=== PATIENT | female | born 1970 | race African-American/Black ===

== ENCOUNTER 2016-05-11 05:38 | Inpatient (IN) ==
--- NOTE | 2016-05-11 06:15 | Emergency Department Note ---
IDee Dee Emily, am scribing for, and in the presence of, Luis Crawford MD 06: 07. Ty Porter Robert M, MD, personally performed the services described in this documentation, ascribed by Darcy Funez in my presence, and it is both accurate and complete 615 . Arrival - Arrival ED Nursing Triage Note: Pt tx from [facility] with c/o weakness, NSTEMI, UTI. Elevated trop 0.147, bnp 759, WBC 13. Positive for strep. Pt rec'd 325 ASA , LOVENOX 150. PMH HTN Mode of Arrival: Stretcher Limitations: No Limitations Source: Patient - History of Present Illness Onset (ago): hour(s) Consistency: constant Severity: mild Severity scale (1-10): 3 Quality: other (weakness) <Luis Crawford - Last Filed: 05/11/16 06:15> <Bacilio Garcia - Last Filed: 05/11/16 07:30> - Arrival Chief Complaint: Weakness - History of Present Illness HPI Narrative: Pt is a 45 y/o female who was transferred from [facility] to ED for further evaluation of elevated trop 0.147, BNP 759 and WBC 13 earlier today, along with strep test positive. Pt c/o weakness and mild swelling in lower extremities but denies chest pain, SOB, or any other pains. Pt was treated for strep at [facility]. PMHx HTN. Pt reports she can still walk. (Darcy Funez) Pt is a 45 y/o female who was transferred from [facility] to ED for further evaluation of elevated trop 0.147, BNP 759 and WBC 13 earlier today, along with strep test positive. Pt c/o weakness and mild swelling in lower extremities but denies chest pain, SOB, or any other pains. Pt was treated for strep at [facility]. PMHx HTN. Pt reports she can still walk. (Luis Crawford) Review of System - Review of System 12 point system: reviewed and no additional remarkable complaints except as stated - Review of System Constitutional: Present: weakness. Absent: chills, fever Respiratory: Absent: respiratory distress Cardiovascular: Absent: chest pain, syncope Gastrointestinal: Absent: abdominal pain, nausea, vomiting Musculoskeletal: Absent: arm pain, back pain, leg pain, neck pain Skin: Absent: rash Neurological: Absent: headache <Luis Crawford - Last Filed: 05/11/16 06:15> Medical,Surgical,& Family Hx - Medical History Cardio: History of: Hypertension - Social History Smoking Status: Unknown if ever smoked Frequency of Alcohol Use: Unknown Type of Drug Use: Unknown <Luis Crawford - Last Filed: 05/11/16 06:15> Exam - General General appearance: alert, in no apparent distress, obese (morbidly) - Head Head exam: Present: atraumatic, normocephalic - Eye Eye exam: Present: PERRL, EOMI - ENT ENT exam: Present: mucous membranes moist. Absent: mucous membranes dry - Neck Neck exam: Present: full ROM. Absent: tenderness - Chest Chest inspection: Present: symmetric chest wall rise. Absent: tenderness - Respiratory Respiratory exam: Present: normal lung sounds bilaterally. Absent: respiratory distress - Cardiovascular Cardiovascular exam: Present: murmur (2 out of 6 diastolic over the mitral valve ) - Abdominal Exam Abdominal exam: Present: soft. Absent: distention, tenderness - Extremities Exam Extremities exam: Present: full ROM. Absent: tenderness, pedal edema - Neurological Exam Neurological exam: Present: alert, oriented X3, CN II-XII intact. Absent: motor sensory deficit - Psychiatric Psychiatric exam: Present: normal affect, normal mood - Skin Skin exam: Present: warm, dry <Luis Crawford - Last Filed: 05/11/16 06:15> Vital Signs: Vital Signs Temperature 97.1 F L 05/11/16 05:45 Pulse Rate 105 H 05/11/16 05:45 Respiratory Rate 24 05/11/16 05:45 Blood Pressure 151/79 05/11/16 05:45 O2 Sat by Pulse Oximetry 90 L 05/11/16 05:45 Course <TyLuis Smiley - Last Filed: 05/11/16 06:15> - Consultations Time: 07:30 <Bacilio Garcia - Last Filed: 05/11/16 07:30> - Consultations Consultation #1: Discussed with hospitalist. Patient will be seen in the emergency department. ( Bcailio Garcia) Results <Luis Crawford - Last Filed: 05/11/16 06:15> - Labs Lab Results: I have reviewed the patients labs - EKG EKG results: interpreted by ERMD <Bacilio Garcia - Last Filed: 05/11/16 07:30> - Labs Labs: Laboratory Tests 05/11/16 06:14 Troponin I 0.154 H (Bacilio Garcia) - Impressions Sinus tachycardia with a rate of 100, left atrial enlargement, right axis deviation, nonspecific ST-T wave changes. (Bacilio Garcia) Disposition <Luis Crawford - Last Filed: 05/11/16 06:15> Case discussed with: patient Time of Disposition: 07:30 <Bacilio Garcia - Last Filed: 05/11/16 07:30> Clinical Impression: Elevated troponin, Morbid obesity Disposition: Still a Patient Condition: Stable
[2016-05-11 07:15] LABS: Troponin I Only 0.154 NG/ML (0.00-0.045)
[2016-05-11 08:57] LABS: Free T4 (Free Thyroxine) 1.29 NG/DL (0.76-1.46); Magnesium 2.6 MG/DL (1.8-2.4); Phosphorous 3.8 MG/DL (2.5-4.9); T4 (Thyroxine) 7.8 UG/DL (4.7-13.3); Thyroid Stimulating Hormone 5.29 uIU/ml (0.358-3.74)
--- NOTE | 2016-05-11 08:58 | CT Report ---
History is dyspnea and chest pain Axial images obtained with 2-D multiplanar reconstruction images also stored and interpreted 100 cc Omnipaque 350 utilized This study is nondiagnostic for pulmonary emboli. There is a large amount of streak artifact and poor [id number]-pk-pctai ratio related to body habitus with loss of the contrast bolus and motion artifact also limiting visualization. Relative low density at the lower lobe branches is most likely artifactual however significant pulmonary emboli could easily be obscured. No central emboli are identified. The cardiac silhouette is moderate to severely enlarged. No enlarged mediastinal or hilar nodes seen. Nonspecific up to 1.2 cm axillary nodes present. No significant pleural effusions present There is ascites in the visualized upper abdomen. Minimal patchy opacities at the left lung base most likely atelectasis. There may be some minimal groundglass seen interstitial opacities bilaterally. Impression: 1. The study is nondiagnostic for pulmonary embolus 2. Moderate to severe cardiomegaly 3. Question of mild diffuse pulmonary edema 4. Ascites 5. Minimal parenchymal opacities in left lung base most likely atelectasis The CT exam was performed using one or more of the following dose reduction techniques: Automated exposure control, adjustment of the mA and/or kV according to patient size, or use of iterative reconstruction technique. PROCEDURE INTERPRETED AT [facility] DEPARTMENT OF RADIOLOGY Final Report Signed by: Dr. Florence Juarez
--- NOTE | 2016-05-11 09:09 | Ultrasound Report ---
History is weakness and chest pain Grayscale, spectral Doppler, and color flow analysis performed and interpreted Visualization is mildly limited due to by patient condition There is a minimal amount of the soft plaque in the proximal internal carotid arteries Maximum systolic velocities are 85 in the right and 120 on the left Peak systolic ratios of 0.8 on the right and 1.8 on the left There is antegrade flow in both vertebral arteries Impression: Minimal amount of plaque with less than 50% diameter stenoses bilaterally by NASCET criteria PROCEDURE INTERPRETED AT [facility] DEPARTMENT OF RADIOLOGY Final Report Signed by: Dr. Florence Juarez
[2016-05-11 09:33] LABS: Hemoglobin 11.1 GM/DL (12.0-16.0); Mean Corpuscular Hemoglobin 20 PG (27-34); Red Blood Count 5.53 MC/CUMM (3.8-5.5)
[2016-05-11] MEDS ORDERED: POTASSIUM CHLORIDE 20 MEQ TABLET PO PRN ×2 (09:35)
[2016-05-11] MEDS ORDERED: MAGNESIUM SULF RIDER 4 GM in PREMIX 1 EACH IV PRN (09:35)
[2016-05-11] MEDS ORDERED: MAGNESIUM SULF RIDER 2 GM in PREMIX 1 EACH IV PRN (09:35)
--- NOTE | 2016-05-11 09:37 | EKG Report ---
Stationary ECG Study [facility] ER Test Date: 05/11/2016 5:47:03 AM Pat Name: COLTON ENG Department: Room: 117 Gender: F Photo Retoucher: : 1970 Requested by: Bacilio Melo Order Number: [id number] Reading MD: DIANNE ALEJO Intervals [place] Rate: 100 P: 40 TX: 207 QRS: 101 QRSD: 82 T: -11 QT: 374 QTc: 431 Interpretive Statements SINUS TACHYCARDIA LEFT ATRIAL ABNORMALITY RIGHT AXIS DEVIATION LOW VOLTAGE TRACING Electronically Signed On 05-12-16 17:21:37 CDT by DIANNE ALEJO [email or web address]
[2016-05-11 09:38] LABS: Basophils # 0.1 10*3/uL (0.0-0.2); Basophils % 0.4 % (0.0-0.8); Eosinophils # 0.1 10*3/uL (0.0-0.87); Eosinophils % 0.6 % (0.00-10.9); Hematocrit 40.2 VOL% (35.7-47.0); Immature Granulocytes % 0.5 %; Immature Granulocytes Absolute 0.06 #; Lymphocytes # 0.9 10*3/uL (1.4-4.0); Lymphocytes % 6.9 % (21.3-54.2); Mean Corpuscular HGB Conc 27.6 GM/DL (32-36); Mean Corpuscular Volume 72.7 FL (87-102); Mean Platelet Volume 9.1 FL (9.6-12.0); Monocytes # 1.2 10*3/uL (0.11-0.8); Monocytes % 9.4 % (1.7-12.7); Neutrophils # 10.3 10*3/uL (1.4-7.4); Neutrophils % 82.2 % (38.7-73.9); Platelet Count 468 T/CUMM (130-400); Red Cell Distribution Width 20.3 % (9.3-17.3); White Blood Count 12.6 T/CUMM (4-12)
--- NOTE | 2016-05-11 09:46 | Hospitalist History & Physical ---
Assessment and Plan (1) Elevated troponin Status: Acute Assessment and plan: We will admit to r/o [place]. We will perform a complete cardiology work-up. Will obtain serial troponin's x3. Will also obatin CTA of chest to r/o pulmonary embolism. Will obtain CBC, CMP, MG, PHOS, Thyroid and lipid panel, and HGA1C in AM. Will obtain CXR in AM. Current Visit: Yes (2) Strep throat Status: Acute Assessment and plan: We will start Clindamycin 600 mg IV every 6 hours . Current Visit: Yes History of Present Illness Chief complaint: chest pain History of present illness: This is a rather unfortunate 45 year-old -[place] female that presents to the ED as a lateral transfer from [facility] for chest pain. She has a rather impressive medical history of hypertension, morbid obesity, and congestive heart failure. She presented to the ED at [facility] this morning for symptoms she described as "cold symptoms". She was evaluated and was noted to have a positive rapid strep screening, BNP of 759 and grossly moderately elevated troponin level at 0.147. She was then transferred to [facility] for continuation of care. She was evaluated was noted to have a troponin level at the time of admission of 1.54. Due to the gross elevation in her troponin level and the complexity of her co-morbidities; she will be admitted to the telemetry unit for continuation of care. Home Medications Medication Instructions Recorded Confirmed Type Unable To Obtain [Unable to Obtain] 05/11/16 05/11/16 History Allergies Allergy/AdvReac Type Severity Reaction Status Date / Time No Known Allergies Allergy Verified 05/11/16 09:03 Medical,Surgical,& Family Hx - Medical History Cardio: History of: Hypertension - Social History Smoking Status: Never smoker Frequency of Alcohol Use: None Type of Drug Use: None Marital Status: Single Lives With:: Alone Functional capacity: independent ambulation - Constitutional Constitutional: Present: chills, fatigue, fever(s), malaise, weakness. Absent: frequent falls, headache(s), increased appetite, night sweats, weight gain, weight loss - EENT Eyes: Absent: diplopia, loss of vision Ears: Absent: decreased hearing, ear discharge, ear pain Nose, mouth and throat: Present: nasal congestion, sinus pressure. Absent: dysphagia, epistaxis, lip swelling, neck mass, neck pain, sore throat, vertigo - Cardiovascular Cardiovascular: Present: chest pain at rest, chest pain with activity, dyspnea, dyspnea on exertion, edema, orthopnea. Absent: lightheadedness, palpitations - Respiratory Respiratory: Present: cough, dyspnea, dyspnea on exertion - Gastrointestinal Gastrointestinal: Absent: abdominal pain, change in bowel habits, constipation, cramping, diarrhea, heartburn, melena, nausea, vomiting, jaundice - Genitourinary Genitourinary: Present: menorrhagia. Absent: dysuria, flank pain, hematuria, vaginal discharge - Musculoskeletal Musculoskeletal: Present: muscle weakness - Neurological Neurological: Absent: abnormal gait, abnormal speech, confusion, memory loss, syncope - Psychiatric Psychiatric: Absent: anxiety, confusion, depression, difficulty concentrating, homicidal ideation, suicidal ideation - Endocrine Endocrine: Absent: cold intolerance, fatigue, polydipsia, polyphagia, polyuria - Hematologic/Lymphatic Hematologic/Lymphatic: Absent: easy bleeding, easy bruising, lymphadenopathy Exam - Constitutional Vitals: Period Temp Pulse Resp BP Sys/Watts Pulse Ox Last 24 Hr 97.8 F 90-103 18-20 112-132/75-83 96-98 General appearance: mild distress, over weight, morbidly obese - Head Head exam: Present: normal inspection, normocephalic, atraumatic - Eye Eye exam: Present: EOMI. Absent: periorbital swelling, scleral icterus, laceration to eyelids Pupils: Present: BRIAN, normal accommodation - ENT ENT exam: Present: normal exam - Neck Neck exam: Present: normal inspection. Absent: lymphadenopathy, meningismus, tenderness, thyromegaly - Respiratory Respiratory exam: Present: accessory muscle use, decreased breath sounds - GI/Abdominal GI/Abdominal exam: Present: normal bowel sounds (obese), firm - Extremities Exam Extremities exam: Present: edema (+ 3 to lower extremties) - Neurological Exam Neurological exam: Present: alert, oriented X3 - Psychiatric Psychiatric exam: Present: normal affect - Skin Skin exam: Present: normal color, warm, dry Results - Labs CBC & BMP: 05/11/16 09:18 Lab Results: I have reviewed the past 24 hour labs
[2016-05-11 10:01] LABS: Hypochromasia 1+; Microcytosis 1+; Ovalocytes Few; Tear Drop Cells Few
[2016-05-11 10:02] LABS: Platelet Estimate Increased; Polychromasia Slight
[2016-05-11 10:30] LABS: Risk Ratio 2.86; VLDL CHOLESTEROL 15.2 MG/DL
[2016-05-11] MEDS: FAMOTIDINE 20 MG TABLET PO SCH ×2 (10:54→20:44)
[2016-05-11] MEDS: ENOXAPARIN 40 MG/0.4 ML SYRINGE SUBCUT SCH (10:54)
[2016-05-11] MEDS: FUROSEMIDE 40 MG/4 ML VIAL IV SCH ×2 (10:55→18:17)
[2016-05-11] MEDS: SODIUM CHLORIDE 0.45% 1,000 ML IV SCH (10:55)
--- NOTE | 2016-05-11 11:31 | ECHO Report ---
June Exam Date: 05/11/2016 09:26 Referring Physician: Technologist: Alma Rosa Trujillo RDCS Age: 45 Ht (in): 67 Wt (lb): 500 Gender: F Exam Location: [facility] Echo Indications: Chest pain, unspecified, Weakness, Non-ST elevation (NSTEMI) myocardial infarction, UTI, Strep positive, Elevated troponin, Essential (primary) hypertension, Morbid (severe) obesity due to excess calories BP: 151 / 79 HR: 100 Rhythm: Sinus tachycardia Technical Quality: Technically difficult study IMPRESSIONS Left ventricular ejection fraction is estimated at 65 %. There is no clear regional wall motion abnormality is very limited endocardial resolution due to body habitus. Diastolic parameters are indeterminate. Tricuspid regurgitation velocities suggest a RVSP of 79 mmHg plus the right atrial pressure (severe pulmonary hypertension) Biatrial enlargement MEASUREMENTS (Male / Female) Normal Values 2D ECHO LV Diastolic Diameter PLAX 4.6 cm 4.2 - 5.9 / 3.9 - 5.3 cm LV Systolic Diameter PLAX 2.3 cm LV Fractional Shortening PLAX 49.7 % IVS Diastolic Thickness 0.9 cm 0.6 - 1.0 / 0.6 - 0.9 cm LVPW Diastolic Thickness 1.0 cm 0.6 - 1.0 / 0.6 - 0.9 cm RV Internal Dim ED PLAX 4.0 cm Aortic Root Diameter 3.3 cm LA Systolic Diameter LX 4.6 cm 3.0 - 4.0 / 2.7 - 3.8 cm DOPPLER TR Peak Velocity 444.0 cm/s TR Peak Gradient 78.9 mmHg FINDINGS Left Ventricle Normal left ventricular cavity size. Normal left ventricular wall thickness. Left ventricular ejection fraction is estimated at 65 %. There is no clear regional wall motion abnormality is very limited endocardial resolution due to body habitus. The patient weighs 500 pounds. Diastolic parameters are indeterminate Right Ventricle The right ventricle is normal in size and function. Right Atrium Moderately increased right atrial size. Left Atrium Moderately increased left atrial size. Mitral Valve Morphologically normal mitral valve. Trace mitral valve regurgitation. Aortic Valve Aortic valve sclerosis without stenosis or regurgitation. Tricuspid Valve Morphologically normal tricuspid valve. Moderate tricuspid valve regurgitation. Tricuspid regurgitation velocities suggest a RVSP of 79 mmHg plus. Pulmonic Valve Morphologically normal pulmonic valve without significant stenosis. There is no pulmonic regurgitation. Pericardium Normal pericardium without effusion. Aorta Normal ascending aorta dimension. Megan Zepeda (Electronically Signed) Final Date: 11 May 2016 11:05
[2016-05-11 14:25] LABS: ABG Base Excess 6.7 MMOL/L (-2.5-2.5); ABG HCO3 35.3 MMOL/L (20-26); ABG Oxygen Saturation 95.5 % (95-100); ABG PH 7.305 (7.35-7.45); ABG PO2 82.3 MM HG (80-95); ABG TCO2 37.5 MMOL/L (23-27)
[2016-05-11 14:26] LABS: ABG PCO2 72.5 MM HG (35-48)
[2016-05-11] MEDS: CLINDAMYCIN INJ 900 MG in PREMIX 1 EACH IV SCH ×2 (15:12→22:08)
--- NOTE | 2016-05-11 15:22 | EKG Report ---
Stationary ECG Study [facility] Test Date: 05/11/2016 3:18:48 PM Pat Name: COLTON ENG Department: Room: 117 Gender: F Cardiac Rehabilitation Specialist: AMPARO : 1970 Requested by: Pablo Johnson Order Number: [id number] Reading MD: DIANNE ALEJO Intervals [place] Rate: 105 P: 42 CT: 175 QRS: 106 QRSD: 98 T: 13 QT: 358 QTc: 419 Interpretive Statements SINUS TACHYCARDIA LEFT ATRIAL ABNORMALITY RIGHT AXIS DEVIATION INCOMPLETE RIGHT BUNDLE BRANCH BLOCK NONSPECIFIC T-WAVE ABNORMALITY Electronically Signed On 05-11-16 20:16:51 CDT by DIANNE ALEJO [email or web address]
--- NOTE | 2016-05-11 15:22 | EKG Report ---
Stationary ECG Study [facility] Test Date: 05/11/2016 1:37:31 PM Pat Name: COLTON ENG Department: Room: 117 Gender: F Social Insurance Analyst: AMPARO : 1970 Requested by: Pablo Johnson Order Number: [id number] [place] MD: DIANNE ALEJO Intervals [place] Rate: 96 P: 45 AK: 173 QRS: 83 QRSD: 94 T: -11 QT: 366 QTc: 420 Interpretive Statements SINUS RHYTHM LEFT ATRIAL ABNORMALITY INCOMPLETE RIGHT BUNDLE BRANCH BLOCK Electronically Signed On 05-11-16 20:13:05 CDT by DIANNE ALEJO [email or web address]
[2016-05-11] MEDS ORDERED: NIFEdipine 10 MG CAPSULE PO PRN (18:18)
[2016-05-11] MEDS: cloNIDine 0.1 MG TABLET PO SCH (20:44)
[2016-05-11] MEDS ORDERED: ONDANSETRON 4 MG/2 ML VIAL ONE (21:51)
[2016-05-11] MEDS: ONDANSETRON 4 MG/2 ML VIAL IV PRN (22:13)
[2016-05-12 02:21] LABS: ABG Base Excess 3.7 MMOL/L (-2.5-2.5); ABG HCO3 27.4 MMOL/L (20-26); ABG Oxygen Saturation 82.4 % (95-100); ABG PH 7.216 (7.35-7.45); ABG PO2 55.2 MM HG (80-95); ABG TCO2 31.9 MMOL/L (23-27); Allen Test Positive; Pt O2 Delivery Device BIPAP
[2016-05-12 02:22] LABS: ABG PCO2 85.3 MM HG (35-48)
[2016-05-12] MEDS: CLINDAMYCIN INJ 900 MG in PREMIX 1 EACH IV SCH ×3 (04:16→20:43)
[2016-05-12 06:21] LABS: ABG Base Excess 4.1 MMOL/L (-2.5-2.5); ABG HCO3 27.8 MMOL/L (20-26); ABG Oxygen Saturation 84.9 % (95-100); ABG PO2 59.2 MM HG (80-95); ABG TCO2 34.2 MMOL/L (23-27); Allen Test Positive; Pt O2 Delivery Device BIPAP
[2016-05-12 06:22] LABS: ABG PH 7.168 (7.35-7.45)
[2016-05-12] MEDS ORDERED: ETOMIDATE 20 MG/10 ML VIAL IV ONE (06:45)
[2016-05-12] MEDS ORDERED: SUCCINYLCHOLINE 200 MG/10 ML VIAL ONE (06:45)
[2016-05-12] MEDS ORDERED: SUCCINYLCHOLINE 200 MG/10 ML VIAL IV ONE (07:10)
[2016-05-12] MEDS ORDERED: PROPOFOL 1,000 MG/100 ML BOTTLE IV ONE (07:14)
[2016-05-12] MEDS: PROPOFOL 1,000 MG/100 ML BOTTLE IV SCH ×9 (07:20→21:34)
[2016-05-12 07:30] LABS: Calcium 8.1 MG/DL (8.5-10.1); Magnesium 2.6 MG/DL (1.8-2.4); Osmolality,Calculated 278.4 MOS/KG (273-304)
--- NOTE | 2016-05-12 07:53 | Hospitalist Progress Note ---
Assessment and Plan (1) Acute and chronic respiratory failure with hypercapnia Status: Acute Assessment and plan: Mrs. Ho is now intubated. We will obtain pulmonary consultation for further management of cor pulmonale. Echocardiogram is pending. CT angiogram of the chest revealed dilated cardiomyopathy. Current Visit: Yes (2) Obesity hypoventilation syndrome Status: Acute Current Visit: Yes (3) Morbid obesity Status: Acute Current Visit: Yes Qualifiers: Obesity type: due to excess calories Qualified Code(s): E66.01 - Morbid ( severe) obesity due to excess calories Hospitalist: Subjective Interval history: Procedure note: Airway intubation and initiation of mechanical ventilation. The patient had progressive hypercarbia despite appropriate attempts to ventilate with noninvasive ventilation including BiPAP. The patient became progressively acidotic due to respiratory failure. The patient has acute on chronic respiratory failure secondary to obesity hypoventilation syndrome. The patient was prepared for intubation and then induction was given with 50 mg succinylcholine and 10 cc Diprivan. [place] scope was used to visualize the vocal cords and a 7.5 endotracheal tube was placed through the vocal cords. Position was confirmed via auscultation and carbon dioxide detector. Initial ventilator settings were ordered and the patient's oxygenation remains appropriate. The patient had progressive hypercarbia through the night time. Dr. Wong managed her with BiPAP through the night. We coordinate care this morning and it was apparent that she needed mechanical ventilation. The patient was not complaining of any angina or sputum production prior to intubation. Exam - Constitutional Vitals: Period Temp Pulse Resp BP Sys/Watts Pulse Ox Last 24 Hr 97.7 F-98.3 F 90-119 14-36 112-173/71-131 80-100 Exam: Constitutional System: No distress. No tremulousness. Now orally intubated and mechanically ventilated. The patient is sedated with Diprivan Head: Normocephalic, atraumatic. Ears, Nose and Throat System: No evidence of Otitis or Mastoiditis. No epistaxis or discharge Eyes System: Pupils equal, round, and reactive. Extraocular muscles intact. Neck: Supple, without adenopathy, No jugular venous distention. No thyromegaly , neck mass, or prior surgery apparent. Respiratory System: The patient's abdomen is morbidly obese and presses down on the chest wall. Chest with minimal wheezing to auscultation. Cardiovascular System: Heart with regular rate and rhythm. No murmur. GI System: Abdomen distended, morbidly obese, nontender. Hypo-active bowel sounds present. Musculoskeletal System: limbs with 1+ pedal edema. Full distal pulses. Neurological System: No discernable sensory deficit. Results - Labs CBC & BMP: 05/11/16 09:18 05/12/16 06:49 Lab Results: I have reviewed the past 24 hour labs
[2016-05-12 08:40] LABS: ABG Base Excess 4.9 MMOL/L (-2.5-2.5); ABG HCO3 28.8 MMOL/L (20-26); ABG Oxygen Saturation 99.9 % (95-100); ABG PH 7.343 (7.35-7.45); ABG TCO2 29.2 MMOL/L (23-27)
--- NOTE | 2016-05-12 08:45 | XRay Report ---
Single view of the chest. Indication: Tube placement. Comparison: May 11, 2016. The heart is enlarged. An endotracheal tube has been placed. Its distal tip is 17 mm above the edgar. A nasogastric tube has also been placed. Its distal tip is not seen. The pulmonary vasculature is prominent. There is abnormal opacity in the left lung base which may represent atelectasis or infiltrate. Impression: Cardiomegaly and venous congestion. Increasing left basilar opacities. Endotracheal tube placement, 17 mm above the edgar. The distal tip of the nasogastric tube is not seen. PROCEDURE INTERPRETED AT [facility] DEPARTMENT OF RADIOLOGY Final Report Signed by: Dr. Poonam Juarez
[2016-05-12] MEDS: ENOXAPARIN 40 MG/0.4 ML SYRINGE SUBCUT SCH (09:26)
[2016-05-12] MEDS: amLODIPine 10 MG TABLET PO SCH ×2 (09:26→09:45)
[2016-05-12] MEDS: cloNIDine 0.1 MG TABLET PO SCH ×3 (09:26→20:43)
[2016-05-12] MEDS: LISINOPRIL 20 MG TABLET PO SCH ×2 (09:26→09:45)
[2016-05-12] MEDS: FAMOTIDINE 20 MG TABLET PO SCH ×2 (09:26→20:43)
[2016-05-12] MEDS: FUROSEMIDE 40 MG/4 ML VIAL IV SCH ×2 (09:27→16:39)
--- NOTE | 2016-05-12 10:17 | Pulmonology Consult Note ---
History of Present Illness Chief complaint: Mechanical ventilation. Probable pickwickian syndrome History of present illness: Ms. Ho is a 45 year old 501 pound black female female whom I been asked to see in pulmonary consultation for management of her pulmonary status and management of her mechanical ventilation. This patient was sent here from [facility] for chest pain. She has gone to the emergency room for what she described as "cold symptoms". She had a positive rapid strep screen. Her BNP was elevated 759. Troponins were up at 0.147. She was then transferred [facility]. At the time of admission her troponins had increased to 1.54. She had respiratory distress. Her ABGs on unknown FiO2 showed a pH of 7.305. PCO2 was 72.5. PO2 was 82.3. Bicarb is 35.3. Patient required intubation mechanical ventilation. Subsequent blood gases showed PCO2 of 85.3 and a PCO2 of 101.0. PH gradually dropped to 7.168. Changes were made in her ventilator at the present time 8:41 AM on 05/12/2016 on mechanical ventilation with an FiO2 of 60% her pH is 7.34, PCO2 is 59.0, PO2 is 248 and bicarb is 28.8 This patient sedated and I cannot get a review of systems from her. Early on she did tell the staff that she is able to get up and move around at home. The remainder of the review of systems is negative. Allergies. None known Home medicines. Not available but the patient says she takes 3 medicines for high blood pressure Past history high blood pressure. Social history. This patient is not she lives alone. She says she has never used alcohol or tobacco Family history. Positive high blood pressure There are no old records in the [place] system. Her chest x-ray shows cardiomegaly. There is some engorgement of vasculature in both hilar areas. There is slight increase perihilar interstitial and markings.. There are no infiltrates. I see no air under the diaphragm. I do not see a pneumothorax. I have reviewed this patient's CT scan of the chest. There are no obvious pulmonary emboli. There is a minor amount of fluid in the major fissures bilaterally. I do not see any significant free pleural effusion. I see nothing to make me think this patient has severe heart failure and I do not see anything to make me think she has pneumonia. The reading noted ascites which I cannot comment on. Lab. Present on nitrated peptide is 146. Troponin is 0.158. TSH is mildly elevated at 5.290. Free T4 is normal at 1.29. White count is 12,600 with 82 segs 7 lymphs and 9 monocytes H&H 11.1/40.2 with decrease indices and elevated red blood cell distribution with. Platelets are 468,000 with a decreased mean platelet volume. Sodium potassium chloride are normal magnesium is 2.6. Calcium is low at 8.1. Creatinine is 1.0. BUN is 12. Hemoglobin A1c is 6.5 Physical exam. 5 feet 7 inches tall. Weighs 501 pounds. Vital signs. See below Neurologic. Patient is sedated. Staff says her cranial nerves are intact and she moves all 4 extremities. Pupils irises sclera conjunctiva eyelids are normal. Face is symmetrical. Lips and tongue are normal. Neck. Short and thick. No meningismus. Thyroid was not palpated. Lymphatics. No submandibular cervical supraclavicular or epitrochlear adenopathy. Chest. Clear breath sounds. Heart. Heart sounds are distant. I cannot hear murmur rub or gallop. Breasts. Deferred Abdomen. Massively obese. Rare bowel sounds. No organs can be palpated. The abdominal panniculus extends to the patient's knees. Lower extremities. Chronic venous stasis. Arterial. Carotids are faintly palpable. Upper extremities pulses are palpable. Lower extremity pulses are nonpalpable. No evidence of lower extremity ischemia Venous exam. Neck and upper extremities appear to be normal. Chronic venous stasis of the lower extremities. The remainder the exam is noncontributory. Impression. 1. Acute upper respiratory Streptococcus infection. Watch for pneumonia. 2. Acute respiratory failure for oxygen and carbon dioxide. I suspect this is superimposed on chronic respiratory failure for oxygen and carbon dioxide. This patient is massively obese with hypertension. Her H&H is normal but her indices are low suggest another underlying problem. This is probably a pickwickian syndrome. 3. Morbid obesity 4. High blood pressure 5. Abnormal red blood cell indices. Look for iron deficiency as well as B12 and folic acid abnormalities and look for reticulocytosis. 6. Chronic lower extremity venous stasis. Look for deep venous thrombophlebitis Plan. 1. Mechanical ventilator weaning protocol. 2. Mechanical ventilator physical therapy protocol. 3. Deep venous thrombophlebitis prevention protocol. 4. Proton pump inhibitor protocol. 5. Rose catheter protocol. 6. Daily chest x-ray, ABGs and lab 7. I agree with Cleocin for Streptococcus infection. Will add Levaquin for a little broader coverage. 8. Diamox 250 mg IV push every 12 hours. 9. I suspect this patient is a CO2 retainer. We will begin to wean her I will have to decrease her FiO2. She will probably be extremely hard to wean and could require a trach. 10. See orders. Home Medications Medication Instructions Recorded Confirmed Type Lisinopril 40 mg PO DAILY 05/11/16 05/11/16 History amLODIPine [Norvasc] 10 mg PO DAILY 05/11/16 05/11/16 History cloNIDine TAB [Catapres Tab] 0.1 mg PO BID 05/11/16 05/11/16 History hydroCHLOROthiazide 12.5 mg PO DAILY 05/11/16 05/11/16 History [Hydrochlorothiazide] Allergies Allergy/AdvReac Type Severity Reaction Status Date / Time No Known Allergies Allergy Verified 05/11/16 09:03 Exam (Pulmonay) H&P - Constitutional Vitals: Period Temp Pulse Resp BP Sys/Watts Pulse Ox Last 24 Hr 97.7 F-98.3 F 97-119 14-36 119-173/71-131 80-100 Medical,Surgical,& Family Hx - Medical History Cardio: History of: Hypertension - Social History Smoking Status: Never smoker Frequency of Alcohol Use: None Type of Drug Use: None Results - Labs CBC & BMP: 05/11/16 09:18 05/12/16 06:49
[2016-05-12] MEDS: SODIUM CHLORIDE 0.45% 1,000 ML IV SCH (10:41)
[2016-05-12 10:47] LABS: % Iron Saturation 16.3 % (18-50)
[2016-05-12] MEDS: LEVOFLOXACIN INJ 500 MG in PREMIX 1 EACH IV SCH (11:15)
[2016-05-12 11:17] LABS: Folate 5.1 NG/ML (5.4-24.0)
--- NOTE | 2016-05-12 12:05 | Ultrasound Report ---
Bilateral lower extremity venous Doppler with bhagat scale, Spectral Doppler and color-flow analysis performed and interpreted. Indication: Venous stasis. Shortness of breath. Scanning over both common femoral veins, superficial femoral veins, greater saphenous veins and popliteal veins demonstrates normal compressibility, color flow, and augmentation. Impression: No evidence of DVT seen in either lower extremity. PROCEDURE INTERPRETED AT [facility] DEPARTMENT OF RADIOLOGY Final Report Signed by: Dr. Poonam Juarez
[2016-05-12] MEDS: ALBUTEROL/IPRATROPIUM 3 ML NEB RESP TX SCH ×2 (13:50→19:58)
[2016-05-12] MEDS: DESITIN 4OZ/NYSTATIN 15 GRAM MIXTURE PASTE TOP SCH ×2 (15:45→20:44)
[2016-05-13] MEDS: PROPOFOL 1,000 MG/100 ML BOTTLE IV SCH ×10 (00:09→23:20)
[2016-05-13] MEDS: ALBUTEROL/IPRATROPIUM 3 ML NEB RESP TX SCH ×4 (01:10→18:38)
[2016-05-13 03:28] LABS: Allen Test Positive; Pt O2 Delivery Device Ventilator
[2016-05-13 03:30] LABS: ABG Base Excess 7.7 MMOL/L (-2.5-2.5); ABG HCO3 31.5 MMOL/L (20-26); ABG Oxygen Saturation 99.7 % (95-100); ABG PCO2 34.7 MM HG (35-48); ABG TCO2 27.5 MMOL/L (23-27)
[2016-05-13] MEDS: CLINDAMYCIN INJ 900 MG in PREMIX 1 EACH IV SCH ×3 (04:40→20:51)
[2016-05-13 05:45] LABS: Basophils # 0.1 10*3/uL (0.0-0.2); Basophils % 0.4 % (0.0-0.8); Eosinophils # 0.2 10*3/uL (0.0-0.87); Hematocrit 32.7 VOL% (35.7-47.0); Hemoglobin 9.6 GM/DL (12.0-16.0); Immature Granulocytes % 0.8 %; Immature Granulocytes Absolute 0.09 #; Lymphocytes # 1.6 10*3/uL (1.4-4.0); Lymphocytes % 13.9 % (21.3-54.2); Mean Corpuscular HGB Conc 29.4 GM/DL (32-36); Mean Corpuscular Hemoglobin 20 PG (27-34); Mean Corpuscular Volume 67.8 FL (87-102); Mean Platelet Volume 9.4 FL (9.6-12.0); Monocytes # 1.9 10*3/uL (0.11-0.8); Monocytes % 16.7 % (1.7-12.7); Neutrophils # 7.7 10*3/uL (1.4-7.4); Neutrophils % 66.2 % (38.7-73.9); Platelet Count 379 T/CUMM (130-400); Red Blood Count 4.82 MC/CUMM (3.8-5.5); Red Cell Distribution Width 20.1 % (9.3-17.3); White Blood Count 11.6 T/CUMM (4-12)
[2016-05-13 06:09] LABS: Calcium 7.9 MG/DL (8.5-10.1); Magnesium 2.4 MG/DL (1.8-2.4); Osmolality,Calculated 279.3 MOS/KG (273-304); Potassium 3.7 MMOL/L (3.5-5.1)
[2016-05-13 06:11] LABS: Troponin I Only 0.531 NG/ML (0.00-0.045)
[2016-05-13 06:12] LABS: Eosinophils 2 % (0-10); Hypochromasia 1+; Lymphocytes 16 % (20-55); Macrocytosis 1+; Segmented Neutrophils 70 % (50-85); Total Cells Counted 100
[2016-05-13 06:21] LABS: Platelet Estimate Adequate
[2016-05-13] MEDS: SODIUM CHLORIDE 0.45% 1,000 ML IV SCH (07:00)
--- NOTE | 2016-05-13 07:23 | XRay Report ---
XR chest 1V portable Indication: Intubated. Chest one view: Comparison yesterday. Endotracheal tube, NG tube, cardiomegaly, pulmonary hypoinflation and bibasilar opacities are unchanged with continued total obscuration of left hemidiaphragm. Impression: Given variation in technique, no significant change. PROCEDURE INTERPRETED AT [facility] DEPARTMENT OF RADIOLOGY Final Report Signed by: Trevor Osborn M.D.
[2016-05-13] MEDS: amLODIPine 10 MG TABLET PO SCH (09:00)
[2016-05-13] MEDS: FAMOTIDINE 20 MG TABLET PO SCH ×2 (09:00→20:51)
[2016-05-13] MEDS: LISINOPRIL 20 MG TABLET PO SCH (09:00)
[2016-05-13] MEDS: FUROSEMIDE 40 MG/4 ML VIAL IV SCH (09:00)
[2016-05-13] MEDS: ACETAMINOPHEN 325 MG TABLET PO PRN (09:00)
[2016-05-13] MEDS: cloNIDine 0.1 MG TABLET PO SCH ×2 (09:00→20:51)
[2016-05-13 09:59] LABS: Allen Test Positive; Pt O2 Delivery Device Ventilator
[2016-05-13 10:00] LABS: ABG Base Excess 6.6 MMOL/L (-2.5-2.5); ABG HCO3 30.4 MMOL/L (20-26); ABG Oxygen Saturation 97.5 % (95-100); ABG PCO2 47.3 MM HG (35-48); ABG PH 7.436 (7.35-7.45); ABG PO2 97.6 MM HG (80-95); ABG TCO2 28.6 MMOL/L (23-27)
[2016-05-13] MEDS: LEVOFLOXACIN INJ 500 MG in PREMIX 1 EACH IV SCH (10:00)
[2016-05-13] MEDS: ENOXAPARIN 40 MG/0.4 ML SYRINGE SUBCUT SCH (10:00)
[2016-05-13] MEDS: ONDANSETRON 4 MG/2 ML VIAL IV PRN (10:00)
[2016-05-13] MEDS: FERROUS SULFATE 325 MG TABLET PO SCH ×2 (10:00→20:51)
[2016-05-13] MEDS: FOLIC ACID 0.4 MG TABLET PO SCH (10:00)
--- NOTE | 2016-05-13 10:41 | Hospitalist Progress Note ---
Assessment and Plan (1) Morbid obesity Status: Acute Current Visit: Yes Qualifiers: Obesity type: due to excess calories Qualified Code(s): E66.01 - Morbid ( severe) obesity due to excess calories (2) Strep throat Status: Acute Assessment and plan: Continue clindamycin Current Visit: Yes (3) Obesity hypoventilation syndrome Status: Acute Assessment and plan: Pulmonary managing Current Visit: Yes (4) Acute and chronic respiratory failure with hypercapnia Status: Acute Current Visit: Yes Hospitalist: Subjective Interval history: No acute events overnight. Patient remains intubated, she is alert and able to nod appropriately to questions. Will start tube feeds today. Pulmonary following. Exam - Constitutional Vitals: Period Temp Pulse Resp BP Sys/Watts Pulse Ox Last 24 Hr 97.9 F-98.2 F 55-75 13-21 109-142/59-96 98-100 General appearance: morbidly obese - Head Head exam: Present: normocephalic, atraumatic - Eye Eye exam: Present: EOMI Pupils: Present: BRIAN - ENT ENT exam: Present: normal exam - Neck Neck exam: Present: normal inspection. Absent: tenderness - Respiratory Respiratory exam: Present: clear to auscultation bilaterally. Absent: wheezes - Cardiovascular Cardiovascular exam: Present: regular rate and rhythm - GI/Abdominal GI/Abdominal exam: Present: normal bowel sounds, soft. Absent: tenderness - Extremities Exam Extremities exam: Present: normal inspection - Back Exam Back exam: Present: normal inspection - Neurological Exam Neurological exam: Present: alert - Skin Skin exam: Present: warm, intact Results - Labs CBC & BMP: 05/13/16 05:33 05/13/16 05:33
--- NOTE | 2016-05-13 11:23 | Pulmonology Progress Note ---
Pulmonary - PN: Subj Interval history: Jaden Ramírez, ANP-BC, GNP-BC, acting as scribe for Dr. Marcus Paige Ms. Ho is a 45-year-old -[place] female who we saw in initial pulmonary consultation on 05/12/2016. At that time, our impressions were: 1. Acute upper respiratory Streptococcus infection. Watch for pneumonia. 2. Acute respiratory failure for oxygen and carbon dioxide. I suspect this is superimposed on chronic respiratory failure for oxygen and carbon dioxide. This patient is massively obese with hypertension. Her H&H is normal but her indices are low suggest another underlying problem. This is probably a pickwickian syndrome. 3. Morbid obesity 4. High blood pressure 5. Abnormal red blood cell indices. Look for iron deficiency as well as B12 and folic acid abnormalities and look for reticulocytosis. 6. Chronic lower extremity venous stasis. Look for deep venous thrombophlebitis. 05/13/2016. The patient remains intubated and on mechanical ventilation. This morning, ABGs on mechanical ventilation with an FiO2 of 40% showed a pH of 7.550 , PCO2 34.7, PCO2 158.0, bicarb 31.5, and oxygen saturation 99.7%. We decreased the FiO2 to 30% and decrease the rate to 10 and will repeat ABGs. This patient is anemic with decreased indices and increased red blood cell distribution width. Iron studies were late consistent with iron deficiency anemia. We have taken the liberty of starting ferrous sulfate 325 mg twice daily. Will also check stools for blood 3. Folate is also low at 5.1. She has been started on folic acid 0.8 mg daily. Calcium is low at 7.9. Will check a vitamin D level. Vitamin B12 was normal. The patient's chest x-ray is essentially the same. We will continue the weaning protocol. Medications have been reviewed. We have started Ferrous sulfate and Folic Acid. Labs have been reviewed. White count is 11,600 with 66.2% segs; H&H 9.6/32.7; PLT count 379,000; creatinine increased to 1.30 (IAN), BUN 15, electrolytes are normal. Exam (Progress Note) - Constitutional Vitals: Period Temp Pulse Resp BP Sys/Watts Pulse Ox Last 24 Hr 96.6 F-98.2 F 55-81 12-28 109-145/59-97 98-100 Exam: Chest is clear Heart sounds are distant, but without appreciable murmur, rub, or gallop Abd is massively obese with rare bowel sounds Ext with chronic venous stasis; note, doppler venograms done 05/12/16 were negative Psych/Neuro unchanged Plan: Continue the ventilator weaning protocol. Decrease FIO2 to 30% and decrease rate to 10. Start Ferrous sulfate and Folic acid as above. Stools for blood x 3. Daily CXR and ABGs while on the ventilator. See orders. Results - Labs CBC & BMP: 05/13/16 05:33 05/13/16 05:33
[2016-05-13] MEDS: DESITIN 4OZ/NYSTATIN 15 GRAM MIXTURE PASTE TOP SCH ×2 (13:00→20:51)
--- NOTE | 2016-05-13 16:14 | Post Interventional Procedure ---
Pre-op diagnosis: pneumonia and morbid obesity with no venous access Post-op diagnosis: same Procedure: PICC placement Contrast: none Flouroscopy: 0.2 min Radiologist: Aime Burns Anesthesia: local Specimens: none sent Estimated blood loss: minimal (3 mL) Complications: none Condition: stable Description/Findings: left basilic vein 5 FR dual lumen power picc placed. the catheter is ready for use. Assessment and Plan - Time spent with patient Time spent with patient: Less than 30 minutes
--- NOTE | 2016-05-13 16:17 | Interventional Radiology Rpt ---
IR PICC line insertion, US guide vascular access IR PICC Placement Peripherally-inserted central catheter (PICC) placement using ultrasound and fluoroscopic guidance Ultrasound of the left upper extremity Clinical Information: 45-year-old morbidly obese female with pneumonia and no venous access. PICC line is requested. Physician: Dr. Burns Procedure: The patient was advised of the benefits, risks, and alternatives of the procedure and informed consent was obtained. A time out was performed with verification of the patient's name, MRN, site of procedure, and type of procedure to be performed. The patient was positioned in the supine position on the angiographic table. The site was prepped and draped in the usual sterile fashion. Additionally, maximal sterile barrier technique was employed for the procedure. A moisture machine tender radiograph reveals no relevant abnormality. Ultrasound examination of the left arm demonstrates patent and compressible brachial and basilic veins. The left arm was prepped and draped in the usual sterile fashion. The left basilic vein was again identified. Using ultrasound guidance, a 21 gauge needle was used to access the vein. A permanent ultrasound recording of vascular access was obtained for the patient's record. A 0.018" cope wire was then advanced into the vein. The needle was exchanged for a 5 [place] peel-away sheath. A 5 [place] double lumen Bard Solo PICC catheter was measured and trimmed to the 49 cm jessica. The PICC line was advanced through the sheath and into the central circulation. The catheter tip was positioned at the cavo-atrial junction. The peel-away sheath was then removed. At the conclusion of the procedure, the catheter was secured in place using a Stat-Lock device. A sterile dressing was applied. The lumens aspirate and flush freely. The catheter is ready for immediate use. The patient tolerated the procedure well and was returned to the PRU in stable condition. EBL: < 5 mL. Complications: None. Fluoroscopy time: 0.2 minutes Conclusion: Successful placement of a 5 [place] double lumen Bard Solo power injectable PICC via the left basilic vein. The catheter is ready for immediate use. PROCEDURE INTERPRETED AT [facility] DEPARTMENT OF RADIOLOGY Final Report Signed by: Aime Burns
[2016-05-14] MEDS: ALBUTEROL/IPRATROPIUM 3 ML NEB RESP TX SCH ×5 (00:50→23:55)
[2016-05-14] MEDS: PROPOFOL 1,000 MG/100 ML BOTTLE IV SCH ×6 (01:48→22:10)
[2016-05-14 03:40] LABS: Basophils % 0.4 % (0.0-0.8); Eosinophils # 0.4 10*3/uL (0.0-0.87); Eosinophils % 3.7 % (0.00-10.9); Hematocrit 31.6 VOL% (35.7-47.0); Hemoglobin 9.1 GM/DL (12.0-16.0); Immature Granulocytes % 0.5 %; Immature Granulocytes Absolute 0.05 #; Lymphocytes # 1.3 10*3/uL (1.4-4.0); Lymphocytes % 12.7 % (21.3-54.2); Mean Corpuscular HGB Conc 28.8 GM/DL (32-36); Mean Corpuscular Hemoglobin 20 PG (27-34); Mean Corpuscular Volume 70.2 FL (87-102); Mean Platelet Volume 10.1 FL (9.6-12.0); Monocytes # 1.9 10*3/uL (0.11-0.8); Neutrophils # 6.3 10*3/uL (1.4-7.4); Neutrophils % 63.7 % (38.7-73.9); Platelet Count 333 T/CUMM (130-400); Red Cell Distribution Width 19.9 % (9.3-17.3); White Blood Count 9.9 T/CUMM (4-12)
[2016-05-14 03:45] LABS: Calcium 7.7 MG/DL (8.5-10.1); Magnesium 2.4 MG/DL (1.8-2.4); Osmolality,Calculated 281.3 MOS/KG (273-304); Potassium 3.9 MMOL/L (3.5-5.1)
[2016-05-14 03:50] LABS: Phosphorous 5.7 MG/DL (2.5-4.9); Prealbumin 6.3 MG/DL (20-40)
[2016-05-14 04:08] LABS: ABG Base Excess 5.8 MMOL/L (-2.5-2.5); ABG HCO3 29.7 MMOL/L (20-26); ABG PH 7.344 (7.35-7.45); ABG PO2 97.5 MM HG (80-95); ABG TCO2 30.4 MMOL/L (23-27); Allen Test Positive; Pt O2 Delivery Device Ventilator
[2016-05-14 04:12] LABS: Eosinophils 6 % (0-10); Lymphocytes 10 % (20-55); Segmented Neutrophils 75 % (50-85); Total Cells Counted 100
[2016-05-14 04:14] LABS: Hypochromasia 1+; Platelet Estimate Increased; Target Cells Few
[2016-05-14] MEDS: CLINDAMYCIN INJ 900 MG in PREMIX 1 EACH IV SCH ×3 (05:49→21:09)
--- NOTE | 2016-05-14 07:27 | XRay Report ---
XR chest 1V portable Indication: Intubated. Chest one view: Since yesterday, endotracheal tube, NG tube, cardiomegaly and marked pulmonary hypoinflation is stable. There is continued interstitial prominence of the lungs with obscuration of the left hemidiaphragm. No new opacities. Impression: No significant change. PROCEDURE INTERPRETED AT [facility] DEPARTMENT OF RADIOLOGY Final Report Signed by: Trevor Osborn M.D.
[2016-05-14] MEDS: LISINOPRIL 20 MG TABLET PO SCH (09:20)
[2016-05-14] MEDS: FUROSEMIDE 40 MG/4 ML VIAL IV SCH (09:20)
[2016-05-14] MEDS: FAMOTIDINE 20 MG TABLET PO SCH ×2 (09:20→21:10)
[2016-05-14] MEDS: FERROUS SULFATE 325 MG TABLET PO SCH ×2 (09:20→21:10)
[2016-05-14] MEDS: amLODIPine 10 MG TABLET PO SCH (09:20)
[2016-05-14] MEDS: FOLIC ACID 0.4 MG TABLET PO SCH (09:20)
[2016-05-14] MEDS: cloNIDine 0.1 MG TABLET PO SCH ×2 (09:20→21:09)
[2016-05-14] MEDS: ENOXAPARIN 40 MG/0.4 ML SYRINGE SUBCUT SCH (09:50)
[2016-05-14] MEDS: LEVOFLOXACIN INJ 500 MG in PREMIX 1 EACH IV SCH (09:50)
[2016-05-14] MEDS: [UNRECOGNIZED DRUG - REMARK] TOP PRN (10:30)
[2016-05-14] MEDS: DESITIN 4OZ/NYSTATIN 15 GRAM MIXTURE PASTE TOP SCH ×2 (10:30→21:10)
--- NOTE | 2016-05-14 10:44 | Pulmonology Progress Note ---
Pulmonary - PN: Subj Interval history: Ms. Ho is a 45-year-old -[place]ish female who we saw in initial pulmonary consultation on 05/12/2016. At that time, our impressions were: 1. Acute upper respiratory Streptococcus infection. Watch for pneumonia. 2. Acute respiratory failure for oxygen and carbon dioxide. I suspect this is superimposed on chronic respiratory failure for oxygen and carbon dioxide. This patient is massively obese with hypertension. Her H&H is normal but her indices are low suggest another underlying problem. This is probably a pickwickian syndrome. 3. Morbid obesity 4. High blood pressure 5. Abnormal red blood cell indices. Look for iron deficiency as well as B12 and folic acid abnormalities and look for reticulocytosis. 6. Chronic lower extremity venous stasis. Look for deep venous thrombophlebitis. 05/13/2016. The patient remains intubated and on mechanical ventilation. This morning, ABGs on mechanical ventilation with an FiO2 of 40% showed a pH of 7.550 , PCO2 34.7, PCO2 158.0, bicarb 31.5, and oxygen saturation 99.7%. We decreased the FiO2 to 30% and decrease the rate to 10 and will repeat ABGs. This patient is anemic with decreased indices and increased red blood cell distribution width. Iron studies were late consistent with iron deficiency anemia. We have taken the liberty of starting ferrous sulfate 325 mg twice daily. Will also check stools for blood 3. Folate is also low at 5.1. She has been started on folic acid 0.8 mg daily. Calcium is low at 7.9. Will check a vitamin D level. Vitamin B12 was normal. The patient's chest x-ray is essentially the same. We will continue the weaning protocol. Medications have been reviewed. We have started Ferrous sulfate and Folic Acid. Labs have been reviewed. White count is 11,600 with 66.2% segs; H&H 9.6/32.7; PLT count 379,000; creatinine increased to 1.30 (IAN), BUN 15, electrolytes are normal. 05/14/2016. I am allowing this patient's PCO2 to increase. I am decreasing her FiO2. She is a CO2 retainer. Today's ABGs on FiO2 30% showed pH 7.34, PCO2 61 , PO2 97.5 and bicarbonate 29.7. Electrolytes are normal. CBC is stable white count is dropped to 9900. The patient is low on iron and this is being replaced she has a low vitamin D level and this is being replaced and she has a low folic acid level and this is being replaced. There are no new cultures Echocardiogram. Ejection fraction 65%. Diastolic parameters are indeterminate. Right ventricular systolic pressure is 79 mmHg. Right ventricle is normal size. The left atrium and right atrium are increased in size. There is a trace of mitral regurgitation. Exam (Progress Note) - Constitutional Vitals: Period Temp Pulse Resp BP Sys/Watts Pulse Ox Last 24 Hr 96.6 F-98.2 F 55-81 12-28 109-145/59-97 98-100 Exam: Neurologic arousable. Cranial nerves are intact. Moves all 4 extremities. Neck. Short and thick. No meningismus. Lymphatics. No submandibular cervical supraclavicular adenopathy. Chest. Loose large airway congestion Heart sounds are distant, but without appreciable murmur, rub, or gallop Abd is massively obese with rare bowel sounds Ext with chronic venous stasis; note, doppler venograms done 05/12/16 were negative Psych/Neuro unchanged The remainder the physical exam is noncontributory. It is negative. Plan. 1. Mechanical ventilator weaning protocol. Last CO2 to increase in the low to mid 60s. He is low FiO2's peer 2. Mechanical ventilator physical therapy protocol. 3. Deep venous thrombophlebitis prevention protocol 4. Proton pump inhibitor protocol. 5. Diamox 250 IV push every 12 12 hours per Exam (Progress Note) - Constitutional Vitals: Period Temp Pulse Resp BP Sys/Watts Pulse Ox Last 24 Hr 96.6 F-98.1 F 67-90 10-30 89-134/50-96 96-100 Results - Labs CBC & BMP: 05/14/16 02:37 05/14/16 02:37
--- NOTE | 2016-05-14 13:36 | Hospitalist Progress Note ---
Assessment and Plan (1) Morbid obesity Status: Acute Current Visit: Yes Qualifiers: Obesity type: due to excess calories Qualified Code(s): E66.01 - Morbid ( severe) obesity due to excess calories (2) Strep throat Status: Acute Assessment and plan: Continue clindamycin Current Visit: Yes (3) Obesity hypoventilation syndrome Status: Acute Assessment and plan: Pulmonary managing Current Visit: Yes (4) Acute and chronic respiratory failure with hypercapnia Status: Acute Current Visit: Yes Hospitalist: Subjective Interval history: No acute events overnight. Still requiring mechanical ventilation. Tolerating tube feeds. Exam - Constitutional Vitals: Period Temp Pulse Resp BP Sys/Watts Pulse Ox Last 24 Hr 96.4 F-98.1 F 65-90 10-30 89-134/50-89 90-100 General appearance: morbidly obese - Head Head exam: Present: normocephalic, atraumatic - Eye Eye exam: Present: EOMI Pupils: Present: BRIAN - ENT ENT exam: Present: normal exam - Neck Neck exam: Present: normal inspection - Respiratory Respiratory exam: Present: clear to auscultation bilaterally. Absent: rales, wheezes - Cardiovascular Cardiovascular exam: Present: regular rate and rhythm - GI/Abdominal GI/Abdominal exam: Present: normal bowel sounds, soft. Absent: tenderness, rebound - Extremities Exam Extremities exam: Present: normal inspection - Back Exam Back exam: Present: normal inspection - Psychiatric Psychiatric exam: Present: normal affect, normal mood - Skin Skin exam: Present: warm, intact Results - Labs CBC & BMP: 05/14/16 02:37 05/14/16 02:37
[2016-05-14] MEDS: CHOLECALCIFEROL 1,000 UNIT TABLET PO SCH (14:00)
[2016-05-14] MEDS: SODIUM CHLORIDE 0.45% 1,000 ML IV SCH (16:20)
[2016-05-15] MEDS: PROPOFOL 1,000 MG/100 ML BOTTLE IV SCH ×6 (01:52→23:25)
[2016-05-15 03:28] LABS: Allen Test Positive; Pt O2 Delivery Device Ventilator
[2016-05-15 03:29] LABS: ABG Base Excess 8.9 MMOL/L (-2.5-2.5); ABG HCO3 35.7 MMOL/L (20-26); ABG PCO2 61.7 MM HG (35-48); ABG TCO2 37.6 MMOL/L (23-27)
[2016-05-15] MEDS: CLINDAMYCIN INJ 900 MG in PREMIX 1 EACH IV SCH ×3 (04:45→21:40)
[2016-05-15 05:11] LABS: Magnesium 2.6 MG/DL (1.8-2.4); Osmolality,Calculated 287.7 MOS/KG (273-304); Potassium 4.1 MMOL/L (3.5-5.1)
[2016-05-15 05:16] LABS: Basophils % 0.2 % (0.0-0.8); Eosinophils # 0.3 10*3/uL (0.0-0.87); Hematocrit 34.9 VOL% (35.7-47.0); Hemoglobin 9.7 GM/DL (12.0-16.0); Immature Granulocytes % 0.4 %; Immature Granulocytes Absolute 0.03 #; Lymphocytes % 12.1 % (21.3-54.2); Mean Corpuscular HGB Conc 27.8 GM/DL (32-36); Mean Corpuscular Hemoglobin 20 PG (27-34); Mean Corpuscular Volume 72.4 FL (87-102); Mean Platelet Volume 9.7 FL (9.6-12.0); Monocytes # 1.8 10*3/uL (0.11-0.8); Neutrophils % 61.3 % (38.7-73.9); Platelet Count 266 T/CUMM (130-400); Red Blood Count 4.82 MC/CUMM (3.8-5.5); Red Cell Distribution Width 20.5 % (9.3-17.3); White Blood Count 8.2 T/CUMM (4-12)
[2016-05-15 05:25] LABS: Eosinophils 6 % (0-10); Hypochromasia 1+; Lymphocytes 12 % (20-55); Microcytosis 1+; Segmented Neutrophils 65 % (50-85); Target Cells Slight; Total Cells Counted 100
[2016-05-15 05:26] LABS: Platelet Estimate Adequate
--- NOTE | 2016-05-15 07:14 | XRay Report ---
XR chest 1V portable Indication: Pneumonia. Chest one view: Comparison yesterday. Endotracheal tube, NG tube, PICC line, cardiomegaly, pulmonary hypoinflation and central pulmonary vascular crowding is again noted. This is accentuated by morbid obesity. Left hemidiaphragm remains completely obscured and there is continued right infrahilar patchy opacification noted, both concerning for pneumonia. Impression: Little significant change. Bibasilar pneumonia and/or atelectasis accentuated by obesity. Cardiomegaly. PROCEDURE INTERPRETED AT [facility] DEPARTMENT OF RADIOLOGY Final Report Signed by: Trevor Osborn M.D.
[2016-05-15] MEDS: ALBUTEROL/IPRATROPIUM 3 ML NEB RESP TX SCH ×3 (07:24→19:51)
[2016-05-15] MEDS: FAMOTIDINE 20 MG TABLET PO SCH ×2 (09:29→21:38)
[2016-05-15] MEDS: LISINOPRIL 20 MG TABLET PO SCH (09:29)
[2016-05-15] MEDS: FERROUS SULFATE 325 MG TABLET PO SCH ×2 (09:29→21:38)
[2016-05-15] MEDS: CHOLECALCIFEROL 1,000 UNIT TABLET PO SCH (09:30)
[2016-05-15] MEDS: FOLIC ACID 0.4 MG TABLET PO SCH (09:30)
[2016-05-15] MEDS: FUROSEMIDE 40 MG/4 ML VIAL IV SCH (09:30)
[2016-05-15] MEDS: cloNIDine 0.1 MG TABLET PO SCH ×2 (09:36→21:42)
[2016-05-15] MEDS: amLODIPine 10 MG TABLET PO SCH (09:36)
[2016-05-15] MEDS: SODIUM CHLORIDE 0.45% 1,000 ML IV SCH (09:36)
[2016-05-15] MEDS: DESITIN 4OZ/NYSTATIN 15 GRAM MIXTURE PASTE TOP SCH ×2 (09:37→23:45)
[2016-05-15] MEDS: ENOXAPARIN 40 MG/0.4 ML SYRINGE SUBCUT SCH (09:48)
--- NOTE | 2016-05-15 10:36 | Pulmonology Progress Note ---
Pulmonary - PN: Subj Interval history: Ms. Ho is a 45-year-old -[place] female who we saw in initial pulmonary consultation on 05/12/2016. At that time, our impressions were: 1. Acute upper respiratory Streptococcus infection. Watch for pneumonia. 2. Acute respiratory failure for oxygen and carbon dioxide. I suspect this is superimposed on chronic respiratory failure for oxygen and carbon dioxide. This patient is massively obese with hypertension. Her H&H is normal but her indices are low suggest another underlying problem. This is probably a pickwickian syndrome. 3. Morbid obesity 4. High blood pressure 5. Abnormal red blood cell indices. Look for iron deficiency as well as B12 and folic acid abnormalities and look for reticulocytosis. 6. Chronic lower extremity venous stasis. Look for deep venous thrombophlebitis. 05/13/2016. The patient remains intubated and on mechanical ventilation. This morning, ABGs on mechanical ventilation with an FiO2 of 40% showed a pH of 7.550 , PCO2 34.7, PCO2 158.0, bicarb 31.5, and oxygen saturation 99.7%. We decreased the FiO2 to 30% and decrease the rate to 10 and will repeat ABGs. This patient is anemic with decreased indices and increased red blood cell distribution width. Iron studies were late consistent with iron deficiency anemia. We have taken the liberty of starting ferrous sulfate 325 mg twice daily. Will also check stools for blood 3. Folate is also low at 5.1. She has been started on folic acid 0.8 mg daily. Calcium is low at 7.9. Will check a vitamin D level. Vitamin B12 was normal. The patient's chest x-ray is essentially the same. We will continue the weaning protocol. Medications have been reviewed. We have started Ferrous sulfate and Folic Acid. Labs have been reviewed. White count is 11,600 with 66.2% segs; H&H 9.6/32.7; PLT count 379,000; creatinine increased to 1.30 (IAN), BUN 15, electrolytes are normal. 05/14/2016. I am allowing this patient's PCO2 to increase. I am decreasing her FiO2. She is a CO2 retainer. Today's ABGs on FiO2 30% showed pH 7.34, PCO2 61 , PO2 97.5 and bicarbonate 29.7. Electrolytes are normal. CBC is stable white count is dropped to 9900. The patient is low on iron and this is being replaced she has a low vitamin D level and this is being replaced and she has a low folic acid level and this is being replaced. There are no new cultures Echocardiogram. Ejection fraction 65%. Diastolic parameters are indeterminate. Right ventricular systolic pressure is 79 mmHg. Right ventricle is normal size. The left atrium and right atrium are increased in size. There is a trace of mitral regurgitation. 05/15/2016. Today's chest x-ray is showing elements of bibasilar atelectasis. We will plan fiberoptic bronchoscopy on this patient on 05/15/2016. Patient is only comfortable on stage I of the weaning protocol. Today I have made adjustments in her CPAP parameters and hopefully this will help. ABGs on mechanical ventilation with an FiO2 30% showed pH is 7.38. PCO2 to 61.7, PO2 96 , bicarb 35.7. Electrolytes are normal. Creatinine is dropped to 1.1 with a BUN of 16. CBC is stable white count is dropped to 8200. Microbiology, no positive results post Exam (Progress Note) - Constitutional Vitals: Period Temp Pulse Resp BP Sys/Watts Pulse Ox Last 24 Hr 96.6 F-98.2 F 55-81 12-28 109-145/59-97 98-100 Exam: Neurologic arousable. Cranial nerves are intact. Moves all 4 extremities. Neck. Short and thick. No meningismus. Lymphatics. No submandibular cervical supraclavicular adenopathy. Chest. Loose large airway congestion Heart sounds are distant, but without appreciable murmur, rub, or gallop Abd is massively obese with rare bowel sounds Ext with chronic venous stasis; note, doppler venograms done 05/12/16 were negative Psych/Neuro unchanged The remainder the physical exam is noncontributory. It is negative. Plan. 1. Mechanical ventilator weaning protocol. Last CO2 to increase in the low to mid 60s. He is low FiO2's peer 2. Mechanical ventilator physical therapy protocol. 3. Deep venous thrombophlebitis prevention protocol 4. Proton pump inhibitor protocol. 5. Diamox 250 IV push every 12 12 hours per 6. 05/15/2016. CPAP changes. Fiberoptic bronchoscopy in am Exam (Progress Note) - Constitutional Vitals: Period Temp Pulse Resp BP Sys/Watts Pulse Ox Last 24 Hr 96.4 F-98.2 F 65-83 10-24 93-131/52-79 90-100 Results - Labs CBC & BMP: 05/15/16 04:25 05/15/16 04:25
[2016-05-15] MEDS: LEVOFLOXACIN INJ 500 MG in PREMIX 1 EACH IV SCH (10:55)
--- NOTE | 2016-05-15 15:00 | Hospitalist Progress Note ---
Assessment and Plan (1) Morbid obesity Status: Acute Current Visit: Yes Qualifiers: Obesity type: due to excess calories Qualified Code(s): E66.01 - Morbid ( severe) obesity due to excess calories (2) Strep throat Status: Acute Assessment and plan: Continue clindamycin Current Visit: Yes (3) Obesity hypoventilation syndrome Status: Acute Assessment and plan: Pulmonary managing Current Visit: Yes (4) Acute and chronic respiratory failure with hypercapnia Status: Acute Current Visit: Yes Hospitalist: Subjective Interval history: No acute events overnight. Patient awake and alert on mechanical ventilation today. Nodding appropriately to questions. Pulmonary managing vent. Continue treatment for strep. Exam - Constitutional Vitals: Period Temp Pulse Resp BP Sys/Watts Pulse Ox Last 24 Hr 97.2 F-98.2 F 65-83 10-24 91-131/50-79 95-100 General appearance: morbidly obese - Head Head exam: Present: normocephalic, atraumatic - Eye Eye exam: Present: EOMI Pupils: Present: BRIAN - ENT ENT exam: Present: normal exam - Neck Neck exam: Present: normal inspection. Absent: tenderness - Respiratory Respiratory exam: Present: clear to auscultation bilaterally. Absent: rales, wheezes - Cardiovascular Cardiovascular exam: Present: regular rate and rhythm - GI/Abdominal GI/Abdominal exam: Present: normal bowel sounds, soft. Absent: tenderness, rebound - Extremities Exam Extremities exam: Present: normal inspection - Back Exam Back exam: Present: normal inspection - Neurological Exam Neurological exam: Present: alert - Skin Skin exam: Present: warm, intact Results - Labs CBC & BMP: 05/15/16 04:25 05/15/16 04:25
[2016-05-16] MEDS: ALBUTEROL/IPRATROPIUM 3 ML NEB RESP TX SCH ×4 (00:30→19:35)
[2016-05-16] MEDS: PROPOFOL 1,000 MG/100 ML BOTTLE IV SCH ×5 (02:26→22:12)
[2016-05-16 03:45] LABS: ABG Base Excess 7.4 MMOL/L (-2.5-2.5); ABG HCO3 31.2 MMOL/L (20-26); ABG Oxygen Saturation 98.2 % (95-100); ABG PCO2 60.2 MM HG (35-48); ABG PH 7.366 (7.35-7.45); ABG TCO2 31.6 MMOL/L (23-27); Allen Test Positive; Pt O2 Delivery Device Ventilator
[2016-05-16] MEDS: CLINDAMYCIN INJ 900 MG in PREMIX 1 EACH IV SCH ×3 (04:09→20:55)
[2016-05-16 04:37] LABS: Calcium 7.8 MG/DL (8.5-10.1); Magnesium 2.7 MG/DL (1.8-2.4); Osmolality,Calculated 284.1 MOS/KG (273-304); Potassium 3.6 MMOL/L (3.5-5.1)
[2016-05-16 04:38] LABS: Basophils % 0.5 % (0.0-0.8); Eosinophils # 0.3 10*3/uL (0.0-0.87); Eosinophils % 3.9 % (0.00-10.9); Hematocrit 33.1 VOL% (35.7-47.0); Hemoglobin 9.5 GM/DL (12.0-16.0); Immature Granulocytes % 0.5 %; Immature Granulocytes Absolute 0.04 #; Lymphocytes # 1.1 10*3/uL (1.4-4.0); Lymphocytes % 12.8 % (21.3-54.2); Mean Corpuscular HGB Conc 28.7 GM/DL (32-36); Mean Corpuscular Hemoglobin 20 PG (27-34); Mean Corpuscular Volume 69.8 FL (87-102); Monocytes # 1.1 10*3/uL (0.11-0.8); Monocytes % 13.3 % (1.7-12.7); Neutrophils # 5.7 10*3/uL (1.4-7.4); Platelet Count 274 T/CUMM (130-400); Red Blood Count 4.74 MC/CUMM (3.8-5.5); Red Cell Distribution Width 20.6 % (9.3-17.3); White Blood Count 8.3 T/CUMM (4-12)
[2016-05-16 04:44] LABS: Hypochromasia 1+; Platelet Estimate Adequate
[2016-05-16 04:45] LABS: Elliptocytes Few; Microcytosis 1+
--- NOTE | 2016-05-16 07:01 | XRay Report ---
XR chest 1V portable Indication: Pneumonia. Chest one view: Comparison yesterday shows stable endotracheal tube, NG tube, PICC line, cardiomegaly and severe pulmonary hypoinflation with fluffy right perihilar infiltrate and continued obscuration of the left lung base. Impression: No change. PROCEDURE INTERPRETED AT [facility] DEPARTMENT OF RADIOLOGY Final Report Signed by: Trevor Osborn M.D.
[2016-05-16] MEDS: FAMOTIDINE 20 MG TABLET PO SCH ×2 (08:40→20:54)
[2016-05-16] MEDS: FERROUS SULFATE 325 MG TABLET PO SCH ×2 (08:40→20:54)
[2016-05-16] MEDS: amLODIPine 10 MG TABLET PO SCH (08:40)
[2016-05-16] MEDS: LISINOPRIL 20 MG TABLET PO SCH (08:40)
[2016-05-16] MEDS: FOLIC ACID 0.4 MG TABLET PO SCH (08:40)
[2016-05-16] MEDS: CHOLECALCIFEROL 1,000 UNIT TABLET PO SCH (08:41)
[2016-05-16] MEDS: cloNIDine 0.1 MG TABLET PO SCH ×2 (08:41→21:05)
[2016-05-16] MEDS: FUROSEMIDE 40 MG/4 ML VIAL IV SCH (08:41)
--- NOTE | 2016-05-16 08:42 | Event Note ---
In hospital diagnostic and therapeutic fiberoptic bronchoscopy. Bilateral lavage (right lower lung and left lower lung). Specimen sent for Gram stain, bacterial cultures, fungal stains and cultures. This is of 501 pound black female has respiratory failure. She is on mechanical ventilation. Her cough is ineffective. She has retained secretions. The retained secretions are thought to be interfering with that he weaning protocol for mechanical ventilation. For these reasons she is evaluated with fiberoptic bronchoscopy. The endotracheal tube is in good position. The distal trachea was normal. The edgar was sharp. Right mainstem bronchus contained a good bit of slightly thick clear secretions. These spared the right upper lobe and the right middle lobe. The right lower lung contain a good bit of secretions and the right lower lung was lavaged. This collection was submitted for studies. The left mainstem bronchus contained a good bit of secretions. These extended slightly into the left upper lung. There were a fair number of secretions in the left lower lung and some small bronchial plugs. This area was lavaged and specimens were submitted for studies. The endobronchial mucosa bilaterally appeared normal. There was some collapsibility of the large and small airways. The patient tolerated procedure well and there were no complications. Impression. 1. Mechanical ventilation 2. Ineffective cough 3. Retained secretions 4. Collapsible large and small airways most prominent in the right lower lung left lower lung. This appears to be an element of COPD.
[2016-05-16] MEDS: SODIUM CHLORIDE 0.45% 1,000 ML IV SCH (08:44)
[2016-05-16] MEDS: DESITIN 4OZ/NYSTATIN 15 GRAM MIXTURE PASTE TOP SCH ×2 (08:45→21:05)
[2016-05-16] MEDS: ENOXAPARIN 40 MG/0.4 ML SYRINGE SUBCUT SCH (09:13)
[2016-05-16] MEDS: LEVOFLOXACIN INJ 500 MG in PREMIX 1 EACH IV SCH (09:59)
--- NOTE | 2016-05-16 11:36 | Hospitalist Progress Note ---
Assessment and Plan (1) Morbid obesity Status: Acute Current Visit: Yes Qualifiers: Obesity type: due to excess calories Qualified Code(s): E66.01 - Morbid ( severe) obesity due to excess calories (2) Strep throat Status: Acute Assessment and plan: Continue clindamycin Current Visit: Yes (3) Obesity hypoventilation syndrome Status: Acute Assessment and plan: Pulmonary managing Current Visit: Yes (4) Acute and chronic respiratory failure with hypercapnia Status: Acute Current Visit: Yes Hospitalist: Subjective Interval history: No acute events overnight. Not doing great on cpap trials. Plan for bronch today. Pulmonary managing. Tolerating tube feeds well. Exam - Constitutional Vitals: Period Temp Pulse Resp BP Sys/Watts Pulse Ox Last 24 Hr 97 F-98 F 71-91 10-25 91-137/50-93 95-100 General appearance: morbidly obese - Head Head exam: Present: normal inspection, normocephalic, atraumatic - Eye Eye exam: Present: EOMI Pupils: Present: BRIAN - ENT ENT exam: Present: normal exam - Neck Neck exam: Present: normal inspection - Respiratory Respiratory exam: Present: clear to auscultation bilaterally. Absent: rhonchi, wheezes - Cardiovascular Cardiovascular exam: Present: regular rate and rhythm - GI/Abdominal GI/Abdominal exam: Present: normal bowel sounds, soft. Absent: tenderness, rebound - Extremities Exam Extremities exam: Present: normal inspection - Back Exam Back exam: Present: normal inspection - Psychiatric Psychiatric exam: Present: normal affect, normal mood - Skin Skin exam: Present: warm, intact Results - Labs CBC & BMP: 05/16/16 03:45 05/16/16 03:45
--- NOTE | 2016-05-16 11:40 | Pulmonology Progress Note ---
Pulmonary - PN: Subj Interval history: Jaden Ramírez, ANP-BC, GNP-BC, acting as scribe for Dr. Marcus Paige Ms. Ho is a 45-year-old -[place] female who we saw in initial pulmonary consultation on 05/12/2016. At that time, our impressions were: 1. Acute upper respiratory Streptococcus infection. Watch for pneumonia. 2. Acute respiratory failure for oxygen and carbon dioxide. I suspect this is superimposed on chronic respiratory failure for oxygen and carbon dioxide. This patient is massively obese with hypertension. Her H&H is normal but her indices are low suggest another underlying problem. This is probably a pickwickian syndrome. 3. Morbid obesity 4. High blood pressure 5. Abnormal red blood cell indices. Look for iron deficiency as well as B12 and folic acid abnormalities and look for reticulocytosis. 6. Chronic lower extremity venous stasis. Look for deep venous thrombophlebitis. 05/13/2016. The patient remains intubated and on mechanical ventilation. This morning, ABGs on mechanical ventilation with an FiO2 of 40% showed a pH of 7.550 , PCO2 34.7, PCO2 158.0, bicarb 31.5, and oxygen saturation 99.7%. We decreased the FiO2 to 30% and decrease the rate to 10 and will repeat ABGs. This patient is anemic with decreased indices and increased red blood cell distribution width. Iron studies were late consistent with iron deficiency anemia. We have taken the liberty of starting ferrous sulfate 325 mg twice daily. Will also check stools for blood 3. Folate is also low at 5.1. She has been started on folic acid 0.8 mg daily. Calcium is low at 7.9. Will check a vitamin D level. Vitamin B12 was normal. The patient's chest x-ray is essentially the same. We will continue the weaning protocol. 05/14/2016. I am allowing this patient's PCO2 to increase. I am decreasing her FiO2. She is a CO2 retainer. Today's ABGs on FiO2 30% showed pH 7.34, PCO2 61 , PO2 97.5 and bicarbonate 29.7. Electrolytes are normal. CBC is stable white count is dropped to 9900. The patient is low on iron and this is being replaced she has a low vitamin D level and this is being replaced and she has a low folic acid level and this is being replaced. There are no new cultures Echocardiogram. Ejection fraction 65%. Diastolic parameters are indeterminate. Right ventricular systolic pressure is 79 mmHg. Right ventricle is normal size. The left atrium and right atrium are increased in size. There is a trace of mitral regurgitation. 05/15/2016. Today's chest x-ray is showing elements of bibasilar atelectasis. We will plan fiberoptic bronchoscopy on this patient on 05/15/2016. Patient is only comfortable on stage I of the weaning protocol. Today I have made adjustments in her CPAP parameters and hopefully this will help. ABGs on mechanical ventilation with an FiO2 30% showed pH is 7.38. PCO2 to 61.7, PO2 96 , bicarb 35.7. Electrolytes are normal. Creatinine is dropped to 1.1 with a BUN of 16. CBC is stable white count is dropped to 8200. Microbiology, no positive results posted. 05/16/2016. Earlier today the patient underwent fiberoptic bronchoscopy. This showed collapsible large and small airways most prominent in the right lower lung and left lower lung. There appeared to be an element of COPD. There were retained secretions. Please see the bronchoscopy report for more information. Patient tolerated the procedure well. She remains intubated and on mechanical ventilation. We are progressing this per the protocol and as the patient allows. She was not doing well earlier, but her nurse Neftali, has elevated the head of her bed and she is now on CPAP and doing very well. Today's chest x- ray is stable. Medications have been reviewed. We made no changes today. Labs have been reviewed. White count is 8300 with 69.0% 6; H&H 9.5/33.1; platelet count 274,000; creatinine 1.10, BUN 19, sodium 142, potassium 3.6, magnesium 2.7 ABGs this morning on mechanical ventilation and an FiO2 of 30% showed a pH of 7.366, PCO2 60.2, PO2 113.0, bicarb 31.2, and oxygen saturation 98.2% Exam (Progress Note) - Constitutional Vitals: Period Temp Pulse Resp BP Sys/Watts Pulse Ox Last 24 Hr 97 F-98 F 71-91 10-25 91-137/50-93 95-100 Exam: Chest is clear Heart sounds are distant, but without appreciable murmur, rub, or gallop Abd is massively obese with rare bowel sounds Ext with chronic venous stasis; note, doppler venograms done 05/12/16 were negative Psych/Neuro unchanged Plan: Continue the ventilator weaning protocol. Daily CXR and ABGs while on the ventilator. Follow-up bronchoscopy results when available. See orders. Results - Labs CBC & BMP: 05/16/16 03:45 05/16/16 03:45
[2016-05-16] MEDS ORDERED: MAGNESIUM HYDROXIDE SUSP 30 ML UDCUP PO ONE (20:16)
[2016-05-17] MEDS: ALBUTEROL/IPRATROPIUM 3 ML NEB RESP TX SCH ×4 (00:03→19:04)
[2016-05-17] MEDS: PROPOFOL 1,000 MG/100 ML BOTTLE IV SCH ×5 (01:55→19:50)
[2016-05-17 03:05] LABS: ABG Base Excess 4.8 MMOL/L (-2.5-2.5); ABG HCO3 28.7 MMOL/L (20-26); ABG Oxygen Saturation 93.3 % (95-100); ABG PCO2 62.9 MM HG (35-48); ABG PH 7.321 (7.35-7.45); ABG PO2 73.6 MM HG (80-95); ABG TCO2 29.9 MMOL/L (23-27)
[2016-05-17] MEDS: CLINDAMYCIN INJ 900 MG in PREMIX 1 EACH IV SCH ×3 (04:04→21:05)
[2016-05-17 05:50] LABS: Basophils # 0.1 10*3/uL (0.0-0.2); Basophils % 0.5 % (0.0-0.8); Eosinophils # 0.3 10*3/uL (0.0-0.87); Eosinophils % 3.5 % (0.00-10.9); Hematocrit 35.1 VOL% (35.7-47.0); Hemoglobin 10.1 GM/DL (12.0-16.0); Immature Granulocytes % 0.5 %; Immature Granulocytes Absolute 0.05 #; Lymphocytes % 10.9 % (21.3-54.2); Mean Corpuscular HGB Conc 28.8 GM/DL (32-36); Mean Corpuscular Hemoglobin 20 PG (27-34); Mean Corpuscular Volume 70.9 FL (87-102); Mean Platelet Volume 10.6 FL (9.6-12.0); Monocytes # 1.1 10*3/uL (0.11-0.8); Monocytes % 11.8 % (1.7-12.7); Neutrophils # 6.8 10*3/uL (1.4-7.4); Neutrophils % 72.8 % (38.7-73.9); Platelet Count 252 T/CUMM (130-400); Red Blood Count 4.95 MC/CUMM (3.8-5.5); Red Cell Distribution Width 20.2 % (9.3-17.3); White Blood Count 9.3 T/CUMM (4-12)
[2016-05-17 06:01] LABS: Hypochromasia 1+; Microcytosis 1+; Target Cells Slight
[2016-05-17 06:02] LABS: Ovalocytes Slight; Platelet Estimate Adequate
[2016-05-17 06:05] LABS: Calcium 8.3 MG/DL (8.5-10.1); Osmolality,Calculated 282.4 MOS/KG (273-304); Potassium 3.6 MMOL/L (3.5-5.1)
--- NOTE | 2016-05-17 07:19 | XRay Report ---
XR chest 1V portable Indication: Intubated. Chest one view: Comparison yesterday. Endotracheal tube, NG tube and PICC line are stable. Decreased pulmonary edema noted with improved aeration of the lungs. Lungs remain markedly hypoinflated with continued obscuration of left hemidiaphragm. Cardiomegaly is stable. Impression: Decreased pulmonary edema. Otherwise no change. PROCEDURE INTERPRETED AT [facility] DEPARTMENT OF RADIOLOGY Final Report Signed by: Trevor Osborn M.D.
[2016-05-17] MEDS: FUROSEMIDE 40 MG/4 ML VIAL IV SCH (09:39)
[2016-05-17] MEDS: FAMOTIDINE 20 MG TABLET PO SCH ×2 (09:40→21:06)
[2016-05-17] MEDS: FOLIC ACID 0.4 MG TABLET PO SCH (09:40)
[2016-05-17] MEDS: FERROUS SULFATE 325 MG TABLET PO SCH ×2 (09:40→21:06)
[2016-05-17] MEDS: amLODIPine 10 MG TABLET PO SCH (09:42)
[2016-05-17] MEDS: cloNIDine 0.1 MG TABLET PO SCH ×2 (09:42→21:09)
[2016-05-17] MEDS: DESITIN 4OZ/NYSTATIN 15 GRAM MIXTURE PASTE TOP SCH ×2 (09:43→21:07)
[2016-05-17] MEDS: LISINOPRIL 20 MG TABLET PO SCH (09:43)
[2016-05-17] MEDS: CHOLECALCIFEROL 1,000 UNIT TABLET PO SCH (09:52)
--- NOTE | 2016-05-17 10:52 | Pulmonology Progress Note ---
Pulmonary - PN: Subj Interval history: Ms. Ho is a 45-year-old -[place] female who we saw in initial pulmonary consultation on 05/12/2016. At that time, our impressions were: 1. Acute upper respiratory Streptococcus infection. Watch for pneumonia. 2. Acute respiratory failure for oxygen and carbon dioxide. I suspect this is superimposed on chronic respiratory failure for oxygen and carbon dioxide. This patient is massively obese with hypertension. Her H&H is normal but her indices are low suggest another underlying problem. This is probably a pickwickian syndrome. 3. Morbid obesity 4. High blood pressure 5. Abnormal red blood cell indices. Look for iron deficiency as well as B12 and folic acid abnormalities and look for reticulocytosis. 6. Chronic lower extremity venous stasis. Look for deep venous thrombophlebitis. 05/13/2016. The patient remains intubated and on mechanical ventilation. This morning, ABGs on mechanical ventilation with an FiO2 of 40% showed a pH of 7.550 , PCO2 34.7, PCO2 158.0, bicarb 31.5, and oxygen saturation 99.7%. We decreased the FiO2 to 30% and decrease the rate to 10 and will repeat ABGs. This patient is anemic with decreased indices and increased red blood cell distribution width. Iron studies were late consistent with iron deficiency anemia. We have taken the liberty of starting ferrous sulfate 325 mg twice daily. Will also check stools for blood 3. Folate is also low at 5.1. She has been started on folic acid 0.8 mg daily. Calcium is low at 7.9. Will check a vitamin D level. Vitamin B12 was normal. The patient's chest x-ray is essentially the same. We will continue the weaning protocol. Medications have been reviewed. We have started Ferrous sulfate and Folic Acid. Labs have been reviewed. White count is 11,600 with 66.2% segs; H&H 9.6/32.7; PLT count 379,000; creatinine increased to 1.30 (IAN), BUN 15, electrolytes are normal. 05/14/2016. I am allowing this patient's PCO2 to increase. I am decreasing her FiO2. She is a CO2 retainer. Today's ABGs on FiO2 30% showed pH 7.34, PCO2 61 , PO2 97.5 and bicarbonate 29.7. Electrolytes are normal. CBC is stable white count is dropped to 9900. The patient is low on iron and this is being replaced she has a low vitamin D level and this is being replaced and she has a low folic acid level and this is being replaced. There are no new cultures Echocardiogram. Ejection fraction 65%. Diastolic parameters are indeterminate. Right ventricular systolic pressure is 79 mmHg. Right ventricle is normal size. The left atrium and right atrium are increased in size. There is a trace of mitral regurgitation. 05/15/2016. Today's chest x-ray is showing elements of bibasilar atelectasis. We will plan fiberoptic bronchoscopy on this patient on 05/15/2016. Patient is only comfortable on stage I of the weaning protocol. Today I have made adjustments in her CPAP parameters and hopefully this will help. ABGs on mechanical ventilation with an FiO2 30% showed pH is 7.38. PCO2 to 61.7, PO2 96 , bicarb 35.7. Electrolytes are normal. Creatinine is dropped to 1.1 with a BUN of 16. CBC is stable white count is dropped to 8200. Microbiology, no positive results post 05/17/2016 this is a 5 foot 7 inch 501 pound black female with respiratory failure. I suspect she is a chronic CO2 retainer and I am letting her CO2's run at about 60. She is done fairly well with her CPAP trials and she has been on stage II and hopefully will advance to stage III today. She is on weaning protocol. She is also on deep venous thrombophlebitis prevention protocol and physical therapy while on the ventilator Procrit protocol and proton pump inhibitor protocol. Today's chest x-ray shows no heart failure no definite atelectasis and there are no definite infiltrates. Patient was evaluated with fiberoptic bronchoscopy on 05/16/2016. She had a moderate amount of retained secretions. So far all micro bacteriology specimens from the bronchoscopy are negative. ABGs on FiO2 of 30% and mechanical ventilation showed pH of 7.32, PCO2 63, PO2 of 73.6 and bicarb 28.7. Note the patient's on Diamox twice a day. Electrolytes are normal. Creatinine is 1.0 and BUN is 22. H&H 10.1/ 35.1. White count is 9300 with 73 segs and 11 lymphocytes. Platelets of 257, 000. This patient is making slow steady progress. I hope to be able to extubate her within the next week or so. Has possible she would require a trach. Exam (Progress Note) - Constitutional Vitals: Period Temp Pulse Resp BP Sys/Watts Pulse Ox Last 24 Hr 96.6 F-98.2 F 55-81 12-28 109-145/59-97 98-100 Exam: Neurologic arousable. Cranial nerves are intact. Moves all 4 extremities. Neck. Short and thick. No meningismus. Lymphatics. No submandibular cervical supraclavicular adenopathy. Chest. Loose large airway congestion Heart sounds are distant, but without appreciable murmur, rub, or gallop Abd is massively obese with rare bowel sounds Ext with chronic venous stasis; note, doppler venograms done 05/12/16 were negative Psych/Neuro unchanged The remainder the physical exam is noncontributory. It is negative. Plan. 1. Mechanical ventilator weaning protocol. Let CO2 increase to the low to mid 60s. s He is low FiO2's peer 2. Mechanical ventilator physical therapy protocol. 3. Deep venous thrombophlebitis prevention protocol 4. Proton pump inhibitor protocol. 5. Diamox 250 IV push every 12 12 hours per 6. 05/15/2016. CPAP changes. Fiberoptic bronchoscopy in am 7. 05/17/2016. See today's note above Exam (Progress Note) - Constitutional Vitals: Period Temp Pulse Resp BP Sys/Watts Pulse Ox Last 24 Hr 97.6 F-97.9 F 71-100 10-42 82-133/47-82 95-100 Results - Labs CBC & BMP: 05/17/16 03:55 05/17/16 03:55
[2016-05-17] MEDS: LEVOFLOXACIN INJ 500 MG in PREMIX 1 EACH IV SCH (11:32)
[2016-05-17] MEDS: ENOXAPARIN 40 MG/0.4 ML SYRINGE SUBCUT SCH (11:32)
--- NOTE | 2016-05-17 13:58 | Hospitalist Progress Note ---
Assessment and Plan (1) Morbid obesity Status: Acute Current Visit: Yes Qualifiers: Obesity type: due to excess calories Qualified Code(s): E66.01 - Morbid ( severe) obesity due to excess calories (2) Strep throat Status: Acute Assessment and plan: Continue clindamycin Current Visit: Yes (3) Obesity hypoventilation syndrome Status: Acute Assessment and plan: Pulmonary managing Current Visit: Yes (4) Acute and chronic respiratory failure with hypercapnia Status: Acute Current Visit: Yes Hospitalist: Subjective Interval history: No acute events overnight. Still working on slow vent weaning. Treating strep. Exam - Constitutional Vitals: Period Temp Pulse Resp BP Sys/Watts Pulse Ox Last 24 Hr 97 F-97.8 F 73-102 10-42 82-133/32-82 86-100 General appearance: morbidly obese - Head Head exam: Present: normocephalic, atraumatic - Eye Eye exam: Present: EOMI Pupils: Present: BRIAN - ENT ENT exam: Present: normal exam - Neck Neck exam: Present: normal inspection - Respiratory Respiratory exam: Present: decreased breath sounds. Absent: wheezes - Cardiovascular Cardiovascular exam: Present: regular rate and rhythm - GI/Abdominal GI/Abdominal exam: Present: normal bowel sounds, soft. Absent: tenderness, rebound - Extremities Exam Extremities exam: Present: normal inspection - Back Exam Back exam: Present: normal inspection - Neurological Exam Neurological exam: Present: alert - Psychiatric Psychiatric exam: Present: normal affect, normal mood - Skin Skin exam: Present: warm, intact Results - Labs CBC & BMP: 05/17/16 03:55 05/17/16 03:55
[2016-05-17] MEDS: SODIUM CHLORIDE 0.45% 1,000 ML IV SCH (18:13)
[2016-05-18] MEDS: ALBUTEROL/IPRATROPIUM 3 ML NEB RESP TX SCH ×4 (00:03→20:02)
[2016-05-18] MEDS: PROPOFOL 1,000 MG/100 ML BOTTLE IV SCH ×5 (00:53→19:50)
[2016-05-18 02:41] LABS: ABG HCO3 38.5 MMOL/L (20-26); ABG Oxygen Saturation 97.2 % (95-100); ABG PH 7.361 (7.35-7.45); ABG PO2 97.5 MM HG (80-95); ABG TCO2 40.7 MMOL/L (23-27); Allen Test Positive; Pt O2 Delivery Device Ventilator
[2016-05-18 02:43] LABS: ABG PCO2 69.6 MM HG (35-48)
[2016-05-18 03:38] LABS: Basophils # 0.1 10*3/uL (0.0-0.2); Basophils % 0.5 % (0.0-0.8); Eosinophils # 0.4 10*3/uL (0.0-0.87); Eosinophils % 3.9 % (0.00-10.9); Hematocrit 33.5 VOL% (35.7-47.0); Immature Granulocytes % 0.4 %; Immature Granulocytes Absolute 0.04 #; Lymphocytes % 10.3 % (21.3-54.2); Mean Corpuscular HGB Conc 28.7 GM/DL (32-36); Mean Corpuscular Hemoglobin 21 PG (27-34); Mean Corpuscular Volume 72.4 FL (87-102); Mean Platelet Volume 10.5 FL (9.6-12.0); Monocytes # 1.2 10*3/uL (0.11-0.8); Monocytes % 12.3 % (1.7-12.7); Neutrophils # 6.9 10*3/uL (1.4-7.4); Neutrophils % 72.6 % (38.7-73.9); Platelet Count 233 T/CUMM (130-400); Red Blood Count 4.63 MC/CUMM (3.8-5.5); Red Cell Distribution Width 20.7 % (9.3-17.3); White Blood Count 9.4 T/CUMM (4-12)
[2016-05-18 03:54] LABS: Hemoglobin 9.6 GM/DL (12.0-16.0)
[2016-05-18 03:59] LABS: Calcium 7.7 MG/DL (8.5-10.1); Magnesium 3.1 MG/DL (1.8-2.4); Osmolality,Calculated 274.1 MOS/KG (273-304); Potassium 3.6 MMOL/L (3.5-5.1)
[2016-05-18 04:47] LABS: Anisocytosis 1+
[2016-05-18 04:48] LABS: Hypochromasia 1+; Platelet Estimate Normal; Target Cells Few
[2016-05-18] MEDS: CLINDAMYCIN INJ 900 MG in PREMIX 1 EACH IV SCH ×3 (05:10→21:24)
[2016-05-18] MEDS: SODIUM CHLORIDE 0.45% 1,000 ML IV SCH ×2 (05:11→13:25)
--- NOTE | 2016-05-18 07:25 | XRay Report ---
Exam: XR chest 1V portable Date: 05/18/2016 4:00 AM Indication: 05/17/2016 Comparison: Follow-up ventilator Technical: AP portable Findings: Cardiomegaly is present. Tiny low-volume effusions are present. Left-sided PICC line and nasogastric tube and endotracheal tube are present. External cardiac leads superimpose exam. No pneumothorax. Mild shunt vascularity Impression: 1. Stable appearance of life support tubing 2. Cardiomegaly with low volume effusions and shunt vascularity persist PROCEDURE INTERPRETED AT [facility] [place] DEPARTMENT OF RADIOLOGY Final Report Signed by: Dr. Marcus Jenkins
--- NOTE | 2016-05-18 07:38 | Pulmonology Progress Note ---
Pulmonary - PN: Subj Interval history: Patient is a 45-year-old black lady that has morbid obesity and is on the ventilator with respiratory failure. She was felt to have a URI with Streptococcus infection. She has chronic CO2 retention with obesity hypoventilation syndrome. She is doing some short CPAP trials but not doing very well. She is fairly stable on the ventilator Exam (Progress Note) - Constitutional Vitals: Period Temp Pulse Resp BP Sys/Watts Pulse Ox Last 24 Hr 96.5 F-97.4 F 73-102 10-46 94-133/32-85 86-100 General appearance: morbidly obese, other (She is sedated on the ventilator) - Head Head exam: Present: normal inspection - Eye Eye exam: Present: EOMI. Absent: scleral icterus Pupils: Present: BRIAN - ENT ENT exam: Present: other (ET tube in good position) - Neck Neck exam: Present: other (She has a very large neck). Absent: lymphadenopathy , thyromegaly - Respiratory Respiratory exam: Present: rhonchi, other (She has good breath sounds bilaterally with some rhonchi present.) - Cardiovascular Cardiovascular exam: Present: regular rate and rhythm. Absent: gallop, systolic murmur - GI/Abdominal GI/Abdominal exam: Present: normal bowel sounds, soft. Absent: organomegaly, tenderness - Extremities Exam Extremities exam: Present: other (She has chronic venous stasis disease). Absent: calf tenderness - Neurological Exam Neurological exam: Present: other (She is sedated on the ventilator at present.) - Skin Skin exam: Present: warm, dry Results - Labs CBC & BMP: 05/18/16 03:20 05/18/16 03:20 Labs: Her PO2 is 97 with a PCO2 of 69 and pH of 7.36 - Diagnostic Findings Procedure: Chest x-ray: image reviewed by me, report reviewed by me (Chest x- ray shows cardiomegaly with mild bibasilar changes) Assessment and Plan (1) Morbid obesity Status: Acute Assessment and plan: The patient is well over 400 pounds and will be difficult to wean. Current Visit: Yes Qualifiers: Obesity type: due to excess calories Qualified Code(s): E66.01 - Morbid ( severe) obesity due to excess calories (2) Obesity hypoventilation syndrome Status: Acute Assessment and plan: The patient likely has chronic CO2 retention. She will continue with bronchodilator therapy. Current Visit: Yes (3) Acute and chronic respiratory failure with hypercapnia Status: Acute Assessment and plan: Patient has been slow to wean and may benefit from tracheostomy tube. Current Visit: Yes
[2016-05-18] MEDS: CHOLECALCIFEROL 1,000 UNIT TABLET PO SCH (08:22)
[2016-05-18] MEDS: FOLIC ACID 0.4 MG TABLET PO SCH (08:23)
[2016-05-18] MEDS: FAMOTIDINE 20 MG TABLET PO SCH ×2 (08:23→21:25)
[2016-05-18] MEDS: methylPREDNISolone SOD SUC 40 MG/1 ML VIAL IV SCH ×2 (08:24→16:23)
[2016-05-18] MEDS: FUROSEMIDE 40 MG/4 ML VIAL IV SCH (08:24)
[2016-05-18] MEDS: FERROUS SULFATE 325 MG TABLET PO SCH ×2 (08:24→21:24)
--- NOTE | 2016-05-18 09:57 | Hospitalist Progress Note ---
Assessment and Plan (1) Morbid obesity Status: Acute Current Visit: Yes Qualifiers: Obesity type: due to excess calories Qualified Code(s): E66.01 - Morbid ( severe) obesity due to excess calories (2) Strep throat Status: Acute Assessment and plan: Continue clindamycin Current Visit: Yes (3) Obesity hypoventilation syndrome Status: Acute Assessment and plan: Pulmonary managing Current Visit: Yes (4) Acute and chronic respiratory failure with hypercapnia Status: Acute Current Visit: Yes Hospitalist: Subjective Interval history: No acute events overnight. Slow vent wean. Tolerating tube feeds. Exam - Constitutional Vitals: Period Temp Pulse Resp BP Sys/Watts Pulse Ox Last 24 Hr 96.5 F-97.4 F 73-102 10-46 94-133/32-85 86-100 General appearance: morbidly obese - Head Head exam: Present: normocephalic, atraumatic - Eye Eye exam: Present: EOMI Pupils: Present: BRIAN - ENT ENT exam: Present: normal exam - Neck Neck exam: Present: normal inspection - Respiratory Respiratory exam: Present: clear to auscultation bilaterally. Absent: rhonchi, wheezes - Cardiovascular Cardiovascular exam: Present: regular rate and rhythm - GI/Abdominal GI/Abdominal exam: Present: normal bowel sounds, soft. Absent: tenderness, rebound - Extremities Exam Extremities exam: Present: normal inspection - Back Exam Back exam: Present: normal inspection - Neurological Exam Neurological exam: Present: alert (intubated on mechanical ventilation) - Skin Skin exam: Present: warm, intact Results - Labs CBC & BMP: 05/18/16 03:20 05/18/16 03:20
[2016-05-18] MEDS: ENOXAPARIN 40 MG/0.4 ML SYRINGE SUBCUT SCH (10:49)
[2016-05-18] MEDS: amLODIPine 10 MG TABLET PO SCH (10:49)
[2016-05-18] MEDS: LEVOFLOXACIN INJ 500 MG in PREMIX 1 EACH IV SCH (10:50)
[2016-05-18] MEDS: DESITIN 4OZ/NYSTATIN 15 GRAM MIXTURE PASTE TOP SCH ×2 (11:38→21:25)
[2016-05-18] MEDS: [UNRECOGNIZED DRUG - REMARK] TOP PRN (13:25)
[2016-05-18] MEDS: LISINOPRIL 20 MG TABLET PO SCH (13:48)
[2016-05-18] MEDS: cloNIDine 0.1 MG TABLET PO SCH ×2 (13:48→21:24)
[2016-05-19] MEDS: methylPREDNISolone SOD SUC 40 MG/1 ML VIAL IV SCH ×3 (00:21→16:19)
[2016-05-19] MEDS: PROPOFOL 1,000 MG/100 ML BOTTLE IV SCH ×5 (00:45→21:03)
[2016-05-19] MEDS: ALBUTEROL/IPRATROPIUM 3 ML NEB RESP TX SCH ×4 (01:00→19:12)
[2016-05-19 02:27] LABS: ABG Base Excess 7.7 MMOL/L (-2.5-2.5); ABG HCO3 31.5 MMOL/L (20-26); ABG Oxygen Saturation 97.6 % (95-100); ABG PO2 96.5 MM HG (80-95); ABG TCO2 32.5 MMOL/L (23-27); Allen Test Positive; Pt O2 Delivery Device Ventilator
[2016-05-19] MEDS: CLINDAMYCIN INJ 900 MG in PREMIX 1 EACH IV SCH ×3 (05:57→21:05)
[2016-05-19 06:02] LABS: Basophils % 0.4 % (0.0-0.8); Hematocrit 39.3 VOL% (35.7-47.0); Hemoglobin 10.9 GM/DL (12.0-16.0); Immature Granulocytes % 0.5 %; Immature Granulocytes Absolute 0.05 #; Lymphocytes # 0.7 10*3/uL (1.4-4.0); Lymphocytes % 6.9 % (21.3-54.2); Mean Corpuscular HGB Conc 27.7 GM/DL (32-36); Mean Corpuscular Hemoglobin 20 PG (27-34); Mean Platelet Volume 10.1 FL (9.6-12.0); Monocytes # 0.5 10*3/uL (0.11-0.8); Neutrophils # 8.5 10*3/uL (1.4-7.4); Neutrophils % 87.2 % (38.7-73.9); Platelet Count 236 T/CUMM (130-400); Red Blood Count 5.46 MC/CUMM (3.8-5.5); Red Cell Distribution Width 21.1 % (9.3-17.3); White Blood Count 9.8 T/CUMM (4-12)
[2016-05-19 06:18] LABS: Calcium 9.1 MG/DL (8.5-10.1); Magnesium 3.3 MG/DL (1.8-2.4); Potassium 4.7 MMOL/L (3.5-5.1)
--- NOTE | 2016-05-19 07:16 | Pulmonology Progress Note ---
Pulmonary - PN: Subj Interval history: Patient is a 45-year-old black lady that has morbid obesity and is on the ventilator with respiratory failure. She was felt to have a URI with Streptococcus infection. She has chronic CO2 retention with obesity hypoventilation syndrome. She is doing some short CPAP trials but not doing very well. She still fatigues quite easily. Her chest x-ray may be a little better. Overall she is stable on the ventilator. Exam (Progress Note) - Constitutional Vitals: Period Temp Pulse Resp BP Sys/Watts Pulse Ox Last 24 Hr 96.8 F-98.3 F 6-108 3-43 99-141/47-106 87-100 Exam: General appearance: morbidly obese, other (She is sedated on the ventilator. She is comfortable on the ventilator.) - Head Head exam: Present: normal inspection - Eye Eye exam: Present: EOMI. Absent: scleral icterus Pupils: Present: BRIAN - ENT ENT exam: Present: other (ET tube in good position) - Neck Neck exam: Present: other (She has a very large neck). Absent: lymphadenopathy , thyromegaly - Respiratory Respiratory exam: Present: She has fairly good breath sounds bilaterally with only minimal rhonchi. - Cardiovascular Cardiovascular exam: Present: regular rate and rhythm. Absent: gallop, systolic murmur - GI/Abdominal GI/Abdominal exam: Present: normal bowel sounds, soft. Absent: organomegaly, tenderness - Extremities Exam Extremities exam: Present: other (She has chronic venous stasis disease). Absent: calf tenderness - Neurological Exam Neurological exam: Present: other (She is sedated on the ventilator at present.) - Skin Skin exam: Present: warm, dry Results - Labs CBC & BMP: 05/19/16 05:16 05/19/16 05:16 Labs: PO2 is 96 with a PCO2 of 66 and a pH of 7.34 - Diagnostic Findings Procedure: Chest x-ray: image reviewed by me, report reviewed by me (Chest x- ray shows cardiomegaly with improved infiltrates) Assessment and Plan (1) Morbid obesity Status: Acute Assessment and plan: The patient is well over 400 pounds and will be difficult to wean. Current Visit: Yes Qualifiers: Obesity type: due to excess calories Qualified Code(s): E66.01 - Morbid ( severe) obesity due to excess calories (2) Obesity hypoventilation syndrome Status: Acute Assessment and plan: The patient likely has chronic CO2 retention. She will continue with bronchodilator therapy. Current Visit: Yes (3) Acute and chronic respiratory failure with hypercapnia Status: Acute Assessment and plan: Patient has been slow to wean and may benefit from tracheostomy tube. We will try to adjust her ventilator and continue weaning. Current Visit: Yes
[2016-05-19 07:27] LABS: Hypochromasia 1+; Target Cells Slight
[2016-05-19] MEDS: LISINOPRIL 20 MG TABLET PO SCH (08:32)
[2016-05-19] MEDS: cloNIDine 0.1 MG TABLET PO SCH ×2 (08:32→21:05)
[2016-05-19] MEDS: FERROUS SULFATE 325 MG TABLET PO SCH ×2 (08:33→21:05)
[2016-05-19] MEDS: FAMOTIDINE 20 MG TABLET PO SCH ×2 (08:33→21:05)
[2016-05-19] MEDS: amLODIPine 10 MG TABLET PO SCH (08:33)
[2016-05-19] MEDS: FUROSEMIDE 40 MG/4 ML VIAL IV SCH (08:33)
[2016-05-19] MEDS: FOLIC ACID 0.4 MG TABLET PO SCH (08:33)
[2016-05-19] MEDS: CHOLECALCIFEROL 1,000 UNIT TABLET PO SCH (08:33)
--- NOTE | 2016-05-19 08:53 | XRay Report ---
Exam: XR chest 1V portable Date: 05/19/2016 4:00 AM Indication: Follow-up ventilator respiratory failure Comparison: 05/18/2016 Technical: AP portable Findings: A left-sided PICC line is present. A endotracheal tube is present. Nasogastric tube is faintly seen. Cardiomegaly is present. External cardiac leads are present. Mild shunt vascularity alveolar edema tiny effusions present bilaterally without pneumothorax ASVD is present. Impression: 1. No significant interval change with stable appearance of life support tubing and cardiomegaly with mild shunt vascularity and effusions on the mid inspiratory exam PROCEDURE INTERPRETED AT [facility] DEPARTMENT OF RADIOLOGY Final Report Signed by: Dr. Marcus Jenkins
--- NOTE | 2016-05-19 09:25 | Hospitalist Progress Note ---
Assessment and Plan (1) Morbid obesity Status: Acute Current Visit: Yes Qualifiers: Obesity type: due to excess calories Qualified Code(s): E66.01 - Morbid ( severe) obesity due to excess calories (2) Strep throat Status: Acute Assessment and plan: Continue clindamycin Current Visit: Yes (3) Obesity hypoventilation syndrome Status: Acute Assessment and plan: Pulmonary managing Current Visit: Yes (4) Acute and chronic respiratory failure with hypercapnia Status: Acute Current Visit: Yes Hospitalist: Subjective Interval history: No acute events overnight. Continue current course. Vent weaning. Patient awake and alert, nods appropriately. Exam - Constitutional Vitals: Period Temp Pulse Resp BP Sys/Watts Pulse Ox Last 24 Hr 96.8 F-98.3 F 6-108 3-43 99-141/47-106 87-100 General appearance: morbidly obese - Head Head exam: Present: normocephalic, atraumatic - Eye Eye exam: Present: EOMI Pupils: Present: BRIAN - ENT ENT exam: Present: normal exam - Neck Neck exam: Present: normal inspection - Respiratory Respiratory exam: Present: clear to auscultation bilaterally. Absent: rhonchi, wheezes - Cardiovascular Cardiovascular exam: Present: regular rate and rhythm - GI/Abdominal GI/Abdominal exam: Present: normal bowel sounds, soft. Absent: tenderness, rebound - Extremities Exam Extremities exam: Present: normal inspection - Back Exam Back exam: Present: normal inspection - Neurological Exam Neurological exam: Present: alert - Psychiatric Psychiatric exam: Present: normal affect, normal mood - Skin Skin exam: Present: warm, intact Results - Labs CBC & BMP: 05/19/16 05:16 05/19/16 05:16
[2016-05-19] MEDS: ENOXAPARIN 40 MG/0.4 ML SYRINGE SUBCUT SCH (12:27)
[2016-05-19] MEDS: DESITIN 4OZ/NYSTATIN 15 GRAM MIXTURE PASTE TOP SCH ×2 (12:32→21:06)
[2016-05-19] MEDS: LEVOFLOXACIN INJ 500 MG in PREMIX 1 EACH IV SCH (12:33)
[2016-05-19] MEDS: [UNRECOGNIZED DRUG - REMARK] TOP PRN (13:03)
[2016-05-19] MEDS: SODIUM CHLORIDE 0.45% 1,000 ML IV SCH (18:41)
[2016-05-20] MEDS: PROPOFOL 1,000 MG/100 ML BOTTLE IV SCH ×6 (00:01→21:01)
[2016-05-20] MEDS: methylPREDNISolone SOD SUC 40 MG/1 ML VIAL IV SCH ×3 (01:14→15:29)
[2016-05-20] MEDS: ALBUTEROL/IPRATROPIUM 3 ML NEB RESP TX SCH ×4 (01:33→18:57)
[2016-05-20 04:40] LABS: ABG Base Excess 8.4 MMOL/L (-2.5-2.5); ABG HCO3 32.1 MMOL/L (20-26); ABG Oxygen Saturation 98.1 % (95-100); ABG PCO2 64.2 MM HG (35-48); ABG PH 7.358 (7.35-7.45); ABG TCO2 32.6 MMOL/L (23-27); Allen Test Positive; Pt O2 Delivery Device Ventilator
[2016-05-20] MEDS: CLINDAMYCIN INJ 900 MG in PREMIX 1 EACH IV SCH ×3 (05:37→21:08)
--- NOTE | 2016-05-20 07:46 | XRay Report ---
Referring Physician: Jaden Ramírez Exam: XR chest 1V portable Date: May 20, 2016 at 3:13 AM Reason: Ventilation, respiratory failure Comparison: Chest one view portable May 19, 2016 Findings: An endotracheal tube and left-sided PICC are again in place. The cardiac silhouette is again enlarged. There are scattered perihilar and bibasilar opacities, most prominent at the left lung base. This is most consistent with atelectasis and mild pulmonary edema. Of note, evaluation of the left lung base is difficult, and pneumonia cannot be excluded in this region. No pneumothorax is identified, but there may be mild left pleural fluid. The osseous structures appear stable. Impression: There has been no significant change. PROCEDURE INTERPRETED AT [facility] DEPARTMENT OF RADIOLOGY Final Report Signed by: Dr. Ophelia Murry
[2016-05-20 07:55] LABS: Lymphocytes # 0.6 10*3/uL (1.4-4.0); Mean Corpuscular Hemoglobin 20 PG (27-34)
[2016-05-20 08:16] LABS: Basophils % 0.3 % (0.0-0.8); Eosinophils # 0.1 10*3/uL (0.0-0.87); Eosinophils % 0.5 % (0.00-10.9); Immature Granulocytes % 0.8 %; Immature Granulocytes Absolute 0.09 #; Lymphocytes % 5.9 % (21.3-54.2); Mean Corpuscular HGB Conc 27.8 GM/DL (32-36); Mean Platelet Volume 10.5 FL (9.6-12.0); Monocytes # 0.8 10*3/uL (0.11-0.8); Monocytes % 6.9 % (1.7-12.7); Neutrophils # 9.4 10*3/uL (1.4-7.4); Neutrophils % 85.6 % (38.7-73.9); Platelet Count 253 T/CUMM (130-400); Red Cell Distribution Width 20.6 % (9.3-17.3); White Blood Count 10.9 T/CUMM (4-12)
[2016-05-20] MEDS: FERROUS SULFATE 325 MG TABLET PO SCH ×2 (08:38→21:08)
[2016-05-20] MEDS: CHOLECALCIFEROL 1,000 UNIT TABLET PO SCH (08:38)
[2016-05-20] MEDS: LISINOPRIL 20 MG TABLET PO SCH (08:38)
[2016-05-20] MEDS: FOLIC ACID 0.4 MG TABLET PO SCH (08:38)
[2016-05-20] MEDS: amLODIPine 10 MG TABLET PO SCH (08:38)
[2016-05-20] MEDS: cloNIDine 0.1 MG TABLET PO SCH ×2 (08:39→21:07)
[2016-05-20] MEDS: FAMOTIDINE 20 MG TABLET PO SCH ×2 (08:39→21:08)
[2016-05-20] MEDS: FUROSEMIDE 40 MG/4 ML VIAL IV SCH (08:39)
[2016-05-20 08:43] LABS: Calcium 8.6 MG/DL (8.5-10.1); Magnesium 2.9 MG/DL (1.8-2.4); Potassium 3.9 MMOL/L (3.5-5.1)
[2016-05-20 08:48] LABS: Magnesium 2.8 MG/DL (1.8-2.4); Phosphorous 4.2 MG/DL (2.5-4.9); Prealbumin 16.4 MG/DL (20-40)
[2016-05-20] MEDS: DESITIN 4OZ/NYSTATIN 15 GRAM MIXTURE PASTE TOP SCH ×2 (08:54→21:08)
[2016-05-20] MEDS: SODIUM CHLORIDE 0.45% 1,000 ML IV SCH (08:55)
[2016-05-20 09:26] LABS: Hypochromasia 1+; Microcytosis 1+; Ovalocytes Slight; Platelet Estimate Adequate; Target Cells Slight
--- NOTE | 2016-05-20 09:44 | Pulmonology Progress Note ---
Pulmonary - PN: Subj Interval history: Ms. Ho is a 45-year-old -[place] female who we saw in initial pulmonary consultation on 05/12/2016. At that time, our impressions were: 1. Acute upper respiratory Streptococcus infection. Watch for pneumonia. 2. Acute respiratory failure for oxygen and carbon dioxide. I suspect this is superimposed on chronic respiratory failure for oxygen and carbon dioxide. This patient is massively obese with hypertension. Her H&H is normal but her indices are low suggest another underlying problem. This is probably a pickwickian syndrome. 3. Morbid obesity 4. High blood pressure 5. Abnormal red blood cell indices. Look for iron deficiency as well as B12 and folic acid abnormalities and look for reticulocytosis. 6. Chronic lower extremity venous stasis. Look for deep venous thrombophlebitis. 05/13/2016. The patient remains intubated and on mechanical ventilation. This morning, ABGs on mechanical ventilation with an FiO2 of 40% showed a pH of 7.550 , PCO2 34.7, PCO2 158.0, bicarb 31.5, and oxygen saturation 99.7%. We decreased the FiO2 to 30% and decrease the rate to 10 and will repeat ABGs. This patient is anemic with decreased indices and increased red blood cell distribution width. Iron studies were late consistent with iron deficiency anemia. We have taken the liberty of starting ferrous sulfate 325 mg twice daily. Will also check stools for blood 3. Folate is also low at 5.1. She has been started on folic acid 0.8 mg daily. Calcium is low at 7.9. Will check a vitamin D level. Vitamin B12 was normal. The patient's chest x-ray is essentially the same. We will continue the weaning protocol. Medications have been reviewed. We have started Ferrous sulfate and Folic Acid. Labs have been reviewed. White count is 11,600 with 66.2% segs; H&H 9.6/32.7; PLT count 379,000; creatinine increased to 1.30 (IAN), BUN 15, electrolytes are normal. 05/14/2016. I am allowing this patient's PCO2 to increase. I am decreasing her FiO2. She is a CO2 retainer. Today's ABGs on FiO2 30% showed pH 7.34, PCO2 61 , PO2 97.5 and bicarbonate 29.7. Electrolytes are normal. CBC is stable white count is dropped to 9900. The patient is low on iron and this is being replaced she has a low vitamin D level and this is being replaced and she has a low folic acid level and this is being replaced. There are no new cultures Echocardiogram. Ejection fraction 65%. Diastolic parameters are indeterminate. Right ventricular systolic pressure is 79 mmHg. Right ventricle is normal size. The left atrium and right atrium are increased in size. There is a trace of mitral regurgitation. 05/15/2016. Today's chest x-ray is showing elements of bibasilar atelectasis. We will plan fiberoptic bronchoscopy on this patient on 05/15/2016. Patient is only comfortable on stage I of the weaning protocol. Today I have made adjustments in her CPAP parameters and hopefully this will help. ABGs on mechanical ventilation with an FiO2 30% showed pH is 7.38. PCO2 to 61.7, PO2 96 , bicarb 35.7. Electrolytes are normal. Creatinine is dropped to 1.1 with a BUN of 16. CBC is stable white count is dropped to 8200. Microbiology, no positive results post 05/17/2016 this is a 5 foot 7 inch 501 pound black female with respiratory failure. I suspect she is a chronic CO2 retainer and I am letting her CO2's run at about 60. She is done fairly well with her CPAP trials and she has been on stage II and hopefully will advance to stage III today. She is on weaning protocol. She is also on deep venous thrombophlebitis prevention protocol and physical therapy while on the ventilator Procrit protocol and proton pump inhibitor protocol. Today's chest x-ray shows no heart failure no definite atelectasis and there are no definite infiltrates. Patient was evaluated with fiberoptic bronchoscopy on 05/16/2016. She had a moderate amount of retained secretions. So far all micro bacteriology specimens from the bronchoscopy are negative. ABGs on FiO2 of 30% and mechanical ventilation showed pH of 7.32, PCO2 63, PO2 of 73.6 and bicarb 28.7. Note the patient's on Diamox twice a day. Electrolytes are normal. Creatinine is 1.0 and BUN is 22. H&H 10.1/ 35.1. White count is 9300 with 73 segs and 11 lymphocytes. Platelets of 257, 000. This patient is making slow steady progress. I hope to be able to extubate her within the next week or so. Has possible she would require a trach. 05/20/2016. This patient is on stage V the weaning protocol. She is on FiO2 of 30% and I am going to decrease this to an FiO2 24% we will recheck her ABGs in about chest x-ray shows endotracheal tube to be in good position. She may have a left lower lung infiltrate. ABGs on mechanical ventilation and FiO2 30% show a pH 7.36, PCO2 64 and a PO2 of 110 with a bicarb of 32. Electrolytes are normal. H&H is 10.0/36.0 white count was 10,986 segs platelets are 253,000. Exam (Progress Note) - Constitutional Vitals: Period Temp Pulse Resp BP Sys/Watts Pulse Ox Last 24 Hr 96.6 F-98.2 F 55-81 12-28 109-145/59-97 98-100 Exam: Neurologic arousable. Cranial nerves are intact. Moves all 4 extremities. Neck. Short and thick. No meningismus. Lymphatics. No submandibular cervical supraclavicular adenopathy. Chest. Loose large airway congestion Heart sounds are distant, but without appreciable murmur, rub, or gallop Abd is massively obese with rare bowel sounds Ext with chronic venous stasis; note, doppler venograms done 05/12/16 were negative Psych/Neuro unchanged The remainder the physical exam is noncontributory. It is negative. Plan. 1. Mechanical ventilator weaning protocol. Let CO2 increase to the low to mid 60s. s He is low FiO2's peer 2. Mechanical ventilator physical therapy protocol. 3. Deep venous thrombophlebitis prevention protocol 4. Proton pump inhibitor protocol. 5. Diamox 250 IV push every 12 12 hours per 6. 05/15/2016. CPAP changes. Fiberoptic bronchoscopy in am 7. 05/20/2016. See today's note above. Watch for left lower lung atelectasis Exam (Progress Note) - Constitutional Vitals: Period Temp Pulse Resp BP Sys/Watts Pulse Ox Last 24 Hr 96.9 F-97.9 F 73-93 12-12 92-150/50-99 98-100 Results - Labs CBC & BMP: 05/20/16 07:40 05/20/16 07:40
--- NOTE | 2016-05-20 09:55 | Hospitalist Progress Note ---
Assessment and Plan (1) Morbid obesity Status: Acute Current Visit: Yes Qualifiers: Obesity type: due to excess calories Qualified Code(s): E66.01 - Morbid ( severe) obesity due to excess calories (2) Strep throat Status: Acute Assessment and plan: Continue clindamycin Current Visit: Yes (3) Obesity hypoventilation syndrome Status: Acute Assessment and plan: Pulmonary managing Current Visit: Yes (4) Acute and chronic respiratory failure with hypercapnia Status: Acute Current Visit: Yes Hospitalist: Subjective Interval history: No acute events overnight. Patient intubated and awake, nods head appropriately to questions. Patient improving on weaning protocol. Will f/u cxr tomorrow for possible pneumonia. Exam - Constitutional Vitals: Period Temp Pulse Resp BP Sys/Watts Pulse Ox Last 24 Hr 96.9 F-97.9 F 73-93 10-26 92-150/50-99 98-100 General appearance: morbidly obese - Head Head exam: Present: normocephalic, atraumatic - Eye Eye exam: Present: EOMI Pupils: Present: BRIAN - ENT ENT exam: Present: normal exam - Neck Neck exam: Present: normal inspection - Respiratory Respiratory exam: Present: decreased breath sounds. Absent: rhonchi, wheezes - Cardiovascular Cardiovascular exam: Present: regular rate and rhythm - GI/Abdominal GI/Abdominal exam: Present: normal bowel sounds, soft. Absent: tenderness, rebound - Extremities Exam Extremities exam: Present: normal inspection - Back Exam Back exam: Present: normal inspection - Neurological Exam Neurological exam: Present: alert - Skin Skin exam: Present: warm, intact Results - Labs CBC & BMP: 05/20/16 07:40 05/20/16 07:40
[2016-05-20 10:18] LABS: ABG Base Excess 7.7 MMOL/L (-2.5-2.5); ABG HCO3 31.3 MMOL/L (20-26); ABG Oxygen Saturation 89.8 % (95-100); ABG PCO2 62.7 MM HG (35-48); ABG PH 7.359 (7.35-7.45); ABG PO2 63.1 MM HG (80-95); ABG TCO2 31.9 MMOL/L (23-27); Allen Test Positive; Pt O2 Delivery Device Ventilator
[2016-05-20] MEDS: ENOXAPARIN 40 MG/0.4 ML SYRINGE SUBCUT SCH (10:46)
[2016-05-20] MEDS: LEVOFLOXACIN INJ 500 MG in PREMIX 1 EACH IV SCH (10:46)
[2016-05-21] MEDS: methylPREDNISolone SOD SUC 40 MG/1 ML VIAL IV SCH ×3 (00:06→15:54)
[2016-05-21] MEDS: ALBUTEROL/IPRATROPIUM 3 ML NEB RESP TX SCH ×4 (01:13→19:14)
[2016-05-21] MEDS: PROPOFOL 1,000 MG/100 ML BOTTLE IV SCH ×8 (02:49→21:12)
[2016-05-21 03:21] LABS: ABG Base Excess 8.6 MMOL/L (-2.5-2.5); ABG HCO3 32.3 MMOL/L (20-26); ABG Oxygen Saturation 96.1 % (95-100); ABG PCO2 63.3 MM HG (35-48); ABG PH 7.363 (7.35-7.45); ABG PO2 83.9 MM HG (80-95); ABG TCO2 32.9 MMOL/L (23-27); Allen Test Positive; Pt O2 Delivery Device Ventilator
[2016-05-21] MEDS: CLINDAMYCIN INJ 900 MG in PREMIX 1 EACH IV SCH ×3 (05:39→21:05)
[2016-05-21 05:42] LABS: Calcium 7.7 MG/DL (8.5-10.1); Osmolality,Calculated 279.1 MOS/KG (273-304); Potassium 4.1 MMOL/L (3.5-5.1)
[2016-05-21 05:51] LABS: Basophils % 0.3 % (0.0-0.8); Eosinophils % 0.1 % (0.00-10.9); Hematocrit 34.4 VOL% (35.7-47.0); Hemoglobin 10.1 GM/DL (12.0-16.0); Immature Granulocytes % 0.7 %; Immature Granulocytes Absolute 0.08 #; Lymphocytes # 0.7 10*3/uL (1.4-4.0); Lymphocytes % 6.3 % (21.3-54.2); Mean Corpuscular HGB Conc 29.4 GM/DL (32-36); Mean Corpuscular Hemoglobin 21 PG (27-34); Mean Corpuscular Volume 70.8 FL (87-102); Mean Platelet Volume 11.9 FL (9.6-12.0); Monocytes # 1.1 10*3/uL (0.11-0.8); Monocytes % 9.8 % (1.7-12.7); NRBC # 0.02 10*3/uL; Neutrophils # 9.1 10*3/uL (1.4-7.4); Neutrophils % 82.8 % (38.7-73.9); Platelet Count 226 T/CUMM (130-400); Red Blood Count 4.86 MC/CUMM (3.8-5.5); Red Cell Distribution Width 20.8 % (9.3-17.3); White Blood Count 10.9 T/CUMM (4-12)
[2016-05-21 05:53] LABS: Hypochromasia 2+; Microcytosis 1+; Platelet Estimate Adequate; Target Cells Few
[2016-05-21 05:54] LABS: Tear Drop Cells Few
--- NOTE | 2016-05-21 07:36 | XRay Report ---
Referring Physician: Jaden Ramírez Exam: XR chest 1V portable Date: May 21, 2016 at 3:26 AM Reason: Ventilation Comparison: Chest one view portable May 20, 2016 Findings: An endotracheal tube, feeding tube and left-sided PICC are again in place. The cardiac silhouette is again enlarged. There are scattered perihilar and bibasilar opacities. This is concerning for pulmonary edema and atelectasis, but superimposed pneumonia is not excluded. No pneumothorax is identified, but there may be mild left pleural fluid. The osseous structures appear stable. Impression: There has been no significant change. PROCEDURE INTERPRETED AT [facility] DEPARTMENT OF RADIOLOGY Final Report Signed by: Dr. Ophelia Murry
[2016-05-21] MEDS: FOLIC ACID 0.4 MG TABLET PO SCH (09:11)
[2016-05-21] MEDS: amLODIPine 10 MG TABLET PO SCH (09:11)
[2016-05-21] MEDS: FERROUS SULFATE 325 MG TABLET PO SCH ×2 (09:11→21:05)
[2016-05-21] MEDS: CHOLECALCIFEROL 1,000 UNIT TABLET PO SCH (09:11)
[2016-05-21] MEDS: FAMOTIDINE 20 MG TABLET PO SCH ×2 (09:11→21:05)
[2016-05-21] MEDS: LISINOPRIL 20 MG TABLET PO SCH (09:12)
[2016-05-21] MEDS: cloNIDine 0.1 MG TABLET PO SCH ×2 (09:12→21:04)
[2016-05-21] MEDS: FUROSEMIDE 40 MG/4 ML VIAL IV SCH (09:12)
[2016-05-21] MEDS: DESITIN 4OZ/NYSTATIN 15 GRAM MIXTURE PASTE TOP SCH ×2 (09:13→21:05)
--- NOTE | 2016-05-21 09:48 | Hospitalist Progress Note ---
Assessment and Plan (1) Morbid obesity Status: Acute Current Visit: Yes Qualifiers: Obesity type: due to excess calories Qualified Code(s): E66.01 - Morbid ( severe) obesity due to excess calories (2) Strep throat Status: Acute Assessment and plan: Continue clindamycin Current Visit: Yes (3) Obesity hypoventilation syndrome Status: Acute Assessment and plan: Pulmonary managing Current Visit: Yes (4) Acute and chronic respiratory failure with hypercapnia Status: Acute Current Visit: Yes Hospitalist: Subjective Interval history: No acute events overnight. Patient improving with weaning protocol. Exam - Constitutional Vitals: Period Temp Pulse Resp BP Sys/Watts Pulse Ox Last 24 Hr 98.0 F-98.9 F 66-96 10-31 102-140/53-88 91-100 General appearance: morbidly obese - Head Head exam: Present: normocephalic, atraumatic - Eye Eye exam: Present: EOMI Pupils: Present: BRIAN - ENT ENT exam: Present: normal exam - Neck Neck exam: Present: normal inspection - Respiratory Respiratory exam: Present: decreased breath sounds. Absent: wheezes - Cardiovascular Cardiovascular exam: Present: regular rate and rhythm - GI/Abdominal GI/Abdominal exam: Present: normal bowel sounds, soft. Absent: tenderness, rebound - Extremities Exam Extremities exam: Present: normal inspection - Back Exam Back exam: Present: normal inspection - Neurological Exam Neurological exam: Present: alert - Psychiatric Psychiatric exam: Present: normal affect - Skin Skin exam: Present: warm, intact Results - Labs CBC & BMP: 05/21/16 04:46 05/21/16 04:46
--- NOTE | 2016-05-21 09:49 | Pulmonology Progress Note ---
Pulmonary - PN: Subj Interval history: Ms. Ho is a 45-year-old -[place] female who we saw in initial pulmonary consultation on 05/12/2016. At that time, our impressions were: 1. Acute upper respiratory Streptococcus infection. Watch for pneumonia. 2. Acute respiratory failure for oxygen and carbon dioxide. I suspect this is superimposed on chronic respiratory failure for oxygen and carbon dioxide. This patient is massively obese with hypertension. Her H&H is normal but her indices are low suggest another underlying problem. This is probably a pickwickian syndrome. 3. Morbid obesity 4. High blood pressure 5. Abnormal red blood cell indices. Look for iron deficiency as well as B12 and folic acid abnormalities and look for reticulocytosis. 6. Chronic lower extremity venous stasis. Look for deep venous thrombophlebitis. 05/13/2016. The patient remains intubated and on mechanical ventilation. This morning, ABGs on mechanical ventilation with an FiO2 of 40% showed a pH of 7.550 , PCO2 34.7, PCO2 158.0, bicarb 31.5, and oxygen saturation 99.7%. We decreased the FiO2 to 30% and decrease the rate to 10 and will repeat ABGs. This patient is anemic with decreased indices and increased red blood cell distribution width. Iron studies were late consistent with iron deficiency anemia. We have taken the liberty of starting ferrous sulfate 325 mg twice daily. Will also check stools for blood 3. Folate is also low at 5.1. She has been started on folic acid 0.8 mg daily. Calcium is low at 7.9. Will check a vitamin D level. Vitamin B12 was normal. The patient's chest x-ray is essentially the same. We will continue the weaning protocol. Medications have been reviewed. We have started Ferrous sulfate and Folic Acid. Labs have been reviewed. White count is 11,600 with 66.2% segs; H&H 9.6/32.7; PLT count 379,000; creatinine increased to 1.30 (IAN), BUN 15, electrolytes are normal. 05/14/2016. I am allowing this patient's PCO2 to increase. I am decreasing her FiO2. She is a CO2 retainer. Today's ABGs on FiO2 30% showed pH 7.34, PCO2 61 , PO2 97.5 and bicarbonate 29.7. Electrolytes are normal. CBC is stable white count is dropped to 9900. The patient is low on iron and this is being replaced she has a low vitamin D level and this is being replaced and she has a low folic acid level and this is being replaced. There are no new cultures Echocardiogram. Ejection fraction 65%. Diastolic parameters are indeterminate. Right ventricular systolic pressure is 79 mmHg. Right ventricle is normal size. The left atrium and right atrium are increased in size. There is a trace of mitral regurgitation. 05/15/2016. Today's chest x-ray is showing elements of bibasilar atelectasis. We will plan fiberoptic bronchoscopy on this patient on 05/15/2016. Patient is only comfortable on stage I of the weaning protocol. Today I have made adjustments in her CPAP parameters and hopefully this will help. ABGs on mechanical ventilation with an FiO2 30% showed pH is 7.38. PCO2 to 61.7, PO2 96 , bicarb 35.7. Electrolytes are normal. Creatinine is dropped to 1.1 with a BUN of 16. CBC is stable white count is dropped to 8200. Microbiology, no positive results post 05/17/2016 this is a 5 foot 7 inch 501 pound black female with respiratory failure. I suspect she is a chronic CO2 retainer and I am letting her CO2's run at about 60. She is done fairly well with her CPAP trials and she has been on stage II and hopefully will advance to stage III today. She is on weaning protocol. She is also on deep venous thrombophlebitis prevention protocol and physical therapy while on the ventilator Procrit protocol and proton pump inhibitor protocol. Today's chest x-ray shows no heart failure no definite atelectasis and there are no definite infiltrates. Patient was evaluated with fiberoptic bronchoscopy on 05/16/2016. She had a moderate amount of retained secretions. So far all micro bacteriology specimens from the bronchoscopy are negative. ABGs on FiO2 of 30% and mechanical ventilation showed pH of 7.32, PCO2 63, PO2 of 73.6 and bicarb 28.7. Note the patient's on Diamox twice a day. Electrolytes are normal. Creatinine is 1.0 and BUN is 22. H&H 10.1/ 35.1. White count is 9300 with 73 segs and 11 lymphocytes. Platelets of 257, 000. This patient is making slow steady progress. I hope to be able to extubate her within the next week or so. Has possible she would require a trach. 05/20/2016. This patient is on stage V the weaning protocol. She is on FiO2 of 30% and I am going to decrease this to an FiO2 24% we will recheck her ABGs in about chest x-ray shows endotracheal tube to be in good position. She may have a left lower lung infiltrate. ABGs on mechanical ventilation and FiO2 30% show a pH 7.36, PCO2 64 and a PO2 of 110 with a bicarb of 32. Electrolytes are normal. H&H is 10.0/36.0 white count was 10,986 segs platelets are 253,000. 05/21/2016. This patient did 12 hours of CPAP yesterday and we will advanced to stage V the weaning protocol. Chest x-ray is stable. Some possible Z left lower lung well. On FiO2 28% pH 7.36, PCO2 is 63.3. PO2 is 83.9 and bicarb is 32.3. Patient has been left on high PCO twos to help with her weaning process. Sodium is 135. Potassium is 4.1. Creatinine is 0.8. CBC is stable. There are no new cultures Exam (Progress Note) - Constitutional Vitals: Period Temp Pulse Resp BP Sys/Watts Pulse Ox Last 24 Hr 96.6 F-98.2 F 55-81 12-28 109-145/59-97 98-100 Exam: Neurologic arousable. Cranial nerves are intact. Moves all 4 extremities. Neck. Short and thick. No meningismus. Lymphatics. No submandibular cervical supraclavicular adenopathy. Chest. Loose large airway congestion Heart sounds are distant, but without appreciable murmur, rub, or gallop Abd is massively obese with rare bowel sounds Ext with chronic venous stasis; note, doppler venograms done 05/12/16 were negative Psych/Neuro unchanged The remainder the physical exam is noncontributory. It is negative. Plan. 1. Mechanical ventilator weaning protocol. Let CO2 increase to the low to mid 60s. s He is low FiO2's peer 2. Mechanical ventilator physical therapy protocol. 3. Deep venous thrombophlebitis prevention protocol 4. Proton pump inhibitor protocol. 5. Diamox 250 IV push every 12 12 hours per 6. 05/15/2016. CPAP changes. Fiberoptic bronchoscopy in am 7. 05/20/2016. See today's note above. Watch for left lower lung atelectasis Exam (Progress Note) - Constitutional Vitals: Period Temp Pulse Resp BP Sys/Watts Pulse Ox Last 24 Hr 98.0 F-98.9 F 66-96 10-31 102-140/53-88 91-100 Results - Labs CBC & BMP: 05/21/16 04:46 05/21/16 04:46
[2016-05-21] MEDS: ENOXAPARIN 40 MG/0.4 ML SYRINGE SUBCUT SCH (09:59)
[2016-05-21] MEDS: LEVOFLOXACIN INJ 500 MG in PREMIX 1 EACH IV SCH (10:01)
[2016-05-21] MEDS: SODIUM CHLORIDE 0.45% 1,000 ML IV SCH ×3 (18:26→18:29)
[2016-05-22] MEDS: PROPOFOL 1,000 MG/100 ML BOTTLE IV SCH ×5 (00:01→16:22)
[2016-05-22] MEDS: methylPREDNISolone SOD SUC 40 MG/1 ML VIAL IV SCH ×3 (00:22→16:15)
[2016-05-22] MEDS: ALBUTEROL/IPRATROPIUM 3 ML NEB RESP TX SCH ×4 (01:19→18:33)
[2016-05-22 03:43] LABS: ABG PCO2 64.7 MM HG (35-48); ABG PH 7.397 (7.35-7.45); Allen Test Positive; Pt O2 Delivery Device Ventilator
[2016-05-22 03:44] LABS: ABG Base Excess 11.9 MMOL/L (-2.5-2.5); ABG HCO3 38.9 MMOL/L (20-26); ABG Oxygen Saturation 97.5 % (95-100); ABG PO2 100.8 MM HG (80-95); ABG TCO2 40.9 MMOL/L (23-27)
[2016-05-22] MEDS: CLINDAMYCIN INJ 900 MG in PREMIX 1 EACH IV SCH ×3 (05:51→21:43)
[2016-05-22 05:58] LABS: Calcium 7.8 MG/DL (8.5-10.1); Magnesium 2.9 MG/DL (1.8-2.4); Potassium 3.8 MMOL/L (3.5-5.1)
[2016-05-22 06:05] LABS: Basophils % 0.3 % (0.0-0.8); Eosinophils % 0.2 % (0.00-10.9); Hematocrit 35.1 VOL% (35.7-47.0); Hemoglobin 10.2 GM/DL (12.0-16.0); Immature Granulocytes % 0.9 %; Immature Granulocytes Absolute 0.11 #; Lymphocytes # 0.9 10*3/uL (1.4-4.0); Lymphocytes % 7.4 % (21.3-54.2); Mean Corpuscular HGB Conc 29.1 GM/DL (32-36); Mean Corpuscular Hemoglobin 21 PG (27-34); Mean Corpuscular Volume 71.1 FL (87-102); Mean Platelet Volume 11.3 FL (9.6-12.0); Monocytes % 8.2 % (1.7-12.7); Neutrophils # 9.9 10*3/uL (1.4-7.4); Platelet Count 235 T/CUMM (130-400); Red Blood Count 4.94 MC/CUMM (3.8-5.5); Red Cell Distribution Width 21.2 % (9.3-17.3); White Blood Count 11.9 T/CUMM (4-12)
--- NOTE | 2016-05-22 08:36 | XRay Report ---
XR chest 1V portable Indication: Ventilator Comparison: Chest x-ray May 21, 2016 Technique: Single frontal view of the chest Findings: Endotracheal tube tip remains at the clavicular level. Scattered perihilar and bibasilar opacities appear similar to prior examination. Suspect left pleural fluid. Heart remains enlarged. Osseous and surrounding soft tissue structures appear grossly unchanged. IMPRESSION: No significant interval change. PROCEDURE INTERPRETED AT [facility] DEPARTMENT OF RADIOLOGY Final Report Signed by: Dr Charles Grissom
[2016-05-22] MEDS: FUROSEMIDE 40 MG/4 ML VIAL IV SCH (09:11)
[2016-05-22] MEDS: FERROUS SULFATE 325 MG TABLET PO SCH ×2 (09:11→21:29)
[2016-05-22] MEDS: FAMOTIDINE 20 MG TABLET PO SCH ×2 (09:11→21:29)
[2016-05-22] MEDS: amLODIPine 10 MG TABLET PO SCH (09:11)
[2016-05-22] MEDS: cloNIDine 0.1 MG TABLET PO SCH ×2 (09:11→21:29)
[2016-05-22] MEDS: LISINOPRIL 20 MG TABLET PO SCH (09:11)
[2016-05-22] MEDS: CHOLECALCIFEROL 1,000 UNIT TABLET PO SCH (09:11)
[2016-05-22] MEDS: FOLIC ACID 0.4 MG TABLET PO SCH (09:11)
[2016-05-22] MEDS: ENOXAPARIN 40 MG/0.4 ML SYRINGE SUBCUT SCH (09:12)
[2016-05-22] MEDS: LEVOFLOXACIN INJ 500 MG in PREMIX 1 EACH IV SCH (10:40)
--- NOTE | 2016-05-22 10:53 | Pulmonology Progress Note ---
Pulmonary - PN: Subj Interval history: Ms. Ho is a 45-year-old -[place] female who we saw in initial pulmonary consultation on 05/12/2016. At that time, our impressions were: 1. Acute upper respiratory Streptococcus infection. Watch for pneumonia. 2. Acute respiratory failure for oxygen and carbon dioxide. I suspect this is superimposed on chronic respiratory failure for oxygen and carbon dioxide. This patient is massively obese with hypertension. Her H&H is normal but her indices are low suggest another underlying problem. This is probably a pickwickian syndrome. 3. Morbid obesity 4. High blood pressure 5. Abnormal red blood cell indices. Look for iron deficiency as well as B12 and folic acid abnormalities and look for reticulocytosis. 6. Chronic lower extremity venous stasis. Look for deep venous thrombophlebitis. 05/13/2016. The patient remains intubated and on mechanical ventilation. This morning, ABGs on mechanical ventilation with an FiO2 of 40% showed a pH of 7.550 , PCO2 34.7, PCO2 158.0, bicarb 31.5, and oxygen saturation 99.7%. We decreased the FiO2 to 30% and decrease the rate to 10 and will repeat ABGs. This patient is anemic with decreased indices and increased red blood cell distribution width. Iron studies were late consistent with iron deficiency anemia. We have taken the liberty of starting ferrous sulfate 325 mg twice daily. Will also check stools for blood 3. Folate is also low at 5.1. She has been started on folic acid 0.8 mg daily. Calcium is low at 7.9. Will check a vitamin D level. Vitamin B12 was normal. The patient's chest x-ray is essentially the same. We will continue the weaning protocol. Medications have been reviewed. We have started Ferrous sulfate and Folic Acid. Labs have been reviewed. White count is 11,600 with 66.2% segs; H&H 9.6/32.7; PLT count 379,000; creatinine increased to 1.30 (IAN), BUN 15, electrolytes are normal. 05/14/2016. I am allowing this patient's PCO2 to increase. I am decreasing her FiO2. She is a CO2 retainer. Today's ABGs on FiO2 30% showed pH 7.34, PCO2 61 , PO2 97.5 and bicarbonate 29.7. Electrolytes are normal. CBC is stable white count is dropped to 9900. The patient is low on iron and this is being replaced she has a low vitamin D level and this is being replaced and she has a low folic acid level and this is being replaced. There are no new cultures Echocardiogram. Ejection fraction 65%. Diastolic parameters are indeterminate. Right ventricular systolic pressure is 79 mmHg. Right ventricle is normal size. The left atrium and right atrium are increased in size. There is a trace of mitral regurgitation. 05/15/2016. Today's chest x-ray is showing elements of bibasilar atelectasis. We will plan fiberoptic bronchoscopy on this patient on 05/15/2016. Patient is only comfortable on stage I of the weaning protocol. Today I have made adjustments in her CPAP parameters and hopefully this will help. ABGs on mechanical ventilation with an FiO2 30% showed pH is 7.38. PCO2 to 61.7, PO2 96 , bicarb 35.7. Electrolytes are normal. Creatinine is dropped to 1.1 with a BUN of 16. CBC is stable white count is dropped to 8200. Microbiology, no positive results post 05/17/2016 this is a 5 foot 7 inch 501 pound black female with respiratory failure. I suspect she is a chronic CO2 retainer and I am letting her CO2's run at about 60. She is done fairly well with her CPAP trials and she has been on stage II and hopefully will advance to stage III today. She is on weaning protocol. She is also on deep venous thrombophlebitis prevention protocol and physical therapy while on the ventilator Procrit protocol and proton pump inhibitor protocol. Today's chest x-ray shows no heart failure no definite atelectasis and there are no definite infiltrates. Patient was evaluated with fiberoptic bronchoscopy on 05/16/2016. She had a moderate amount of retained secretions. So far all micro bacteriology specimens from the bronchoscopy are negative. ABGs on FiO2 of 30% and mechanical ventilation showed pH of 7.32, PCO2 63, PO2 of 73.6 and bicarb 28.7. Note the patient's on Diamox twice a day. Electrolytes are normal. Creatinine is 1.0 and BUN is 22. H&H 10.1/ 35.1. White count is 9300 with 73 segs and 11 lymphocytes. Platelets of 257, 000. This patient is making slow steady progress. I hope to be able to extubate her within the next week or so. Has possible she would require a trach. 05/20/2016. This patient is on stage V the weaning protocol. She is on FiO2 of 30% and I am going to decrease this to an FiO2 24% we will recheck her ABGs in about chest x-ray shows endotracheal tube to be in good position. She may have a left lower lung infiltrate. ABGs on mechanical ventilation and FiO2 30% show a pH 7.36, PCO2 64 and a PO2 of 110 with a bicarb of 32. Electrolytes are normal. H&H is 10.0/36.0 white count was 10,986 segs platelets are 253,000. 05/21/2016. This patient did 12 hours of CPAP yesterday and we will advanced to stage V the weaning protocol. Chest x-ray is stable. Some possible Z left lower lung well. On FiO2 28% pH 7.36, PCO2 is 63.3. PO2 is 83.9 and bicarb is 32.3. Patient has been left on high PCO twos to help with her weaning process. Sodium is 135. Potassium is 4.1. Creatinine is 0.8. CBC is stable. There are no new cultures 05/22/2016. This patient continues to progress through her weaning protocol. She looks unusually strong to me today and I am going to give her a T-tube trial and recheck her blood gases an hour. Chest x-ray shows a left pleural effusion and there is some prominence of both hilar areas that look vascular. Natruretic peptide is normal at 54. Electrolytes are normal. Creatinine is 0.8. BUNs 40. ABGs on FiO2 28% and on mechanical ventilation showed pH is 7.397, PCO2 is 64.7, PO2 is 100.8 and bicarb is 38.9. H&H is 10.2/35.1. White count is 11,900. Platelets are 235,000. Exam (Progress Note) - Constitutional Vitals: Period Temp Pulse Resp BP Sys/Watts Pulse Ox Last 24 Hr 96.6 F-98.2 F 55-81 12-28 109-145/59-97 98-100 Exam: Neurologic arousable. Cranial nerves are intact. Moves all 4 extremities. Neck. Short and thick. No meningismus. Lymphatics. No submandibular cervical supraclavicular adenopathy. Chest. Loose large airway congestion Heart sounds are distant, but without appreciable murmur, rub, or gallop Abd is massively obese with rare bowel sounds Ext with chronic venous stasis; note, doppler venograms done 05/12/16 were negative Psych. Patient is alert oriented and can cooperate The remainder the physical exam is noncontributory. It is negative. Plan. 1. Mechanical ventilator weaning protocol. Let CO2 increase to the low to mid 60s. s He is low FiO2's peer 2. Mechanical ventilator physical therapy protocol. 3. Deep venous thrombophlebitis prevention protocol 4. Proton pump inhibitor protocol. 5. Diamox 250 IV push every 12 12 hours per 6. 05/22/2016. T-tube trial. Probable left pleural effusion. Watch for left lower lung atelectasis Exam (Progress Note) - Constitutional Vitals: Period Temp Pulse Resp BP Sys/Watts Pulse Ox Last 24 Hr 97.9 F-99.3 F 58-101 9-37 96-132/49-91 94-100 Results - Labs CBC & BMP: 05/22/16 04:56 05/22/16 04:56
--- NOTE | 2016-05-22 11:01 | Hospitalist Progress Note ---
Assessment and Plan (1) Morbid obesity Status: Acute Current Visit: Yes Qualifiers: Obesity type: due to excess calories Qualified Code(s): E66.01 - Morbid ( severe) obesity due to excess calories (2) Strep throat Status: Acute Assessment and plan: Continue clindamycin Current Visit: Yes (3) Obesity hypoventilation syndrome Status: Acute Assessment and plan: Pulmonary managing Current Visit: Yes (4) Acute and chronic respiratory failure with hypercapnia Status: Acute Current Visit: Yes Hospitalist: Subjective Interval history: No acute events overnight. WBC 11.9 with a left shift. Afebrile. Will monitor closely for signs of an infection. On clindamycin for strep. Exam - Constitutional Vitals: Period Temp Pulse Resp BP Sys/Watts Pulse Ox Last 24 Hr 97.9 F-99.3 F 58-101 9-37 96-132/49-91 94-100 General appearance: morbidly obese - Head Head exam: Present: normocephalic, atraumatic - Eye Eye exam: Present: EOMI Pupils: Present: BRIAN - ENT ENT exam: Present: normal exam - Neck Neck exam: Present: normal inspection - Respiratory Respiratory exam: Present: clear to auscultation bilaterally. Absent: rhonchi, wheezes - Cardiovascular Cardiovascular exam: Present: regular rate and rhythm - GI/Abdominal GI/Abdominal exam: Present: normal bowel sounds, soft. Absent: tenderness, rebound - Extremities Exam Extremities exam: Present: normal inspection - Back Exam Back exam: Present: normal inspection - Neurological Exam Neurological exam: Present: alert - Skin Skin exam: Present: warm, intact Results - Labs CBC & BMP: 05/22/16 04:56 05/22/16 04:56
[2016-05-22 11:24] LABS: ABG HCO3 31.7 MMOL/L (20-26); ABG Oxygen Saturation 92.1 % (95-100); ABG PH 7.315 (7.35-7.45); ABG TCO2 33.5 MMOL/L (23-27)
[2016-05-22] MEDS: DESITIN 4OZ/NYSTATIN 15 GRAM MIXTURE PASTE TOP SCH ×2 (16:10→21:29)
[2016-05-22] MEDS: SODIUM CHLORIDE 0.45% 1,000 ML IV SCH (18:05)
[2016-05-23] MEDS: methylPREDNISolone SOD SUC 40 MG/1 ML VIAL IV SCH ×4 (00:38→23:56)
[2016-05-23] MEDS: CLINDAMYCIN INJ 900 MG in PREMIX 1 EACH IV SCH ×4 (00:40→21:14)
[2016-05-23] MEDS: PROPOFOL 1,000 MG/100 ML BOTTLE IV SCH ×2 (00:42→10:54)
[2016-05-23] MEDS: ALBUTEROL/IPRATROPIUM 3 ML NEB RESP TX SCH ×4 (01:01→19:10)
[2016-05-23 06:58] LABS: Basophils % 0.1 % (0.0-0.8); Eosinophils % 0.1 % (0.00-10.9); Hemoglobin 10.5 GM/DL (12.0-16.0); Immature Granulocytes % 0.7 %; Immature Granulocytes Absolute 0.11 #; Lymphocytes # 0.9 10*3/uL (1.4-4.0); Lymphocytes % 5.6 % (21.3-54.2); Mean Corpuscular HGB Conc 28.4 GM/DL (32-36); Mean Corpuscular Hemoglobin 20 PG (27-34); Mean Corpuscular Volume 70.9 FL (87-102); Mean Platelet Volume 10.8 FL (9.6-12.0); Monocytes % 6.6 % (1.7-12.7); Neutrophils # 13.5 10*3/uL (1.4-7.4); Neutrophils % 86.9 % (38.7-73.9); Platelet Count 285 T/CUMM (130-400); Red Blood Count 5.22 MC/CUMM (3.8-5.5); Red Cell Distribution Width 21.2 % (9.3-17.3); White Blood Count 15.5 T/CUMM (4-12)
[2016-05-23 07:02] LABS: Elliptocytes Few; Hypochromasia 1+; Platelet Estimate Adequate
[2016-05-23 07:22] LABS: ABG Base Excess 8.3 MMOL/L (-2.5-2.5); ABG Oxygen Saturation 94.5 % (95-100); ABG PCO2 65.7 MM HG (35-48); ABG PH 7.351 (7.35-7.45); ABG PO2 75.2 MM HG (80-95); ABG TCO2 32.7 MMOL/L (23-27)
[2016-05-23 07:26] LABS: Calcium 8.5 MG/DL (8.5-10.1); Magnesium 2.9 MG/DL (1.8-2.4); Osmolality,Calculated 290.4 MOS/KG (273-304); Potassium 3.8 MMOL/L (3.5-5.1)
--- NOTE | 2016-05-23 07:40 | XRay Report ---
Referring Physician: Jaden Ramírez Exam: XR chest 1V portable Date: May 23, 2016 at 3:15 AM Reason: Ventilation Comparison: Chest one view portable May 22, 2016 Findings: An endotracheal tube and left-sided PICC are again in place. A feeding tube is likely present but is largely obscured. The cardiac silhouette is again enlarged. There are scattered perihilar and bibasilar opacities. This likely represents atelectasis, but there could also be pulmonary edema or pneumonia. No pneumothorax is identified, but there may be mild left pleural fluid. The osseous structures appear stable. Impression: There has been no significant change. PROCEDURE INTERPRETED AT [facility] DEPARTMENT OF RADIOLOGY Final Report Signed by: Dr. Ophelia Muryr
[2016-05-23] MEDS: LISINOPRIL 20 MG TABLET PO SCH (08:20)
[2016-05-23] MEDS: cloNIDine 0.1 MG TABLET PO SCH ×2 (08:21→21:16)
[2016-05-23] MEDS: FAMOTIDINE 20 MG TABLET PO SCH ×2 (08:21→21:16)
[2016-05-23] MEDS: amLODIPine 10 MG TABLET PO SCH (08:21)
[2016-05-23] MEDS: FOLIC ACID 0.4 MG TABLET PO SCH (08:21)
[2016-05-23] MEDS: CHOLECALCIFEROL 1,000 UNIT TABLET PO SCH (08:21)
[2016-05-23] MEDS: FERROUS SULFATE 325 MG TABLET PO SCH ×2 (08:21→21:16)
[2016-05-23] MEDS: FUROSEMIDE 40 MG/4 ML VIAL IV SCH (08:22)
[2016-05-23] MEDS: [UNRECOGNIZED DRUG - REMARK] TOP PRN ×2 (08:31→11:25)
[2016-05-23] MEDS: DESITIN 4OZ/NYSTATIN 15 GRAM MIXTURE PASTE TOP SCH ×3 (08:31→21:18)
--- NOTE | 2016-05-23 09:35 | Hospitalist Progress Note ---
Assessment and Plan (1) Morbid obesity Status: Acute Current Visit: Yes Qualifiers: Obesity type: due to excess calories Qualified Code(s): E66.01 - Morbid ( severe) obesity due to excess calories (2) Strep throat Status: Acute Assessment and plan: Continue clindamycin Current Visit: Yes (3) Obesity hypoventilation syndrome Status: Acute Assessment and plan: Pulmonary managing Current Visit: Yes (4) Acute and chronic respiratory failure with hypercapnia Status: Acute Current Visit: Yes Hospitalist: Subjective Interval history: Improving with cpap trials. Remains alert, denies pain. Exam - Constitutional Vitals: Period Temp Pulse Resp BP Sys/Watts Pulse Ox Last 24 Hr 96.5 F-98.4 F 69-100 10-29 85-153/50-103 92-100 General appearance: morbidly obese - Head Head exam: Present: normocephalic, atraumatic - Eye Eye exam: Present: EOMI Pupils: Present: BRIAN - ENT ENT exam: Present: normal exam - Neck Neck exam: Present: normal inspection - Respiratory Respiratory exam: Present: clear to auscultation bilaterally. Absent: rhonchi, wheezes - Cardiovascular Cardiovascular exam: Present: regular rate and rhythm - GI/Abdominal GI/Abdominal exam: Present: normal bowel sounds, soft. Absent: tenderness, rebound - Extremities Exam Extremities exam: Present: normal inspection - Back Exam Back exam: Present: normal inspection - Neurological Exam Neurological exam: Present: alert - Psychiatric Psychiatric exam: Present: normal affect - Skin Skin exam: Present: warm, intact Results - Labs CBC & BMP: 05/23/16 04:42 05/23/16 04:42
--- NOTE | 2016-05-23 10:11 | Pulmonology Progress Note ---
Pulmonary - PN: Subj Interval history: Ms. Ho is a 45-year-old -[place] female who we saw in initial pulmonary consultation on 05/12/2016. At that time, our impressions were: 1. Acute upper respiratory Streptococcus infection. Watch for pneumonia. 2. Acute respiratory failure for oxygen and carbon dioxide. I suspect this is superimposed on chronic respiratory failure for oxygen and carbon dioxide. This patient is massively obese with hypertension. Her H&H is normal but her indices are low suggest another underlying problem. This is probably a pickwickian syndrome. 3. Morbid obesity 4. High blood pressure 5. Abnormal red blood cell indices. Look for iron deficiency as well as B12 and folic acid abnormalities and look for reticulocytosis. 6. Chronic lower extremity venous stasis. Look for deep venous thrombophlebitis. 05/13/2016. The patient remains intubated and on mechanical ventilation. This morning, ABGs on mechanical ventilation with an FiO2 of 40% showed a pH of 7.550 , PCO2 34.7, PCO2 158.0, bicarb 31.5, and oxygen saturation 99.7%. We decreased the FiO2 to 30% and decrease the rate to 10 and will repeat ABGs. This patient is anemic with decreased indices and increased red blood cell distribution width. Iron studies were late consistent with iron deficiency anemia. We have taken the liberty of starting ferrous sulfate 325 mg twice daily. Will also check stools for blood 3. Folate is also low at 5.1. She has been started on folic acid 0.8 mg daily. Calcium is low at 7.9. Will check a vitamin D level. Vitamin B12 was normal. The patient's chest x-ray is essentially the same. We will continue the weaning protocol. Medications have been reviewed. We have started Ferrous sulfate and Folic Acid. Labs have been reviewed. White count is 11,600 with 66.2% segs; H&H 9.6/32.7; PLT count 379,000; creatinine increased to 1.30 (IAN), BUN 15, electrolytes are normal. 05/14/2016. I am allowing this patient's PCO2 to increase. I am decreasing her FiO2. She is a CO2 retainer. Today's ABGs on FiO2 30% showed pH 7.34, PCO2 61 , PO2 97.5 and bicarbonate 29.7. Electrolytes are normal. CBC is stable white count is dropped to 9900. The patient is low on iron and this is being replaced she has a low vitamin D level and this is being replaced and she has a low folic acid level and this is being replaced. There are no new cultures Echocardiogram. Ejection fraction 65%. Diastolic parameters are indeterminate. Right ventricular systolic pressure is 79 mmHg. Right ventricle is normal size. The left atrium and right atrium are increased in size. There is a trace of mitral regurgitation. 05/15/2016. Today's chest x-ray is showing elements of bibasilar atelectasis. We will plan fiberoptic bronchoscopy on this patient on 05/15/2016. Patient is only comfortable on stage I of the weaning protocol. Today I have made adjustments in her CPAP parameters and hopefully this will help. ABGs on mechanical ventilation with an FiO2 30% showed pH is 7.38. PCO2 to 61.7, PO2 96 , bicarb 35.7. Electrolytes are normal. Creatinine is dropped to 1.1 with a BUN of 16. CBC is stable white count is dropped to 8200. Microbiology, no positive results post 05/17/2016 this is a 5 foot 7 inch 501 pound black female with respiratory failure. I suspect she is a chronic CO2 retainer and I am letting her CO2's run at about 60. She is done fairly well with her CPAP trials and she has been on stage II and hopefully will advance to stage III today. She is on weaning protocol. She is also on deep venous thrombophlebitis prevention protocol and physical therapy while on the ventilator Procrit protocol and proton pump inhibitor protocol. Today's chest x-ray shows no heart failure no definite atelectasis and there are no definite infiltrates. Patient was evaluated with fiberoptic bronchoscopy on 05/16/2016. She had a moderate amount of retained secretions. So far all micro bacteriology specimens from the bronchoscopy are negative. ABGs on FiO2 of 30% and mechanical ventilation showed pH of 7.32, PCO2 63, PO2 of 73.6 and bicarb 28.7. Note the patient's on Diamox twice a day. Electrolytes are normal. Creatinine is 1.0 and BUN is 22. H&H 10.1/ 35.1. White count is 9300 with 73 segs and 11 lymphocytes. Platelets of 257, 000. This patient is making slow steady progress. I hope to be able to extubate her within the next week or so. Has possible she would require a trach. 05/20/2016. This patient is on stage V the weaning protocol. She is on FiO2 of 30% and I am going to decrease this to an FiO2 24% we will recheck her ABGs in about chest x-ray shows endotracheal tube to be in good position. She may have a left lower lung infiltrate. ABGs on mechanical ventilation and FiO2 30% show a pH 7.36, PCO2 64 and a PO2 of 110 with a bicarb of 32. Electrolytes are normal. H&H is 10.0/36.0 white count was 10,986 segs platelets are 253,000. 05/21/2016. This patient did 12 hours of CPAP yesterday and we will advanced to stage V the weaning protocol. Chest x-ray is stable. Some possible Z left lower lung well. On FiO2 28% pH 7.36, PCO2 is 63.3. PO2 is 83.9 and bicarb is 32.3. Patient has been left on high PCO twos to help with her weaning process. Sodium is 135. Potassium is 4.1. Creatinine is 0.8. CBC is stable. There are no new cultures 05/22/2016. This patient continues to progress through her weaning protocol. She looks unusually strong to me today and I am going to give her a T-tube trial and recheck her blood gases an hour. Chest x-ray shows a left pleural effusion and there is some prominence of both hilar areas that look vascular. Natruretic peptide is normal at 54. Electrolytes are normal. Creatinine is 0.8. BUNs 40. ABGs on FiO2 28% and on mechanical ventilation showed pH is 7.397, PCO2 is 64.7, PO2 is 100.8 and bicarb is 38.9. H&H is 10.2/35.1. White count is 11,900. Platelets are 235,000. 05/24/2015. Chest x-ray shows a very large heart. Central vasculature is top normal. I cannot rule out fluid or an infiltrate over the left lower lobe. ABGs on FiO2 of 24% and a T-tube for 2 hours show a pH of 7.35, PCO2 65.7, PO2 is 75.2 and a bicarb of 32. Patient's alert awake and can cooperate. I am going to extubate her and we will recheck her ABGs in about an hour. Her FiO2 to should be no higher than 24%. Electrolytes normal. Creatinine is 0.8. H&H is 10.5/37.0. White blood cell count is 15,500. Platelets are 283,000. Exam (Progress Note) - Constitutional Vitals: Period Temp Pulse Resp BP Sys/Watts Pulse Ox Last 24 Hr 96.6 F-98.2 F 55-81 12-28 109-145/59-97 98-100 Exam: Neurologic arousable. Cranial nerves are intact. Moves all 4 extremities. Neck. Short and thick. No meningismus. Lymphatics. No submandibular cervical supraclavicular adenopathy. Chest. Loose large airway congestion Heart sounds are distant, but without appreciable murmur, rub, or gallop Abd is massively obese with rare bowel sounds Ext with chronic venous stasis; note, doppler venograms done 05/12/16 were negative Psych. Patient is alert oriented and can cooperate The remainder the physical exam is noncontributory. It is negative. Plan. 1. Mechanical ventilator weaning protocol. Let CO2 increase to the low to mid 60s. s He is low FiO2's peer 2. Mechanical ventilator physical therapy protocol. 3. Deep venous thrombophlebitis prevention protocol 4. Proton pump inhibitor protocol. 5. Diamox 250 IV push every 12 12 hours per 6. 05/22/2016. T-tube trial. Probable left pleural effusion. Watch for left lower lung atelectasis Exam (Progress Note) - Constitutional Vitals: Period Temp Pulse Resp BP Sys/Watts Pulse Ox Last 24 Hr 96.5 F-98.4 F 69-100 10-29 85-153/50-103 92-100 Results - Labs CBC & BMP: 05/23/16 04:42 05/23/16 04:42
--- NOTE | 2016-05-23 10:16 | XRay Report ---
History is leukocytosis, ventilator management Chest one view 05/23/2016 at 9:50 AM Comparison with earlier the same day Heart remains enlarged. ET tube tip remains at T2-T3. Left subclavian line again seen There remains mild vascular prominence and minimal articular interstitial pulmonary opacities. Left base is underpenetrated without obvious consolidation. The lungs are mildly under aerated Impression: No significant change in mild perihilar interstitial infiltrates versus edema PROCEDURE INTERPRETED AT [facility] DEPARTMENT OF RADIOLOGY Final Report Signed by: Dr. Florence Juarez
[2016-05-23 10:35] LABS: ABG Oxygen Saturation 90.4 % (95-100); ABG PH 7.367 (7.35-7.45); ABG PO2 61.9 MM HG (80-95); ABG TCO2 42.1 MMOL/L (23-27); Allen Test Positive
[2016-05-23 10:38] LABS: ABG PCO2 71.2 MM HG (35-48)
[2016-05-23] MEDS: ENOXAPARIN 40 MG/0.4 ML SYRINGE SUBCUT SCH (10:48)
[2016-05-23] MEDS: LEVOFLOXACIN INJ 500 MG in PREMIX 1 EACH IV SCH (10:49)
[2016-05-23] MEDS: SODIUM CHLORIDE 0.45% 1,000 ML IV SCH (19:45)
[2016-05-24] MEDS: ALBUTEROL/IPRATROPIUM 3 ML NEB RESP TX SCH ×4 (01:03→19:57)
[2016-05-24 03:06] LABS: ABG Base Excess 8.6 MMOL/L (-2.5-2.5); ABG HCO3 32.2 MMOL/L (20-26); ABG Oxygen Saturation 89.6 % (95-100); ABG PCO2 62.6 MM HG (35-48); ABG PO2 58.6 MM HG (80-95); ABG TCO2 32.6 MMOL/L (23-27)
[2016-05-24] MEDS: CLINDAMYCIN INJ 900 MG in PREMIX 1 EACH IV SCH ×3 (04:43→20:55)
[2016-05-24 05:21] LABS: Calcium 8.7 MG/DL (8.5-10.1); Magnesium 2.8 MG/DL (1.8-2.4); Osmolality,Calculated 289.4 MOS/KG (273-304); Potassium 3.8 MMOL/L (3.5-5.1)
[2016-05-24 05:57] LABS: Basophils % 0.2 % (0.0-0.8); Eosinophils % 0.1 % (0.00-10.9); Hematocrit 36.2 VOL% (35.7-47.0); Hemoglobin 10.2 GM/DL (12.0-16.0); Immature Granulocytes % 0.7 %; Immature Granulocytes Absolute 0.11 #; Lymphocytes # 0.7 10*3/uL (1.4-4.0); Lymphocytes % 4.3 % (21.3-54.2); Mean Corpuscular HGB Conc 28.2 GM/DL (32-36); Mean Corpuscular Hemoglobin 20 PG (27-34); Mean Corpuscular Volume 71.1 FL (87-102); Mean Platelet Volume 10.8 FL (9.6-12.0); Monocytes # 0.9 10*3/uL (0.11-0.8); Monocytes % 5.4 % (1.7-12.7); Neutrophils # 14.8 10*3/uL (1.4-7.4); Neutrophils % 89.3 % (38.7-73.9); Platelet Count 327 T/CUMM (130-400); Red Blood Count 5.09 MC/CUMM (3.8-5.5); Red Cell Distribution Width 21.7 % (9.3-17.3); White Blood Count 16.6 T/CUMM (4-12)
[2016-05-24 06:07] LABS: Lymphocytes 1 % (20-55); Segmented Neutrophils 92 % (50-85); Total Cells Counted 100
[2016-05-24 06:08] LABS: Hypochromasia 2+; Microcytosis 1+; Target Cells Slight
[2016-05-24 06:09] LABS: Platelet Estimate Normal
--- NOTE | 2016-05-24 07:42 | XRay Report ---
Exam: XR chest 1V portable Date: 05/24/2016 4:00 AM Indication: Shortness of breath Comparison: 05/23/2016 Technical: AP portable Findings: Left-sided PICC line is demonstrated with the distal tip in the superior vena cava at the innominate junction. Cardiomegaly is present. External cardiac leads are present. Tiny low volume effusions are present. ASVD is present. Mediastinum is intact. Impression: 1. Stable appearance of the PICC line 2. Cardiomegaly without overt decompensation with the suggestion of tiny effusions and mild interstitial alveolar edema PROCEDURE INTERPRETED AT [facility] DEPARTMENT OF RADIOLOGY Final Report Signed by: Dr. Marcus Jenkins
[2016-05-24] MEDS: LEVOFLOXACIN INJ 500 MG in PREMIX 1 EACH IV SCH (09:34)
[2016-05-24] MEDS: CHOLECALCIFEROL 1,000 UNIT TABLET PO SCH (09:35)
[2016-05-24] MEDS: methylPREDNISolone SOD SUC 40 MG/1 ML VIAL IV SCH ×2 (09:35→15:43)
[2016-05-24] MEDS: FUROSEMIDE 40 MG/4 ML VIAL IV SCH (09:35)
[2016-05-24] MEDS: ENOXAPARIN 40 MG/0.4 ML SYRINGE SUBCUT SCH (09:35)
[2016-05-24] MEDS: cloNIDine 0.1 MG TABLET PO SCH ×2 (09:35→20:55)
[2016-05-24] MEDS: LISINOPRIL 20 MG TABLET PO SCH (09:36)
[2016-05-24] MEDS: FAMOTIDINE 20 MG TABLET PO SCH ×2 (09:36→20:54)
[2016-05-24] MEDS: FERROUS SULFATE 325 MG TABLET PO SCH ×2 (09:36→20:54)
[2016-05-24] MEDS: amLODIPine 10 MG TABLET PO SCH (09:36)
[2016-05-24] MEDS: FOLIC ACID 0.4 MG TABLET PO SCH (09:36)
[2016-05-24] MEDS: DESITIN 4OZ/NYSTATIN 15 GRAM MIXTURE PASTE TOP SCH ×2 (09:37→20:56)
--- NOTE | 2016-05-24 10:52 | Pulmonology Progress Note ---
Pulmonary - PN: Subj Interval history: Ms. Ho is a 45-year-old -[place] female who we saw in initial pulmonary consultation on 05/12/2016. At that time, our impressions were: 1. Acute upper respiratory Streptococcus infection. Watch for pneumonia. 2. Acute respiratory failure for oxygen and carbon dioxide. I suspect this is superimposed on chronic respiratory failure for oxygen and carbon dioxide. This patient is massively obese with hypertension. Her H&H is normal but her indices are low suggest another underlying problem. This is probably a pickwickian syndrome. 3. Morbid obesity 4. High blood pressure 5. Abnormal red blood cell indices. Look for iron deficiency as well as B12 and folic acid abnormalities and look for reticulocytosis. 6. Chronic lower extremity venous stasis. Look for deep venous thrombophlebitis. 05/13/2016. The patient remains intubated and on mechanical ventilation. This morning, ABGs on mechanical ventilation with an FiO2 of 40% showed a pH of 7.550 , PCO2 34.7, PCO2 158.0, bicarb 31.5, and oxygen saturation 99.7%. We decreased the FiO2 to 30% and decrease the rate to 10 and will repeat ABGs. This patient is anemic with decreased indices and increased red blood cell distribution width. Iron studies were late consistent with iron deficiency anemia. We have taken the liberty of starting ferrous sulfate 325 mg twice daily. Will also check stools for blood 3. Folate is also low at 5.1. She has been started on folic acid 0.8 mg daily. Calcium is low at 7.9. Will check a vitamin D level. Vitamin B12 was normal. The patient's chest x-ray is essentially the same. We will continue the weaning protocol. Medications have been reviewed. We have started Ferrous sulfate and Folic Acid. Labs have been reviewed. White count is 11,600 with 66.2% segs; H&H 9.6/32.7; PLT count 379,000; creatinine increased to 1.30 (IAN), BUN 15, electrolytes are normal. 05/14/2016. I am allowing this patient's PCO2 to increase. I am decreasing her FiO2. She is a CO2 retainer. Today's ABGs on FiO2 30% showed pH 7.34, PCO2 61 , PO2 97.5 and bicarbonate 29.7. Electrolytes are normal. CBC is stable white count is dropped to 9900. The patient is low on iron and this is being replaced she has a low vitamin D level and this is being replaced and she has a low folic acid level and this is being replaced. There are no new cultures Echocardiogram. Ejection fraction 65%. Diastolic parameters are indeterminate. Right ventricular systolic pressure is 79 mmHg. Right ventricle is normal size. The left atrium and right atrium are increased in size. There is a trace of mitral regurgitation. 05/15/2016. Today's chest x-ray is showing elements of bibasilar atelectasis. We will plan fiberoptic bronchoscopy on this patient on 05/15/2016. Patient is only comfortable on stage I of the weaning protocol. Today I have made adjustments in her CPAP parameters and hopefully this will help. ABGs on mechanical ventilation with an FiO2 30% showed pH is 7.38. PCO2 to 61.7, PO2 96 , bicarb 35.7. Electrolytes are normal. Creatinine is dropped to 1.1 with a BUN of 16. CBC is stable white count is dropped to 8200. Microbiology, no positive results post 05/17/2016 this is a 5 foot 7 inch 501 pound black female with respiratory failure. I suspect she is a chronic CO2 retainer and I am letting her CO2's run at about 60. She is done fairly well with her CPAP trials and she has been on stage II and hopefully will advance to stage III today. She is on weaning protocol. She is also on deep venous thrombophlebitis prevention protocol and physical therapy while on the ventilator Procrit protocol and proton pump inhibitor protocol. Today's chest x-ray shows no heart failure no definite atelectasis and there are no definite infiltrates. Patient was evaluated with fiberoptic bronchoscopy on 05/16/2016. She had a moderate amount of retained secretions. So far all micro bacteriology specimens from the bronchoscopy are negative. ABGs on FiO2 of 30% and mechanical ventilation showed pH of 7.32, PCO2 63, PO2 of 73.6 and bicarb 28.7. Note the patient's on Diamox twice a day. Electrolytes are normal. Creatinine is 1.0 and BUN is 22. H&H 10.1/ 35.1. White count is 9300 with 73 segs and 11 lymphocytes. Platelets of 257, 000. This patient is making slow steady progress. I hope to be able to extubate her within the next week or so. Has possible she would require a trach. 05/20/2016. This patient is on stage V the weaning protocol. She is on FiO2 of 30% and I am going to decrease this to an FiO2 24% we will recheck her ABGs in about chest x-ray shows endotracheal tube to be in good position. She may have a left lower lung infiltrate. ABGs on mechanical ventilation and FiO2 30% show a pH 7.36, PCO2 64 and a PO2 of 110 with a bicarb of 32. Electrolytes are normal. H&H is 10.0/36.0 white count was 10,986 segs platelets are 253,000. 05/21/2016. This patient did 12 hours of CPAP yesterday and we will advanced to stage V the weaning protocol. Chest x-ray is stable. Some possible Z left lower lung well. On FiO2 28% pH 7.36, PCO2 is 63.3. PO2 is 83.9 and bicarb is 32.3. Patient has been left on high PCO twos to help with her weaning process. Sodium is 135. Potassium is 4.1. Creatinine is 0.8. CBC is stable. There are no new cultures 05/22/2016. This patient continues to progress through her weaning protocol. She looks unusually strong to me today and I am going to give her a T-tube trial and recheck her blood gases an hour. Chest x-ray shows a left pleural effusion and there is some prominence of both hilar areas that look vascular. Natruretic peptide is normal at 54. Electrolytes are normal. Creatinine is 0.8. BUNs 40. ABGs on FiO2 28% and on mechanical ventilation showed pH is 7.397, PCO2 is 64.7, PO2 is 100.8 and bicarb is 38.9. H&H is 10.2/35.1. White count is 11,900. Platelets are 235,000. 05/23/2016. Chest x-ray shows a very large heart. Central vasculature is top normal. I cannot rule out fluid or an infiltrate over the left lower lobe. ABGs on FiO2 of 24% and a T-tube for 2 hours show a pH of 7.35, PCO2 65.7, PO2 is 75.2 and a bicarb of 32. Patient's alert awake and can cooperate. I am going to extubate her and we will recheck her ABGs in about an hour. Her FiO2 to should be no higher than 24%. Electrolytes normal. Creatinine is 0.8. H&H is 10.5/37.0. White blood cell count is 15,500. Platelets are 283,000. 05/24/2016. This patient was extubated on 05/23/2016. She is done well from a pulmonary standpoint since that time. Her chest x-ray shows cardiomegaly. I do not see any overt congestive heart failure. I do not see any infiltrates. ABGs on FiO2 of 24% show a pH 7.37, PCO2 of 62.6, PO2 of 58.6 and a bicarb of 32.2. Electrolytes are normal. Creatinine is 0.7. BUN is 40. White count is 16,693% segs H&H 11.2/36.2 and platelets of 327,000. This patient's alert and oriented she was seen with family. She appears to be making good progress. Do not increase her FiO2 above 24% as she is a severe CO2 retainer. Exam (Progress Note) - Constitutional Vitals: Period Temp Pulse Resp BP Sys/Watts Pulse Ox Last 24 Hr 96.6 F-98.2 F 55-81 12-28 109-145/59-97 98-100 Exam: Neurologic arousable. Cranial nerves are intact. Moves all 4 extremities. Neck. Short and thick. No meningismus. Lymphatics. No submandibular cervical supraclavicular adenopathy. Chest. Loose large airway congestion Heart sounds are distant, but without appreciable murmur, rub, or gallop Abd is massively obese with rare bowel sounds Ext with chronic venous stasis; note, doppler venograms done 05/12/16 were negative Psych. Patient is alert oriented and can cooperate The remainder the physical exam is noncontributory. It is negative. Plan. 1. Mechanical ventilator weaning protocol. Let CO2 increase to the low to mid 60s. s He is low FiO2's peer 2. Mechanical ventilator physical therapy protocol. 3. Deep venous thrombophlebitis prevention protocol 4. Proton pump inhibitor protocol. 5. Diamox 250 IV push every 12 12 hours per. 05/24/2016. Convert to Diamox 250 mg p.o. twice daily. #6. Extubated 05/23/2016. Continue daily chest x-rays ABGs and lab for a few more days. Do not increase FiO2 above 24% Exam (Progress Note) - Constitutional Vitals: Period Temp Pulse Resp BP Sys/Watts Pulse Ox Last 24 Hr 97.3 F-98.9 F 64-102 7-24 103-152/65-94 85-100 Results - Labs CBC & BMP: 05/24/16 04:48 05/24/16 04:48
--- NOTE | 2016-05-24 14:37 | Hospitalist Progress Note ---
Assessment and Plan (1) Morbid obesity Status: Acute Current Visit: Yes Qualifiers: Obesity type: due to excess calories Qualified Code(s): E66.01 - Morbid ( severe) obesity due to excess calories (2) Strep throat Status: Acute Assessment and plan: Continue clindamycin Current Visit: Yes (3) Obesity hypoventilation syndrome Status: Acute Assessment and plan: Pulmonary managing. Extubated 05/23/16 Current Visit: Yes (4) Acute and chronic respiratory failure with hypercapnia Status: Acute Current Visit: Yes Hospitalist: Subjective Interval history: Extubated yesterday. Doing well this morning. Breathing comfortably on NC. She reports that her breathing seems to come and go. Continue to monitor in the unit for now. Still with leukocytosis, treating for strep, no other signs of infection. Exam - Constitutional Vitals: Period Temp Pulse Resp BP Sys/Watts Pulse Ox Last 24 Hr 97.3 F-98.9 F 64-102 12-24 102-152/65-94 85-100 General appearance: morbidly obese - Head Head exam: Present: normocephalic, atraumatic - Eye Eye exam: Present: EOMI Pupils: Present: BRIAN - ENT ENT exam: Present: normal exam - Neck Neck exam: Present: normal inspection - Respiratory Respiratory exam: Present: clear to auscultation bilaterally. Absent: rhonchi, wheezes - Cardiovascular Cardiovascular exam: Present: regular rate and rhythm - GI/Abdominal GI/Abdominal exam: Present: firm, hypoactive bowel sounds, other (protuberant). Absent: tenderness, rebound - Extremities Exam Extremities exam: Present: normal inspection - Back Exam Back exam: Present: normal inspection - Neurological Exam Neurological exam: Present: alert, oriented X3 - Psychiatric Psychiatric exam: Present: normal affect, normal mood - Skin Skin exam: Present: warm, intact Results - Labs CBC & BMP: 05/24/16 04:48 05/24/16 04:48
[2016-05-24] MEDS: SODIUM CHLORIDE 0.45% 1,000 ML IV SCH (18:03)
[2016-05-24] MEDS: acetaZOLAMIDE 250 MG TABLET PO SCH (20:55)
[2016-05-25] MEDS: methylPREDNISolone SOD SUC 40 MG/1 ML VIAL IV SCH ×3 (00:12→15:37)
[2016-05-25] MEDS: ALBUTEROL/IPRATROPIUM 3 ML NEB RESP TX SCH ×4 (02:15→19:53)
[2016-05-25 03:43] LABS: ABG Base Excess 7.3 MMOL/L (-2.5-2.5); ABG Oxygen Saturation 91.1 % (95-100); ABG PCO2 60.7 MM HG (35-48); ABG PH 7.365 (7.35-7.45); ABG PO2 62.8 MM HG (80-95); ABG TCO2 31.3 MMOL/L (23-27); Allen Test Positive
[2016-05-25] MEDS: CLINDAMYCIN INJ 900 MG in PREMIX 1 EACH IV SCH ×3 (04:46→22:19)
[2016-05-25 05:07] LABS: Calcium 8.8 MG/DL (8.5-10.1); Magnesium 2.7 MG/DL (1.8-2.4); Osmolality,Calculated 288.5 MOS/KG (273-304); Potassium 3.6 MMOL/L (3.5-5.1)
[2016-05-25 05:25] LABS: Basophils % 0.2 % (0.0-0.8); Eosinophils % 0.1 % (0.00-10.9); Hematocrit 36.5 VOL% (35.7-47.0); Hemoglobin 10.4 GM/DL (12.0-16.0); Immature Granulocytes Absolute 0.18 #; Lymphocytes # 0.8 10*3/uL (1.4-4.0); Lymphocytes % 4.3 % (21.3-54.2); Mean Corpuscular HGB Conc 28.5 GM/DL (32-36); Mean Corpuscular Hemoglobin 20 PG (27-34); Mean Corpuscular Volume 70.5 FL (87-102); Mean Platelet Volume 10.7 FL (9.6-12.0); Monocytes % 5.7 % (1.7-12.7); Neutrophils # 15.6 10*3/uL (1.4-7.4); Neutrophils % 88.7 % (38.7-73.9); Platelet Count 352 T/CUMM (130-400); Red Blood Count 5.18 MC/CUMM (3.8-5.5); Red Cell Distribution Width 22.1 % (9.3-17.3); White Blood Count 17.6 T/CUMM (4-12)
[2016-05-25 05:40] LABS: Lymphocytes 8 % (20-55); Myelocytes 1 %; Segmented Neutrophils 88 % (50-85); Total Cells Counted 100
[2016-05-25 05:41] LABS: Hypochromasia 2+; Microcytosis 1+; Target Cells Slight
[2016-05-25 05:42] LABS: Platelet Estimate Normal
--- NOTE | 2016-05-25 07:29 | XRay Report ---
XR chest 1V portable Indication: Shortness of breath. Chest one view: Since yesterday, PICC line, cardiomegaly, pulmonary hypoinflation and complete obscuration of the left lung base is stable. No new infiltrates are identified. Interstitial prominence of the lungs accentuated by obesity. Impression: No significant change. PROCEDURE INTERPRETED AT [facility] DEPARTMENT OF RADIOLOGY Final Report Signed by: Trevor Osborn M.D.
--- NOTE | 2016-05-25 08:12 | Hospitalist Progress Note ---
Assessment and Plan (1) Morbid obesity Status: Chronic Current Visit: Yes Qualifiers: Obesity type: due to excess calories Qualified Code(s): E66.01 - Morbid ( severe) obesity due to excess calories (2) Strep throat Status: Acute Assessment and plan: Continue with antibiotics at this time. Patient has elevated white blood cell count will repeat BMP and CBC in a.m. Current Visit: Yes (3) Obesity hypoventilation syndrome Status: Chronic Assessment and plan: Patient requires 1 L nasal oxygen. Continue current therapy for this patient. Making preparations for patient to go to a floor today. Current Visit: Yes (4) Acute and chronic respiratory failure with hypercapnia Status: Acute Assessment and plan: Patient now extubated does require 1 L nasal oxygen. Sats maintained around 91- 92%. Current Visit: Yes Hospitalist: Subjective Interval history: The patient is resting comfortably she voices no complaints. She has now been asked a bated for the past 2 days. Appears to have evidence of pickwickian syndrome with chronic respiratory changes. She is currently on 1 L oxygen and maintain sats of approximately 90-91%. She has been hemodynamically stable. Exam - Constitutional Vitals: Period Temp Pulse Resp BP Sys/Watts Pulse Ox Last 24 Hr 97.1 F-98.2 F 63-96 12-26 89-151/59-102 89-100 General appearance: over weight - Head Head exam: Present: normal inspection - Eye Eye exam: Present: EOMI Pupils: Present: BRIAN - Respiratory Respiratory exam: Present: clear to auscultation bilaterally, other - Cardiovascular Cardiovascular exam: Present: regular rate and rhythm - GI/Abdominal GI/Abdominal exam: Present: normal bowel sounds - Neurological Exam Neurological exam: Present: alert, oriented X3 - Psychiatric Psychiatric exam: Present: normal affect Results - Labs CBC & BMP: 05/25/16 04:00 05/25/16 04:00
[2016-05-25] MEDS: amLODIPine 10 MG TABLET PO SCH (08:53)
[2016-05-25] MEDS: FERROUS SULFATE 325 MG TABLET PO SCH ×2 (08:54→22:21)
[2016-05-25] MEDS: acetaZOLAMIDE 250 MG TABLET PO SCH ×2 (08:54→22:21)
[2016-05-25] MEDS: CHOLECALCIFEROL 1,000 UNIT TABLET PO SCH (08:54)
[2016-05-25] MEDS: FAMOTIDINE 20 MG TABLET PO SCH ×2 (08:55→22:21)
[2016-05-25] MEDS: LISINOPRIL 20 MG TABLET PO SCH (08:55)
[2016-05-25] MEDS: cloNIDine 0.1 MG TABLET PO SCH ×2 (08:55→22:21)
[2016-05-25] MEDS: DESITIN 4OZ/NYSTATIN 15 GRAM MIXTURE PASTE TOP SCH (08:56)
[2016-05-25] MEDS: FUROSEMIDE 40 MG/4 ML VIAL IV SCH (08:59)
[2016-05-25] MEDS: ENOXAPARIN 40 MG/0.4 ML SYRINGE SUBCUT SCH (09:02)
[2016-05-25] MEDS: FOLIC ACID 0.4 MG TABLET PO SCH (09:20)
[2016-05-25] MEDS: LEVOFLOXACIN INJ 500 MG in PREMIX 1 EACH IV SCH (09:35)
--- NOTE | 2016-05-25 09:55 | Pulmonology Progress Note ---
Pulmonary - PN: Subj Interval history: Ms. Ho is a 45-year-old -[place] female who we saw in initial pulmonary consultation on 05/12/2016. At that time, our impressions were: 1. Acute upper respiratory Streptococcus infection. Watch for pneumonia. 2. Acute respiratory failure for oxygen and carbon dioxide. I suspect this is superimposed on chronic respiratory failure for oxygen and carbon dioxide. This patient is massively obese with hypertension. Her H&H is normal but her indices are low suggest another underlying problem. This is probably a pickwickian syndrome. 3. Morbid obesity 4. High blood pressure 5. Abnormal red blood cell indices. Look for iron deficiency as well as B12 and folic acid abnormalities and look for reticulocytosis. 6. Chronic lower extremity venous stasis. Look for deep venous thrombophlebitis. 05/13/2016. The patient remains intubated and on mechanical ventilation. This morning, ABGs on mechanical ventilation with an FiO2 of 40% showed a pH of 7.550 , PCO2 34.7, PCO2 158.0, bicarb 31.5, and oxygen saturation 99.7%. We decreased the FiO2 to 30% and decrease the rate to 10 and will repeat ABGs. This patient is anemic with decreased indices and increased red blood cell distribution width. Iron studies were late consistent with iron deficiency anemia. We have taken the liberty of starting ferrous sulfate 325 mg twice daily. Will also check stools for blood 3. Folate is also low at 5.1. She has been started on folic acid 0.8 mg daily. Calcium is low at 7.9. Will check a vitamin D level. Vitamin B12 was normal. The patient's chest x-ray is essentially the same. We will continue the weaning protocol. Medications have been reviewed. We have started Ferrous sulfate and Folic Acid. Labs have been reviewed. White count is 11,600 with 66.2% segs; H&H 9.6/32.7; PLT count 379,000; creatinine increased to 1.30 (IAN), BUN 15, electrolytes are normal. 05/14/2016. I am allowing this patient's PCO2 to increase. I am decreasing her FiO2. She is a CO2 retainer. Today's ABGs on FiO2 30% showed pH 7.34, PCO2 61 , PO2 97.5 and bicarbonate 29.7. Electrolytes are normal. CBC is stable white count is dropped to 9900. The patient is low on iron and this is being replaced she has a low vitamin D level and this is being replaced and she has a low folic acid level and this is being replaced. There are no new cultures Echocardiogram. Ejection fraction 65%. Diastolic parameters are indeterminate. Right ventricular systolic pressure is 79 mmHg. Right ventricle is normal size. The left atrium and right atrium are increased in size. There is a trace of mitral regurgitation. 05/15/2016. Today's chest x-ray is showing elements of bibasilar atelectasis. We will plan fiberoptic bronchoscopy on this patient on 05/15/2016. Patient is only comfortable on stage I of the weaning protocol. Today I have made adjustments in her CPAP parameters and hopefully this will help. ABGs on mechanical ventilation with an FiO2 30% showed pH is 7.38. PCO2 to 61.7, PO2 96 , bicarb 35.7. Electrolytes are normal. Creatinine is dropped to 1.1 with a BUN of 16. CBC is stable white count is dropped to 8200. Microbiology, no positive results post 05/17/2016 this is a 5 foot 7 inch 501 pound black female with respiratory failure. I suspect she is a chronic CO2 retainer and I am letting her CO2's run at about 60. She is done fairly well with her CPAP trials and she has been on stage II and hopefully will advance to stage III today. She is on weaning protocol. She is also on deep venous thrombophlebitis prevention protocol and physical therapy while on the ventilator Procrit protocol and proton pump inhibitor protocol. Today's chest x-ray shows no heart failure no definite atelectasis and there are no definite infiltrates. Patient was evaluated with fiberoptic bronchoscopy on 05/16/2016. She had a moderate amount of retained secretions. So far all micro bacteriology specimens from the bronchoscopy are negative. ABGs on FiO2 of 30% and mechanical ventilation showed pH of 7.32, PCO2 63, PO2 of 73.6 and bicarb 28.7. Note the patient's on Diamox twice a day. Electrolytes are normal. Creatinine is 1.0 and BUN is 22. H&H 10.1/ 35.1. White count is 9300 with 73 segs and 11 lymphocytes. Platelets of 257, 000. This patient is making slow steady progress. I hope to be able to extubate her within the next week or so. Has possible she would require a trach. 05/20/2016. This patient is on stage V the weaning protocol. She is on FiO2 of 30% and I am going to decrease this to an FiO2 24% we will recheck her ABGs in about chest x-ray shows endotracheal tube to be in good position. She may have a left lower lung infiltrate. ABGs on mechanical ventilation and FiO2 30% show a pH 7.36, PCO2 64 and a PO2 of 110 with a bicarb of 32. Electrolytes are normal. H&H is 10.0/36.0 white count was 10,986 segs platelets are 253,000. 05/21/2016. This patient did 12 hours of CPAP yesterday and we will advanced to stage V the weaning protocol. Chest x-ray is stable. Some possible Z left lower lung well. On FiO2 28% pH 7.36, PCO2 is 63.3. PO2 is 83.9 and bicarb is 32.3. Patient has been left on high PCO twos to help with her weaning process. Sodium is 135. Potassium is 4.1. Creatinine is 0.8. CBC is stable. There are no new cultures 05/22/2016. This patient continues to progress through her weaning protocol. She looks unusually strong to me today and I am going to give her a T-tube trial and recheck her blood gases an hour. Chest x-ray shows a left pleural effusion and there is some prominence of both hilar areas that look vascular. Natruretic peptide is normal at 54. Electrolytes are normal. Creatinine is 0.8. BUNs 40. ABGs on FiO2 28% and on mechanical ventilation showed pH is 7.397, PCO2 is 64.7, PO2 is 100.8 and bicarb is 38.9. H&H is 10.2/35.1. White count is 11,900. Platelets are 235,000. 05/23/2016. Chest x-ray shows a very large heart. Central vasculature is top normal. I cannot rule out fluid or an infiltrate over the left lower lobe. ABGs on FiO2 of 24% and a T-tube for 2 hours show a pH of 7.35, PCO2 65.7, PO2 is 75.2 and a bicarb of 32. Patient's alert awake and can cooperate. I am going to extubate her and we will recheck her ABGs in about an hour. Her FiO2 to should be no higher than 24%. Electrolytes normal. Creatinine is 0.8. H&H is 10.5/37.0. White blood cell count is 15,500. Platelets are 283,000. 05/24/2016. This patient was extubated on 05/23/2016. She is done well from a pulmonary standpoint since that time. Her chest x-ray shows cardiomegaly. I do not see any overt congestive heart failure. I do not see any infiltrates. ABGs on FiO2 of 24% show a pH 7.37, PCO2 of 62.6, PO2 of 58.6 and a bicarb of 32.2. Electrolytes are normal. Creatinine is 0.7. BUN is 40. White count is 16,693% segs H&H 11.2/36.2 and platelets of 327,000. This patient's alert and oriented she was seen with family. She appears to be making good progress. Do not increase her FiO2 above 24% as she is a severe CO2 retainer. 05/25/2016. Today's chest x-ray shows cardiomegaly. I did not see any heart failure or infiltrates. ABGs on FiO2 24% show a pH 7.36, PCO2 is 60.7, PO2 62.8 and a bicarb of 31. Electrolytes are normal. Creatinine is 0.9 with a BUN of 43. CBC is stable white blood cell count is 17,689 segs. There are no new positive cultures. The patient continues to slowly improve. She is alert oriented and comfortable and seems to be moving air much better. Exam (Progress Note) - Constitutional Vitals: Period Temp Pulse Resp BP Sys/Watts Pulse Ox Last 24 Hr 96.6 F-98.2 F 55-81 12-28 109-145/59-97 98-100 Exam: Psychiatric. Alert oriented cooperative Neurologic . Cranial nerves are intact. Moves all 4 extremities. Neck. Short and thick. No meningismus. Lymphatics. No submandibular cervical supraclavicular adenopathy. Chest. Loose large airway congestion Heart sounds are distant, but without appreciable murmur, rub, or gallop Abd is massively obese with rare bowel sounds Ext with chronic venous stasis; note, doppler venograms done 05/12/16 were negative The remainder the physical exam is non-contributory The remainder the physical exam is noncontributory. It is negative. Plan. 1. Mechanical ventilator weaning protocol. Let CO2 increase to the low to mid 60s. s He is low FiO2's peer. Extubated 05/23/2016. 2. Mechanical ventilator physical therapy protocol. Extubated 05/23/2016. 3. Deep venous thrombophlebitis prevention protocol 4. Proton pump inhibitor protocol. 5. Diamox 250 IV push every 12 12 hours per. 05/24/2016. Convert to Diamox 250 mg p.o. twice daily. #6. 05/25/2016. Extubated 05/23/2016. Continue daily chest x-rays ABGs and lab for a few more days. Do not increase FiO2 above 24% Exam (Progress Note) - Constitutional Vitals: Period Temp Pulse Resp BP Sys/Watts Pulse Ox Last 24 Hr 97.1 F-98.2 F 63-96 12-26 89-151/59-102 89-99 Results - Labs CBC & BMP: 05/25/16 04:00 05/25/16 04:00
[2016-05-25] MEDS: SODIUM CHLORIDE 0.45% 1,000 ML IV SCH (22:18)
[2016-05-26] MEDS: ALBUTEROL/IPRATROPIUM 3 ML NEB RESP TX SCH ×4 (01:34→19:28)
[2016-05-26] MEDS: methylPREDNISolone SOD SUC 40 MG/1 ML VIAL IV SCH ×3 (01:44→18:01)
[2016-05-26] MEDS: DESITIN 4OZ/NYSTATIN 15 GRAM MIXTURE PASTE TOP SCH ×3 (02:09→20:33)
[2016-05-26 04:27] LABS: ABG Base Excess 6.2 MMOL/L (-2.5-2.5); ABG PCO2 64.4 MM HG (35-48); ABG PH 7.333 (7.35-7.45); ABG PO2 70.8 MM HG (80-95); Glucose Heart Surgery 129 MG/DL (74-106); Hematocrit Heart Surgery 33.3 PERCENT (37-47); Hemoglobin Heart Surgery 10.8 G/DL (12.0-16.0); Potassium Heart/CVR 3.6 MMOL/L (3.5-5.1)
[2016-05-26] MEDS: CLINDAMYCIN INJ 900 MG in PREMIX 1 EACH IV SCH ×3 (06:09→20:33)
[2016-05-26] MEDS: SODIUM CHLORIDE 0.45% 1,000 ML IV SCH ×2 (06:10→20:32)
[2016-05-26 06:54] LABS: Calcium 8.9 MG/DL (8.5-10.1); Magnesium 2.6 MG/DL (1.8-2.4); Osmolality,Calculated 288.4 MOS/KG (273-304); Potassium 3.7 MMOL/L (3.5-5.1)
[2016-05-26 07:10] LABS: Basophils % 0.2 % (0.0-0.8); Immature Granulocytes % 0.7 %; Immature Granulocytes Absolute 0.12 #; Lymphocytes # 0.8 10*3/uL (1.4-4.0); Lymphocytes % 4.6 % (21.3-54.2); Mean Corpuscular HGB Conc 28.6 GM/DL (32-36); Mean Corpuscular Hemoglobin 20 PG (27-34); Monocytes # 0.8 10*3/uL (0.11-0.8); Monocytes % 4.9 % (1.7-12.7); Neutrophils # 14.7 10*3/uL (1.4-7.4); Neutrophils % 89.6 % (38.7-73.9); Platelet Count 325 T/CUMM (130-400); Red Blood Count 5.07 MC/CUMM (3.8-5.5); Red Cell Distribution Width 21.7 % (9.3-17.3); White Blood Count 16.5 T/CUMM (4-12)
[2016-05-26 07:12] LABS: Hemoglobin 10.3 GM/DL (12.0-16.0)
[2016-05-26 07:21] LABS: Band Neutrophils 1 % (0-10); Hypochromasia 1+; Lymphocytes 3 % (20-55); Platelet Estimate Adequate; Segmented Neutrophils 93 % (50-85); Total Cells Counted 100
[2016-05-26 07:22] LABS: Elliptocytes Few; Target Cells Few
--- NOTE | 2016-05-26 09:32 | XRay Report ---
XR chest 1V portable Indication: Shortness of breath. Chest one view: Comparison yesterday shows continued significant pulmonary hypoinflation with obscuration of the lung bases secondary to atelectasis. Central pulmonary vascular crowding noted as well. No new infiltrates are shown. Cardiomegaly and PICC line are stable. Impression: No change. PROCEDURE INTERPRETED AT [facility] DEPARTMENT OF RADIOLOGY Final Report Signed by: Trevor Osborn M.D.
[2016-05-26] MEDS: FAMOTIDINE 20 MG TABLET PO SCH ×2 (10:11→20:33)
[2016-05-26] MEDS: amLODIPine 10 MG TABLET PO SCH (10:11)
[2016-05-26] MEDS: CHOLECALCIFEROL 1,000 UNIT TABLET PO SCH (10:12)
[2016-05-26] MEDS: FERROUS SULFATE 325 MG TABLET PO SCH ×2 (10:14→20:33)
[2016-05-26] MEDS: acetaZOLAMIDE 250 MG TABLET PO SCH ×2 (10:14→20:33)
[2016-05-26] MEDS: LISINOPRIL 20 MG TABLET PO SCH (10:14)
[2016-05-26] MEDS: FOLIC ACID 0.4 MG TABLET PO SCH (10:15)
[2016-05-26] MEDS: cloNIDine 0.1 MG TABLET PO SCH ×2 (10:15→20:33)
[2016-05-26] MEDS: FUROSEMIDE 40 MG/4 ML VIAL IV SCH (10:18)
[2016-05-26] MEDS: LEVOFLOXACIN INJ 500 MG in PREMIX 1 EACH IV SCH (10:18)
--- NOTE | 2016-05-26 10:23 | Pulmonology Progress Note ---
Pulmonary - PN: Subj Interval history: Ms. Ho is a 45-year-old -[place] female who we saw in initial pulmonary consultation on 05/12/2016. At that time, our impressions were: 1. Acute upper respiratory Streptococcus infection. Watch for pneumonia. 2. Acute respiratory failure for oxygen and carbon dioxide. I suspect this is superimposed on chronic respiratory failure for oxygen and carbon dioxide. This patient is massively obese with hypertension. Her H&H is normal but her indices are low suggest another underlying problem. This is probably a pickwickian syndrome. 3. Morbid obesity 4. High blood pressure 5. Abnormal red blood cell indices. Look for iron deficiency as well as B12 and folic acid abnormalities and look for reticulocytosis. 6. Chronic lower extremity venous stasis. Look for deep venous thrombophlebitis. 05/13/2016. The patient remains intubated and on mechanical ventilation. This morning, ABGs on mechanical ventilation with an FiO2 of 40% showed a pH of 7.550 , PCO2 34.7, PCO2 158.0, bicarb 31.5, and oxygen saturation 99.7%. We decreased the FiO2 to 30% and decrease the rate to 10 and will repeat ABGs. This patient is anemic with decreased indices and increased red blood cell distribution width. Iron studies were late consistent with iron deficiency anemia. We have taken the liberty of starting ferrous sulfate 325 mg twice daily. Will also check stools for blood 3. Folate is also low at 5.1. She has been started on folic acid 0.8 mg daily. Calcium is low at 7.9. Will check a vitamin D level. Vitamin B12 was normal. The patient's chest x-ray is essentially the same. We will continue the weaning protocol. Medications have been reviewed. We have started Ferrous sulfate and Folic Acid. Labs have been reviewed. White count is 11,600 with 66.2% segs; H&H 9.6/32.7; PLT count 379,000; creatinine increased to 1.30 (IAN), BUN 15, electrolytes are normal. 05/14/2016. I am allowing this patient's PCO2 to increase. I am decreasing her FiO2. She is a CO2 retainer. Today's ABGs on FiO2 30% showed pH 7.34, PCO2 61 , PO2 97.5 and bicarbonate 29.7. Electrolytes are normal. CBC is stable white count is dropped to 9900. The patient is low on iron and this is being replaced she has a low vitamin D level and this is being replaced and she has a low folic acid level and this is being replaced. There are no new cultures Echocardiogram. Ejection fraction 65%. Diastolic parameters are indeterminate. Right ventricular systolic pressure is 79 mmHg. Right ventricle is normal size. The left atrium and right atrium are increased in size. There is a trace of mitral regurgitation. 05/15/2016. Today's chest x-ray is showing elements of bibasilar atelectasis. We will plan fiberoptic bronchoscopy on this patient on 05/15/2016. Patient is only comfortable on stage I of the weaning protocol. Today I have made adjustments in her CPAP parameters and hopefully this will help. ABGs on mechanical ventilation with an FiO2 30% showed pH is 7.38. PCO2 to 61.7, PO2 96 , bicarb 35.7. Electrolytes are normal. Creatinine is dropped to 1.1 with a BUN of 16. CBC is stable white count is dropped to 8200. Microbiology, no positive results post 05/17/2016 this is a 5 foot 7 inch 501 pound black female with respiratory failure. I suspect she is a chronic CO2 retainer and I am letting her CO2's run at about 60. She is done fairly well with her CPAP trials and she has been on stage II and hopefully will advance to stage III today. She is on weaning protocol. She is also on deep venous thrombophlebitis prevention protocol and physical therapy while on the ventilator Procrit protocol and proton pump inhibitor protocol. Today's chest x-ray shows no heart failure no definite atelectasis and there are no definite infiltrates. Patient was evaluated with fiberoptic bronchoscopy on 05/16/2016. She had a moderate amount of retained secretions. So far all micro bacteriology specimens from the bronchoscopy are negative. ABGs on FiO2 of 30% and mechanical ventilation showed pH of 7.32, PCO2 63, PO2 of 73.6 and bicarb 28.7. Note the patient's on Diamox twice a day. Electrolytes are normal. Creatinine is 1.0 and BUN is 22. H&H 10.1/ 35.1. White count is 9300 with 73 segs and 11 lymphocytes. Platelets of 257, 000. This patient is making slow steady progress. I hope to be able to extubate her within the next week or so. Has possible she would require a trach. 05/20/2016. This patient is on stage V the weaning protocol. She is on FiO2 of 30% and I am going to decrease this to an FiO2 24% we will recheck her ABGs in about chest x-ray shows endotracheal tube to be in good position. She may have a left lower lung infiltrate. ABGs on mechanical ventilation and FiO2 30% show a pH 7.36, PCO2 64 and a PO2 of 110 with a bicarb of 32. Electrolytes are normal. H&H is 10.0/36.0 white count was 10,986 segs platelets are 253,000. 05/21/2016. This patient did 12 hours of CPAP yesterday and we will advanced to stage V the weaning protocol. Chest x-ray is stable. Some possible Z left lower lung well. On FiO2 28% pH 7.36, PCO2 is 63.3. PO2 is 83.9 and bicarb is 32.3. Patient has been left on high PCO twos to help with her weaning process. Sodium is 135. Potassium is 4.1. Creatinine is 0.8. CBC is stable. There are no new cultures 05/22/2016. This patient continues to progress through her weaning protocol. She looks unusually strong to me today and I am going to give her a T-tube trial and recheck her blood gases an hour. Chest x-ray shows a left pleural effusion and there is some prominence of both hilar areas that look vascular. Natruretic peptide is normal at 54. Electrolytes are normal. Creatinine is 0.8. BUNs 40. ABGs on FiO2 28% and on mechanical ventilation showed pH is 7.397, PCO2 is 64.7, PO2 is 100.8 and bicarb is 38.9. H&H is 10.2/35.1. White count is 11,900. Platelets are 235,000. 05/23/2016. Chest x-ray shows a very large heart. Central vasculature is top normal. I cannot rule out fluid or an infiltrate over the left lower lobe. ABGs on FiO2 of 24% and a T-tube for 2 hours show a pH of 7.35, PCO2 65.7, PO2 is 75.2 and a bicarb of 32. Patient's alert awake and can cooperate. I am going to extubate her and we will recheck her ABGs in about an hour. Her FiO2 to should be no higher than 24%. Electrolytes normal. Creatinine is 0.8. H&H is 10.5/37.0. White blood cell count is 15,500. Platelets are 283,000. 05/24/2016. This patient was extubated on 05/23/2016. She is done well from a pulmonary standpoint since that time. Her chest x-ray shows cardiomegaly. I do not see any overt congestive heart failure. I do not see any infiltrates. ABGs on FiO2 of 24% show a pH 7.37, PCO2 of 62.6, PO2 of 58.6 and a bicarb of 32.2. Electrolytes are normal. Creatinine is 0.7. BUN is 40. White count is 16,693% segs H&H 11.2/36.2 and platelets of 327,000. This patient's alert and oriented she was seen with family. She appears to be making good progress. Do not increase her FiO2 above 24% as she is a severe CO2 retainer. 05/25/2016. Today's chest x-ray shows cardiomegaly. I did not see any heart failure or infiltrates. ABGs on FiO2 24% show a pH 7.36, PCO2 is 60.7, PO2 62.8 and a bicarb of 31. Electrolytes are normal. Creatinine is 0.9 with a BUN of 43. CBC is stable white blood cell count is 17,689 segs. There are no new positive cultures. The patient continues to slowly improve. She is alert oriented and comfortable and seems to be moving air much better. 05/26/2016. Patient had an uneventful night. Her chest x-ray is stable. She has no new complaints and she has no new requests. ABGs show a pH of 7.33, PCO2 is 64.4, PO2 70.8 and a bicarb of 30. Electrolytes are normal. Creatinine is 0.80. BUN is 37. CBC is stable. There are no new positive culture results. This patient is a CO2 retainer. Do not increase her FiO2 above 24% Exam (Progress Note) - Constitutional Vitals: Period Temp Pulse Resp BP Sys/Watts Pulse Ox Last 24 Hr 96.6 F-98.2 F 55-81 12-28 109-145/59-97 98-100 Exam: Psychiatric. Alert oriented cooperative Neurologic . Cranial nerves are intact. Moves all 4 extremities. Neck. Short and thick. No meningismus. Lymphatics. No submandibular cervical supraclavicular adenopathy. Chest. Loose large airway congestion Heart sounds are distant, but without appreciable murmur, rub, or gallop Abd is massively obese with rare bowel sounds Ext with chronic venous stasis; note, doppler venograms done 05/12/16 were negative The remainder the physical exam is non-contributory The remainder the physical exam is noncontributory. It is negative. Plan. 1. Mechanical ventilator weaning protocol. Let CO2 increase to the low to mid 60s. s He is low FiO2's peer. Extubated 05/23/2016. 2. Mechanical ventilator physical therapy protocol. Extubated 05/23/2016. 3. Deep venous thrombophlebitis prevention protocol 4. Proton pump inhibitor protocol. 5. Diamox 250 IV push every 12 12 hours per. 05/24/2016. Convert to Diamox 250 mg p.o. twice daily. #6. 05/25/2016. Extubated 05/23/2016. Continue daily chest x-rays ABGs and lab for a few more days. Do not increase FiO2 above 24% Exam (Progress Note) - Constitutional Vitals: Period Temp Pulse Resp BP Sys/Watts Pulse Ox Last 24 Hr 97.1 F-98.6 F 77-91 16-23 117-150/64-85 91-99 Results - Labs CBC & BMP: 05/26/16 06:22 05/26/16 05:50
[2016-05-26] MEDS: ENOXAPARIN 40 MG/0.4 ML SYRINGE SUBCUT SCH (10:28)
--- NOTE | 2016-05-26 11:40 | Hospitalist Progress Note ---
Assessment and Plan (1) Morbid obesity Status: Chronic Current Visit: Yes Qualifiers: Obesity type: due to excess calories Qualified Code(s): E66.01 - Morbid ( severe) obesity due to excess calories (2) Strep throat Status: Acute Assessment and plan: Continue with antibiotics at this time. Patient has elevated white blood cell count will repeat BMP and CBC in a.m. Current Visit: Yes (3) Obesity hypoventilation syndrome Status: Chronic Assessment and plan: Patient requires 1 L nasal oxygen. Continue current therapy for this patient. Current Visit: Yes (4) Acute and chronic respiratory failure with hypercapnia Status: Acute Assessment and plan: Patient now does require 1 L nasal oxygen. Sats maintained around 91-92%. Current Visit: Yes Hospitalist: Subjective Interval history: The patient is resting no acute changes. She was able to move from the ICU setting on yesterday. WBC count is continued to trend down. No fevers. Exam - Constitutional Vitals: Period Temp Pulse Resp BP Sys/Watts Pulse Ox Last 24 Hr 97.1 F-98.6 F 77-91 16-23 117-150/64-85 91-99 General appearance: morbidly obese - Head Head exam: Present: normal inspection - ENT ENT exam: Present: normal exam - Neck Neck exam: Present: normal inspection - Respiratory Respiratory exam: Present: clear to auscultation bilaterally - Cardiovascular Cardiovascular exam: Present: regular rate and rhythm - GI/Abdominal GI/Abdominal exam: Present: normal bowel sounds - Neurological Exam Neurological exam: Present: alert, oriented X3 - Psychiatric Psychiatric exam: Present: normal affect, normal mood Results - Labs CBC & BMP: 05/26/16 06:22 05/26/16 05:50
[2016-05-27] MEDS: ALBUTEROL/IPRATROPIUM 3 ML NEB RESP TX SCH ×4 (00:22→19:16)
[2016-05-27] MEDS: methylPREDNISolone SOD SUC 40 MG/1 ML VIAL IV SCH ×3 (01:14→18:08)
[2016-05-27 04:21] LABS: ABG Base Excess 8.5 MMOL/L (-2.5-2.5); ABG HCO3 36.9 MMOL/L (20-26); ABG PH 7.316 (7.35-7.45); ABG PO2 65.4 MM HG (80-95); ABG TCO2 39.1 MMOL/L (23-27); Allen Test Positive
[2016-05-27 04:26] LABS: ABG PCO2 73.9 MM HG (35-48)
[2016-05-27] MEDS: CLINDAMYCIN INJ 900 MG in PREMIX 1 EACH IV SCH ×2 (06:05→13:30)
[2016-05-27 06:43] LABS: Basophils % 0.1 % (0.0-0.8); Hematocrit 36.5 VOL% (35.7-47.0); Hemoglobin 10.3 GM/DL (12.0-16.0); Immature Granulocytes % 0.8 %; Immature Granulocytes Absolute 0.14 #; Lymphocytes # 0.7 10*3/uL (1.4-4.0); Lymphocytes % 4.2 % (21.3-54.2); Mean Corpuscular HGB Conc 28.2 GM/DL (32-36); Mean Corpuscular Hemoglobin 20 PG (27-34); Mean Corpuscular Volume 71.9 FL (87-102); Mean Platelet Volume 10.3 FL (9.6-12.0); Monocytes # 0.8 10*3/uL (0.11-0.8); Monocytes % 4.6 % (1.7-12.7); Neutrophils # 15.4 10*3/uL (1.4-7.4); Neutrophils % 90.3 % (38.7-73.9); Platelet Count 328 T/CUMM (130-400); Red Blood Count 5.08 MC/CUMM (3.8-5.5); Red Cell Distribution Width 22.2 % (9.3-17.3)
[2016-05-27 06:53] LABS: Calcium 8.9 MG/DL (8.5-10.1); Osmolality,Calculated 287.4 MOS/KG (273-304); Potassium 3.7 MMOL/L (3.5-5.1)
[2016-05-27 06:56] LABS: Lymphocytes 4 % (20-55); Segmented Neutrophils 93 % (50-85); Total Cells Counted 100
[2016-05-27 06:57] LABS: Hypochromasia 2+; Microcytosis 1+; Polychromasia Slight; Target Cells Few
[2016-05-27 06:58] LABS: Ovalocytes Slight; Platelet Estimate Normal
--- NOTE | 2016-05-27 09:04 | XRay Report ---
Portable chest Date: 05/27/2016 Clinical history: Shortness of breath Comparison: 05/26/2016 Technique: Portable AP sitting chest Findings: Persistent cardiomegaly with residual diffuse parenchymal findings especially at the left lung base with small left pleural effusion. Stable mediastinum and osseous structures. Impression: No significant change in the appearance of the chest when compared to the previous exam. PROCEDURE INTERPRETED AT [facility] DEPARTMENT OF RADIOLOGY Final Report Signed by: Dr. Eliza Flores
[2016-05-27] MEDS: LISINOPRIL 20 MG TABLET PO SCH (10:42)
[2016-05-27] MEDS: FOLIC ACID 0.4 MG TABLET PO SCH (10:42)
[2016-05-27] MEDS: CHOLECALCIFEROL 1,000 UNIT TABLET PO SCH (10:42)
[2016-05-27] MEDS: acetaZOLAMIDE 250 MG TABLET PO SCH ×2 (10:42→21:02)
[2016-05-27] MEDS: amLODIPine 10 MG TABLET PO SCH (10:43)
[2016-05-27] MEDS: FERROUS SULFATE 325 MG TABLET PO SCH ×2 (10:43→21:02)
[2016-05-27] MEDS: cloNIDine 0.1 MG TABLET PO SCH ×2 (10:47→21:03)
[2016-05-27] MEDS: ENOXAPARIN 40 MG/0.4 ML SYRINGE SUBCUT SCH (10:47)
[2016-05-27] MEDS: FAMOTIDINE 20 MG TABLET PO SCH ×2 (10:47→21:03)
[2016-05-27] MEDS: FUROSEMIDE 40 MG/4 ML VIAL IV SCH (10:48)
[2016-05-27] MEDS: DESITIN 4OZ/NYSTATIN 15 GRAM MIXTURE PASTE TOP SCH ×2 (10:48→21:07)
[2016-05-27 10:59] LABS: Allen Test Positive
[2016-05-27 11:00] LABS: ABG Base Excess 8.5 MMOL/L (-2.5-2.5); ABG HCO3 35.1 MMOL/L (20-26); ABG Oxygen Saturation 85.7 % (95-100); ABG PCO2 58.6 MM HG (35-48); ABG PH 7.395 (7.35-7.45); ABG PO2 50.9 MM HG (80-95); ABG TCO2 36.9 MMOL/L (23-27)
--- NOTE | 2016-05-27 11:14 | Pulmonology Progress Note ---
Pulmonary - PN: Subj Interval history: Jaden Ramírez, ANP-BC, GNP-BC, acting as scribe for Dr. Marcus Paige Ms. Ho is a 45-year-old -[place] female who we saw in initial pulmonary consultation on 05/12/2016. At that time, our impressions were: 1. Acute upper respiratory Streptococcus infection. Watch for pneumonia. 2. Acute respiratory failure for oxygen and carbon dioxide. I suspect this is superimposed on chronic respiratory failure for oxygen and carbon dioxide. This patient is massively obese with hypertension. Her H&H is normal but her indices are low suggest another underlying problem. This is probably a pickwickian syndrome. 3. Morbid obesity 4. High blood pressure 5. Abnormal red blood cell indices. Look for iron deficiency as well as B12 and folic acid abnormalities and look for reticulocytosis. 6. Chronic lower extremity venous stasis. Look for deep venous thrombophlebitis. 05/13/2016. The patient remains intubated and on mechanical ventilation. This morning, ABGs on mechanical ventilation with an FiO2 of 40% showed a pH of 7.550 , PCO2 34.7, PCO2 158.0, bicarb 31.5, and oxygen saturation 99.7%. We decreased the FiO2 to 30% and decrease the rate to 10 and will repeat ABGs. This patient is anemic with decreased indices and increased red blood cell distribution width. Iron studies were late consistent with iron deficiency anemia. We have taken the liberty of starting ferrous sulfate 325 mg twice daily. Will also check stools for blood 3. Folate is also low at 5.1. She has been started on folic acid 0.8 mg daily. Calcium is low at 7.9. Will check a vitamin D level. Vitamin B12 was normal. The patient's chest x-ray is essentially the same. We will continue the weaning protocol. 05/14/2016. I am allowing this patient's PCO2 to increase. I am decreasing her FiO2. She is a CO2 retainer. Today's ABGs on FiO2 30% showed pH 7.34, PCO2 61 , PO2 97.5 and bicarbonate 29.7. Electrolytes are normal. CBC is stable white count is dropped to 9900. The patient is low on iron and this is being replaced she has a low vitamin D level and this is being replaced and she has a low folic acid level and this is being replaced. There are no new cultures Echocardiogram. Ejection fraction 65%. Diastolic parameters are indeterminate. Right ventricular systolic pressure is 79 mmHg. Right ventricle is normal size. The left atrium and right atrium are increased in size. There is a trace of mitral regurgitation. 05/15/2016. Today's chest x-ray is showing elements of bibasilar atelectasis. We will plan fiberoptic bronchoscopy on this patient on 05/15/2016. Patient is only comfortable on stage I of the weaning protocol. Today I have made adjustments in her CPAP parameters and hopefully this will help. ABGs on mechanical ventilation with an FiO2 30% showed pH is 7.38. PCO2 to 61.7, PO2 96 , bicarb 35.7. Electrolytes are normal. Creatinine is dropped to 1.1 with a BUN of 16. CBC is stable white count is dropped to 8200. Microbiology, no positive results posted. 05/16/2016. Earlier today the patient underwent fiberoptic bronchoscopy. This showed collapsible large and small airways most prominent in the right lower lung and left lower lung. There appeared to be an element of COPD. There were retained secretions. Please see the bronchoscopy report for more information. Patient tolerated the procedure well. She remains intubated and on mechanical ventilation. We are progressing this per the protocol and as the patient allows. She was not doing well earlier, but her nurse Neftali, has elevated the head of her bed and she is now on CPAP and doing very well. Today's chest x- ray is stable. 05/17/2016 this is a 5 foot 7 inch 501 pound black female with respiratory failure. I suspect she is a chronic CO2 retainer and I am letting her CO2's run at about 60. She is done fairly well with her CPAP trials and she has been on stage II and hopefully will advance to stage III today. She is on weaning protocol. She is also on deep venous thrombophlebitis prevention protocol and physical therapy while on the ventilator Procrit protocol and proton pump inhibitor protocol. Today's chest x-ray shows no heart failure no definite atelectasis and there are no definite infiltrates. Patient was evaluated with fiberoptic bronchoscopy on 05/16/2016. She had a moderate amount of retained secretions. So far all micro bacteriology specimens from the bronchoscopy are negative. ABGs on FiO2 of 30% and mechanical ventilation showed pH of 7.32, PCO2 63, PO2 of 73.6 and bicarb 28.7. Note the patient's on Diamox twice a day. Electrolytes are normal. Creatinine is 1.0 and BUN is 22. H&H 10.1/ 35.1. White count is 9300 with 73 segs and 11 lymphocytes. Platelets of 257, 000. This patient is making slow steady progress. I hope to be able to extubate her within the next week or so. Has possible she would require a trach. 05/20/2016. This patient is on stage V the weaning protocol. She is on FiO2 of 30% and I am going to decrease this to an FiO2 24% we will recheck her ABGs in about chest x-ray shows endotracheal tube to be in good position. She may have a left lower lung infiltrate. ABGs on mechanical ventilation and FiO2 30% show a pH 7.36, PCO2 64 and a PO2 of 110 with a bicarb of 32. Electrolytes are normal. H&H is 10.0/36.0 white count was 10,986 segs platelets are 253,000. 05/21/2016. This patient did 12 hours of CPAP yesterday and we will advanced to stage V the weaning protocol. Chest x-ray is stable. Some possible Z left lower lung well. On FiO2 28% pH 7.36, PCO2 is 63.3. PO2 is 83.9 and bicarb is 32.3. Patient has been left on high PCO twos to help with her weaning process. Sodium is 135. Potassium is 4.1. Creatinine is 0.8. CBC is stable. There are no new cultures 05/22/2016. This patient continues to progress through her weaning protocol. She looks unusually strong to me today and I am going to give her a T-tube trial and recheck her blood gases an hour. Chest x-ray shows a left pleural effusion and there is some prominence of both hilar areas that look vascular. Natruretic peptide is normal at 54. Electrolytes are normal. Creatinine is 0.8. BUNs 40. ABGs on FiO2 28% and on mechanical ventilation showed pH is 7.397, PCO2 is 64.7, PO2 is 100.8 and bicarb is 38.9. H&H is 10.2/35.1. White count is 11,900. Platelets are 235,000. 05/23/2016. Chest x-ray shows a very large heart. Central vasculature is top normal. I cannot rule out fluid or an infiltrate over the left lower lobe. ABGs on FiO2 of 24% and a T-tube for 2 hours show a pH of 7.35, PCO2 65.7, PO2 is 75.2 and a bicarb of 32. Patient's alert awake and can cooperate. I am going to extubate her and we will recheck her ABGs in about an hour. Her FiO2 to should be no higher than 24%. Electrolytes normal. Creatinine is 0.8. H&H is 10.5/37.0. White blood cell count is 15,500. Platelets are 283,000. 05/24/2016. This patient was extubated on 05/23/2016. She is done well from a pulmonary standpoint since that time. Her chest x-ray shows cardiomegaly. I do not see any overt congestive heart failure. I do not see any infiltrates. ABGs on FiO2 of 24% show a pH 7.37, PCO2 of 62.6, PO2 of 58.6 and a bicarb of 32.2. Electrolytes are normal. Creatinine is 0.7. BUN is 40. White count is 16,693% segs H&H 11.2/36.2 and platelets of 327,000. This patient's alert and oriented she was seen with family. She appears to be making good progress. Do not increase her FiO2 above 24% as she is a severe CO2 retainer. 05/25/2016. Today's chest x-ray shows cardiomegaly. I did not see any heart failure or infiltrates. ABGs on FiO2 24% show a pH 7.36, PCO2 is 60.7, PO2 62.8 and a bicarb of 31. Electrolytes are normal. Creatinine is 0.9 with a BUN of 43. CBC is stable white blood cell count is 17,689 segs. There are no new positive cultures. The patient continues to slowly improve. She is alert oriented and comfortable and seems to be moving air much better. 05/26/2016. Patient had an uneventful night. Her chest x-ray is stable. She has no new complaints and she has no new requests. ABGs show a pH of 7.33, PCO2 is 64.4, PO2 70.8 and a bicarb of 30. Electrolytes are normal. Creatinine is 0.80. BUN is 37. CBC is stable. There are no new positive culture results. This patient is a CO2 retainer. Do not increase her FiO2 above 24%. 05/27/2016. Patient was seen today along with her nurse Maggy. She appears to be doing reasonably well today. ABGs this morning on a listed FiO2 of 24% showed a pH of 7.316, PCO2 73.9, PO2 65.4, bicarb 36.9, and oxygen saturation 91.0%. We are unsure if the patient's oxygen had been increased sometime through the night. Nonetheless, we will take her off oxygen and repeat ABGs. We told the patient again today that under no circumstances should her oxygen be increased above 1 L. Medications have been reviewed. We made no changes today. Labs have been reviewed. White count is 17,000 with 90.3% segs; H&H 10.3/36.5; platelet count 328,000; creatinine 0.70, BUN 36, electrolytes are normal Exam (Progress Note) - Constitutional Vitals: Period Temp Pulse Resp BP Sys/Watts Pulse Ox Last 24 Hr 97.6 F-98.6 F 71-83 16-22 119-151/71-81 95-100 Exam: Chest is clear Heart sounds are distant, but without appreciable murmur, rub, or gallop Abd is massively obese with rare bowel sounds Ext with chronic venous stasis; note, doppler venograms done 05/12/16 were negative Psych/Neuro unchanged Plan: Take patient off oxygen and repeat ABGs. She absolutely cannot tolerate oxygen flow greater than 1 L/min. She is a CO2 retainer. Results - Labs CBC & BMP: 05/27/16 06:00 05/27/16 06:00 Specialty Discharge - Follow Up or Referrals
--- NOTE | 2016-05-27 15:31 | Hospitalist Progress Note ---
Assessment and Plan (1) Morbid obesity Status: Chronic Current Visit: Yes Qualifiers: Obesity type: due to excess calories Qualified Code(s): E66.01 - Morbid ( severe) obesity due to excess calories (2) Strep throat Status: Acute Assessment and plan: Received course of clindamycin Current Visit: Yes (3) Obesity hypoventilation syndrome Status: Chronic Assessment and plan: Pulmonary managing. Extubated 05/23/16 Current Visit: Yes (4) Acute and chronic respiratory failure with hypercapnia Status: Acute Current Visit: Yes Hospitalist: Subjective Interval history: No acute events overnight. Patient remains very weak, unable to stand. Physical therapy is ordered. Patient has been denied at [facility] for rehab placement. Pulmonary assisting with respiratory status. Still with leukocytosis, afebrile, no signs of infection. Will discontinue clindamycin today, completed treatment course for strep. Exam - Constitutional Vitals: Period Temp Pulse Resp BP Sys/Watts Pulse Ox Last 24 Hr 97.6 F-98.6 F 71-94 16-20 130-151/71-83 90-100 General appearance: morbidly obese - Head Head exam: Present: normocephalic, atraumatic - Eye Eye exam: Present: EOMI Pupils: Present: BRIAN - ENT ENT exam: Present: normal exam - Neck Neck exam: Present: normal inspection - Respiratory Respiratory exam: Present: clear to auscultation bilaterally. Absent: rhonchi, wheezes - Cardiovascular Cardiovascular exam: Present: regular rate and rhythm - GI/Abdominal GI/Abdominal exam: Present: normal bowel sounds, soft. Absent: tenderness, rebound - Extremities Exam Extremities exam: Present: normal inspection - Back Exam Back exam: Present: normal inspection - Neurological Exam Neurological exam: Present: alert, oriented X3 - Psychiatric Psychiatric exam: Present: normal affect, normal mood - Skin Skin exam: Present: warm, intact Results - Labs CBC & BMP: 05/27/16 06:00 05/27/16 06:00 Specialty Discharge - Follow Up or Referrals
[2016-05-27] MEDS: SODIUM CHLORIDE 0.45% 1,000 ML IV SCH (17:52)
[2016-05-28] MEDS: ALBUTEROL/IPRATROPIUM 3 ML NEB RESP TX SCH ×5 (00:16→23:39)
[2016-05-28] MEDS: methylPREDNISolone SOD SUC 40 MG/1 ML VIAL IV SCH ×3 (00:27→15:08)
[2016-05-28] MEDS: SODIUM CHLORIDE 0.45% 1,000 ML IV SCH ×2 (03:28→17:46)
[2016-05-28 05:00] LABS: Calcium 8.6 MG/DL (8.5-10.1); Magnesium 2.4 MG/DL (1.8-2.4); Osmolality,Calculated 289.3 MOS/KG (273-304); Potassium 3.6 MMOL/L (3.5-5.1)
[2016-05-28 05:18] LABS: Basophils % 0.1 % (0.0-0.8); Eosinophils % 0.1 % (0.00-10.9); Hematocrit 37.8 VOL% (35.7-47.0); Hemoglobin 10.3 GM/DL (12.0-16.0); Immature Granulocytes % 0.7 %; Immature Granulocytes Absolute 0.13 #; Lymphocytes # 0.7 10*3/uL (1.4-4.0); Lymphocytes % 4.1 % (21.3-54.2); Mean Corpuscular HGB Conc 27.2 GM/DL (32-36); Mean Corpuscular Hemoglobin 20 PG (27-34); Mean Corpuscular Volume 73.7 FL (87-102); Mean Platelet Volume 10.9 FL (9.6-12.0); Monocytes # 1.1 10*3/uL (0.11-0.8); Monocytes % 6.4 % (1.7-12.7); Neutrophils # 15.7 10*3/uL (1.4-7.4); Neutrophils % 88.6 % (38.7-73.9); Platelet Count 326 T/CUMM (130-400); Red Blood Count 5.13 MC/CUMM (3.8-5.5); Red Cell Distribution Width 23.1 % (9.3-17.3); White Blood Count 17.7 T/CUMM (4-12)
[2016-05-28 05:29] LABS: Hypochromasia 1+; Lymphocytes 4 % (20-55); Ovalocytes Slight; Platelet Estimate Adequate; Segmented Neutrophils 87 % (50-85); Total Cells Counted 100
[2016-05-28 05:30] LABS: Microcytosis Slight
[2016-05-28] MEDS: CHOLECALCIFEROL 1,000 UNIT TABLET PO SCH (08:54)
[2016-05-28] MEDS: amLODIPine 10 MG TABLET PO SCH (08:54)
[2016-05-28] MEDS: FAMOTIDINE 20 MG TABLET PO SCH ×2 (08:54→20:55)
[2016-05-28] MEDS: FOLIC ACID 0.4 MG TABLET PO SCH (08:54)
[2016-05-28] MEDS: acetaZOLAMIDE 250 MG TABLET PO SCH ×2 (08:54→21:03)
[2016-05-28] MEDS: FERROUS SULFATE 325 MG TABLET PO SCH ×2 (08:54→20:55)
[2016-05-28] MEDS: FUROSEMIDE 40 MG/4 ML VIAL IV SCH (08:55)
[2016-05-28] MEDS: cloNIDine 0.1 MG TABLET PO SCH ×2 (08:55→20:55)
[2016-05-28] MEDS: LISINOPRIL 20 MG TABLET PO SCH (08:55)
[2016-05-28] MEDS: DESITIN 4OZ/NYSTATIN 15 GRAM MIXTURE PASTE TOP SCH ×2 (08:56→20:57)
[2016-05-28] MEDS: ENOXAPARIN 40 MG/0.4 ML SYRINGE SUBCUT SCH ×2 (08:56→10:49)
--- NOTE | 2016-05-28 12:15 | Pulmonology Progress Note ---
Pulmonary - PN: Subj Interval history: Ms. Ho is a 45-year-old -Citizen Of [place] female who we saw in initial pulmonary consultation on 05/12/2016. At that time, our impressions were: 1. Acute upper respiratory Streptococcus infection. Watch for pneumonia. 2. Acute respiratory failure for oxygen and carbon dioxide. I suspect this is superimposed on chronic respiratory failure for oxygen and carbon dioxide. This patient is massively obese with hypertension. Her H&H is normal but her indices are low suggest another underlying problem. This is probably a pickwickian syndrome. 3. Morbid obesity 4. High blood pressure 5. Abnormal red blood cell indices. Look for iron deficiency as well as B12 and folic acid abnormalities and look for reticulocytosis. 6. Chronic lower extremity venous stasis. Look for deep venous thrombophlebitis. 05/13/2016. The patient remains intubated and on mechanical ventilation. This morning, ABGs on mechanical ventilation with an FiO2 of 40% showed a pH of 7.550 , PCO2 34.7, PCO2 158.0, bicarb 31.5, and oxygen saturation 99.7%. We decreased the FiO2 to 30% and decrease the rate to 10 and will repeat ABGs. This patient is anemic with decreased indices and increased red blood cell distribution width. Iron studies were late consistent with iron deficiency anemia. We have taken the liberty of starting ferrous sulfate 325 mg twice daily. Will also check stools for blood 3. Folate is also low at 5.1. She has been started on folic acid 0.8 mg daily. Calcium is low at 7.9. Will check a vitamin D level. Vitamin B12 was normal. The patient's chest x-ray is essentially the same. We will continue the weaning protocol. 05/14/2016. I am allowing this patient's PCO2 to increase. I am decreasing her FiO2. She is a CO2 retainer. Today's ABGs on FiO2 30% showed pH 7.34, PCO2 61 , PO2 97.5 and bicarbonate 29.7. Electrolytes are normal. CBC is stable white count is dropped to 9900. The patient is low on iron and this is being replaced she has a low vitamin D level and this is being replaced and she has a low folic acid level and this is being replaced. There are no new cultures Echocardiogram. Ejection fraction 65%. Diastolic parameters are indeterminate. Right ventricular systolic pressure is 79 mmHg. Right ventricle is normal size. The left atrium and right atrium are increased in size. There is a trace of mitral regurgitation. 05/15/2016. Today's chest x-ray is showing elements of bibasilar atelectasis. We will plan fiberoptic bronchoscopy on this patient on 05/15/2016. Patient is only comfortable on stage I of the weaning protocol. Today I have made adjustments in her CPAP parameters and hopefully this will help. ABGs on mechanical ventilation with an FiO2 30% showed pH is 7.38. PCO2 to 61.7, PO2 96 , bicarb 35.7. Electrolytes are normal. Creatinine is dropped to 1.1 with a BUN of 16. CBC is stable white count is dropped to 8200. Microbiology, no positive results posted. 05/16/2016. Earlier today the patient underwent fiberoptic bronchoscopy. This showed collapsible large and small airways most prominent in the right lower lung and left lower lung. There appeared to be an element of COPD. There were retained secretions. Please see the bronchoscopy report for more information. Patient tolerated the procedure well. She remains intubated and on mechanical ventilation. We are progressing this per the protocol and as the patient allows. She was not doing well earlier, but her nurse Neftali, has elevated the head of her bed and she is now on CPAP and doing very well. Today's chest x- ray is stable. 05/17/2016 this is a 5 foot 7 inch 501 pound black female with respiratory failure. I suspect she is a chronic CO2 retainer and I am letting her CO2's run at about 60. She is done fairly well with her CPAP trials and she has been on stage II and hopefully will advance to stage III today. She is on weaning protocol. She is also on deep venous thrombophlebitis prevention protocol and physical therapy while on the ventilator Procrit protocol and proton pump inhibitor protocol. Today's chest x-ray shows no heart failure no definite atelectasis and there are no definite infiltrates. Patient was evaluated with fiberoptic bronchoscopy on 05/16/2016. She had a moderate amount of retained secretions. So far all micro bacteriology specimens from the bronchoscopy are negative. ABGs on FiO2 of 30% and mechanical ventilation showed pH of 7.32, PCO2 63, PO2 of 73.6 and bicarb 28.7. Note the patient's on Diamox twice a day. Electrolytes are normal. Creatinine is 1.0 and BUN is 22. H&H 10.1/ 35.1. White count is 9300 with 73 segs and 11 lymphocytes. Platelets of 257, 000. This patient is making slow steady progress. I hope to be able to extubate her within the next week or so. Has possible she would require a trach. 05/20/2016. This patient is on stage V the weaning protocol. She is on FiO2 of 30% and I am going to decrease this to an FiO2 24% we will recheck her ABGs in about chest x-ray shows endotracheal tube to be in good position. She may have a left lower lung infiltrate. ABGs on mechanical ventilation and FiO2 30% show a pH 7.36, PCO2 64 and a PO2 of 110 with a bicarb of 32. Electrolytes are normal. H&H is 10.0/36.0 white count was 10,986 segs platelets are 253,000. 05/21/2016. This patient did 12 hours of CPAP yesterday and we will advanced to stage V the weaning protocol. Chest x-ray is stable. Some possible Z left lower lung well. On FiO2 28% pH 7.36, PCO2 is 63.3. PO2 is 83.9 and bicarb is 32.3. Patient has been left on high PCO twos to help with her weaning process. Sodium is 135. Potassium is 4.1. Creatinine is 0.8. CBC is stable. There are no new cultures 05/22/2016. This patient continues to progress through her weaning protocol. She looks unusually strong to me today and I am going to give her a T-tube trial and recheck her blood gases an hour. Chest x-ray shows a left pleural effusion and there is some prominence of both hilar areas that look vascular. Natruretic peptide is normal at 54. Electrolytes are normal. Creatinine is 0.8. BUNs 40. ABGs on FiO2 28% and on mechanical ventilation showed pH is 7.397, PCO2 is 64.7, PO2 is 100.8 and bicarb is 38.9. H&H is 10.2/35.1. White count is 11,900. Platelets are 235,000. 05/23/2016. Chest x-ray shows a very large heart. Central vasculature is top normal. I cannot rule out fluid or an infiltrate over the left lower lobe. ABGs on FiO2 of 24% and a T-tube for 2 hours show a pH of 7.35, PCO2 65.7, PO2 is 75.2 and a bicarb of 32. Patient's alert awake and can cooperate. I am going to extubate her and we will recheck her ABGs in about an hour. Her FiO2 to should be no higher than 24%. Electrolytes normal. Creatinine is 0.8. H&H is 10.5/37.0. White blood cell count is 15,500. Platelets are 283,000. 05/24/2016. This patient was extubated on 05/23/2016. She is done well from a pulmonary standpoint since that time. Her chest x-ray shows cardiomegaly. I do not see any overt congestive heart failure. I do not see any infiltrates. ABGs on FiO2 of 24% show a pH 7.37, PCO2 of 62.6, PO2 of 58.6 and a bicarb of 32.2. Electrolytes are normal. Creatinine is 0.7. BUN is 40. White count is 16,693% segs H&H 11.2/36.2 and platelets of 327,000. This patient's alert and oriented she was seen with family. She appears to be making good progress. Do not increase her FiO2 above 24% as she is a severe CO2 retainer. 05/25/2016. Today's chest x-ray shows cardiomegaly. I did not see any heart failure or infiltrates. ABGs on FiO2 24% show a pH 7.36, PCO2 is 60.7, PO2 62.8 and a bicarb of 31. Electrolytes are normal. Creatinine is 0.9 with a BUN of 43. CBC is stable white blood cell count is 17,689 segs. There are no new positive cultures. The patient continues to slowly improve. She is alert oriented and comfortable and seems to be moving air much better. 05/26/2016. Patient had an uneventful night. Her chest x-ray is stable. She has no new complaints and she has no new requests. ABGs show a pH of 7.33, PCO2 is 64.4, PO2 70.8 and a bicarb of 30. Electrolytes are normal. Creatinine is 0.80. BUN is 37. CBC is stable. There are no new positive culture results. This patient is a CO2 retainer. Do not increase her FiO2 above 24%. 05/27/2016. Patient was seen today along with her nurse Maggy. She appears to be doing reasonably well today. ABGs this morning on a listed FiO2 of 24% showed a pH of 7.316, PCO2 73.9, PO2 65.4, bicarb 36.9, and oxygen saturation 91.0%. We are unsure if the patient's oxygen had been increased sometime through the night. Nonetheless, we will take her off oxygen and repeat ABGs. We told the patient again today that under no circumstances should her oxygen be increased above 1 L. 05/28/2016. On room air the patient's ABGs showed a pH 7.395, PCO2 58.6, PO2 of 50.9 and a bicarb of 35.1. I decided to put her back on 1/2 L/min of oxygen. ABGs were not done today. CBC is stable. Electrolytes are stable. Creatinine is 0.7. BUN is 35. Labs been reviewed. Medicines been reviewed. No changes have been made. Exam (Progress Note) - Constitutional Vitals: Period Temp Pulse Resp BP Sys/Watts Pulse Ox Last 24 Hr 97.6 F-98.6 F 71-83 16-22 119-151/71-81 95-100 Exam: Vital signs see below Psychiatric oriented 3 Neck Short symmetrical with no meningismus Lymphatics. No submandibular cervical supraclavicular or epitrochlear Chest is clear Heart sounds are distant, but without appreciable murmur, rub, or gallop Abd is massively obese with rare bowel sounds Ext with chronic venous stasis; note, doppler venograms done 05/12/16 were negative Psych/Neuro unchanged The remainder the exam is noncontributory. Plan. Continue present regimen. 1 L of oxygen per minute. Exam (Progress Note) - Constitutional Vitals: Period Temp Pulse Resp BP Sys/Watts Pulse Ox Last 24 Hr 96.3 F-98.1 F 70-94 14-20 131-160/73-98 90-99 Results - Labs CBC & BMP: 05/28/16 02:15 05/28/16 02:15 Specialty Discharge - Follow Up or Referrals
--- NOTE | 2016-05-28 15:41 | Hospitalist Progress Note ---
Assessment and Plan (1) Morbid obesity Status: Chronic Current Visit: Yes Qualifiers: Obesity type: due to excess calories Qualified Code(s): E66.01 - Morbid ( severe) obesity due to excess calories (2) Strep throat Status: Acute Assessment and plan: Received course of clindamycin Current Visit: Yes (3) Obesity hypoventilation syndrome Status: Chronic Assessment and plan: Pulmonary managing. Extubated 05/23/16 Current Visit: Yes (4) Acute and chronic respiratory failure with hypercapnia Status: Acute Current Visit: Yes Hospitalist: Subjective Interval history: No acute events overnight. Working with PT/OT. Working on placement for rehab, difficult given patient has no insurance. Exam - Constitutional Vitals: Period Temp Pulse Resp BP Sys/Watts Pulse Ox Last 24 Hr 96.3 F-98.1 F 70-93 14-20 131-160/73-98 94-99 General appearance: morbidly obese - Head Head exam: Present: normocephalic, atraumatic - Eye Eye exam: Present: EOMI Pupils: Present: BRIAN - ENT ENT exam: Present: normal exam - Neck Neck exam: Present: normal inspection - Respiratory Respiratory exam: Present: clear to auscultation bilaterally. Absent: rhonchi, wheezes - Cardiovascular Cardiovascular exam: Present: regular rate and rhythm - GI/Abdominal GI/Abdominal exam: Present: normal bowel sounds, soft. Absent: tenderness, rebound - Extremities Exam Extremities exam: Present: normal inspection - Back Exam Back exam: Present: normal inspection - Neurological Exam Neurological exam: Present: alert, oriented X3 - Psychiatric Psychiatric exam: Present: normal affect, normal mood - Skin Skin exam: Present: warm, intact Results - Labs CBC & BMP: 05/28/16 02:15 05/28/16 02:15 Specialty Discharge - Follow Up or Referrals
[2016-05-29] MEDS: methylPREDNISolone SOD SUC 40 MG/1 ML VIAL IV SCH ×2 (00:43→10:33)
[2016-05-29] MEDS: ALBUTEROL/IPRATROPIUM 3 ML NEB RESP TX SCH ×3 (07:27→20:44)
[2016-05-29] MEDS: FOLIC ACID 0.4 MG TABLET PO SCH (10:26)
[2016-05-29] MEDS: amLODIPine 10 MG TABLET PO SCH (10:29)
[2016-05-29] MEDS: CHOLECALCIFEROL 1,000 UNIT TABLET PO SCH (10:29)
[2016-05-29] MEDS: acetaZOLAMIDE 250 MG TABLET PO SCH ×2 (10:29→21:29)
[2016-05-29] MEDS: FERROUS SULFATE 325 MG TABLET PO SCH ×2 (10:30→21:29)
[2016-05-29] MEDS: FAMOTIDINE 20 MG TABLET PO SCH ×2 (10:30→21:29)
[2016-05-29] MEDS: LISINOPRIL 20 MG TABLET PO SCH (10:30)
[2016-05-29] MEDS: cloNIDine 0.1 MG TABLET PO SCH ×2 (10:31→21:29)
[2016-05-29] MEDS: FUROSEMIDE 40 MG/4 ML VIAL IV SCH (10:34)
[2016-05-29] MEDS: ENOXAPARIN 40 MG/0.4 ML SYRINGE SUBCUT SCH (10:36)
[2016-05-29] MEDS: DESITIN 4OZ/NYSTATIN 15 GRAM MIXTURE PASTE TOP SCH ×2 (11:30→21:30)
[2016-05-29 11:35] LABS: ABG Base Excess 8.4 MMOL/L (-2.5-2.5); ABG HCO3 34.8 MMOL/L (20-26); ABG Oxygen Saturation 92.1 % (95-100); ABG PCO2 57.4 MM HG (35-48); ABG PH 7.401 (7.35-7.45); ABG PO2 63.6 MM HG (80-95); ABG TCO2 36.6 MMOL/L (23-27); Allen Test Positive
--- NOTE | 2016-05-29 11:48 | Pulmonology Progress Note ---
Pulmonary - PN: Subj Interval history: Jaden Ramírez, ANP-BC, GNP-BC, acting as scribe for Dr. Marcus Paige Ms. Ho is a 45-year-old -[place] female who we saw in initial pulmonary consultation on 05/12/2016. At that time, our impressions were: 1. Acute upper respiratory Streptococcus infection. Watch for pneumonia. 2. Acute respiratory failure for oxygen and carbon dioxide. I suspect this is superimposed on chronic respiratory failure for oxygen and carbon dioxide. This patient is massively obese with hypertension. Her H&H is normal but her indices are low suggest another underlying problem. This is probably a pickwickian syndrome. 3. Morbid obesity 4. High blood pressure 5. Abnormal red blood cell indices. Look for iron deficiency as well as B12 and folic acid abnormalities and look for reticulocytosis. 6. Chronic lower extremity venous stasis. Look for deep venous thrombophlebitis. 05/13/2016. The patient remains intubated and on mechanical ventilation. This morning, ABGs on mechanical ventilation with an FiO2 of 40% showed a pH of 7.550 , PCO2 34.7, PCO2 158.0, bicarb 31.5, and oxygen saturation 99.7%. We decreased the FiO2 to 30% and decrease the rate to 10 and will repeat ABGs. This patient is anemic with decreased indices and increased red blood cell distribution width. Iron studies were late consistent with iron deficiency anemia. We have taken the liberty of starting ferrous sulfate 325 mg twice daily. Will also check stools for blood 3. Folate is also low at 5.1. She has been started on folic acid 0.8 mg daily. Calcium is low at 7.9. Will check a vitamin D level. Vitamin B12 was normal. The patient's chest x-ray is essentially the same. We will continue the weaning protocol. 05/14/2016. I am allowing this patient's PCO2 to increase. I am decreasing her FiO2. She is a CO2 retainer. Today's ABGs on FiO2 30% showed pH 7.34, PCO2 61 , PO2 97.5 and bicarbonate 29.7. Electrolytes are normal. CBC is stable white count is dropped to 9900. The patient is low on iron and this is being replaced she has a low vitamin D level and this is being replaced and she has a low folic acid level and this is being replaced. There are no new cultures Echocardiogram. Ejection fraction 65%. Diastolic parameters are indeterminate. Right ventricular systolic pressure is 79 mmHg. Right ventricle is normal size. The left atrium and right atrium are increased in size. There is a trace of mitral regurgitation. 05/15/2016. Today's chest x-ray is showing elements of bibasilar atelectasis. We will plan fiberoptic bronchoscopy on this patient on 05/15/2016. Patient is only comfortable on stage I of the weaning protocol. Today I have made adjustments in her CPAP parameters and hopefully this will help. ABGs on mechanical ventilation with an FiO2 30% showed pH is 7.38. PCO2 to 61.7, PO2 96 , bicarb 35.7. Electrolytes are normal. Creatinine is dropped to 1.1 with a BUN of 16. CBC is stable white count is dropped to 8200. Microbiology, no positive results posted. 05/16/2016. Earlier today the patient underwent fiberoptic bronchoscopy. This showed collapsible large and small airways most prominent in the right lower lung and left lower lung. There appeared to be an element of COPD. There were retained secretions. Please see the bronchoscopy report for more information. Patient tolerated the procedure well. She remains intubated and on mechanical ventilation. We are progressing this per the protocol and as the patient allows. She was not doing well earlier, but her nurse Neftali, has elevated the head of her bed and she is now on CPAP and doing very well. Today's chest x- ray is stable. 05/17/2016 this is a 5 foot 7 inch 501 pound black female with respiratory failure. I suspect she is a chronic CO2 retainer and I am letting her CO2's run at about 60. She is done fairly well with her CPAP trials and she has been on stage II and hopefully will advance to stage III today. She is on weaning protocol. She is also on deep venous thrombophlebitis prevention protocol and physical therapy while on the ventilator Procrit protocol and proton pump inhibitor protocol. Today's chest x-ray shows no heart failure no definite atelectasis and there are no definite infiltrates. Patient was evaluated with fiberoptic bronchoscopy on 05/16/2016. She had a moderate amount of retained secretions. So far all micro bacteriology specimens from the bronchoscopy are negative. ABGs on FiO2 of 30% and mechanical ventilation showed pH of 7.32, PCO2 63, PO2 of 73.6 and bicarb 28.7. Note the patient's on Diamox twice a day. Electrolytes are normal. Creatinine is 1.0 and BUN is 22. H&H 10.1/ 35.1. White count is 9300 with 73 segs and 11 lymphocytes. Platelets of 257, 000. This patient is making slow steady progress. I hope to be able to extubate her within the next week or so. Has possible she would require a trach. 05/20/2016. This patient is on stage V the weaning protocol. She is on FiO2 of 30% and I am going to decrease this to an FiO2 24% we will recheck her ABGs in about chest x-ray shows endotracheal tube to be in good position. She may have a left lower lung infiltrate. ABGs on mechanical ventilation and FiO2 30% show a pH 7.36, PCO2 64 and a PO2 of 110 with a bicarb of 32. Electrolytes are normal. H&H is 10.0/36.0 white count was 10,986 segs platelets are 253,000. 05/21/2016. This patient did 12 hours of CPAP yesterday and we will advanced to stage V the weaning protocol. Chest x-ray is stable. Some possible Z left lower lung well. On FiO2 28% pH 7.36, PCO2 is 63.3. PO2 is 83.9 and bicarb is 32.3. Patient has been left on high PCO twos to help with her weaning process. Sodium is 135. Potassium is 4.1. Creatinine is 0.8. CBC is stable. There are no new cultures 05/22/2016. This patient continues to progress through her weaning protocol. She looks unusually strong to me today and I am going to give her a T-tube trial and recheck her blood gases an hour. Chest x-ray shows a left pleural effusion and there is some prominence of both hilar areas that look vascular. Natruretic peptide is normal at 54. Electrolytes are normal. Creatinine is 0.8. BUNs 40. ABGs on FiO2 28% and on mechanical ventilation showed pH is 7.397, PCO2 is 64.7, PO2 is 100.8 and bicarb is 38.9. H&H is 10.2/35.1. White count is 11,900. Platelets are 235,000. 05/23/2016. Chest x-ray shows a very large heart. Central vasculature is top normal. I cannot rule out fluid or an infiltrate over the left lower lobe. ABGs on FiO2 of 24% and a T-tube for 2 hours show a pH of 7.35, PCO2 65.7, PO2 is 75.2 and a bicarb of 32. Patient's alert awake and can cooperate. I am going to extubate her and we will recheck her ABGs in about an hour. Her FiO2 to should be no higher than 24%. Electrolytes normal. Creatinine is 0.8. H&H is 10.5/37.0. White blood cell count is 15,500. Platelets are 283,000. 05/24/2016. This patient was extubated on 05/23/2016. She is done well from a pulmonary standpoint since that time. Her chest x-ray shows cardiomegaly. I do not see any overt congestive heart failure. I do not see any infiltrates. ABGs on FiO2 of 24% show a pH 7.37, PCO2 of 62.6, PO2 of 58.6 and a bicarb of 32.2. Electrolytes are normal. Creatinine is 0.7. BUN is 40. White count is 16,693% segs H&H 11.2/36.2 and platelets of 327,000. This patient's alert and oriented she was seen with family. She appears to be making good progress. Do not increase her FiO2 above 24% as she is a severe CO2 retainer. 05/25/2016. Today's chest x-ray shows cardiomegaly. I did not see any heart failure or infiltrates. ABGs on FiO2 24% show a pH 7.36, PCO2 is 60.7, PO2 62.8 and a bicarb of 31. Electrolytes are normal. Creatinine is 0.9 with a BUN of 43. CBC is stable white blood cell count is 17,689 segs. There are no new positive cultures. The patient continues to slowly improve. She is alert oriented and comfortable and seems to be moving air much better. 05/26/2016. Patient had an uneventful night. Her chest x-ray is stable. She has no new complaints and she has no new requests. ABGs show a pH of 7.33, PCO2 is 64.4, PO2 70.8 and a bicarb of 30. Electrolytes are normal. Creatinine is 0.80. BUN is 37. CBC is stable. There are no new positive culture results. This patient is a CO2 retainer. Do not increase her FiO2 above 24%. 05/27/2016. Patient was seen today along with her nurse Maggy. She appears to be doing reasonably well today. ABGs this morning on a listed FiO2 of 24% showed a pH of 7.316, PCO2 73.9, PO2 65.4, bicarb 36.9, and oxygen saturation 91.0%. We are unsure if the patient's oxygen had been increased sometime through the night. Nonetheless, we will take her off oxygen and repeat ABGs. We told the patient again today that under no circumstances should her oxygen be increased above 1 L. 05/28/2016. On room air the patient's ABGs showed a pH 7.395, PCO2 58.6, PO2 of 50.9 and a bicarb of 35.1. I decided to put her back on 1/2 L/min of oxygen. ABGs were not done today. CBC is stable. Electrolytes are stable. Creatinine is 0.7. BUN is 35. Labs been reviewed. Medicines been reviewed. No changes have been made. 05/29/16. The patient continues to do well from a pulmonary standpoint. ABGs this morning on an FiO2 of 22% showed a pH of 7.401, PCO2 57.4, PO2 63.6, bicarb 38.4, and oxygen saturation 92.1%. This is stable. We again reiterated that the patient does not ever need to have oxygen greater than 1 L per minute secondary to CO2 retention. It is our understanding the case management is working on placement for this patient. It is noted that she has no insurance. This is making placement difficult. Medications have been reviewed. We made no changes today. Labs have been reviewed. No other new new labs were drawn today. Exam (Progress Note) - Constitutional Vitals: Period Temp Pulse Resp BP Sys/Watts Pulse Ox Last 24 Hr 97 F-98.9 F 70-99 16-22 128-134/76-93 90-99 Exam: Chest is clear Heart sounds are distant, but without appreciable murmur, rub, or gallop Abd is massively obese with rare bowel sounds Ext with chronic venous stasis; note, doppler venograms done 05/12/16 were negative Psych/Neuro unchanged Plan: She absolutely cannot tolerate oxygen flow greater than 1 L/min. She is a CO2 retainer. She is stable from a pulmonary standpoint. We will sign off. Please reconsult as needed. Results - Labs CBC & BMP: 05/28/16 02:15 05/28/16 02:15 Specialty Discharge - Follow Up or Referrals
--- NOTE | 2016-05-29 12:04 | Hospitalist Progress Note ---
Assessment and Plan (1) Morbid obesity Status: Chronic Current Visit: Yes Qualifiers: Obesity type: due to excess calories Qualified Code(s): E66.01 - Morbid ( severe) obesity due to excess calories (2) Strep throat Status: Acute Assessment and plan: Received course of clindamycin Current Visit: Yes (3) Obesity hypoventilation syndrome Status: Chronic Assessment and plan: Pulmonary managing. Extubated 05/23/16 Current Visit: Yes (4) Acute and chronic respiratory failure with hypercapnia Status: Acute Current Visit: Yes Hospitalist: Subjective Interval history: Seen today working with PT. Doing well from a pulmonary standpoint. Pulmonary is signing off. Will start weaning steroids. Waiting on placement, which will be difficult given patient has no insurance. Exam - Constitutional Vitals: Period Temp Pulse Resp BP Sys/Watts Pulse Ox Last 24 Hr 97.1 F-98.9 F 70-99 16-22 128-134/76-93 90-99 General appearance: morbidly obese - Head Head exam: Present: normocephalic, atraumatic - Eye Eye exam: Present: EOMI Pupils: Present: BRIAN - ENT ENT exam: Present: normal exam - Neck Neck exam: Present: normal inspection - Respiratory Respiratory exam: Present: clear to auscultation bilaterally. Absent: rhonchi, wheezes - Cardiovascular Cardiovascular exam: Present: regular rate and rhythm - GI/Abdominal GI/Abdominal exam: Present: normal bowel sounds, soft. Absent: tenderness, rebound - Extremities Exam Extremities exam: Present: normal inspection - Back Exam Back exam: Present: normal inspection - Neurological Exam Neurological exam: Present: alert, oriented X3 - Psychiatric Psychiatric exam: Present: normal affect, normal mood - Skin Skin exam: Present: warm, intact Results - Labs CBC & BMP: 05/28/16 02:15 05/28/16 02:15 Specialty Discharge - Follow Up or Referrals
[2016-05-29] MEDS: predniSONE 20 MG TABLET PO SCH (14:37)
[2016-05-29] MEDS: SODIUM CHLORIDE 0.45% 1,000 ML IV SCH (21:32)
[2016-05-30] MEDS: ALBUTEROL/IPRATROPIUM 3 ML NEB RESP TX SCH ×4 (00:59→19:23)
[2016-05-30 05:21] LABS: Basophils % 0.1 % (0.0-0.8); Eosinophils % 0.1 % (0.00-10.9); Hematocrit 37.1 VOL% (35.7-47.0); Hemoglobin 10.5 GM/DL (12.0-16.0); Immature Granulocytes % 1.3 %; Immature Granulocytes Absolute 0.23 #; Lymphocytes # 0.8 10*3/uL (1.4-4.0); Lymphocytes % 4.7 % (21.3-54.2); Mean Corpuscular HGB Conc 28.3 GM/DL (32-36); Mean Corpuscular Hemoglobin 21 PG (27-34); Mean Corpuscular Volume 72.7 FL (87-102); Mean Platelet Volume 10.7 FL (9.6-12.0); Monocytes # 1.2 10*3/uL (0.11-0.8); Monocytes % 6.7 % (1.7-12.7); Neutrophils # 15.1 10*3/uL (1.4-7.4); Neutrophils % 87.1 % (38.7-73.9); Platelet Count 302 T/CUMM (130-400); Red Cell Distribution Width 23.4 % (9.3-17.3); White Blood Count 17.3 T/CUMM (4-12)
[2016-05-30 05:34] LABS: Band Neutrophils 1 % (0-10); Hypochromasia 1+; Lymphocytes 7 % (20-55); Microcytosis Slight; Ovalocytes Slight; Platelet Estimate Adequate; Segmented Neutrophils 90 % (50-85); Total Cells Counted 100
[2016-05-30] MEDS: LISINOPRIL 20 MG TABLET PO SCH (09:26)
[2016-05-30] MEDS: amLODIPine 10 MG TABLET PO SCH (09:26)
[2016-05-30] MEDS: CHOLECALCIFEROL 1,000 UNIT TABLET PO SCH (09:27)
[2016-05-30] MEDS: predniSONE 20 MG TABLET PO SCH (09:27)
[2016-05-30] MEDS: acetaZOLAMIDE 250 MG TABLET PO SCH ×2 (09:27→21:43)
[2016-05-30] MEDS: cloNIDine 0.1 MG TABLET PO SCH ×2 (09:27→21:43)
[2016-05-30] MEDS: FAMOTIDINE 20 MG TABLET PO SCH ×2 (09:27→21:43)
[2016-05-30] MEDS: FERROUS SULFATE 325 MG TABLET PO SCH ×2 (09:28→21:43)
[2016-05-30] MEDS: FUROSEMIDE 40 MG/4 ML VIAL IV SCH (09:32)
[2016-05-30] MEDS: DESITIN 4OZ/NYSTATIN 15 GRAM MIXTURE PASTE TOP SCH ×2 (09:43→21:43)
[2016-05-30] MEDS: FOLIC ACID 0.4 MG TABLET PO SCH (10:26)
[2016-05-30] MEDS: ENOXAPARIN 40 MG/0.4 ML SYRINGE SUBCUT SCH (10:42)
--- NOTE | 2016-05-30 16:08 | Hospitalist Progress Note ---
Assessment and Plan (1) Morbid obesity Status: Chronic Current Visit: Yes Qualifiers: Obesity type: due to excess calories Qualified Code(s): E66.01 - Morbid ( severe) obesity due to excess calories (2) Strep throat Status: Acute Assessment and plan: Received course of clindamycin Current Visit: Yes (3) Obesity hypoventilation syndrome Status: Chronic Assessment and plan: Pulmonary managing. Extubated 05/23/16 Current Visit: Yes (4) Acute and chronic respiratory failure with hypercapnia Status: Acute Current Visit: Yes Hospitalist: Subjective Interval history: Patient doing well. She is currently medically ready for discharge. Patient is morbidly obese, was intubated for close to 2 weeks and could greatly benefit from intense rehab. She currently is unable to even stand. She does not have insurance and as a result has been denied by more than one rehab facility. The only other option is home with physical therapy but as patient lives at home with her mother and it is doubtful that she can assist with transfers this does not seem like a favorful option. Exam - Constitutional Vitals: Period Temp Pulse Resp BP Sys/Watts Pulse Ox Last 24 Hr 97.6 F-97.9 F 75-88 18-20 132-137/79-88 93-100 General appearance: morbidly obese - Head Head exam: Present: normocephalic, atraumatic - Eye Eye exam: Present: EOMI Pupils: Present: BRIAN - ENT ENT exam: Present: normal exam - Neck Neck exam: Present: normal inspection - Respiratory Respiratory exam: Present: clear to auscultation bilaterally. Absent: rhonchi, wheezes - Cardiovascular Cardiovascular exam: Present: regular rate and rhythm - GI/Abdominal GI/Abdominal exam: Present: normal bowel sounds, soft. Absent: tenderness, rebound - Extremities Exam Extremities exam: Present: normal inspection - Back Exam Back exam: Present: normal inspection - Neurological Exam Neurological exam: Present: alert, oriented X3 - Psychiatric Psychiatric exam: Present: normal affect, normal mood - Skin Skin exam: Present: warm, intact Results - Labs CBC & BMP: 05/30/16 03:53 05/28/16 02:15 Specialty Discharge - Follow Up or Referrals
[2016-05-30] MEDS: SODIUM CHLORIDE 0.45% 1,000 ML IV SCH (22:19)
[2016-05-31] MEDS: ALBUTEROL/IPRATROPIUM 3 ML NEB RESP TX SCH ×4 (01:39→19:51)
--- NOTE | 2016-05-31 07:28 | Sleep Medicine Consult ---
Assessment and Plan (1) Unspecified sleep apnea Status: Acute Assessment and plan: This patient very likely has an overlap syndrome of obstructive sleep apnea with a component of obesity hypoventilation. She is a chronic CO2 retainer and does have evidence of pulmonary hypertension. HST was ordered yesterday after I received the consult and we will review those results today. It was done on supplemental oxygen. She does not have insurance but hopefully will be able to find a positive pressure assist device with either CPAP or BiPAP, preferably the latter, that is usually can be purchased at a discounted mccord by the patient or donated. She will need follow-up in sleep clinic after discharge. Case management needs to be working on this case for procurement of assistance or insurance if available. Current Visit: Yes (2) Hypothyroidism Status: Acute Assessment and plan: I would follow up on TSH levels with thyroid replacement therapy. Although her TSH was mildly elevated, I would recommend achieving euthyroid status with suppressed TSH on this patient. Current Visit: Yes (3) Pulmonary hypertension Status: Acute Assessment and plan: This is undoubtedly secondary to the combination of obesity hypoventilation syndrome with chronic hypoxic respiratory failure and likely REAGNA. Treatment with positive pressure ventilatory assistance is indicated. We will follow up on HST results. Current Visit: Yes History of Present Illness Chief complaint: Sleep apnea History of present illness: Ms. Ho is a 45 year old female admitted with acute and chronic respiratory failure about 2 weeks ago. She was on mechanical ventilation and followed by Dr. Galdamez of pulmonary medicine. She was extubated on May 23. She has been on nasal cannula oxygen and is a chronic CO2 retainer and has a component of chronic hypoxic respiratory failure as well. Patient states that this is her first hospitalization. She has never been hospitalized for this before. She resides in [place], [place]. She has been weighed at over 500 pounds and states that she has been over 400 pounds since she graduated from high school. She states that she was able to ambulate without difficulty around her home until about 3 weeks prior to this hospitalization. She has no insurance and has been turned down for disability in the past. Efforts have been made to get her into a rehab facility but have been unsuccessful due to lack of insurance. I was contacted yesterday regarding sleep evaluation and need for potential CPAP. She does have a history of snoring and occasionally has awoken from sleep short of breath. She has never been told that she stops breathing during her sleep and she has never had sleep evaluation previously. She usually goes to sleep around 2 AM and will sleep until about 9 AM. She may take a 1 or 2 hour nap during the early afternoon and then another 1 hour nap in the evening before eventually retiring. She does fight sleepiness throughout the day and is easy did not off when sitting still. She has had no issues with restlessness of her legs or leg jerks. She did not note significant issues with awakening with headaches. Home Medications Medication Instructions Recorded Confirmed Type Lisinopril 40 mg PO DAILY 05/11/16 05/11/16 History amLODIPine [Norvasc] 10 mg PO DAILY 05/11/16 05/11/16 History cloNIDine TAB [Catapres Tab] 0.1 mg PO BID 05/11/16 05/11/16 History hydroCHLOROthiazide 12.5 mg PO DAILY 05/11/16 05/11/16 History [Hydrochlorothiazide] Allergies Allergy/AdvReac Type Severity Reaction Status Date / Time No Known Allergies Allergy Verified 05/11/16 09:03 Review of systems: Otherwise unremarkable from a sleep medicine standpoint Exam (Pulmonay) H&P - Constitutional Vitals: Period Temp Pulse Resp BP Sys/Watts Pulse Ox Last 24 Hr 97.5 F-97.9 F 75-94 16-20 123-146/70-88 93-100 Exam: She is alert and responsive and answers questions appropriately. Pupils equal round reactive to light and accommodation. Extraocular movements intact. Oropharynx with a class III Mallampati exam. Neck supple without adenopathy or thyromegaly. No supraclavicular adenopathy is noted. Chest with symmetrical breath sounds without focal wheeze, rhonchi, or rales. Cardiac exam reveals a regular rhythm without murmur or gallop. Abdomen obese nontender without palpable hepatosplenomegaly or mass. Extremities are without clubbing, cyanosis , or edema. Neurologically, she is grossly intact. She moves all extremities with good strength. Medical,Surgical,& Family Hx - Medical History Cardio: History of: Hypertension, Cardiovascular Problems (She was noted on echocardiogram to have evidence of pulmonary hypertension) - Social History Smoking Status: Never smoker Frequency of Alcohol Use: None Type of Drug Use: None Results - Labs CBC & BMP: 05/30/16 03:53 05/28/16 02:15 Lab Results: I have reviewed the past 24 hour labs Labs: She did have an elevated TSH on admission of 5.2, consistent with hypothyroidism Specialty Discharge - Follow Up or Referrals
[2016-05-31] MEDS: CHOLECALCIFEROL 1,000 UNIT TABLET PO SCH (09:45)
[2016-05-31] MEDS: amLODIPine 10 MG TABLET PO SCH (09:45)
[2016-05-31] MEDS: acetaZOLAMIDE 250 MG TABLET PO SCH ×2 (09:45→20:06)
[2016-05-31] MEDS: LISINOPRIL 20 MG TABLET PO SCH (09:45)
[2016-05-31] MEDS: FAMOTIDINE 20 MG TABLET PO SCH ×2 (09:45→20:07)
[2016-05-31] MEDS: predniSONE 20 MG TABLET PO SCH (09:45)
[2016-05-31] MEDS: FOLIC ACID 0.4 MG TABLET PO SCH (09:46)
[2016-05-31] MEDS: cloNIDine 0.1 MG TABLET PO SCH ×2 (09:46→20:07)
[2016-05-31] MEDS: DESITIN 4OZ/NYSTATIN 15 GRAM MIXTURE PASTE TOP SCH ×2 (09:46→20:07)
[2016-05-31] MEDS: FUROSEMIDE 40 MG/4 ML VIAL IV SCH (09:46)
[2016-05-31] MEDS: FERROUS SULFATE 325 MG TABLET PO SCH ×2 (09:46→20:06)
[2016-05-31] MEDS: ENOXAPARIN 40 MG/0.4 ML SYRINGE SUBCUT SCH (09:47)
[2016-05-31] MEDS ORDERED: predniSONE 20 MG TABLET PO SCH (11:04)
--- NOTE | 2016-05-31 15:33 | Hospitalist Progress Note ---
Assessment and Plan (1) Morbid obesity Status: Chronic Current Visit: Yes Qualifiers: Obesity type: due to excess calories Qualified Code(s): E66.01 - Morbid ( severe) obesity due to excess calories (2) Strep throat Status: Acute Assessment and plan: Received course of clindamycin Current Visit: Yes (3) Obesity hypoventilation syndrome Status: Chronic Assessment and plan: Pulmonary managing. Extubated 05/23/16 Current Visit: Yes (4) Acute and chronic respiratory failure with hypercapnia Status: Acute Current Visit: Yes Hospitalist: Subjective Interval history: No complaints today. Sleep medicine evaluating. Waiting on placement. Exam - Constitutional Vitals: Period Temp Pulse Resp BP Sys/Watts Pulse Ox Last 24 Hr 97.4 F-97.9 F 78-94 16-20 110-146/70-79 93-100 General appearance: morbidly obese - Head Head exam: Present: normocephalic, atraumatic - Eye Eye exam: Present: EOMI Pupils: Present: BRIAN - ENT ENT exam: Present: normal exam - Neck Neck exam: Present: normal inspection - Respiratory Respiratory exam: Present: clear to auscultation bilaterally. Absent: rhonchi, wheezes - Cardiovascular Cardiovascular exam: Present: regular rate and rhythm - GI/Abdominal GI/Abdominal exam: Present: normal bowel sounds, soft. Absent: tenderness, rebound - Extremities Exam Extremities exam: Present: normal inspection - Back Exam Back exam: Present: normal inspection - Neurological Exam Neurological exam: Present: alert, oriented X3 - Psychiatric Psychiatric exam: Present: normal affect, normal mood - Skin Skin exam: Present: warm, intact Results - Labs CBC & BMP: 05/30/16 03:53 05/28/16 02:15 Specialty Discharge - Follow Up or Referrals
[2016-05-31] MEDS: SODIUM CHLORIDE 0.45% 1,000 ML IV SCH (20:06)
[2016-06-01] MEDS: ALBUTEROL/IPRATROPIUM 3 ML NEB RESP TX SCH ×4 (00:36→19:47)
[2016-06-01 02:03] LABS: Calcium 8.2 MG/DL (8.5-10.1); Osmolality,Calculated 288.3 MOS/KG (273-304); Potassium 3.1 MMOL/L (3.5-5.1)
[2016-06-01] MEDS: LISINOPRIL 20 MG TABLET PO SCH (09:01)
[2016-06-01] MEDS: cloNIDine 0.1 MG TABLET PO SCH ×2 (09:01→20:42)
[2016-06-01] MEDS: acetaZOLAMIDE 250 MG TABLET PO SCH ×2 (09:01→20:42)
[2016-06-01] MEDS: ENOXAPARIN 40 MG/0.4 ML SYRINGE SUBCUT SCH (09:01)
[2016-06-01] MEDS: FOLIC ACID 0.4 MG TABLET PO SCH (09:01)
[2016-06-01] MEDS: FERROUS SULFATE 325 MG TABLET PO SCH ×2 (09:01→20:42)
[2016-06-01] MEDS: CHOLECALCIFEROL 1,000 UNIT TABLET PO SCH (09:01)
[2016-06-01] MEDS: amLODIPine 10 MG TABLET PO SCH (09:01)
[2016-06-01] MEDS: FAMOTIDINE 20 MG TABLET PO SCH ×2 (09:01→20:42)
[2016-06-01] MEDS: DESITIN 4OZ/NYSTATIN 15 GRAM MIXTURE PASTE TOP SCH ×2 (09:02→20:43)
--- NOTE | 2016-06-01 13:06 | Hospitalist Progress Note ---
Assessment and Plan - Time spent with patient Time spent with patient: Less than 30 minutes (1) Morbid obesity Status: Chronic Current Visit: Yes Qualifiers: Obesity type: due to excess calories Qualified Code(s): E66.01 - Morbid ( severe) obesity due to excess calories (2) Strep throat Status: Acute Current Visit: Yes (3) Obesity hypoventilation syndrome Status: Chronic Current Visit: Yes (4) Acute and chronic respiratory failure with hypercapnia Status: Acute Current Visit: Yes Hospitalist: Subjective Interval history: Waiting on placement. no issues reported overnight Exam - Constitutional Vitals: Period Temp Pulse Resp BP Sys/Watts Pulse Ox Last 24 Hr 97.1 F-98.4 F 79-99 14-20 112-135/66-81 93-99 General appearance: no acute distress, morbidly obese - Head Head exam: Present: normal inspection, normocephalic - Eye Eye exam: Present: EOMI Pupils: Present: BRIAN - ENT ENT exam: Present: normal exam - Neck Neck exam: Present: normal inspection - Respiratory Respiratory exam: Present: clear to auscultation bilaterally - Cardiovascular Cardiovascular exam: Present: regular rate and rhythm. Absent: irregular rhythm , JVD - GI/Abdominal GI/Abdominal exam: Present: normal bowel sounds. Absent: ascites, distended - Extremities Exam Extremities exam: Present: normal inspection, full ROM - Back Exam Back exam: Present: normal inspection. Absent: CVA tenderness (L), CVA tenderness (R) - Neurological Exam Neurological exam: Present: alert, oriented X3 - Psychiatric Psychiatric exam: Present: normal affect, normal mood - Skin Skin exam: Present: normal color Results - Labs CBC & BMP: 05/30/16 03:53 06/01/16 01:17 Lab Results: I have reviewed the past 24 hour labs Specialty Discharge - Follow Up or Referrals
[2016-06-01] MEDS: POTASSIUM CHLORIDE RIDER 20 MEQ in PREMIX 1 EACH IV PRN ×2 (16:35→18:47)
[2016-06-01] MEDS: ONDANSETRON 4 MG/2 ML VIAL IV PRN ×2 (16:35→20:42)
[2016-06-01] MEDS: ACETAMINOPHEN 325 MG TABLET PO PRN (18:12)
[2016-06-02] MEDS: ALBUTEROL/IPRATROPIUM 3 ML NEB RESP TX SCH ×4 (00:21→19:41)
[2016-06-02 06:44] LABS: Calcium 8.1 MG/DL (8.5-10.1); Magnesium 2.3 MG/DL (1.8-2.4); Osmolality,Calculated 286.1 MOS/KG (273-304); Potassium 3.5 MMOL/L (3.5-5.1)
[2016-06-02 06:55] LABS: Basophils % 0.1 % (0.0-0.8); Eosinophils # 0.3 10*3/uL (0.0-0.87); Eosinophils % 1.9 % (0.00-10.9); Hemoglobin 10.8 GM/DL (12.0-16.0); Immature Granulocytes % 0.5 %; Immature Granulocytes Absolute 0.08 #; Lymphocytes # 0.8 10*3/uL (1.4-4.0); Lymphocytes % 5.1 % (21.3-54.2); Mean Corpuscular HGB Conc 27.3 GM/DL (32-36); Mean Corpuscular Hemoglobin 21 PG (27-34); Mean Platelet Volume 11.5 FL (9.6-12.0); Monocytes # 1.1 10*3/uL (0.11-0.8); Monocytes % 7.1 % (1.7-12.7); Neutrophils # 13.6 10*3/uL (1.4-7.4); Neutrophils % 85.3 % (38.7-73.9); Platelet Count 238 T/CUMM (130-400); Red Blood Count 5.28 MC/CUMM (3.8-5.5); Red Cell Distribution Width 24.6 % (9.3-17.3)
[2016-06-02 07:02] LABS: Hematocrit 39.6 VOL% (35.7-47.0)
[2016-06-02 07:34] LABS: Hypochromasia 1+
[2016-06-02] MEDS: FERROUS SULFATE 325 MG TABLET PO SCH ×2 (09:28→21:08)
[2016-06-02] MEDS: LISINOPRIL 20 MG TABLET PO SCH (09:29)
[2016-06-02] MEDS: FAMOTIDINE 20 MG TABLET PO SCH ×2 (09:29→21:08)
[2016-06-02] MEDS: acetaZOLAMIDE 250 MG TABLET PO SCH ×2 (09:29→21:08)
[2016-06-02] MEDS: cloNIDine 0.1 MG TABLET PO SCH ×2 (09:30→21:08)
[2016-06-02] MEDS: amLODIPine 10 MG TABLET PO SCH (09:30)
[2016-06-02] MEDS: CHOLECALCIFEROL 1,000 UNIT TABLET PO SCH (09:30)
[2016-06-02] MEDS: predniSONE 20 MG TABLET PO SCH (09:31)
[2016-06-02] MEDS: FOLIC ACID 0.4 MG TABLET PO SCH (09:31)
[2016-06-02] MEDS: ENOXAPARIN 40 MG/0.4 ML SYRINGE SUBCUT SCH (09:33)
[2016-06-02] MEDS: DESITIN 4OZ/NYSTATIN 15 GRAM MIXTURE PASTE TOP SCH ×2 (09:34→21:08)
[2016-06-02] MEDS: ONDANSETRON 4 MG/2 ML VIAL IV PRN (10:12)
--- NOTE | 2016-06-02 13:18 | Hospitalist Progress Note ---
Assessment and Plan (1) Morbid obesity Status: Chronic Current Visit: Yes Qualifiers: Obesity type: due to excess calories Qualified Code(s): E66.01 - Morbid ( severe) obesity due to excess calories (2) Strep throat Status: Acute Assessment and plan: Received course of clindamycin Current Visit: Yes (3) Obesity hypoventilation syndrome Status: Chronic Assessment and plan: Pulmonary managing. Extubated 05/23/16 Current Visit: Yes (4) Acute and chronic respiratory failure with hypercapnia Status: Acute Current Visit: Yes (5) Diarrhea Status: Acute Current Visit: Yes Hospitalist: Subjective Interval history: Patient reports ongoing diarrhea. Also reports nausea and vomiting that started yesterday along with abdomen pain. Will order c.diff, stool cultures and kub. Weaning steroids. Exam - Constitutional Vitals: Period Temp Pulse Resp BP Sys/Watts Pulse Ox Last 24 Hr 98.0 F-99.1 F 92-107 12-20 125-156/65-92 92-100 General appearance: morbidly obese - Head Head exam: Present: normocephalic, atraumatic - Eye Eye exam: Present: EOMI Pupils: Present: BRIAN - ENT ENT exam: Present: normal exam - Neck Neck exam: Present: normal inspection - Respiratory Respiratory exam: Present: clear to auscultation bilaterally. Absent: rhonchi, wheezes - Cardiovascular Cardiovascular exam: Present: regular rate and rhythm - GI/Abdominal GI/Abdominal exam: Present: normal bowel sounds, soft. Absent: tenderness, rebound - Extremities Exam Extremities exam: Present: normal inspection - Back Exam Back exam: Present: normal inspection - Neurological Exam Neurological exam: Present: alert, oriented X3 - Psychiatric Psychiatric exam: Present: normal affect, normal mood - Skin Skin exam: Present: warm, intact Results - Labs CBC & BMP: 06/02/16 05:12 06/02/16 05:12 Specialty Discharge - Follow Up or Referrals
--- NOTE | 2016-06-02 15:34 | XRay Report ---
Exam: XR KUB Date: 06/02/2016 1:14 PM Comparison: None Indication: Generalized abdominal pain Technique:[Supine abdomen] Findings: Films are limited due to body size. Mild gaseous distention of the bowel. Degenerative changes are noted. Impression: Mild gaseous distention of bowel which could be related to mild ileus, etc. Follow-up x-ray may be helpful if symptoms persist. PROCEDURE INTERPRETED AT [facility] DEPARTMENT OF RADIOLOGY Final Report Signed by: Dr. Eliza Flores
[2016-06-02] MEDS: SODIUM CHLORIDE 0.45% 1,000 ML IV SCH (15:41)
[2016-06-03] MEDS: ALBUTEROL/IPRATROPIUM 3 ML NEB RESP TX SCH ×4 (00:31→19:49)
[2016-06-03] MEDS: CHOLECALCIFEROL 1,000 UNIT TABLET PO SCH (09:06)
[2016-06-03] MEDS: predniSONE 20 MG TABLET PO SCH (09:06)
[2016-06-03] MEDS: FERROUS SULFATE 325 MG TABLET PO SCH ×2 (09:06→21:00)
[2016-06-03] MEDS: acetaZOLAMIDE 250 MG TABLET PO SCH ×2 (09:07→21:00)
[2016-06-03] MEDS: amLODIPine 10 MG TABLET PO SCH (09:07)
[2016-06-03] MEDS: LISINOPRIL 20 MG TABLET PO SCH (09:07)
[2016-06-03] MEDS: cloNIDine 0.1 MG TABLET PO SCH ×2 (09:07→21:01)
[2016-06-03] MEDS: FAMOTIDINE 20 MG TABLET PO SCH ×2 (09:08→21:01)
[2016-06-03] MEDS: DESITIN 4OZ/NYSTATIN 15 GRAM MIXTURE PASTE TOP SCH ×2 (09:12→20:07)
[2016-06-03] MEDS: FOLIC ACID 0.4 MG TABLET PO SCH (09:53)
[2016-06-03] MEDS: ENOXAPARIN 40 MG/0.4 ML SYRINGE SUBCUT SCH (09:54)
--- NOTE | 2016-06-03 11:52 | Hospitalist Progress Note ---
Assessment and Plan (1) Morbid obesity Status: Chronic Current Visit: Yes Qualifiers: Obesity type: due to excess calories Qualified Code(s): E66.01 - Morbid ( severe) obesity due to excess calories (2) Strep throat Status: Acute Assessment and plan: Received course of clindamycin Current Visit: Yes (3) Obesity hypoventilation syndrome Status: Chronic Assessment and plan: Pulmonary managing. Extubated 05/23/16 Current Visit: Yes (4) Acute and chronic respiratory failure with hypercapnia Status: Acute Current Visit: Yes (5) Diarrhea Status: Acute Current Visit: Yes Hospitalist: Subjective Interval history: Reports improvement in nausea and vomiting. C.Diff negative. Waiting on placement. Exam - Constitutional Vitals: Period Temp Pulse Resp BP Sys/Watts Pulse Ox Last 24 Hr 97.8 F-99.3 F 85-102 16-24 130-145/72-82 94-99 General appearance: morbidly obese - Head Head exam: Present: normocephalic, atraumatic - Eye Eye exam: Present: EOMI Pupils: Present: BRIAN - ENT ENT exam: Present: normal exam - Neck Neck exam: Present: normal inspection - Respiratory Respiratory exam: Present: clear to auscultation bilaterally. Absent: rhonchi, wheezes - Cardiovascular Cardiovascular exam: Present: regular rate and rhythm - GI/Abdominal GI/Abdominal exam: Present: normal bowel sounds, soft. Absent: tenderness, rebound - Extremities Exam Extremities exam: Present: normal inspection - Back Exam Back exam: Present: normal inspection - Neurological Exam Neurological exam: Present: alert, oriented X3 - Psychiatric Psychiatric exam: Present: normal affect, normal mood - Skin Skin exam: Present: warm, intact Results - Labs CBC & BMP: 06/02/16 05:12 06/02/16 05:12 Specialty Discharge - Follow Up or Referrals
--- NOTE | 2016-06-03 12:34 | Sleep Medicine Progress Note ---
Assessment and Plan (1) Unspecified sleep apnea Status: Acute Assessment and plan: Continue CPAP therapy for mild obstructive sleep apnea. Current Visit: Yes (2) Hypothyroidism Status: Acute Current Visit: Yes (3) Pulmonary hypertension Status: Acute Current Visit: Yes Sleep Medicine Subjective Interval history: Patient has been doing pretty good using her CPAP. She is averaging about 4 hours and 44 minutes a night. Her control is good with an AHI of 3.6 and her average device pressure is only 6.5. I encouraged her to continue to be compliant with usage. Exam (Progress Note) - Constitutional Vitals: Period Temp Pulse Resp BP Sys/Watts Pulse Ox Last 24 Hr 97.8 F-99.3 F 85-102 16-24 130-145/72-82 94-99 Exam: She is alert and responsive in no acute distress. She answers questions appropriately. Chest with good air movement no focal wheeze rhonchi or rales. Cardiac exam reveals a regular rhythm without murmur or gallop. Abdomen obese nontender. Results - Labs CBC & BMP: 06/02/16 05:12 06/02/16 05:12 Lab Results: I have reviewed the past 24 hour labs Specialty Discharge - Follow Up or Referrals
[2016-06-03] MEDS: SODIUM CHLORIDE 0.45% 1,000 ML IV SCH (21:25)
[2016-06-04] MEDS: ALBUTEROL/IPRATROPIUM 3 ML NEB RESP TX SCH ×4 (01:07→19:14)
[2016-06-04] MEDS: CHOLECALCIFEROL 1,000 UNIT TABLET PO SCH (09:19)
[2016-06-04] MEDS: amLODIPine 10 MG TABLET PO SCH (09:19)
[2016-06-04] MEDS: LISINOPRIL 20 MG TABLET PO SCH (09:20)
[2016-06-04] MEDS: predniSONE 20 MG TABLET PO SCH (09:20)
[2016-06-04] MEDS: acetaZOLAMIDE 250 MG TABLET PO SCH ×2 (09:20→23:02)
[2016-06-04] MEDS: FAMOTIDINE 20 MG TABLET PO SCH ×2 (09:21→23:03)
[2016-06-04] MEDS: FERROUS SULFATE 325 MG TABLET PO SCH ×2 (09:21→23:03)
[2016-06-04] MEDS: cloNIDine 0.1 MG TABLET PO SCH ×2 (09:21→23:03)
[2016-06-04] MEDS: ENOXAPARIN 40 MG/0.4 ML SYRINGE SUBCUT SCH (09:22)
[2016-06-04] MEDS: DESITIN 4OZ/NYSTATIN 15 GRAM MIXTURE PASTE TOP SCH ×2 (09:24→23:04)
--- NOTE | 2016-06-04 12:55 | Sleep Medicine Progress Note ---
Assessment and Plan (1) Unspecified sleep apnea Status: Acute Current Visit: Yes (2) Hypothyroidism Status: Acute Current Visit: Yes (3) Pulmonary hypertension Status: Acute Current Visit: Yes Sleep Medicine Subjective Interval history: Patient compliance was poor with CPAP last night. She only used it about 2 hours and 33 minutes. Control of obstructive sleep apnea was excellent with usage with an AHI of 0.4. I strongly encouraged her to continue to use CPAP while sleeping. Exam (Progress Note) - Constitutional Vitals: Period Temp Pulse Resp BP Sys/Watts Pulse Ox Last 24 Hr 98.0 F-99.2 F 68-112 16-22 132-153/72-88 92-100 Results - Labs CBC & BMP: 06/02/16 05:12 06/02/16 05:12 Specialty Discharge - Follow Up or Referrals
--- NOTE | 2016-06-04 15:49 | Hospitalist Progress Note ---
Assessment and Plan (1) Morbid obesity Status: Chronic Current Visit: Yes Qualifiers: Obesity type: due to excess calories Qualified Code(s): E66.01 - Morbid ( severe) obesity due to excess calories (2) Strep throat Status: Acute Assessment and plan: Received course of clindamycin Current Visit: Yes (3) Obesity hypoventilation syndrome Status: Chronic Assessment and plan: Pulmonary managing. Extubated 05/23/16 Current Visit: Yes (4) Acute and chronic respiratory failure with hypercapnia Status: Acute Current Visit: Yes (5) Diarrhea Status: Acute Current Visit: Yes Hospitalist: Subjective Interval history: No complaints. Waiting on placement. Exam - Constitutional Vitals: Period Temp Pulse Resp BP Sys/Watts Pulse Ox Last 24 Hr 97.6 F-99.2 F 85-112 16-22 132-160/79-88 92-100 General appearance: morbidly obese - Head Head exam: Present: normocephalic, atraumatic - Eye Eye exam: Present: EOMI Pupils: Present: BRIAN - ENT ENT exam: Present: normal exam - Neck Neck exam: Present: normal inspection - Respiratory Respiratory exam: Present: clear to auscultation bilaterally. Absent: wheezes - Cardiovascular Cardiovascular exam: Present: regular rate and rhythm - GI/Abdominal GI/Abdominal exam: Present: normal bowel sounds, soft. Absent: tenderness - Extremities Exam Extremities exam: Present: normal inspection - Back Exam Back exam: Present: normal inspection - Neurological Exam Neurological exam: Present: alert, oriented X3 - Psychiatric Psychiatric exam: Present: normal affect, normal mood - Skin Skin exam: Present: warm, intact Results - Labs CBC & BMP: 06/02/16 05:12 06/02/16 05:12 Specialty Discharge - Follow Up or Referrals
[2016-06-04] MEDS: SODIUM CHLORIDE 0.45% 1,000 ML IV SCH (16:34)
[2016-06-04] MEDS: FOLIC ACID 0.4 MG TABLET PO SCH (16:51)
[2016-06-05] MEDS: ALBUTEROL/IPRATROPIUM 3 ML NEB RESP TX SCH ×4 (00:33→19:57)
[2016-06-05 06:54] LABS: Basophils % 0.3 % (0.0-0.8); Eosinophils # 0.5 10*3/uL (0.0-0.87); Eosinophils % 4.2 % (0.00-10.9); Hematocrit 36.6 VOL% (35.7-47.0); Hemoglobin 10.2 GM/DL (12.0-16.0); Immature Granulocytes % 0.4 %; Immature Granulocytes Absolute 0.05 #; Lymphocytes # 0.8 10*3/uL (1.4-4.0); Lymphocytes % 6.3 % (21.3-54.2); Mean Corpuscular HGB Conc 27.9 GM/DL (32-36); Mean Corpuscular Hemoglobin 21 PG (27-34); Mean Corpuscular Volume 74.8 FL (87-102); Monocytes # 1.1 10*3/uL (0.11-0.8); Monocytes % 8.4 % (1.7-12.7); Neutrophils % 80.4 % (38.7-73.9); Red Blood Count 4.89 MC/CUMM (3.8-5.5); Red Cell Distribution Width 25.3 % (9.3-17.3); White Blood Count 12.5 T/CUMM (4-12)
[2016-06-05 06:57] LABS: Platelet Count 187 T/CUMM (130-400)
[2016-06-05 07:12] LABS: Hypochromasia 1+
[2016-06-05 07:13] LABS: Microcytosis Slight; Ovalocytes Slight; Platelet Estimate Normal
[2016-06-05] MEDS: ENOXAPARIN 40 MG/0.4 ML SYRINGE SUBCUT SCH (09:27)
[2016-06-05] MEDS: LISINOPRIL 20 MG TABLET PO SCH (09:28)
[2016-06-05] MEDS: amLODIPine 10 MG TABLET PO SCH (09:28)
[2016-06-05] MEDS: FOLIC ACID 0.4 MG TABLET PO SCH (09:28)
[2016-06-05] MEDS: CHOLECALCIFEROL 1,000 UNIT TABLET PO SCH (09:28)
[2016-06-05] MEDS: cloNIDine 0.1 MG TABLET PO SCH ×2 (09:28→20:58)
[2016-06-05] MEDS: FERROUS SULFATE 325 MG TABLET PO SCH ×2 (09:29→20:58)
[2016-06-05] MEDS: predniSONE 20 MG TABLET PO SCH (09:29)
[2016-06-05] MEDS: DESITIN 4OZ/NYSTATIN 15 GRAM MIXTURE PASTE TOP SCH ×2 (09:29→20:59)
[2016-06-05] MEDS: FAMOTIDINE 20 MG TABLET PO SCH ×2 (09:29→20:58)
[2016-06-05] MEDS: acetaZOLAMIDE 250 MG TABLET PO SCH ×2 (09:29→20:58)
--- NOTE | 2016-06-05 16:16 | Hospitalist Progress Note ---
Assessment and Plan (1) Morbid obesity Status: Chronic Current Visit: Yes Qualifiers: Obesity type: due to excess calories Qualified Code(s): E66.01 - Morbid ( severe) obesity due to excess calories (2) Strep throat Status: Acute Assessment and plan: Received course of clindamycin Current Visit: Yes (3) Obesity hypoventilation syndrome Status: Chronic Assessment and plan: Pulmonary managing. Extubated 05/23/16 Current Visit: Yes (4) Acute and chronic respiratory failure with hypercapnia Status: Acute Current Visit: Yes (5) Diarrhea Status: Acute Current Visit: Yes Hospitalist: Subjective Interval history: No acute events overnight. Reports that she feels good. Leukocytosis is improving with weaning of steroids. Will discontinue steroids today. Waiting on placement. Exam - Constitutional Vitals: Period Temp Pulse Resp BP Sys/Watts Pulse Ox Last 24 Hr 97.4 F-99.1 F 79-93 18-22 128-164/81-94 91-99 General appearance: morbidly obese - Head Head exam: Present: normocephalic, atraumatic - Eye Eye exam: Present: EOMI Pupils: Present: BRIAN - ENT ENT exam: Present: normal exam - Neck Neck exam: Present: normal inspection - Respiratory Respiratory exam: Present: clear to auscultation bilaterally. Absent: rhonchi, wheezes - Cardiovascular Cardiovascular exam: Present: regular rate and rhythm - GI/Abdominal GI/Abdominal exam: Present: normal bowel sounds, soft. Absent: tenderness, rebound - Extremities Exam Extremities exam: Present: normal inspection - Back Exam Back exam: Present: normal inspection - Neurological Exam Neurological exam: Present: alert, oriented X3 - Psychiatric Psychiatric exam: Present: normal affect, normal mood - Skin Skin exam: Present: warm, intact Results - Labs CBC & BMP: 06/05/16 04:50 06/02/16 05:12 Specialty Discharge - Follow Up or Referrals
--- NOTE | 2016-06-05 17:28 | Sleep Medicine Progress Note ---
Assessment and Plan (1) Unspecified sleep apnea Status: Acute Assessment and plan: Continue with CPAP therapy. I congratulated her on improving her usage time. This should benefit her. Current Visit: Yes (2) Hypothyroidism Status: Acute Current Visit: Yes (3) Pulmonary hypertension Status: Acute Current Visit: Yes Sleep Medicine Subjective Interval history: Patient did very well last night was CPAP. She slept with it 8 hours and 17 minutes. Her best pressure was about 6.5 cm and she had an average AHI 1.5. She did not note significant improvement in how she felt. Exam (Progress Note) - Constitutional Vitals: Period Temp Pulse Resp BP Sys/Watts Pulse Ox Last 24 Hr 97.4 F-99.1 F 79-93 18-22 128-164/81-94 91-99 Exam: She is alert and responsive in no acute distress. She answers questions appropriately. Chest with good air movement no focal wheeze rhonchi or rales. Cardiac exam reveals a regular rhythm without murmur or gallop. Abdomen obese nontender. Results - Labs CBC & BMP: 06/05/16 04:50 06/02/16 05:12 Lab Results: I have reviewed the past 24 hour labs Specialty Discharge - Follow Up or Referrals
[2016-06-06] MEDS: ALBUTEROL/IPRATROPIUM 3 ML NEB RESP TX SCH ×4 (01:07→19:54)
[2016-06-06] MEDS: FERROUS SULFATE 325 MG TABLET PO SCH ×2 (08:26→20:21)
[2016-06-06] MEDS: FOLIC ACID 0.4 MG TABLET PO SCH (08:27)
[2016-06-06] MEDS: CHOLECALCIFEROL 1,000 UNIT TABLET PO SCH (08:27)
[2016-06-06] MEDS: predniSONE 20 MG TABLET PO SCH (08:27)
[2016-06-06] MEDS: FAMOTIDINE 20 MG TABLET PO SCH ×2 (08:27→20:21)
[2016-06-06] MEDS: acetaZOLAMIDE 250 MG TABLET PO SCH ×2 (08:27→20:21)
[2016-06-06] MEDS: LISINOPRIL 20 MG TABLET PO SCH (08:27)
[2016-06-06] MEDS: amLODIPine 10 MG TABLET PO SCH (08:27)
[2016-06-06] MEDS: cloNIDine 0.1 MG TABLET PO SCH ×2 (08:28→20:21)
[2016-06-06] MEDS: SODIUM CHLORIDE 0.45% 1,000 ML IV SCH ×2 (08:28→20:00)
[2016-06-06] MEDS: DESITIN 4OZ/NYSTATIN 15 GRAM MIXTURE PASTE TOP SCH ×2 (11:12→20:22)
[2016-06-06] MEDS: ENOXAPARIN 40 MG/0.4 ML SYRINGE SUBCUT SCH (11:12)
--- NOTE | 2016-06-06 11:22 | Hospitalist Progress Note ---
Assessment and Plan (1) Morbid obesity Status: Chronic Current Visit: Yes Qualifiers: Obesity type: due to excess calories Qualified Code(s): E66.01 - Morbid ( severe) obesity due to excess calories (2) Strep throat Status: Acute Assessment and plan: Received course of clindamycin Current Visit: Yes (3) Obesity hypoventilation syndrome Status: Chronic Assessment and plan: Pulmonary managing. Extubated 05/23/16 Current Visit: Yes (4) Acute and chronic respiratory failure with hypercapnia Status: Acute Current Visit: Yes (5) Diarrhea Status: Acute Current Visit: Yes Hospitalist: Subjective Interval history: No acute events overnight. Waiting on placement. Exam - Constitutional Vitals: Period Temp Pulse Resp BP Sys/Watts Pulse Ox Last 24 Hr 97.5 F-98.3 F 86-96 15-20 136-152/83-94 93-99 General appearance: morbidly obese - Head Head exam: Present: normocephalic, atraumatic - Eye Eye exam: Present: EOMI Pupils: Present: BRIAN - ENT ENT exam: Present: normal exam - Neck Neck exam: Present: normal inspection - Respiratory Respiratory exam: Present: clear to auscultation bilaterally. Absent: rhonchi, wheezes - Cardiovascular Cardiovascular exam: Present: regular rate and rhythm - GI/Abdominal GI/Abdominal exam: Present: normal bowel sounds, soft. Absent: tenderness, rebound - Extremities Exam Extremities exam: Present: normal inspection - Back Exam Back exam: Present: normal inspection - Neurological Exam Neurological exam: Present: alert, oriented X3 - Psychiatric Psychiatric exam: Present: normal affect, normal mood - Skin Skin exam: Present: warm, intact Results - Labs CBC & BMP: 06/05/16 04:50 06/02/16 05:12 Specialty Discharge - Follow Up or Referrals
[2016-06-07] MEDS: ALBUTEROL/IPRATROPIUM 3 ML NEB RESP TX SCH ×4 (00:52→20:42)
--- NOTE | 2016-06-07 08:26 | Sleep Medicine Progress Note ---
Assessment and Plan (1) Unspecified sleep apnea Status: Acute Current Visit: Yes (2) Hypothyroidism Status: Acute Current Visit: Yes (3) Pulmonary hypertension Status: Acute Current Visit: Yes Sleep Medicine Subjective Interval history: Patient continues to do well on auto CPAP. We are arranging her own CPAP machine for her after discharge. Thank you for this consult. Exam (Progress Note) - Constitutional Vitals: Period Temp Pulse Resp BP Sys/Watts Pulse Ox Last 24 Hr 96.8 F-99.3 F 83-109 16-25 135-164/82-102 89-99 Results - Labs CBC & BMP: 06/05/16 04:50 06/02/16 05:12 Specialty Discharge - Follow Up or Referrals
[2016-06-07] MEDS: CHOLECALCIFEROL 1,000 UNIT TABLET PO SCH (09:36)
[2016-06-07] MEDS: amLODIPine 10 MG TABLET PO SCH (09:37)
[2016-06-07] MEDS: FERROUS SULFATE 325 MG TABLET PO SCH ×2 (09:37→21:04)
[2016-06-07] MEDS: FAMOTIDINE 20 MG TABLET PO SCH ×2 (09:38→21:04)
[2016-06-07] MEDS: LISINOPRIL 20 MG TABLET PO SCH (09:38)
[2016-06-07] MEDS: acetaZOLAMIDE 250 MG TABLET PO SCH ×2 (09:38→21:04)
[2016-06-07] MEDS: FOLIC ACID 0.4 MG TABLET PO SCH (09:39)
[2016-06-07] MEDS: cloNIDine 0.1 MG TABLET PO SCH ×2 (09:39→21:04)
[2016-06-07] MEDS: ENOXAPARIN 40 MG/0.4 ML SYRINGE SUBCUT SCH (09:40)
--- NOTE | 2016-06-07 14:22 | Hospitalist Progress Note ---
<Jose Johnson - Last Filed: 06/07/16 14:23> Assessment and Plan (1) Acute and chronic respiratory failure with hypercapnia Status: Acute Assessment and plan: Extubated; supplemental oxygen in place Current Visit: Yes (2) Diarrhea Status: Resolved Assessment and plan: No episodes noted. Current Visit: Yes (3) Pulmonary hypertension Status: Acute Assessment and plan: Managed per Pulmonary. Current Visit: Yes (4) Strep throat Status: Acute Assessment and plan: Clindamycin completed. Current Visit: Yes Hospitalist: Subjective Interval history: Patient seen and evaluated. No significant overnight events reported. Awaiting swing bed placement. Exam - Constitutional Vitals: Period Temp Pulse Resp BP Sys/Watts Pulse Ox Last 24 Hr 96.8 F-99.3 F 83-109 16-25 135-164/82-98 89-98 General appearance: normal weight, no acute distress, morbidly obese - Head Head exam: Present: normal inspection, normocephalic, atraumatic - Eye Eye exam: Present: EOMI. Absent: conjunctival injection, nystagmus, scleral icterus Pupils: Present: BRIAN, normal accommodation - ENT ENT exam: Present: normal exam. Absent: normal external ear exam, normal oropharynx - Neck Neck exam: Present: normal inspection. Absent: lymphadenopathy, meningismus, tenderness, thyromegaly - Respiratory Respiratory exam: Present: decreased breath sounds. Absent: rales, rhonchi, stridor, wheezes - Cardiovascular Cardiovascular exam: Present: regular rate and rhythm. Absent: carotid bruit, diastolic murmur, gallop, JVD, rubs, systolic murmur - GI/Abdominal GI/Abdominal exam: Present: normal bowel sounds, soft. Absent: hernia, mass, tenderness - Extremities Exam Extremities exam: Present: normal inspection, normal capillary refill, full ROM , edema (+2 to bilateral extremeties) - Back Exam Back exam: Present: normal inspection - Neurological Exam Neurological exam: Present: alert, oriented X3, CN II-XII intact - Psychiatric Psychiatric exam: Present: normal affect, normal mood - Skin Skin exam: Present: normal color, warm, dry Results - Labs CBC & BMP: 06/05/16 04:50 06/02/16 05:12 Lab Results: I have reviewed the past 24 hour labs Specialty Discharge - Follow Up or Referrals Follow up with: Vicky Danielle MD [Physician] - 07/16/16 10:15 am <Sunny Tran - Last Filed: 06/07/16 16:45> Hospitalist: Subjective Interval history: She had received with nurse practitioner, chart reviewed. Patient was admitted on Friday for respiratory failure and has remained stable. Currently awaiting placement. No new events reported overnight. Management plan by nurse practitioner reviewed and I agree. Exam - Constitutional Vitals: Period Temp Pulse Resp BP Sys/Watts Pulse Ox Last 24 Hr 96.8 F-99.3 F 83-109 16-25 135-164/82-90 89-98 Results - Labs CBC & BMP: 06/05/16 04:50 06/02/16 05:12
[2016-06-07] MEDS: DESITIN 4OZ/NYSTATIN 15 GRAM MIXTURE PASTE TOP SCH ×2 (21:03)
[2016-06-08] MEDS: ALBUTEROL/IPRATROPIUM 3 ML NEB RESP TX SCH ×4 (01:00→19:58)
[2016-06-08] MEDS: SODIUM CHLORIDE 0.45% 1,000 ML IV SCH ×2 (06:54→11:42)
--- NOTE | 2016-06-08 08:53 | Hospitalist Progress Note ---
<Jose Johnson - Last Filed: 06/08/16 08:51> Assessment and Plan (1) Acute and chronic respiratory failure with hypercapnia Status: Acute Assessment and plan: Extubated; supplemental oxygen in place Current Visit: Yes (2) Diarrhea Status: Resolved Assessment and plan: No episodes noted. Current Visit: Yes (3) Pulmonary hypertension Status: Acute Assessment and plan: Managed per Pulmonary. Current Visit: Yes (4) Strep throat Status: Acute Assessment and plan: Clindamycin completed. Current Visit: Yes Hospitalist: Subjective Interval history: Patient seen and examined. No significant overnight events. Awaiting swing bed placement. Exam - Constitutional Vitals: Period Temp Pulse Resp BP Sys/Watts Pulse Ox Last 24 Hr 97.8 F-98.2 F 80-97 16-20 124-151/73-86 93-100 General appearance: morbidly obese - Head Head exam: Present: normal inspection, normocephalic, atraumatic - Eye Eye exam: Present: EOMI. Absent: conjunctival injection, nystagmus Pupils: Present: BRIAN, normal accommodation - ENT ENT exam: Present: normal exam, normal external ear exam, normal oropharynx - Neck Neck exam: Present: normal inspection. Absent: lymphadenopathy, meningismus, tenderness, thyromegaly - Respiratory Respiratory exam: Present: clear to auscultation bilaterally. Absent: rales, rhonchi, stridor, wheezes - Cardiovascular Cardiovascular exam: Present: regular rate and rhythm. Absent: carotid bruit, diastolic murmur, gallop, JVD, rubs, systolic murmur - GI/Abdominal GI/Abdominal exam: Present: normal bowel sounds, soft - Extremities Exam Extremities exam: Present: normal inspection, full ROM, edema (+2 lower extremities) - Back Exam Back exam: Present: normal inspection - Neurological Exam Neurological exam: Present: alert, oriented X3, CN II-XII intact - Psychiatric Psychiatric exam: Present: normal affect, normal mood - Skin Skin exam: Present: warm, dry Results - Labs CBC & BMP: 06/05/16 04:50 06/02/16 05:12 Specialty Discharge - Follow Up or Referrals Follow up with: Vicky Danielle MD [Physician] - 07/16/16 10:15 am <Sunny Tran - Last Filed: 04/22/17 11:46> Hospitalist: Subjective Interval history: Shared visit with nurse practitioner, independently reviewed and examined patient today. Morbidly obese female admitted for respiratory failure which has now resolved. She is to require as CPAP at night and plans for outpatient CPAP is being made. She is awaiting placement at this point, no new management changes. Discontinue IV fluid Exam - Constitutional Vitals: Period Temp Pulse Resp BP Sys/Watts Pulse Ox Last 24 Hr 97.8 F-98.2 F 80-97 16-20 124-151/73-86 93-100 Results - Labs CBC & BMP: 06/05/16 04:50 06/02/16 05:12
[2016-06-08] MEDS: FERROUS SULFATE 325 MG TABLET PO SCH ×2 (10:07→21:13)
[2016-06-08] MEDS: cloNIDine 0.1 MG TABLET PO SCH ×2 (10:07→21:13)
[2016-06-08] MEDS: acetaZOLAMIDE 250 MG TABLET PO SCH ×2 (10:07→21:13)
[2016-06-08] MEDS: FOLIC ACID 0.4 MG TABLET PO SCH (10:08)
[2016-06-08] MEDS: FAMOTIDINE 20 MG TABLET PO SCH ×2 (10:08→21:13)
[2016-06-08] MEDS: amLODIPine 10 MG TABLET PO SCH (10:08)
[2016-06-08] MEDS: ENOXAPARIN 40 MG/0.4 ML SYRINGE SUBCUT SCH (10:09)
[2016-06-08] MEDS: LISINOPRIL 20 MG TABLET PO SCH (10:09)
[2016-06-08] MEDS: CHOLECALCIFEROL 1,000 UNIT TABLET PO SCH (10:09)
[2016-06-08] MEDS: DESITIN 4OZ/NYSTATIN 15 GRAM MIXTURE PASTE TOP SCH ×2 (10:58→21:35)
[2016-06-09] MEDS: ALBUTEROL/IPRATROPIUM 3 ML NEB RESP TX SCH ×4 (01:08→18:58)
[2016-06-09 04:59] LABS: Basophils % 0.3 % (0.0-0.8); Eosinophils # 0.6 10*3/uL (0.0-0.87); Eosinophils % 6.3 % (0.00-10.9); Hematocrit 36.2 VOL% (35.7-47.0); Hemoglobin 10.4 GM/DL (12.0-16.0); Immature Granulocytes % 0.5 %; Immature Granulocytes Absolute 0.04 #; Lymphocytes # 0.8 10*3/uL (1.4-4.0); Lymphocytes % 8.7 % (21.3-54.2); Mean Corpuscular HGB Conc 28.7 GM/DL (32-36); Mean Corpuscular Hemoglobin 21 PG (27-34); Mean Corpuscular Volume 73.9 FL (87-102); Monocytes # 0.9 10*3/uL (0.11-0.8); Monocytes % 9.9 % (1.7-12.7); Neutrophils # 6.5 10*3/uL (1.4-7.4); Neutrophils % 74.3 % (38.7-73.9); Platelet Count 134 T/CUMM (130-400); Red Cell Distribution Width 26.4 % (9.3-17.3); White Blood Count 8.8 T/CUMM (4-12)
[2016-06-09 05:06] LABS: Hypochromasia 1+; Ovalocytes 1+; Platelet Estimate Normal
[2016-06-09 05:35] LABS: Albumin 2.7 G/DL (3.4-5.0); Bilirubin,Total 0.7 MG/DL (0.2-1.0); Calcium 8.3 MG/DL (8.5-10.1); Osmolality,Calculated 277.3 MOS/KG (273-304); Phosphorous 2.3 MG/DL (2.5-4.9); Potassium 2.7 MMOL/L (3.5-5.1); Total Protein 6.2 G/DL (6.4-8.3)
[2016-06-09] MEDS: POTASSIUM CHLORIDE RIDER 10 MEQ in PREMIX 1 EACH IV PRN (07:58)
[2016-06-09] MEDS: POTASSIUM CHLORIDE RIDER 20 MEQ in PREMIX 1 EACH IV PRN ×2 (09:03→11:03)
[2016-06-09] MEDS: FAMOTIDINE 20 MG TABLET PO SCH ×2 (09:06→21:14)
[2016-06-09] MEDS: amLODIPine 10 MG TABLET PO SCH (09:06)
[2016-06-09] MEDS: FERROUS SULFATE 325 MG TABLET PO SCH ×2 (09:06→21:14)
[2016-06-09] MEDS: cloNIDine 0.1 MG TABLET PO SCH ×2 (09:06→21:15)
[2016-06-09] MEDS: FOLIC ACID 0.4 MG TABLET PO SCH (09:06)
[2016-06-09] MEDS: LISINOPRIL 20 MG TABLET PO SCH (09:06)
[2016-06-09] MEDS: CHOLECALCIFEROL 1,000 UNIT TABLET PO SCH (09:06)
[2016-06-09] MEDS: acetaZOLAMIDE 250 MG TABLET PO SCH ×2 (09:06→21:14)
[2016-06-09] MEDS: DESITIN 4OZ/NYSTATIN 15 GRAM MIXTURE PASTE TOP SCH ×2 (09:07→21:16)
[2016-06-09] MEDS: ENOXAPARIN 40 MG/0.4 ML SYRINGE SUBCUT SCH (09:07)
[2016-06-09] MEDS: ACETAMINOPHEN 325 MG TABLET PO PRN (09:10)
--- NOTE | 2016-06-09 10:16 | Hospitalist Progress Note ---
<Jose Johnson - Last Filed: 06/09/16 10:13> Assessment and Plan (1) Acute and chronic respiratory failure with hypercapnia Status: Acute Assessment and plan: Supplemental oxygen in use; continue C-pap at HS as ordered per Pulmonary. Current Visit: Yes (2) Diarrhea Status: Resolved Assessment and plan: No episodes noted. Current Visit: Yes (3) Pulmonary hypertension Status: Acute Assessment and plan: Managed per Pulmonary. Current Visit: Yes (4) Strep throat Status: Acute Assessment and plan: Clindamycin completed. Current Visit: Yes (5) Hypokalemia Status: Acute Assessment and plan: Potassium 2.7 today; will replace and re-check in AM. Current Visit: Yes Hospitalist: Subjective Interval history: Patient seen and examined. No significant overnight events reported. Potassium at 2.7 today; will replace and recheck in AM. Awaiting swing bed placement. Exam - Constitutional Vitals: Period Temp Pulse Resp BP Sys/Watts Pulse Ox Last 24 Hr 97.3 F-98.4 F 89-100 18-20 126-155/70-84 93-98 General appearance: morbidly obese - Head Head exam: Present: normal inspection, normocephalic, atraumatic - Eye Eye exam: Present: EOMI. Absent: conjunctival injection Pupils: Present: BRIAN, normal accommodation - ENT ENT exam: Present: normal exam, normal external ear exam, normal oropharynx - Neck Neck exam: Present: normal inspection. Absent: lymphadenopathy, meningismus, tenderness, thyromegaly - Respiratory Respiratory exam: Present: clear to auscultation bilaterally. Absent: rales, rhonchi, stridor, wheezes - Cardiovascular Cardiovascular exam: Present: regular rate and rhythm. Absent: carotid bruit, diastolic murmur, gallop, JVD, rubs, systolic murmur - GI/Abdominal GI/Abdominal exam: Present: normal bowel sounds, soft. Absent: mass, tenderness - Extremities Exam Extremities exam: Present: normal inspection, normal capillary refill, full ROM , edema (+3 bilateral lower extremities) - Back Exam Back exam: Present: normal inspection - Neurological Exam Neurological exam: Present: alert, oriented X3, CN II-XII intact - Psychiatric Psychiatric exam: Present: normal affect, normal mood - Skin Skin exam: Present: normal color, warm, dry Results - Labs CBC & BMP: 06/09/16 03:53 06/09/16 03:53 Lab Results: I have reviewed the past 24 hour labs Specialty Discharge - Follow Up or Referrals Follow up with: Vicky Danielle MD [Physician] - 07/16/16 10:15 am <Sunny Tran - Last Filed: 06/09/16 11:43> Exam - Constitutional Vitals: Period Temp Pulse Resp BP Sys/Watts Pulse Ox Last 24 Hr 97.3 F-98.4 F 89-100 18-20 126-155/70-84 93-98 Results - Labs CBC & BMP: 06/09/16 03:53 06/09/16 03:53
[2016-06-09] MEDS ORDERED: POTASSIUM CHLORIDE 20 MEQ TABLET PO ONE (17:00)
[2016-06-10] MEDS: ALBUTEROL/IPRATROPIUM 3 ML NEB RESP TX SCH ×4 (00:40→19:23)
[2016-06-10 02:11] LABS: Basophils % 0.5 % (0.0-0.8); Eosinophils # 0.5 10*3/uL (0.0-0.87); Eosinophils % 5.7 % (0.00-10.9); Hematocrit 36.6 VOL% (35.7-47.0); Hemoglobin 10.4 GM/DL (12.0-16.0); Immature Granulocytes % 0.3 %; Immature Granulocytes Absolute 0.03 #; Lymphocytes # 0.8 10*3/uL (1.4-4.0); Lymphocytes % 9.3 % (21.3-54.2); Mean Corpuscular HGB Conc 28.4 GM/DL (32-36); Mean Corpuscular Hemoglobin 21 PG (27-34); Mean Corpuscular Volume 74.2 FL (87-102); Monocytes # 0.8 10*3/uL (0.11-0.8); Monocytes % 9.2 % (1.7-12.7); Neutrophils # 6.5 10*3/uL (1.4-7.4); Platelet Count 109 T/CUMM (130-400); Red Blood Count 4.93 MC/CUMM (3.8-5.5); Red Cell Distribution Width 26.5 % (9.3-17.3); White Blood Count 8.6 T/CUMM (4-12)
[2016-06-10 02:51] LABS: Albumin 2.6 G/DL (3.4-5.0); Bilirubin,Total 0.6 MG/DL (0.2-1.0); Calcium 8.1 MG/DL (8.5-10.1); Magnesium 1.9 MG/DL (1.8-2.4); Osmolality,Calculated 278.3 MOS/KG (273-304); Phosphorous 2.6 MG/DL (2.5-4.9); Total Protein 6.2 G/DL (6.4-8.3)
[2016-06-10] MEDS: POTASSIUM CHLORIDE RIDER 20 MEQ in PREMIX 1 EACH IV PRN ×4 (05:07→21:26)
[2016-06-10] MEDS: CHOLECALCIFEROL 1,000 UNIT TABLET PO SCH (09:01)
[2016-06-10] MEDS: FOLIC ACID 0.4 MG TABLET PO SCH (09:01)
[2016-06-10] MEDS: amLODIPine 10 MG TABLET PO SCH (09:01)
[2016-06-10] MEDS: ENOXAPARIN 40 MG/0.4 ML SYRINGE SUBCUT SCH (09:01)
[2016-06-10] MEDS: acetaZOLAMIDE 250 MG TABLET PO SCH ×2 (09:02→21:24)
[2016-06-10] MEDS: FAMOTIDINE 20 MG TABLET PO SCH ×2 (09:02→21:24)
[2016-06-10] MEDS: cloNIDine 0.1 MG TABLET PO SCH ×2 (09:02→21:24)
[2016-06-10] MEDS: DESITIN 4OZ/NYSTATIN 15 GRAM MIXTURE PASTE TOP SCH ×2 (09:02→21:25)
[2016-06-10] MEDS: FERROUS SULFATE 325 MG TABLET PO SCH ×2 (09:02→21:24)
[2016-06-10] MEDS: POTASSIUM CHLORIDE RIDER 10 MEQ in PREMIX 1 EACH IV PRN (09:13)
[2016-06-10] MEDS: LISINOPRIL 20 MG TABLET PO SCH (09:13)
--- NOTE | 2016-06-10 09:47 | Hospitalist Progress Note ---
Assessment and Plan (1) Acute and chronic respiratory failure with hypercapnia Status: Acute Assessment and plan: Pt. on nasal cannula. CPap at HS. Arrangements being made for home/swingbed cpap. Pt. stable at present. Current Visit: Yes (2) Hypokalemia Status: Acute Assessment and plan: K 3.0 this am. Protocol in place; patient receiving infusion. Current Visit: Yes (3) Hypothyroidism Status: Acute Current Visit: Yes (4) Morbid obesity Status: Chronic Current Visit: Yes Qualifiers: Obesity type: due to excess calories Qualified Code(s): E66.01 - Morbid ( severe) obesity due to excess calories (5) Strep throat Status: Acute Assessment and plan: Antibiotic therapy completed. Current Visit: Yes Hospitalist: Subjective Interval history: Pt. seen and examined. No distress noted. Pt. reported no complaints. VS stable except for fever noted (100.1). Will monitor. K+ low but protocol in place and pt is receiving infusion. Pt. awaiting swingbed. Exam - Constitutional Vitals: Period Temp Pulse Resp BP Sys/Watts Pulse Ox Last 24 Hr 97.3 F-100.1 F 79-99 18-20 121-135/62-83 94-100 General appearance: no acute distress, morbidly obese - Head Head exam: Present: normal inspection, normocephalic - Eye Eye exam: Present: EOMI Pupils: Present: BRIAN - Neck Neck exam: Present: normal inspection - Respiratory Respiratory exam: Present: clear to auscultation bilaterally - Cardiovascular Cardiovascular exam: Present: regular rate and rhythm - GI/Abdominal GI/Abdominal exam: Present: normal bowel sounds, soft. Absent: tenderness, rebound - Extremities Exam Extremities exam: Present: normal capillary refill, edema - Neurological Exam Neurological exam: Present: alert, oriented X3 - Psychiatric Psychiatric exam: Present: normal affect, normal mood - Skin Skin exam: Present: normal color, warm, dry Results - Labs CBC & BMP: 06/10/16 01:46 06/10/16 01:46 Lab Results: I have reviewed the past 24 hour labs Specialty Discharge - Follow Up or Referrals Follow up with: Vicky Danielle MD [Physician] - 07/16/16 10:15 am
[2016-06-11] MEDS: ALBUTEROL/IPRATROPIUM 3 ML NEB RESP TX SCH ×4 (00:10→19:49)
[2016-06-11] MEDS: FOLIC ACID 0.4 MG TABLET PO SCH (10:16)
[2016-06-11] MEDS: acetaZOLAMIDE 250 MG TABLET PO SCH ×2 (10:17→20:45)
[2016-06-11] MEDS: cloNIDine 0.1 MG TABLET PO SCH ×2 (10:17→20:28)
[2016-06-11] MEDS: LISINOPRIL 20 MG TABLET PO SCH (10:17)
[2016-06-11] MEDS: CHOLECALCIFEROL 1,000 UNIT TABLET PO SCH (10:17)
[2016-06-11] MEDS: FERROUS SULFATE 325 MG TABLET PO SCH ×2 (10:17→20:45)
[2016-06-11] MEDS: FAMOTIDINE 20 MG TABLET PO SCH ×2 (10:17→20:45)
[2016-06-11] MEDS: amLODIPine 10 MG TABLET PO SCH (10:17)
[2016-06-11] MEDS: ENOXAPARIN 40 MG/0.4 ML SYRINGE SUBCUT SCH (10:18)
--- NOTE | 2016-06-11 13:36 | Hospitalist Progress Note ---
Hospitalist: Subjective Interval history: No new complaints. Denies fever, pain, SOB, lightheadedness, dizziness. Last BM today. No melena or BRBPR. Tolerating po well. Awaiting rehab Exam - Constitutional Vitals: Period Temp Pulse Resp BP Sys/Watts Pulse Ox Last 24 Hr 98.0 F-100.1 F 87-103 16-20 116-135/63-84 96-100 Exam: General : morbidly obese, lying in the bed. NAD Cardiovascular : RRR no M Lungs: CTAB nonlabored Abdomen: soft, NT, ND. Difficult to assess for HSM or masses given body habitus. Ext: Warm no c/c/e. +hyperpigmentation on shins Results - Labs CBC & BMP: 06/10/16 01:46 06/11/16 03:49 Lab Results: I have reviewed the past 24 hour labs - Impressions (1) Acute and chronic respiratory failure with hypercapnia-it appears patient may be at her new baseline. Status: Acute Assessment and plan: Pt. on nasal cannula. CPap at HS. Arrangements being made for home/swingbed cpap. Pt. stable at present. Current Visit: Yes (2) Hypokalemia Status: Acute Assessment and plan: K improved to 3.5 . Check mag and phosphorus and replace as needed. Current Visit: Yes (3) Hypothyroidism Status: Acute Current Visit: Yes -Continue current therapy (4) Morbid obesity Status: Chronic Current Visit: Yes Qualifiers: Obesity type: due to excess calories Qualified Code(s): E66.01 - Morbid ( severe) obesity due to excess calories -Weight loss and dietary/physical modifications recommended (5) Strep throat Status: Acute Assessment and plan: Antibiotic therapy completed. Current Visit: Yes (6) Diarrhea-noninfectious per recent workup -Welchol as needed Discussed with the patient, nurse, showcase trimmer. Awaiting rehab arrangement. Specialty Discharge - Follow Up or Referrals Follow up with: Vicky Danielle MD [Physician] - 07/16/16 10:15 am
[2016-06-11] MEDS: DESITIN 4OZ/NYSTATIN 15 GRAM MIXTURE PASTE TOP SCH ×2 (16:53→20:46)
[2016-06-12] MEDS: ALBUTEROL/IPRATROPIUM 3 ML NEB RESP TX SCH ×4 (01:18→19:30)
[2016-06-12] MEDS: amLODIPine 10 MG TABLET PO SCH (08:49)
[2016-06-12] MEDS: acetaZOLAMIDE 250 MG TABLET PO SCH ×2 (08:49→20:33)
[2016-06-12] MEDS: FERROUS SULFATE 325 MG TABLET PO SCH ×2 (08:49→20:33)
[2016-06-12] MEDS: cloNIDine 0.1 MG TABLET PO SCH ×2 (08:49→20:33)
[2016-06-12] MEDS: FOLIC ACID 0.4 MG TABLET PO SCH (08:49)
[2016-06-12] MEDS: FAMOTIDINE 20 MG TABLET PO SCH ×2 (08:50→20:34)
[2016-06-12] MEDS: CHOLECALCIFEROL 1,000 UNIT TABLET PO SCH (08:50)
[2016-06-12] MEDS: LISINOPRIL 20 MG TABLET PO SCH (08:50)
[2016-06-12] MEDS: ENOXAPARIN 40 MG/0.4 ML SYRINGE SUBCUT SCH (09:00)
[2016-06-12] MEDS: DESITIN 4OZ/NYSTATIN 15 GRAM MIXTURE PASTE TOP SCH ×3 (09:21→21:18)
--- NOTE | 2016-06-12 09:56 | Hospitalist Progress Note ---
Hospitalist: Subjective Interval history: No new complaints. No significant overnight events noted/reported. Exam - Constitutional Vitals: Period Temp Pulse Resp BP Sys/Watts Pulse Ox Last 24 Hr 97.8 F-99.1 F 89-103 18-20 97-134/40-83 93-100 Exam: General : morbidly obese, lying in the bed. NAD Cardiovascular : RRR no M Lungs: CTAB nonlabored Abdomen: soft, NT, ND. Difficult to assess for HSM or masses given body habitus. Ext: Warm no c/c/e. +hyperpigmentation on shins Results - Labs CBC & BMP: 06/10/16 01:46 06/11/16 03:49 - Impressions (1) Acute and chronic respiratory failure with hypercapnia-it appears patient may be at her new baseline. Status: Acute Assessment and plan: Pt. on nasal cannula. CPap at HS. Arrangements being made for home/swingbed cpap. Pt. stable at present. Current Visit: Yes (2) Hypokalemia Status: Acute Assessment and plan: K improved to 3.5 . Mag and phosphorus are normal. Current Visit: Yes (3) Hypothyroidism Status: Acute Current Visit: Yes -Continue current therapy (4) Morbid obesity Status: Chronic Current Visit: Yes Qualifiers: Obesity type: due to excess calories Qualified Code(s): E66.01 - Morbid ( severe) obesity due to excess calories -Weight loss and dietary/physical modifications recommended (5) Strep throat Status: Acute Assessment and plan: Antibiotic therapy completed. Current Visit: Yes (6) Diarrhea-noninfectious per recent workup -Welchol as needed Discussed with the patient and nurse. Awaiting rehab arrangement. Specialty Discharge - Follow Up or Referrals Follow up with: Vicky Danielle MD [Physician] - 07/16/16 10:15 am
[2016-06-13 04:38] LABS: Basophils % 0.3 % (0.0-0.8); Eosinophils # 0.2 10*3/uL (0.0-0.87); Eosinophils % 4.1 % (0.00-10.9); Hematocrit 35.1 VOL% (35.7-47.0); Hemoglobin 10.1 GM/DL (12.0-16.0); Immature Granulocytes % 0.3 %; Immature Granulocytes Absolute 0.02 #; Lymphocytes # 0.8 10*3/uL (1.4-4.0); Lymphocytes % 13.7 % (21.3-54.2); Mean Corpuscular HGB Conc 28.8 GM/DL (32-36); Mean Corpuscular Hemoglobin 21 PG (27-34); Mean Platelet Volume 10.9 FL (9.6-12.0); Monocytes # 0.7 10*3/uL (0.11-0.8); Monocytes % 12.7 % (1.7-12.7); Neutrophils % 68.9 % (38.7-73.9); Platelet Count 126 T/CUMM (130-400); Red Blood Count 4.81 MC/CUMM (3.8-5.5); Red Cell Distribution Width 26.5 % (9.3-17.3); White Blood Count 5.8 T/CUMM (4-12)
[2016-06-13] MEDS: ALBUTEROL/IPRATROPIUM 3 ML NEB RESP TX SCH ×4 (04:54→20:17)
[2016-06-13 05:14] LABS: Hypochromasia 1+; Platelet Estimate Normal
[2016-06-13 05:21] LABS: Calcium 8.4 MG/DL (8.5-10.1); Osmolality,Calculated 280.1 MOS/KG (273-304); Potassium 3.2 MMOL/L (3.5-5.1)
[2016-06-13] MEDS: acetaZOLAMIDE 250 MG TABLET PO SCH ×2 (08:44→20:01)
[2016-06-13] MEDS: FAMOTIDINE 20 MG TABLET PO SCH ×2 (08:44→20:01)
[2016-06-13] MEDS: amLODIPine 10 MG TABLET PO SCH (08:44)
[2016-06-13] MEDS: FOLIC ACID 0.4 MG TABLET PO SCH (08:44)
[2016-06-13] MEDS: CHOLECALCIFEROL 1,000 UNIT TABLET PO SCH (08:44)
[2016-06-13] MEDS: LISINOPRIL 20 MG TABLET PO SCH (08:44)
[2016-06-13] MEDS: cloNIDine 0.1 MG TABLET PO SCH ×2 (08:44→20:01)
[2016-06-13] MEDS: FERROUS SULFATE 325 MG TABLET PO SCH ×2 (08:44→20:01)
[2016-06-13] MEDS: DESITIN 4OZ/NYSTATIN 15 GRAM MIXTURE PASTE TOP SCH ×2 (08:45→21:32)
[2016-06-13] MEDS: ENOXAPARIN 40 MG/0.4 ML SYRINGE SUBCUT SCH (09:02)
--- NOTE | 2016-06-13 12:36 | Hospitalist Progress Note ---
Hospitalist: Subjective Interval history: Patient had low-grade temp earlier today without an increase in heart rate or respiratory rate. No significant overnight events reported. She did have bowel movement earlier today and is tolerating oral intake well. Exam - Constitutional Vitals: Period Temp Pulse Resp BP Sys/Watts Pulse Ox Last 24 Hr 98.3 F-99.3 F 86-99 18-20 122-146/65-88 95-100 Exam: General : morbidly obese, lying in the bed. NAD Cardiovascular : RRR no M Lungs: CTAB nonlabored Abdomen: soft, NT, ND. Difficult to assess for HSM or masses given body habitus. Ext: Warm no c/c/e. +hyperpigmentation on shins Results - Labs CBC & BMP: 06/13/16 03:52 06/13/16 03:52 - Impressions (1) Acute and chronic respiratory failure with hypercapnia-it appears patient may be at her new baseline. Status: Acute Assessment and plan: Pt. on nasal cannula. CPap at HS. Arrangements being made for home/swingbed cpap. Pt. stable at present. Current Visit: Yes (2) Hypokalemia- resolved Status: Acute Assessment and plan: K improved to 3.5 . Mag and phosphorus are normal. Current Visit: Yes (3) Hypothyroidism Status: Acute Current Visit: Yes -Continue current therapy (4) Morbid obesity Status: Chronic Current Visit: Yes Qualifiers: Obesity type: due to excess calories Qualified Code(s): E66.01 - Morbid ( severe) obesity due to excess calories -Weight loss and dietary/physical modifications recommended (5) Strep throat Status: Acute Assessment and plan: Antibiotic therapy completed. Current Visit: Yes (6) Diarrhea-noninfectious per recent workup -Welchol as needed Discussed with the patient and community case manager. Difficult placement due to weight. Awaiting rehab arrangement. Specialty Discharge - Follow Up or Referrals Follow up with: Vicky Danielle MD [Physician] - 07/16/16 10:15 am
[2016-06-13] MEDS: NYSTATIN POWDER 15 GM BOTTLE TOP SCH ×2 (21:09→21:32)
[2016-06-14] MEDS: ALBUTEROL/IPRATROPIUM 3 ML NEB RESP TX SCH ×4 (05:17→20:39)
[2016-06-14] MEDS: NYSTATIN POWDER 15 GM BOTTLE TOP SCH ×2 (09:15→20:15)
[2016-06-14] MEDS: ENOXAPARIN 40 MG/0.4 ML SYRINGE SUBCUT SCH (09:40)
[2016-06-14] MEDS: FOLIC ACID 0.4 MG TABLET PO SCH (09:40)
[2016-06-14] MEDS: acetaZOLAMIDE 250 MG TABLET PO SCH ×2 (09:41→20:14)
[2016-06-14] MEDS: FAMOTIDINE 20 MG TABLET PO SCH ×2 (09:41→20:15)
[2016-06-14] MEDS: CHOLECALCIFEROL 1,000 UNIT TABLET PO SCH (09:41)
[2016-06-14] MEDS: FERROUS SULFATE 325 MG TABLET PO SCH ×2 (09:41→20:14)
[2016-06-14] MEDS: cloNIDine 0.1 MG TABLET PO SCH ×2 (09:41→20:15)
[2016-06-14] MEDS: amLODIPine 10 MG TABLET PO SCH (09:41)
[2016-06-14] MEDS: LISINOPRIL 20 MG TABLET PO SCH (09:41)
[2016-06-14] MEDS: DESITIN 4OZ/NYSTATIN 15 GRAM MIXTURE PASTE TOP SCH ×2 (09:42→20:15)
--- NOTE | 2016-06-14 12:10 | Hospitalist Progress Note ---
Hospitalist: Subjective Interval history: No new complaints. No significant overnight events. She has not asked for Welchol for stool have been loose the last 24hrs per pt. Exam - Constitutional Vitals: Period Temp Pulse Resp BP Sys/Watts Pulse Ox Last 24 Hr 97.2 F-98.4 F 81-98 16-20 102-136/65-80 92-982 Exam: General : morbidly obese, lying in the bed. NAD Cardiovascular : RRR no M Lungs: CTAB nonlabored Abdomen: soft, NT, ND. Difficult to assess for HSM or masses given body habitus. Ext: Warm no c/c/e. +hyperpigmentation on shins Results - Labs CBC & BMP: 06/13/16 03:52 06/13/16 03:52 - Impressions (1) Acute and chronic respiratory failure with hypercapnia-it appears patient may be at her new baseline. Status: Acute Assessment and plan: Pt. on nasal cannula. CPap at HS. Arrangements being made for home/swingbed cpap. Pt. stable at present. Current Visit: Yes (2) Hypokalemia- resolved Status: Acute Assessment and plan: K improved to 3.5 . Mag and phosphorus are normal. Current Visit: Yes (3) Hypothyroidism Status: Acute Current Visit: Yes -Continue current therapy (4) Morbid obesity Status: Chronic Current Visit: Yes Qualifiers: Obesity type: due to excess calories Qualified Code(s): E66.01 - Morbid ( severe) obesity due to excess calories -Weight loss and dietary/physical modifications recommended (5) Strep throat Status: Acute Assessment and plan: Antibiotic therapy completed. Current Visit: Yes (6) Diarrhea-noninfectious per recent workup -Welchol as needed Discussed with the patient. No changes. Awaiting placement. Difficult placement due to weight. Specialty Discharge - Follow Up or Referrals Follow up with: Vicky Danielle MD [Physician] - 07/16/16 10:15 am
[2016-06-15] MEDS: ALBUTEROL/IPRATROPIUM 3 ML NEB RESP TX SCH ×4 (00:06→19:50)
[2016-06-15] MEDS: acetaZOLAMIDE 250 MG TABLET PO SCH ×2 (10:26→20:17)
[2016-06-15] MEDS: cloNIDine 0.1 MG TABLET PO SCH ×2 (10:26→20:17)
[2016-06-15] MEDS: CHOLECALCIFEROL 1,000 UNIT TABLET PO SCH (10:26)
[2016-06-15] MEDS: FERROUS SULFATE 325 MG TABLET PO SCH ×2 (10:27→20:17)
[2016-06-15] MEDS: amLODIPine 10 MG TABLET PO SCH (10:27)
[2016-06-15] MEDS: ENOXAPARIN 40 MG/0.4 ML SYRINGE SUBCUT SCH (10:27)
[2016-06-15] MEDS: FOLIC ACID 0.4 MG TABLET PO SCH (10:27)
[2016-06-15] MEDS: FAMOTIDINE 20 MG TABLET PO SCH ×2 (10:27→20:17)
[2016-06-15] MEDS: LISINOPRIL 20 MG TABLET PO SCH (10:27)
[2016-06-15] MEDS: DESITIN 4OZ/NYSTATIN 15 GRAM MIXTURE PASTE TOP SCH ×2 (10:28→21:35)
[2016-06-15] MEDS: NYSTATIN POWDER 15 GM BOTTLE TOP SCH ×2 (10:28→21:35)
--- NOTE | 2016-06-15 13:32 | Hospitalist Progress Note ---
Hospitalist: Subjective Interval history: No new issues/ complaints. Exam - Constitutional Vitals: Period Temp Pulse Resp BP Sys/Watts Pulse Ox Last 24 Hr 98.8 F-99.0 F 61-98 16-20 112-140/63-80 93-100 Exam: General : morbidly obese, lying in the bed. NAD Cardiovascular : RRR no M Lungs: CTAB nonlabored Abdomen: soft, NT, ND. Difficult to assess for HSM or masses given body habitus. Ext: Warm no c/c/e. +hyperpigmentation on shins Results - Labs CBC & BMP: 06/13/16 03:52 06/13/16 03:52 - Impressions (1) Acute and chronic respiratory failure with hypercapnia-it appears patient may be at her new baseline. Status: Acute Assessment and plan: Pt. on nasal cannula. CPap at HS. Arrangements being made for home/swingbed cpap. Pt. stable at present. Current Visit: Yes (2) Hypokalemia- Status: Acute Assessment and plan: recheck labs in am and replace as needed. Current Visit: Yes (3) Hypothyroidism Status: Acute Current Visit: Yes -Continue current therapy (4) Morbid obesity with BMI of 92 Status: Chronic Current Visit: Yes Qualifiers: Obesity type: due to excess calories Qualified Code(s): E66.01 - Morbid ( severe) obesity due to excess calories -Weight loss and dietary/physical modifications recommended (5) Strep throat Status: Acute Assessment and plan: Antibiotic therapy completed. Current Visit: Yes (6) Diarrhea-noninfectious per recent workup -Welchol as needed (7) Chronic diastolic CHF with TR - On Acetozolomide, ACEi (8) Severe pulmonary hypertension - mgt per pulm (9) Possible REAGAN - needs sleep study upon discharge Discussed with the patient. No changes. Awaiting placement. Difficult placement due to weight. I will be away several days. One of my associates will follow in my absence. Specialty Discharge - Follow Up or Referrals Follow up with: Vicky Danielle MD [Physician] - 07/16/16 10:15 am
[2016-06-16] MEDS: ALBUTEROL/IPRATROPIUM 3 ML NEB RESP TX SCH ×4 (00:35→18:59)
[2016-06-16 07:56] LABS: Magnesium 2.1 MG/DL (1.8-2.4); Phosphorous 3.8 MG/DL (2.5-4.9); Potassium 3.3 MMOL/L (3.5-5.1)
[2016-06-16] MEDS: CHOLECALCIFEROL 1,000 UNIT TABLET PO SCH (08:31)
[2016-06-16] MEDS: cloNIDine 0.1 MG TABLET PO SCH ×2 (08:31→20:35)
[2016-06-16] MEDS: FOLIC ACID 0.4 MG TABLET PO SCH (08:31)
[2016-06-16] MEDS: FERROUS SULFATE 325 MG TABLET PO SCH ×2 (08:31→20:35)
[2016-06-16] MEDS: amLODIPine 10 MG TABLET PO SCH (08:31)
[2016-06-16] MEDS: LISINOPRIL 20 MG TABLET PO SCH (08:32)
[2016-06-16] MEDS: acetaZOLAMIDE 250 MG TABLET PO SCH ×2 (08:32→20:35)
[2016-06-16] MEDS: DESITIN 4OZ/NYSTATIN 15 GRAM MIXTURE PASTE TOP SCH ×2 (08:32→20:36)
[2016-06-16] MEDS: POTASSIUM CHLORIDE RIDER 20 MEQ in PREMIX 1 EACH IV PRN ×2 (08:32→10:53)
[2016-06-16] MEDS: FAMOTIDINE 20 MG TABLET PO SCH ×2 (08:32→20:36)
[2016-06-16] MEDS: NYSTATIN POWDER 15 GM BOTTLE TOP SCH ×2 (08:32→20:36)
[2016-06-16] MEDS: ENOXAPARIN 40 MG/0.4 ML SYRINGE SUBCUT SCH (09:29)
--- NOTE | 2016-06-16 10:57 | Hospitalist Progress Note ---
Assessment and Plan - Time spent with patient Time spent with patient: Less than 30 minutes (1) Acute and chronic respiratory failure with hypercapnia Status: Acute Assessment and plan: Patient is now on nasal cannula and CPAP nightly to every morning. Patient is currently stable at present and arrangements are being made for placement. Current Visit: Yes (2) CHF (congestive heart failure) Status: Chronic Assessment and plan: Currently compensated. Continue current medical regimen. Current Visit: Yes Qualifiers: Congestive heart failure type: diastolic (3) Morbid obesity Status: Chronic Assessment and plan: Continue to recommend weight loss Current Visit: Yes Qualifiers: Obesity type: due to excess calories Qualified Code(s): E66.01 - Morbid ( severe) obesity due to excess calories (4) Unspecified sleep apnea Status: Chronic Assessment and plan: Patient possibly has sleep apnea. Sleep study has been recommended at discharge. Current Visit: Yes (5) Hypothyroidism Status: Chronic Assessment and plan: Continue current medical regimen. Current Visit: Yes (6) Pulmonary hypertension Status: Chronic Assessment and plan: Followed by pulmonary. Continue current medical regimen. Current Visit: Yes (7) Hypokalemia Status: Acute Assessment and plan: Supplementing potassium with repeat level in a.m. Current Visit: Yes Hospitalist: Subjective Interval history: Patient has absolutely no complaints today. Chart is been reviewed and plans noted. Exam - Constitutional Vitals: Period Temp Pulse Resp BP Sys/Watts Pulse Ox Last 24 Hr 98 F-99.3 F 78-108 12-25 106-140/63-68 95-100 General appearance: no acute distress, morbidly obese - Head Head exam: Present: normocephalic, atraumatic - Eye Eye exam: Present: EOMI Pupils: Present: BRIAN - ENT ENT exam: Present: normal exam - Neck Neck exam: Present: normal inspection - Respiratory Respiratory exam: Present: clear to auscultation bilaterally. Absent: rales, rhonchi, wheezes - Cardiovascular Cardiovascular exam: Present: regular rate and rhythm. Absent: tachycardia - GI/Abdominal GI/Abdominal exam: Present: normal bowel sounds, soft. Absent: tenderness, rebound - Extremities Exam Extremities exam: Present: normal capillary refill. Absent: calf tenderness - Back Exam Back exam: Present: normal inspection - Neurological Exam Neurological exam: Present: alert, oriented X3, CN II-XII intact. Absent: motor sensory deficit - Psychiatric Psychiatric exam: Present: normal affect, normal mood. Absent: agitated, anxious - Skin Skin exam: Present: warm, dry. Absent: rash Results - Labs CBC & BMP: 06/13/16 03:52 06/16/16 07:03 Lab Results: I have reviewed the past 24 hour labs Specialty Discharge - Follow Up or Referrals Follow up with: Vicky Danielle MD [Physician] - 07/16/16 10:15 am
[2016-06-16] MEDS: POTASSIUM CHLORIDE 20 MEQ TABLET PO SCH ×2 (11:22→20:36)
[2016-06-17] MEDS: ALBUTEROL/IPRATROPIUM 3 ML NEB RESP TX SCH ×4 (00:17→19:26)
[2016-06-17 06:41] LABS: Calcium 7.8 MG/DL (8.5-10.1); Magnesium 2.2 MG/DL (1.8-2.4); Osmolality,Calculated 278.3 MOS/KG (273-304); Potassium 3.7 MMOL/L (3.5-5.1)
[2016-06-17 06:45] LABS: Basophils % 0.4 % (0.0-0.8); Eosinophils # 0.1 10*3/uL (0.0-0.87); Hemoglobin 9.8 GM/DL (12.0-16.0); Immature Granulocytes % 0.7 %; Immature Granulocytes Absolute 0.05 #; Lymphocytes % 14.3 % (21.3-54.2); Mean Corpuscular HGB Conc 28.3 GM/DL (32-36); Mean Corpuscular Hemoglobin 21 PG (27-34); Mean Corpuscular Volume 74.7 FL (87-102); Mean Platelet Volume 10.9 FL (9.6-12.0); Monocytes # 0.9 10*3/uL (0.11-0.8); Monocytes % 12.7 % (1.7-12.7); Neutrophils # 4.7 10*3/uL (1.4-7.4); Neutrophils % 70.9 % (38.7-73.9); Platelet Count 189 T/CUMM (130-400); Red Blood Count 4.63 MC/CUMM (3.8-5.5); White Blood Count 6.7 T/CUMM (4-12)
[2016-06-17 06:51] LABS: Hematocrit 34.6 VOL% (35.7-47.0)
[2016-06-17 07:01] LABS: Hypochromasia 2+; Target Cells Slight
[2016-06-17 07:02] LABS: Burr Cells Slight
[2016-06-17] MEDS: acetaZOLAMIDE 250 MG TABLET PO SCH ×2 (10:05→20:48)
[2016-06-17] MEDS: CHOLECALCIFEROL 1,000 UNIT TABLET PO SCH (10:06)
[2016-06-17] MEDS: POTASSIUM CHLORIDE 20 MEQ TABLET PO SCH (10:07)
[2016-06-17] MEDS: FOLIC ACID 0.4 MG TABLET PO SCH (10:07)
[2016-06-17] MEDS: amLODIPine 10 MG TABLET PO SCH (10:08)
[2016-06-17] MEDS: FERROUS SULFATE 325 MG TABLET PO SCH ×2 (10:08→20:48)
[2016-06-17] MEDS: FAMOTIDINE 20 MG TABLET PO SCH ×2 (10:08→20:48)
[2016-06-17] MEDS: NYSTATIN POWDER 15 GM BOTTLE TOP SCH ×2 (10:09→20:48)
[2016-06-17] MEDS: DESITIN 4OZ/NYSTATIN 15 GRAM MIXTURE PASTE TOP SCH ×2 (10:12→20:48)
[2016-06-17] MEDS: ENOXAPARIN 40 MG/0.4 ML SYRINGE SUBCUT SCH (10:13)
--- NOTE | 2016-06-17 14:26 | Hospitalist Progress Note ---
Assessment and Plan (1) Morbid obesity Status: Chronic Assessment and plan: Continue to recommend weight loss. Current Visit: Yes Qualifiers: Obesity type: due to excess calories Qualified Code(s): E66.01 - Morbid ( severe) obesity due to excess calories (2) Acute and chronic respiratory failure with hypercapnia Status: Acute Assessment and plan: Resolved. Continue with CPAP nightly. Awaiting rehab placement. Current Visit: Yes (3) Unspecified sleep apnea Status: Chronic Assessment and plan: Recommend a formal sleep study evaluation at discharge. Current Visit: Yes (4) CHF (congestive heart failure) Status: Chronic Assessment and plan: Compensated. No acute issues. Current Visit: Yes Qualifiers: Congestive heart failure type: diastolic (5) Hypokalemia Status: Acute Assessment and plan: Resolved. Current Visit: Yes Hospitalist: Subjective Interval history: Ms. Ho has been evaluated and is in no distress. She has no complaints. We are awaiting placement. Exam - Constitutional Vitals: Period Temp Pulse Resp BP Sys/Watts Pulse Ox Last 24 Hr 97.2 F-98.9 F 91-101 18-24 108-124/47-74 95-100 General appearance: no acute distress, morbidly obese - Head Head exam: Present: normal inspection, normocephalic, atraumatic - Eye Eye exam: Present: EOMI - Respiratory Respiratory exam: Present: clear to auscultation bilaterally. Absent: rales, rhonchi, wheezes - Cardiovascular Cardiovascular exam: Present: regular rate and rhythm. Absent: rubs, systolic murmur - GI/Abdominal GI/Abdominal exam: Present: normal bowel sounds, soft. Absent: distended, tenderness - Neurological Exam Neurological exam: Present: alert, oriented X3, CN II-XII intact - Psychiatric Psychiatric exam: Present: normal affect, normal mood - Skin Skin exam: Present: normal color, warm, dry Results - Labs CBC & BMP: 06/17/16 05:33 06/17/16 05:33 Specialty Discharge - Follow Up or Referrals Follow up with: Vicky Danielle MD [Physician] - 07/16/16 10:15 am
[2016-06-18] MEDS: ALBUTEROL/IPRATROPIUM 3 ML NEB RESP TX SCH ×4 (00:29→19:51)
[2016-06-18] MEDS: cloNIDine 0.1 MG TABLET PO SCH ×4 (07:40→20:26)
--- NOTE | 2016-06-18 08:12 | Hospitalist Progress Note ---
Assessment and Plan (1) Obesity hypoventilation syndrome Status: Chronic Assessment and plan: Presentation with hypercapnic respiratory failure. Echocardiogram and CT angiogram are consistent with cor pulmonale. Current Visit: Yes (2) Hypothyroidism Status: Chronic Assessment and plan: TSH level 5.3 at admission. Patient's admitting laboratory work showed a markedly decreased folic acid level and severely depressed vitamin D level. Current Visit: Yes Hospitalist: Subjective Interval history: 45-year-old female with severely elevated body mass index was admitted with hypercapnic respiratory failure May 11. She required intubation and mechanical ventilation. An echocardiogram showed normal global LV systolic performance with RVSP of 75-[address] scan of the on admission demonstrated no pulmonary emboli there was however evidence of anasarca consistent with active cor pulmonale (BNP was normal likely reflective of increased body mass index). He demonstrated elevated cardiac troponin I levels but without evolution during the early portion of her hospitalization. She has been anticipated for outpatient sleep study to document obstructive sleep apnea. In the interim she has been using CPAP at bedtime for respiratory support. She last evening had a temperature maximum of 100.1 oxygen saturation is been normal and vital signs otherwise are stable. She reports that her breathing seems to be back to normal for her. Exam - Constitutional Vitals: Period Temp Pulse Resp BP Sys/Watts Pulse Ox Last 24 Hr 98.3 F-100.4 F 79-108 16-20 113-143/67-97 93-99 General appearance: morbidly obese - Respiratory Respiratory exam: Present: clear to auscultation bilaterally. Absent: rales, rhonchi, wheezes - Cardiovascular Cardiovascular exam: Present: regular rate and rhythm - Neurological Exam Neurological exam: Present: alert, oriented X3 Results - Labs CBC & BMP: 06/17/16 05:33 06/17/16 05:33 Specialty Discharge - Follow Up or Referrals Follow up with: Vicky Danielle MD [Physician] - 07/16/16 10:15 am
[2016-06-18] MEDS: FOLIC ACID 0.4 MG TABLET PO SCH (10:08)
[2016-06-18] MEDS: ENOXAPARIN 40 MG/0.4 ML SYRINGE SUBCUT SCH (10:08)
[2016-06-18] MEDS: CHOLECALCIFEROL 1,000 UNIT TABLET PO SCH (10:08)
[2016-06-18] MEDS: COLESEVELAM 625 MG TABLET PO PRN (10:08)
[2016-06-18] MEDS: POTASSIUM CHLORIDE 20 MEQ TABLET PO SCH (10:09)
[2016-06-18] MEDS: FERROUS SULFATE 325 MG TABLET PO SCH ×2 (10:09→20:26)
[2016-06-18] MEDS: FAMOTIDINE 20 MG TABLET PO SCH ×2 (10:09→20:26)
[2016-06-18] MEDS: acetaZOLAMIDE 250 MG TABLET PO SCH ×2 (10:09→20:26)
[2016-06-18] MEDS: LISINOPRIL 20 MG TABLET PO SCH ×2 (10:09→10:10)
[2016-06-18] MEDS: amLODIPine 10 MG TABLET PO SCH (10:10)
[2016-06-18] MEDS: NYSTATIN POWDER 15 GM BOTTLE TOP SCH ×2 (10:18→20:26)
[2016-06-18] MEDS: DESITIN 4OZ/NYSTATIN 15 GRAM MIXTURE PASTE TOP SCH ×2 (10:19→20:26)
[2016-06-19] MEDS: ALBUTEROL/IPRATROPIUM 3 ML NEB RESP TX SCH ×4 (00:53→18:55)
--- NOTE | 2016-06-19 07:39 | Hospitalist Progress Note ---
Assessment and Plan (1) Obesity hypoventilation syndrome Status: Chronic Assessment and plan: Presentation with hypercapnic respiratory failure. Echocardiogram and CT angiogram are consistent with cor pulmonale. Current Visit: Yes (2) Hypothyroidism Status: Chronic Assessment and plan: TSH level 5.3 at admission. Patient's admitting laboratory work showed a markedly decreased folic acid level and severely depressed vitamin D level. These issues have been addressed during the hospital stay Current Visit: Yes Hospitalist: Subjective Interval history: 45-year-old female with severely elevated body mass index admitted with hypercapnic respiratory failure on 11 May. She was intubated and mechanically ventilated. An echocardiogram showed normal global left ventricular systolic performance with right ventricular systolic pressure of 75- 80 mmHg. This combined with a CT scan demonstrating anasarca supports the diagnosis of cor pulmonale. Her cardiac troponin I levels were elevated but did not evolve. Vital signs are stable overnight no fever was present she is breathing comfortably. Outpatient sleep evaluation is anticipated in the interim she is using pressure support at night. Social service notes are reviewed regarding disposition. Exam - Constitutional Vitals: Period Temp Pulse Resp BP Sys/Watts Pulse Ox Last 24 Hr 97.9 F-98.8 F 82-104 16-20 120-138/63-87 92-100 General appearance: morbidly obese - Respiratory Respiratory exam: Present: clear to auscultation bilaterally. Absent: rales, rhonchi, wheezes - Cardiovascular Cardiovascular exam: Present: regular rate and rhythm, systolic murmur (1/6 aortic flow murmur at the) - Neurological Exam Neurological exam: Present: alert, oriented X3 Results - Labs CBC & BMP: 06/17/16 05:33 06/19/16 05:08 Specialty Discharge - Follow Up or Referrals Follow up with: Vicky Danielle MD [Physician] - 07/16/16 10:15 am
[2016-06-19] MEDS: ENOXAPARIN 40 MG/0.4 ML SYRINGE SUBCUT SCH (09:51)
[2016-06-19] MEDS: FAMOTIDINE 20 MG TABLET PO SCH ×2 (09:51→21:43)
[2016-06-19] MEDS: CHOLECALCIFEROL 1,000 UNIT TABLET PO SCH (09:51)
[2016-06-19] MEDS: acetaZOLAMIDE 250 MG TABLET PO SCH ×2 (09:51→21:43)
[2016-06-19] MEDS: FOLIC ACID 0.4 MG TABLET PO SCH (09:51)
[2016-06-19] MEDS: POTASSIUM CHLORIDE 20 MEQ TABLET PO SCH (09:51)
[2016-06-19] MEDS: amLODIPine 10 MG TABLET PO SCH (09:51)
[2016-06-19] MEDS: COLESEVELAM 625 MG TABLET PO PRN (09:51)
[2016-06-19] MEDS: FERROUS SULFATE 325 MG TABLET PO SCH ×2 (09:51→21:43)
[2016-06-19] MEDS: LISINOPRIL 20 MG TABLET PO SCH (09:52)
[2016-06-19] MEDS: cloNIDine 0.1 MG TABLET PO SCH ×2 (09:52→21:43)
[2016-06-19] MEDS: DESITIN 4OZ/NYSTATIN 15 GRAM MIXTURE PASTE TOP SCH ×2 (09:53→21:44)
[2016-06-19] MEDS: NYSTATIN POWDER 15 GM BOTTLE TOP SCH ×2 (09:53→21:44)
[2016-06-20] MEDS: ALBUTEROL/IPRATROPIUM 3 ML NEB RESP TX SCH ×4 (00:25→20:02)
--- NOTE | 2016-06-20 07:37 | Hospitalist Progress Note ---
Assessment and Plan (1) Obesity hypoventilation syndrome Status: Chronic Assessment and plan: Presentation with hypercapnic respiratory failure. Echocardiogram and CT angiogram are consistent with cor pulmonale. Interim use of CPAP pending outpatient evaluation for obstructive sleep apnea. Current Visit: Yes (2) Hypothyroidism Status: Chronic Assessment and plan: TSH level 5.3 at admission. Patient's admitting laboratory work showed a markedly decreased folic acid level and severely depressed vitamin D level. These issues have been addressed during the hospital stay Current Visit: Yes Hospitalist: Subjective Interval history: 45-year-old female with severely elevated body mass index admitted with hypercapnic respiratory failure on 11 May. She required intubation mechanical ventilation. She has been successfully removed from the artificial ventilation using CPAP at night on the presumption she likely has obstructive sleep apnea. Sleep study as an outpatient as scheduled. On echocardiographic evaluation her left ventricular systolic performance was intact however her right ventricular systolic pressure was 75-[address] scan showing subcutaneous edema pattern consistent with cor pulmonale. She did show signs of right ventricular strain with a nonevolving cardiac troponin I level but no evidence of pulmonary embolus on CT angiogram. She is being evaluated for rehab placement. Her vital signs remained stable she is afebrile. Exam - Constitutional Vitals: Period Temp Pulse Resp BP Sys/Watts Pulse Ox Last 24 Hr 97.8 F-98.9 F 87-102 16-20 119-142/75-83 92-99 General appearance: morbidly obese - Respiratory Respiratory exam: Present: clear to auscultation bilaterally. Absent: rales, rhonchi, wheezes - Cardiovascular Cardiovascular exam: Present: regular rate and rhythm - GI/Abdominal GI/Abdominal exam: Present: normal bowel sounds. Absent: tenderness - Neurological Exam Neurological exam: Present: alert, oriented X3 Results - Labs CBC & BMP: 06/17/16 05:33 06/19/16 05:08 Specialty Discharge - Follow Up or Referrals Follow up with: Vicky Danielle MD [Physician] - 07/16/16 10:15 am
[2016-06-20] MEDS: cloNIDine 0.1 MG TABLET PO SCH ×2 (09:18→20:21)
[2016-06-20] MEDS: LISINOPRIL 20 MG TABLET PO SCH (09:18)
[2016-06-20] MEDS: ENOXAPARIN 40 MG/0.4 ML SYRINGE SUBCUT SCH (09:18)
[2016-06-20] MEDS: COLESEVELAM 625 MG TABLET PO PRN (09:18)
[2016-06-20] MEDS: amLODIPine 10 MG TABLET PO SCH (09:20)
[2016-06-20] MEDS: CHOLECALCIFEROL 1,000 UNIT TABLET PO SCH (09:21)
[2016-06-20] MEDS: NYSTATIN POWDER 15 GM BOTTLE TOP SCH ×2 (09:21→20:21)
[2016-06-20] MEDS: acetaZOLAMIDE 250 MG TABLET PO SCH ×2 (09:21→20:21)
[2016-06-20] MEDS: POTASSIUM CHLORIDE 20 MEQ TABLET PO SCH (09:21)
[2016-06-20] MEDS: FOLIC ACID 0.4 MG TABLET PO SCH (09:21)
[2016-06-20] MEDS: FAMOTIDINE 20 MG TABLET PO SCH ×2 (09:21→20:21)
[2016-06-20] MEDS: DESITIN 4OZ/NYSTATIN 15 GRAM MIXTURE PASTE TOP SCH ×2 (09:21→20:21)
[2016-06-20] MEDS: FERROUS SULFATE 325 MG TABLET PO SCH ×2 (09:21→20:20)
[2016-06-20 11:17] LABS: Calcium 8.5 MG/DL (8.5-10.1); Osmolality,Calculated 272.5 MOS/KG (273-304); Potassium 4.3 MMOL/L (3.5-5.1)
[2016-06-20 11:19] LABS: Basophils % 0.4 % (0.0-0.8); Eosinophils # 0.1 10*3/uL (0.0-0.87); Eosinophils % 1.7 % (0.00-10.9); Hemoglobin 10.3 GM/DL (12.0-16.0); Immature Granulocytes % 0.5 %; Immature Granulocytes Absolute 0.04 #; Lymphocytes % 12.6 % (21.3-54.2); Mean Corpuscular HGB Conc 28.2 GM/DL (32-36); Mean Corpuscular Hemoglobin 21 PG (27-34); Mean Corpuscular Volume 75.3 FL (87-102); Mean Platelet Volume 9.9 FL (9.6-12.0); Monocytes # 0.8 10*3/uL (0.11-0.8); Monocytes % 10.8 % (1.7-12.7); Neutrophils # 5.6 10*3/uL (1.4-7.4); Platelet Count 285 T/CUMM (130-400); Red Blood Count 4.85 MC/CUMM (3.8-5.5); Red Cell Distribution Width 26.1 % (9.3-17.3); White Blood Count 7.5 T/CUMM (4-12)
[2016-06-20 11:20] LABS: Hematocrit 36.5 VOL% (35.7-47.0)
[2016-06-20 11:25] LABS: Hypochromasia 1+; Microcytosis 1+
[2016-06-20 11:26] LABS: Platelet Estimate Normal
[2016-06-21] MEDS: ALBUTEROL/IPRATROPIUM 3 ML NEB RESP TX SCH ×3 (01:39→13:28)
[2016-06-21 04:20] LABS: Basophils % 0.5 % (0.0-0.8); Eosinophils # 0.2 10*3/uL (0.0-0.87); Hematocrit 34.4 VOL% (35.7-47.0); Hemoglobin 9.4 GM/DL (12.0-16.0); Immature Granulocytes % 0.5 %; Immature Granulocytes Absolute 0.04 #; Lymphocytes # 1.3 10*3/uL (1.4-4.0); Mean Corpuscular HGB Conc 27.3 GM/DL (32-36); Mean Corpuscular Hemoglobin 21 PG (27-34); Mean Corpuscular Volume 75.8 FL (87-102); Mean Platelet Volume 9.7 FL (9.6-12.0); Monocytes # 0.8 10*3/uL (0.11-0.8); Monocytes % 11.1 % (1.7-12.7); Neutrophils # 5.1 10*3/uL (1.4-7.4); Neutrophils % 68.9 % (38.7-73.9); Platelet Count 305 T/CUMM (130-400); Red Blood Count 4.54 MC/CUMM (3.8-5.5); Red Cell Distribution Width 26.1 % (9.3-17.3); White Blood Count 7.5 T/CUMM (4-12)
[2016-06-21 04:52] LABS: Albumin 2.2 G/DL (3.4-5.0); Bilirubin,Total 1.2 MG/DL (0.2-1.0); Calcium 8.3 MG/DL (8.5-10.1); Magnesium 2.1 MG/DL (1.8-2.4); Osmolality,Calculated 277.3 MOS/KG (273-304); Phosphorous 3.9 MG/DL (2.5-4.9)
[2016-06-21] MEDS: FERROUS SULFATE 325 MG TABLET PO SCH ×2 (09:13→21:23)
[2016-06-21] MEDS: CHOLECALCIFEROL 1,000 UNIT TABLET PO SCH (09:13)
[2016-06-21] MEDS: POTASSIUM CHLORIDE 20 MEQ TABLET PO SCH (09:14)
[2016-06-21] MEDS: acetaZOLAMIDE 250 MG TABLET PO SCH ×2 (09:15→21:23)
[2016-06-21] MEDS: FAMOTIDINE 20 MG TABLET PO SCH ×2 (09:15→21:23)
[2016-06-21] MEDS: FOLIC ACID 0.4 MG TABLET PO SCH (09:15)
[2016-06-21] MEDS: ENOXAPARIN 40 MG/0.4 ML SYRINGE SUBCUT SCH (11:33)
[2016-06-21] MEDS: amLODIPine 10 MG TABLET PO SCH (11:35)
[2016-06-21] MEDS: cloNIDine 0.1 MG TABLET PO SCH ×2 (11:36→21:23)
[2016-06-21] MEDS: DESITIN 4OZ/NYSTATIN 15 GRAM MIXTURE PASTE TOP SCH ×2 (11:37→21:24)
[2016-06-21] MEDS: LISINOPRIL 20 MG TABLET PO SCH (12:21)
--- NOTE | 2016-06-21 14:49 | Hospitalist Progress Note ---
<Jose Johnson - Last Filed: 06/21/16 14:46> Assessment and Plan (1) Acute and chronic respiratory failure with hypercapnia Status: Acute Assessment and plan: Supplemental oxygen in use; continue C-pap at HS as ordered per Pulmonary. Current Visit: Yes (2) Diarrhea Status: Resolved Assessment and plan: No episodes noted. Current Visit: Yes (3) Pulmonary hypertension Status: Chronic Assessment and plan: Managed per Pulmonary. Current Visit: Yes (4) Strep throat Status: Resolved Assessment and plan: Clindamycin completed. Current Visit: Yes (5) Hypokalemia Status: Resolved Assessment and plan: Potassium 2.7 today; will replace and re-check in AM. Current Visit: Yes Hospitalist: Subjective Interval history: Patient seen and examined. No significant overnight events reported. Awaiting swing bed or SNF placement. Exam - Constitutional Vitals: Period Temp Pulse Resp BP Sys/Watts Pulse Ox Last 24 Hr 97.1 F-98.6 F 91-115 18-20 103-135/69-81 94-100 General appearance: morbidly obese - Head Head exam: Present: normal inspection, normocephalic, atraumatic - Eye Eye exam: Present: EOMI. Absent: conjunctival injection, nystagmus Pupils: Present: BRIAN, normal accommodation - ENT ENT exam: Present: normal exam, normal external ear exam, normal oropharynx - Neck Neck exam: Present: normal inspection. Absent: lymphadenopathy, meningismus, tenderness, thyromegaly - Respiratory Respiratory exam: Present: decreased breath sounds. Absent: rales, rhonchi, stridor, wheezes - Cardiovascular Cardiovascular exam: Present: bradycardia, regular rate and rhythm. Absent: carotid bruit, diastolic murmur, gallop, irregular rhythm, JVD, rubs, systolic murmur, tachycardia - GI/Abdominal GI/Abdominal exam: Present: normal bowel sounds, soft, other (obese) - Extremities Exam Extremities exam: Present: edema (+3 edema) - Back Exam Back exam: Present: normal inspection - Neurological Exam Neurological exam: Present: alert, oriented X3 - Psychiatric Psychiatric exam: Present: normal affect, normal mood - Skin Skin exam: Present: normal color, warm, dry Results - Labs CBC & BMP: 06/21/16 03:28 06/21/16 03:28 Lab Results: I have reviewed the past 24 hour labs Specialty Discharge - Follow Up or Referrals Follow up with: Vicky Danielle MD [Physician] - 07/16/16 10:15 am <Kirit Avina - Last Filed: 06/21/16 15:06> Assessment and Plan (1) Ataxia Status: Acute Assessment and plan: Patient has been seen interviewed and examined. I agree with the documentation in the border of the note above. However I do not find a reason as to why this patient cannot necessitating her placement. Believe we need an evaluation and recommendation from a neurologist. Since it appears this inability to walk is rather acute subacute one wonders whether she has a myelopathy or peripheral neurologic events. She does not seem to have focal neurologic deficits assessment about a full neurologic evaluation is necessary to document absence of any treatable causes. Therefore put in a neurology consult. Current Visit: Yes Exam - Constitutional Vitals: Period Temp Pulse Resp BP Sys/Watts Pulse Ox Last 24 Hr 97.1 F-98.6 F 91-115 18-20 103-135/69-81 94-100 Results - Labs CBC & BMP: 06/21/16 03:28 06/21/16 03:28
[2016-06-21] MEDS: NYSTATIN POWDER 15 GM BOTTLE TOP SCH ×2 (19:38→21:24)
[2016-06-22] MEDS: ALBUTEROL/IPRATROPIUM 3 ML NEB RESP TX SCH ×5 (01:15→20:05)
[2016-06-22] MEDS: LISINOPRIL 20 MG TABLET PO SCH (08:27)
[2016-06-22] MEDS: acetaZOLAMIDE 250 MG TABLET PO SCH ×2 (08:27→21:12)
[2016-06-22] MEDS: FOLIC ACID 0.4 MG TABLET PO SCH (08:27)
[2016-06-22] MEDS: POTASSIUM CHLORIDE 20 MEQ TABLET PO SCH (08:27)
[2016-06-22] MEDS: CHOLECALCIFEROL 1,000 UNIT TABLET PO SCH (08:27)
[2016-06-22] MEDS: amLODIPine 10 MG TABLET PO SCH (08:28)
[2016-06-22] MEDS: FAMOTIDINE 20 MG TABLET PO SCH ×2 (08:28→21:13)
[2016-06-22] MEDS: cloNIDine 0.1 MG TABLET PO SCH ×2 (08:28→21:13)
[2016-06-22] MEDS: FERROUS SULFATE 325 MG TABLET PO SCH ×2 (08:28→21:13)
[2016-06-22] MEDS: NYSTATIN POWDER 15 GM BOTTLE TOP SCH ×2 (08:30→21:15)
[2016-06-22] MEDS: DESITIN 4OZ/NYSTATIN 15 GRAM MIXTURE PASTE TOP SCH ×2 (08:30→21:16)
[2016-06-22 09:20] LABS: Basophils % 0.6 % (0.0-0.8); Eosinophils # 0.1 10*3/uL (0.0-0.87); Eosinophils % 1.8 % (0.00-10.9); Hematocrit 35.8 VOL% (35.7-47.0); Hemoglobin 9.9 GM/DL (12.0-16.0); Immature Granulocytes % 0.7 %; Immature Granulocytes Absolute 0.05 #; Lymphocytes # 0.9 10*3/uL (1.4-4.0); Mean Corpuscular HGB Conc 27.7 GM/DL (32-36); Mean Corpuscular Hemoglobin 21 PG (27-34); Mean Corpuscular Volume 75.4 FL (87-102); Mean Platelet Volume 9.6 FL (9.6-12.0); Monocytes # 0.7 10*3/uL (0.11-0.8); Monocytes % 10.4 % (1.7-12.7); Neutrophils % 73.5 % (38.7-73.9); Platelet Count 338 T/CUMM (130-400); Red Blood Count 4.75 MC/CUMM (3.8-5.5); Red Cell Distribution Width 26.3 % (9.3-17.3); White Blood Count 6.8 T/CUMM (4-12)
[2016-06-22 09:21] LABS: Hypochromasia 1+; Microcytosis Slight; Ovalocytes Slight; Platelet Estimate Adequate
[2016-06-22 09:25] LABS: Albumin 2.2 G/DL (3.4-5.0); Bilirubin,Total 0.5 MG/DL (0.2-1.0); Calcium 8.1 MG/DL (8.5-10.1); Osmolality,Calculated 275.3 MOS/KG (273-304); Phosphorous 3.7 MG/DL (2.5-4.9); Potassium 4.1 MMOL/L (3.5-5.1); Total Protein 6.1 G/DL (6.4-8.3)
--- NOTE | 2016-06-22 09:39 | Hospitalist Progress Note ---
<Susan Johnsonda - Last Filed: 06/22/16 09:37> Assessment and Plan (1) Acute and chronic respiratory failure with hypercapnia Status: Acute Assessment and plan: Supplemental oxygen in use; continue C-pap at HS as ordered per Pulmonary. Current Visit: Yes (2) Diarrhea Status: Resolved Assessment and plan: No episodes noted. Current Visit: Yes (3) Pulmonary hypertension Status: Chronic Assessment and plan: Managed per Pulmonary. Current Visit: Yes (4) Strep throat Status: Resolved Assessment and plan: Clindamycin completed. Current Visit: Yes (5) Hypokalemia Status: Resolved Assessment and plan: Potassium 2.7 today; will replace and re-check in AM. Current Visit: Yes Hospitalist: Subjective Interval history: Patient seen and examined. No significant overnight events reported. Awaiting swing bed or SNF placement. Exam - Constitutional Vitals: Period Temp Pulse Resp BP Sys/Watts Pulse Ox Last 24 Hr 97.4 F-98.1 F 82-115 16-22 111-133/62-80 92-100 General appearance: morbidly obese - Head Head exam: Present: normal inspection, normocephalic, atraumatic - Eye Eye exam: Present: EOMI, conjunctival injection Pupils: Present: BRIAN, normal accommodation - ENT ENT exam: Present: normal exam, normal external ear exam, normal oropharynx - Neck Neck exam: Present: normal inspection. Absent: lymphadenopathy, meningismus, tenderness, thyromegaly - Respiratory Respiratory exam: Present: decreased breath sounds, prolonged expiratory phase. Absent: rales, rhonchi, stridor, wheezes - Cardiovascular Cardiovascular exam: Present: regular rate and rhythm, tachycardia. Absent: carotid bruit, diastolic murmur, gallop, JVD, rubs, systolic murmur - GI/Abdominal GI/Abdominal exam: Present: normal bowel sounds, other (obese) - Extremities Exam Extremities exam: Present: edema (+3 edema noted lower legs) - Back Exam Back exam: Present: normal inspection - Neurological Exam Neurological exam: Present: alert, oriented X3, CN II-XII intact - Psychiatric Psychiatric exam: Present: normal affect, normal mood - Skin Skin exam: Present: normal color, warm, dry Results - Labs CBC & BMP: 06/22/16 07:59 06/22/16 07:59 Lab Results: I have reviewed the past 24 hour labs Specialty Discharge - Follow Up or Referrals Follow up with: Vicky Danielle MD [Physician] - 07/16/16 10:15 am <Kirit Avina - Last Filed: 06/22/16 11:44> Assessment and Plan (1) Ataxia Status: Acute Current Visit: Yes Hospitalist: Subjective Interval history: Addendum to the above note. Patient was seen interviewed and examined. Agree with what is documented above. Exam - Constitutional Vitals: Period Temp Pulse Resp BP Sys/Watts Pulse Ox Last 24 Hr 97.8 F-98.1 F 82-104 16-22 111-131/62-80 92-100 Results - Labs CBC & BMP: 06/22/16 07:59 06/22/16 07:59
[2016-06-22] MEDS: ENOXAPARIN 40 MG/0.4 ML SYRINGE SUBCUT SCH (11:20)
[2016-06-23] MEDS: ALBUTEROL/IPRATROPIUM 3 ML NEB RESP TX SCH ×4 (00:10→19:22)
[2016-06-23 06:18] LABS: Basophils % 0.5 % (0.0-0.8); Eosinophils # 0.1 10*3/uL (0.0-0.87); Eosinophils % 1.9 % (0.00-10.9); Hematocrit 37.1 VOL% (35.7-47.0); Hemoglobin 10.6 GM/DL (12.0-16.0); Immature Granulocytes % 0.7 %; Immature Granulocytes Absolute 0.05 #; Lymphocytes % 13.1 % (21.3-54.2); Mean Corpuscular HGB Conc 28.6 GM/DL (32-36); Mean Corpuscular Hemoglobin 21 PG (27-34); Mean Corpuscular Volume 74.3 FL (87-102); Mean Platelet Volume 9.7 FL (9.6-12.0); Monocytes # 0.8 10*3/uL (0.11-0.8); Monocytes % 10.6 % (1.7-12.7); Neutrophils # 5.4 10*3/uL (1.4-7.4); Neutrophils % 73.2 % (38.7-73.9); Platelet Count 365 T/CUMM (130-400); Red Blood Count 4.99 MC/CUMM (3.8-5.5); Red Cell Distribution Width 26.6 % (9.3-17.3); White Blood Count 7.4 T/CUMM (4-12)
[2016-06-23 06:45] LABS: Alanine Aminotransferase 13 U/L (13-56); Albumin 1.9 G/DL (3.4-5.0); Alkaline Phosphatase 27 U/L (45-117); Aspartate Amino Transferase 19 U/L (0-37); Bilirubin,Total < 0.39 MG/DL (0.2-1.0); Blood Urea Nitrogen 5 MG/DL (7-18); Calcium 7.3 MG/DL (8.5-10.1); Glucose 64 MG/DL (74-106); Osmolality,Calculated 284.6 MOS/KG (273-304); Phosphorous 3.4 MG/DL (2.5-4.9); Potassium 3.5 MMOL/L (3.5-5.1); Sodium 146 MMOL/L (136-145); Total Protein 5.2 G/DL (6.4-8.3)
[2016-06-23] MEDS: FOLIC ACID 0.4 MG TABLET PO SCH (08:40)
[2016-06-23] MEDS: acetaZOLAMIDE 250 MG TABLET PO SCH ×2 (08:40→20:56)
[2016-06-23] MEDS: FAMOTIDINE 20 MG TABLET PO SCH ×2 (08:41→20:52)
[2016-06-23] MEDS: CHOLECALCIFEROL 1,000 UNIT TABLET PO SCH (08:41)
[2016-06-23] MEDS: FERROUS SULFATE 325 MG TABLET PO SCH ×2 (08:42→20:51)
[2016-06-23] MEDS: cloNIDine 0.1 MG TABLET PO SCH ×2 (08:42→20:51)
[2016-06-23] MEDS: amLODIPine 10 MG TABLET PO SCH (08:42)
[2016-06-23] MEDS: POTASSIUM CHLORIDE 20 MEQ TABLET PO SCH (08:43)
--- NOTE | 2016-06-23 09:03 | Hospitalist Progress Note ---
Assessment and Plan (1) Acute and chronic respiratory failure with hypercapnia Status: Acute Assessment and plan: Pt. on nasal cannula. CPap at HS. Arrangements being made for home/swingbed cpap. Pt. stable at present. Current Visit: Yes (2) Hypokalemia Status: Resolved Assessment and plan: K 3.5 today. Current Visit: Yes (3) Hypothyroidism Status: Chronic Current Visit: Yes (4) Morbid obesity Status: Chronic Current Visit: Yes Qualifiers: Obesity type: due to excess calories Qualified Code(s): E66.01 - Morbid ( severe) obesity due to excess calories (5) Strep throat Status: Resolved Assessment and plan: Antibiotic therapy completed. Current Visit: Yes Hospitalist: Subjective Interval history: Pt. seen and examined this morning. Resting comfortably with no complaints. Supplemental O2 in use; pt denies any pain. Glucose noted to be 64 this am; will monitor for hypoglycemia. Awaiting placement at swingbed facility. Exam - Constitutional Vitals: Period Temp Pulse Resp BP Sys/Watts Pulse Ox Last 24 Hr 97.5 F-98.7 F 59-111 14-20 116-122/62-78 95-99 General appearance: no acute distress, morbidly obese - Head Head exam: Present: normal inspection, normocephalic - Eye Eye exam: Present: EOMI. Absent: scleral icterus Pupils: Present: BRIAN. Absent: dilated - Neck Neck exam: Present: normal inspection - Respiratory Respiratory exam: Present: clear to auscultation bilaterally. Absent: wheezes - Cardiovascular Cardiovascular exam: Present: regular rate and rhythm - GI/Abdominal GI/Abdominal exam: Present: normal bowel sounds, soft. Absent: tenderness - Extremities Exam Extremities exam: Present: normal capillary refill, full ROM - Neurological Exam Neurological exam: Present: alert, oriented X3 - Psychiatric Psychiatric exam: Present: normal affect, normal mood - Skin Skin exam: Present: normal color, warm, dry Results - Labs CBC & BMP: 06/23/16 06:23 06/23/16 04:50 Lab Results: I have reviewed the past 24 hour labs Specialty Discharge - Follow Up or Referrals Follow up with: Vicky Danielle MD [Physician] - 07/16/16 10:15 am
[2016-06-23] MEDS: ENOXAPARIN 40 MG/0.4 ML SYRINGE SUBCUT SCH (12:12)
[2016-06-23] MEDS: LISINOPRIL 20 MG TABLET PO SCH (12:14)
[2016-06-23] MEDS: DESITIN 4OZ/NYSTATIN 15 GRAM MIXTURE PASTE TOP SCH ×2 (12:17→20:51)
[2016-06-23] MEDS: NYSTATIN POWDER 15 GM BOTTLE TOP SCH ×2 (15:52→20:52)
[2016-06-23] MEDS: diphenhydrAMINE CAP 25 MG CAPSULE PO PRN (20:51)
[2016-06-24] MEDS: ALBUTEROL/IPRATROPIUM 3 ML NEB RESP TX SCH ×4 (00:07→19:54)
[2016-06-24] MEDS: diphenhydrAMINE CAP 25 MG CAPSULE PO PRN (06:02)
[2016-06-24] MEDS: LISINOPRIL 20 MG TABLET PO SCH (09:44)
[2016-06-24] MEDS: ENOXAPARIN 40 MG/0.4 ML SYRINGE SUBCUT SCH (09:45)
[2016-06-24] MEDS: acetaZOLAMIDE 250 MG TABLET PO SCH ×2 (09:45→21:14)
[2016-06-24] MEDS: FERROUS SULFATE 325 MG TABLET PO SCH ×2 (09:45→21:14)
[2016-06-24] MEDS: CHOLECALCIFEROL 1,000 UNIT TABLET PO SCH (09:45)
[2016-06-24] MEDS: FAMOTIDINE 20 MG TABLET PO SCH ×2 (09:45→21:14)
[2016-06-24] MEDS: POTASSIUM CHLORIDE 20 MEQ TABLET PO SCH (09:45)
[2016-06-24] MEDS: cloNIDine 0.1 MG TABLET PO SCH ×2 (09:45→21:14)
[2016-06-24] MEDS: FOLIC ACID 0.4 MG TABLET PO SCH (09:45)
[2016-06-24] MEDS: amLODIPine 10 MG TABLET PO SCH (09:45)
[2016-06-24] MEDS: DESITIN 4OZ/NYSTATIN 15 GRAM MIXTURE PASTE TOP SCH ×2 (09:46→21:13)
[2016-06-24] MEDS: NYSTATIN POWDER 15 GM BOTTLE TOP SCH ×2 (12:45→21:13)
--- NOTE | 2016-06-24 14:10 | Hospitalist Progress Note ---
Assessment and Plan (1) Ataxia Status: Acute Assessment and plan: Patient has been seen interviewed and examined. I agree with the documentation in the border of the note above. However I do not find a reason as to why this patient cannot necessitating her placement. Believe we need an evaluation and recommendation from a neurologist. Since it appears this inability to walk is rather acute subacute one wonders whether she has a myelopathy or peripheral neurologic events. She does not seem to have focal neurologic deficits assessment about a full neurologic evaluation is necessary to document absence of any treatable causes. Therefore put in a neurology consult. Current Visit: Yes Hospitalist: Subjective Interval history: Patient has been seen interviewed and examined and chart has been needed. No new complaints today but she still is not able to walk patient was found intubated awake able to talk to me without any limitations. She presented to the hospital for a long time initially admitted to the intensive care unit morbidly obese lady who was able to walk at home but after recovering from the acute element she has been unable to walk. System is been trying to get placed in a assisted living and it appears that all [employer] have been met with no positive outcome. The hospital does not know where she can be discharged to; at least as of now. Exam - Constitutional Vitals: Period Temp Pulse Resp BP Sys/Watts Pulse Ox Last 24 Hr 97.8 F-101.6 F 72-109 16-20 100-125/61-77 92-100 General appearance: morbidly obese - Head Head exam: Present: normocephalic, atraumatic - Eye Eye exam: Present: EOMI Pupils: Present: BRIAN - ENT ENT exam: Present: normal oropharynx - Neck Neck exam: Present: normal inspection - Respiratory Respiratory exam: Present: clear to auscultation bilaterally - Cardiovascular Cardiovascular exam: Present: regular rate and rhythm - GI/Abdominal GI/Abdominal exam: Present: normal bowel sounds, soft - Extremities Exam Extremities exam: Present: other (Can move the right lower extremity sound to command but not able to lift it up there is some residual weakness on the left side but she can also move the left foot [id number] wiggle her toes but unable to lift the leg.) - Neurological Exam Neurological exam: Present: alert, oriented X3, CN II-XII intact - Psychiatric Psychiatric exam: Present: normal affect, normal mood - Skin Skin exam: Present: normal color, warm, dry Results - Labs CBC & BMP: 06/23/16 06:23 06/23/16 04:50 Lab Results: I have reviewed the past 24 hour labs Specialty Discharge - Follow Up or Referrals Follow up with: Vicky Danielle MD [Physician] - 07/16/16 10:15 am
--- NOTE | 2016-06-24 15:46 | Neurology Consult Note ---
History of Present Illness History of present illness: 45 year-old -[place]izen [place] female that presents to the ED as a lateral transfer from [facility] for chest pain. She has a rather impressive medical history of hypertension, morbid obesity, and congestive heart failure. She presented to the ED at [facility] for symptoms she described as "cold symptoms". She was evaluated and was noted to have a positive rapid strep screening, BNP of 759 and grossly moderately elevated troponin level at 0.147. She was then transferred to [facility] for continuation of care. She was evaluated was noted to have a troponin level at the time of admission of 1.54. She has been to the hospital for last couple weeks. She noticed that she has developed weakness in the both lower extremities. Weakness is mostly in the left leg than the right leg. She has significant left foot dorsiflexion weakness. She has not been able to get up and do anything. No problems in the upper extremity reported. Home Medications Medication Instructions Recorded Confirmed Type Lisinopril 40 mg PO DAILY 05/11/16 05/11/16 History amLODIPine [Norvasc] 10 mg PO DAILY 05/11/16 05/11/16 History cloNIDine TAB [Catapres Tab] 0.1 mg PO BID 05/11/16 05/11/16 History hydroCHLOROthiazide 12.5 mg PO DAILY 05/11/16 05/11/16 History [Hydrochlorothiazide] Allergies Allergy/AdvReac Type Severity Reaction Status Date / Time No Known Allergies Allergy Verified 05/11/16 09:03 12 point system: reviewed and no additional remarkable complaints except as stated Medical,Surgical,& Family Hx - Medical History Cardio: History of: Hypertension, Cardiovascular Problems (She was noted on echocardiogram to have evidence of pulmonary hypertension) - Social History Smoking Status: Never smoker Frequency of Alcohol Use: None Type of Drug Use: None Exam - Constitutional Vitals: Period Temp Pulse Resp BP Sys/Watts Pulse Ox Last 24 Hr 97.8 F-101.6 F 72-109 16-20 100-125/61-77 92-100 Exam: GENERAL: Patient is in no acute distress. NECK: Neck is supple. There is no JVD. No carotid bruits present. No thyroid masses. CVS: First and second heart sounds are normal. There is no S3 present. Regular rate and rhythm. RESPIRATORY: Lungs are clear to auscultation without any rales or rhonchi. ABDOMEN: Soft and non-tender. Bowel sounds are present. There is no hepatosplenomegaly. EXT: There is no palpable edema. Peripheral pulses are present. Skin: No rashes Central Nervous system: General: Alert, awake and Oriented x 3 Speech: Fluent Comprehension: Intact and normal Facial expressions: Normal Cranial Nerves: CN1/Olfactory: Normal CN II/ Optic: Normal, Visual Morales unreliable CN III, and : BRIAN & EOMI CN V: Normal & intact CN VII: face is symmetric CNVIII: Normal CN XI/X/XI/XII: Intact and Normal Motor: Bulk and Tone is normal. Strength in the right 5/5 Strength in the left 3-4/5 in the left foot dorsiflexion Sensory: Decreased for all the modalities of PP, LT and temp sense Reflexes: 1+ and symmetrical Cerebellar function: Normal finger to nose and heel to faye testing. Toes: Equivocal Gait: Not tested Results - Labs CBC & BMP: 06/23/16 06:23 06/23/16 04:50 Assessment and Plan (1) Weakness of left foot Status: Acute Assessment and plan: Differential diagnosis included stroke, radiculopathy, peroneal nerve injury etc. She is quite deconditioned overall due to current illness We will go ahead and do MRI of the brain if it is possible MRI LS spine without contrast Continue PT and OT Thank you for the count Current Visit: Yes Specialty Discharge - Follow Up or Referrals Follow up with: Vicky Danielle MD [Physician] - 07/16/16 10:15 am
[2016-06-25] MEDS: ALBUTEROL/IPRATROPIUM 3 ML NEB RESP TX SCH ×4 (01:07→18:50)
[2016-06-25] MEDS: FOLIC ACID 0.4 MG TABLET PO SCH (08:40)
[2016-06-25] MEDS: POTASSIUM CHLORIDE 20 MEQ TABLET PO SCH (08:41)
[2016-06-25] MEDS: FERROUS SULFATE 325 MG TABLET PO SCH ×2 (08:41→20:45)
[2016-06-25] MEDS: acetaZOLAMIDE 250 MG TABLET PO SCH ×2 (08:41→20:45)
[2016-06-25] MEDS: cloNIDine 0.1 MG TABLET PO SCH ×2 (08:41→20:44)
[2016-06-25] MEDS: CHOLECALCIFEROL 1,000 UNIT TABLET PO SCH (08:41)
[2016-06-25] MEDS: FAMOTIDINE 20 MG TABLET PO SCH ×2 (08:41→20:45)
[2016-06-25] MEDS: LISINOPRIL 20 MG TABLET PO SCH (08:41)
[2016-06-25] MEDS: amLODIPine 10 MG TABLET PO SCH (08:41)
[2016-06-25] MEDS: NYSTATIN POWDER 15 GM BOTTLE TOP SCH ×2 (08:41→20:47)
[2016-06-25] MEDS: DESITIN 4OZ/NYSTATIN 15 GRAM MIXTURE PASTE TOP SCH ×2 (08:41→20:48)
[2016-06-25] MEDS: ENOXAPARIN 40 MG/0.4 ML SYRINGE SUBCUT SCH (12:32)
--- NOTE | 2016-06-25 14:57 | Hospitalist Progress Note ---
Hospitalist: Subjective Interval history: No new complaints. No significant overnight events noted/reported. No fever. Tolerating po. No cp or SoB. Wearing oxygen as needed. +BM. Unable to do MRI due to weight/ body habitus. Exam - Constitutional Vitals: Period Temp Pulse Resp BP Sys/Watts Pulse Ox Last 24 Hr 97.6 F-99.4 F 90-106 16-22 90-130/57-74 96-100 Exam: General : morbidly obese, lying in the bed. NAD Cardiovascular : RRR no M Lungs: CTAB nonlabored Abdomen: soft, NT, ND. Difficult to assess for HSM or masses given body habitus. Ext: Warm no c/c/e. +hyperpigmentation on shins Results - Labs CBC & BMP: 06/23/16 06:23 06/23/16 04:50 - Impressions (1) Acute and chronic respiratory failure with hypercapnia-it appears patient may be at her new baseline. Status: Acute Assessment and plan: Pt. on nasal cannula. CPap at HS. Arrangements being made for home/swingbed cpap. Pt. stable at present. Current Visit: Yes (2) Hypothyroidism Status: Acute Current Visit: Yes -Continue current therapy (3) Morbid obesity with BMI of 92 Status: Chronic Current Visit: Yes Qualifiers: Obesity type: due to excess calories Qualified Code(s): E66.01 - Morbid ( severe) obesity due to excess calories -Weight loss and dietary/physical modifications recommended (4) Strep throat- resolved Status: Acute Assessment and plan: Antibiotic therapy completed. Current Visit: Yes (6) Diarrhea-noninfectious per recent workup -Welchol as needed (7) Chronic diastolic CHF with TR - On Acetozolomide, ACEi (8) Severe pulmonary hypertension - mgt per pulm (9) Possible REAGAN - needs sleep study upon discharge Discussed with the patient, nurse and case reviewer. Unable to get MRI. Neuro noted reviewed. Awaiting placement. Difficult placement due to weight. Specialty Discharge - Follow Up or Referrals Follow up with: Vicky Danielle MD [Physician] - 07/16/16 10:15 am
[2016-06-26] MEDS: ALBUTEROL/IPRATROPIUM 3 ML NEB RESP TX SCH ×4 (00:57→18:40)
[2016-06-26] MEDS: FOLIC ACID 0.4 MG TABLET PO SCH (09:22)
[2016-06-26] MEDS: FERROUS SULFATE 325 MG TABLET PO SCH ×2 (09:22→21:08)
[2016-06-26] MEDS: POTASSIUM CHLORIDE 20 MEQ TABLET PO SCH (09:22)
[2016-06-26] MEDS: acetaZOLAMIDE 250 MG TABLET PO SCH ×2 (09:22→21:08)
[2016-06-26] MEDS: LISINOPRIL 20 MG TABLET PO SCH (09:22)
[2016-06-26] MEDS: ENOXAPARIN 40 MG/0.4 ML SYRINGE SUBCUT SCH (09:22)
[2016-06-26] MEDS: cloNIDine 0.1 MG TABLET PO SCH ×2 (09:22→21:08)
[2016-06-26] MEDS: FAMOTIDINE 20 MG TABLET PO SCH ×2 (09:23→21:08)
[2016-06-26] MEDS: amLODIPine 10 MG TABLET PO SCH (09:23)
[2016-06-26] MEDS: NYSTATIN POWDER 15 GM BOTTLE TOP SCH ×2 (09:24→21:09)
[2016-06-26] MEDS: DESITIN 4OZ/NYSTATIN 15 GRAM MIXTURE PASTE TOP SCH ×2 (09:24→21:09)
--- NOTE | 2016-06-26 12:24 | Hospitalist Progress Note ---
Hospitalist: Subjective Interval history: Bariatric low air loss mattress is not working. Nursing notified. No new complaints otherwise. Exam - Constitutional Vitals: Period Temp Pulse Resp BP Sys/Watts Pulse Ox Last 24 Hr 97.5 F-98.7 F 94-103 16-20 107-120/55-69 94-99 Exam: General : morbidly obese, lying in the bed. NAD Cardiovascular : RRR no M Lungs: CTAB nonlabored Abdomen: soft, NT, ND. Difficult to assess for HSM or masses given body habitus. Ext: Warm no c/c/e. +hyperpigmentation on shins Results - Labs CBC & BMP: 06/23/16 06:23 06/23/16 04:50 - Impressions (1) Acute and chronic respiratory failure with hypercapnia-it appears patient may be at her new baseline. Status: Acute Assessment and plan: Pt. on nasal cannula. CPap at HS. Arrangements being made for home/swingbed cpap. Pt. stable at present. Current Visit: Yes (2) Hypothyroidism Status: Acute Current Visit: Yes -Continue current therapy (3) Morbid obesity with BMI of 92 Status: Chronic Current Visit: Yes Qualifiers: Obesity type: due to excess calories Qualified Code(s): E66.01 - Morbid ( severe) obesity due to excess calories -Weight loss and dietary/physical modifications recommended (4) Strep throat- resolved Status: Acute Assessment and plan: Antibiotic therapy completed. Current Visit: Yes (6) Diarrhea-noninfectious per recent workup -Welchol as needed (7) Chronic diastolic CHF with TR - On Acetozolomide, ACEi (8) Severe pulmonary hypertension - mgt per pulm (9) Possible REAGAN - needs sleep study upon discharge Discussed with the patient, nurse and returned case inspector. No changes other than bed. Awaiting placement. Difficult placement due to weight. Specialty Discharge - Follow Up or Referrals Follow up with: Vciky Danielle MD [Physician] - 07/16/16 10:15 am
[2016-06-26] MEDS: CHOLECALCIFEROL 1,000 UNIT TABLET PO SCH (15:22)
[2016-06-27] MEDS: diphenhydrAMINE CAP 25 MG CAPSULE PO PRN (06:47)
[2016-06-27] MEDS: ALBUTEROL/IPRATROPIUM 3 ML NEB RESP TX SCH ×4 (07:15→19:54)
[2016-06-27] MEDS: ENOXAPARIN 40 MG/0.4 ML SYRINGE SUBCUT SCH (08:59)
[2016-06-27] MEDS: CHOLECALCIFEROL 1,000 UNIT TABLET PO SCH (08:59)
[2016-06-27] MEDS: COLESEVELAM 625 MG TABLET PO PRN (08:59)
[2016-06-27] MEDS: FERROUS SULFATE 325 MG TABLET PO SCH ×2 (08:59→20:58)
[2016-06-27] MEDS: POTASSIUM CHLORIDE 20 MEQ TABLET PO SCH (09:00)
[2016-06-27] MEDS: acetaZOLAMIDE 250 MG TABLET PO SCH ×2 (09:00→20:58)
[2016-06-27] MEDS: LISINOPRIL 20 MG TABLET PO SCH (09:00)
[2016-06-27] MEDS: amLODIPine 10 MG TABLET PO SCH (09:00)
[2016-06-27] MEDS: FOLIC ACID 0.4 MG TABLET PO SCH (09:00)
[2016-06-27] MEDS: cloNIDine 0.1 MG TABLET PO SCH ×2 (09:00→20:58)
[2016-06-27] MEDS: FAMOTIDINE 20 MG TABLET PO SCH ×2 (09:00→20:58)
[2016-06-27] MEDS: NYSTATIN POWDER 15 GM BOTTLE TOP SCH ×2 (09:01→20:59)
[2016-06-27] MEDS: DESITIN 4OZ/NYSTATIN 15 GRAM MIXTURE PASTE TOP SCH ×2 (09:01→20:59)
--- NOTE | 2016-06-27 12:31 | Hospitalist Progress Note ---
Hospitalist: Subjective Interval history: No new complaints. No significant overnight events. Patient's bed is better functioning. Exam - Constitutional Vitals: Period Temp Pulse Resp BP Sys/Watts Pulse Ox Last 24 Hr 97.3 F-98.2 F 88-107 12-20 113-123/58-74 92-100 Exam: General : morbidly obese, lying in the bed. NAD Cardiovascular : RRR no M Lungs: CTAB nonlabored Abdomen: soft, NT, ND. Difficult to assess for HSM or masses given body habitus. Ext: Warm no c/c/e. +hyperpigmentation on shins Results - Labs CBC & BMP: 06/23/16 06:23 06/23/16 04:50 - Impressions (1) Acute and chronic respiratory failure with hypercapnia-it appears patient may be at her new baseline. Status: Acute Assessment and plan: Pt. on nasal cannula. CPap at HS. Current Visit: Yes (2) Hypothyroidism Status: Acute Current Visit: Yes -Continue current therapy (3) Morbid obesity with BMI of 92 Status: Chronic Current Visit: Yes Qualifiers: Obesity type: due to excess calories Qualified Code(s): E66.01 - Morbid ( severe) obesity due to excess calories -Weight loss and dietary/physical modifications recommended (4) Strep throat- resolved Status: Acute Assessment and plan: Antibiotic therapy completed. Current Visit: Yes (6) Diarrhea-noninfectious per recent workup -Welchol as needed (7) Chronic diastolic CHF with TR - On Acetozolomide, ACEi (8) Severe pulmonary hypertension - mgt per pulm (9) Possible REAGAN - needs sleep study upon discharge Discussed with the patient, nurse and field nurse case manager. I have left a message for the director of case management to call with updates. Cont current therapy for now. Specialty Discharge - Follow Up or Referrals Follow up with: Vicky Danielle MD [Physician] - 07/16/16 10:15 am
[2016-06-27] MEDS: ONDANSETRON 4 MG/2 ML VIAL IV PRN (13:47)
[2016-06-28] MEDS: ALBUTEROL/IPRATROPIUM 3 ML NEB RESP TX SCH ×4 (02:34→20:17)
[2016-06-28] MEDS: amLODIPine 10 MG TABLET PO SCH (10:13)
[2016-06-28] MEDS: CHOLECALCIFEROL 1,000 UNIT TABLET PO SCH (10:13)
[2016-06-28] MEDS: FERROUS SULFATE 325 MG TABLET PO SCH ×2 (10:13→22:03)
[2016-06-28] MEDS: POTASSIUM CHLORIDE 20 MEQ TABLET PO SCH (10:14)
[2016-06-28] MEDS: FAMOTIDINE 20 MG TABLET PO SCH ×2 (10:14→22:03)
[2016-06-28] MEDS: LISINOPRIL 20 MG TABLET PO SCH (10:14)
[2016-06-28] MEDS: acetaZOLAMIDE 250 MG TABLET PO SCH ×2 (10:15→22:03)
[2016-06-28] MEDS: cloNIDine 0.1 MG TABLET PO SCH ×2 (10:15→22:03)
[2016-06-28] MEDS: FOLIC ACID 0.4 MG TABLET PO SCH (10:15)
[2016-06-28] MEDS: ENOXAPARIN 40 MG/0.4 ML SYRINGE SUBCUT SCH (10:18)
[2016-06-28] MEDS: NYSTATIN POWDER 15 GM BOTTLE TOP SCH ×2 (10:20→22:03)
[2016-06-28] MEDS: DESITIN 4OZ/NYSTATIN 15 GRAM MIXTURE PASTE TOP SCH ×2 (10:20→22:03)
--- NOTE | 2016-06-28 13:02 | Discharge Summary ---
Hospital Course - Hospital Course Hospital Course: Patient is a 45-year-old female with a history of hypertension , congestive heart failure, and morbid obesity with a BMI of 71 who presented to the ED as a lateral transfer from [facility] for chest pain and shortness of breath, and "cold symptoms". She was evaluated and was noted to have a positive rapid strep screening, BNP of 759 and grossly moderately elevated troponin level at 0.147. She was then transferred to [facility] for continuation of care. After transfer, troponin level at the time of admission of 1.54. CT angiogram of chest which did not reveal any evidence of large pulmonary emboli. The CT does show cardiomegaly consistent with systolic acute congestive heart failure. Patient was admitted to the telemetry unit for continuation of care. Patient developed worsening shortness of breath and required intubation on 05/12/2016. Pulmonology and cardiology were consulted to assist with her management. Echocardiogram was done and showed ejection fraction 65%. Diastolic parameters are indeterminate. Right ventricular systolic pressure is 79 mmHg. Right ventricle is normal size. The left atrium and right atrium are increased in size. There is a trace of mitral regurgitation. She underwent a fiberoptic bronchoscopy on 05/16 and 05/17 which showed evidence of COPD with retained secretions. Pulmonology recommended not increasing her oxygen above 24% FiO2/1 L nasal cannula and signed off on 2016. She was treated for strep throat with IV clindamycin 1 week. She also reported diarrhea and stool studies were negative for any infection. Welchol was ordered as needed. For chronic diastolic congestive heart failure with moderate tricuspid regurgitation patient was treated with acetazolamide and an ZEN inhibitor. Serial labs remained stable on this therapy. For severe pulmonary hypertension, patient was encouraged to have an outpatient sleep study and was given CPAP during hospitalization. She was noted to have hypothyroidism and was started on Synthroid for this. For her history of morbid obesity with a BMI of 71, weight loss and physical/dietary modifications were recommended. Her hospital course was protracted as multiple attempts for rehab were attempted. Given her weight/body habitus, many facilities declined as they did not have the equipment to best meet her needs. She did participate with physical and Occupational Therapy during hospitalization. Neurology was consulted for acute weakness in the left foot. Differential diagnoses included stroke, radiculopathy, peroneal nerve injury etc. MRI of the brain, and lumbar spine without contrast was ordered however due to her body habitus this was unable to be completed. After a 48 day of hospitalization, patient was discharged to home with home health for ongoing care with the appropriate equipment. - Time spent with patient Time with patient DS: Greater than 30 minutes (48 minutes arranging this discharge) Diagnosis - Discharge Diagnosis (1) Acute and chronic respiratory failure with hypercapnia Status: Acute (2) Elevated troponin Status: Acute (3) Weakness of left foot Status: Acute (4) CHF (congestive heart failure) Status: Chronic (5) Hypothyroidism Status: Chronic (6) Morbid obesity Status: Chronic (7) Obesity hypoventilation syndrome Status: Chronic (8) Pulmonary hypertension Status: Chronic (9) Unspecified sleep apnea Status: Chronic Specialty Discharge - Follow Up or Referrals Follow up with: Juliano Tam MD [Physician] - 1 Month (left foot weakness) Vicky Danielle MD [Physician] - 07/16/16 10:15 am Billy Chris MD [Physician] - 2 Weeks (f/u diastolic CHF and elevated troponin ) , PCP [Other] - 2 Weeks Discharge Plan - Discharge Data Disposition: Home Health Service Condition at Discharge: Stable Discharge Diet: heart healthy Activity: as per physical therapy Contact your physician if you experience:: fever over 101, Difficulty voiding, Redness or swelling, Nausea/Vomiting, Shortness of breath, Bleeding, pain uncontrolled by pain medications - Discharge Medications New Acetaminophen Tab [Tylenol Tab] 650 mg PO Q4H PRN #0 tablet PRN Reason: Temperature greater than 101F Albuterol/Ipratropium Neb [Duoneb] 3 ml RESP TX RT Q6H #120 vial Cholecalciferol [Vitamin D3] 2,000 unit PO DAILY #30 tablet Colesevelam [Welchol] 1,875 mg PO BID W/MEALS PRN #20 tablet PRN Reason: Diarrhea Famotidine Tab [Pepcid Tab] 20 mg PO BID #60 tablet Ferrous Sulfate Tab [Feosol Original Tab] 325 mg PO BID #60 tablet Folic Acid Tab 0.8 mg PO DAILY #30 tablet Potassium Chloride Cap/Tab [K Dur] 20 meq PO DAILY #30 tablet acetaZOLAMIDE TAB [Diamox Tab] 250 mg PO BID #60 tablet Nystatin Powder [Mycostatin Powder] 1 applic TOP BID #60 applic Continue amLODIPine [Norvasc] 10 mg PO DAILY Lisinopril 40 mg PO DAILY cloNIDine TAB [Catapres Tab] 0.1 mg PO BID Discontinued hydroCHLOROthiazide [Hydrochlorothiazide] 12.5 mg PO DAILY - Follow Up or Referral Follow Up: Juliano Tam MD [Physician] - 1 Month (left foot weakness) Vicky Danielle MD [Physician] - 07/16/16 10:15 am - Forms/Instructions Instructions: Heart Failure (DC), Heart Failure (GEN), Heart Healthy Diet (GEN) , Coronary Artery Disease in Women (GEN), Obesity (DC) Exam - Constitutional Vitals: Period Temp Pulse Resp BP Sys/Watts Pulse Ox Last 24 Hr 97.3 F-99.7 F 86-146 17-22 108-133/66-75 96-100 Exam: Please see progress note from June 27, 2016 as her physical exam is unchanged Discharge Results Procedures and tests throughout hospitalization: Pending Orders 05/18/16 04:00 Occult Blood, Stool Routine DS: Provider Date of admission: 05/11/16 07:29 Primary care physician: . No PCP Attending physician on admission: Mateo Pacheco MD Consults: 05/11/16 09:35 Consult to Cardiac Rehabilitation [CONS] Routine Reason for Cardiac Rehabilitation: Risk Factor Modification 05/11/16 09:42 Consult to Wound Care - [place] [CONS] Routine Reason for Wound Care: Other Consult Comment: PATIENT NEEDS BARIATRIC BED DUE TO WEIGHT. 05/11/16 10:08 Consult to Pharmacy [CONS] Routine Reason for Pharmacy Consult: Adjust Meds Renal Funct 05/12/16 08:04 Consult to Physician [CONS] Routine Comment: Vent manager program management Provider: Marcus Paige 05/13/16 09:26 Consult to Dietitian [CONS] Routine Reason for Dietitian: TF-Initiate/Manage Consult Comment: on vent with NG tube 05/20/16 10:19 Consult to Physical Therapy [CONS] Routine Reason for Physical Therapy: Evaluate and Treat Consult Comment: EARLY PROGRESSIVE MOBILITY PROTOCOL 05/26/16 11:37 Consult to Case Mgmt/Social Srvs [CONS] Routine Reason for Case Mgmt/Social Srvs: Discharge Planning Rehab 05/26/16 17:03 Consult to Physical Therapy [CONS] Routine Reason for Physical Therapy: Evaluate and Treat Consult Comment: Evaluate and Treat for Swing Bed Placement. 05/30/16 16:45 Consult to Sleep Center [CONS] Routine Reason for Sleep Center: Sleep Center Physician Consult Comment: morbidly obese, chronic retainer 06/05/16 15:14 Consult to Occupational Therapy [CONS] Routine Reason for Occupational Therapy: Evaluate and Treat Consult Comment: Evaluate and Treat for Swing Bed Placement 06/21/16 15:06 Consult to Physician [CONS] Routine Comment: On-call physician/inability to walk Consulting Provider: Juliano Tam Consulting Provider Notified: Yes When should Consulting Provider be notified: Now Consult to Specialist Group: Neurology When should Consulting Provider be notified: Now Person Notified: cabrera called Date Notified: 06/24/16 Time Notified: 08:52 Discharging clinician: Jane Gutiérrez MD
[2016-06-29] MEDS: ALBUTEROL/IPRATROPIUM 3 ML NEB RESP TX SCH ×2 (00:04→07:01)
--- NOTE | 2016-06-29 08:19 | Hospitalist Progress Note ---
Assessment and Plan (1) Acute and chronic respiratory failure with hypercapnia Status: Acute Current Visit: Yes (2) Elevated troponin Status: Acute Current Visit: Yes (3) Weakness of left foot Status: Acute Current Visit: Yes (4) CHF (congestive heart failure) Status: Chronic Current Visit: Yes Qualifiers: Congestive heart failure type: diastolic (5) Hypothyroidism Status: Chronic Current Visit: Yes (6) Morbid obesity Status: Chronic Current Visit: Yes Qualifiers: Obesity type: due to excess calories Qualified Code(s): E66.01 - Morbid ( severe) obesity due to excess calories (7) Obesity hypoventilation syndrome Status: Chronic Current Visit: Yes (8) Pulmonary hypertension Status: Chronic Current Visit: Yes (9) Unspecified sleep apnea Status: Chronic Current Visit: Yes Exam - Constitutional Vitals: Period Temp Pulse Resp BP Sys/Watts Pulse Ox Last 24 Hr 97.4 F-99 F 90-106 18-91 116-145/69-86 91-100 Exam: General : morbidly obese, lying in the bed. NAD Cardiovascular : RRR no M Lungs: CTAB nonlabored Abdomen: soft, NT, ND. Difficult to assess for HSM or masses given body habitus. Ext: Warm no c/c/e. +hyperpigmentation on shins Results - Labs CBC & BMP: 06/23/16 06:23 06/23/16 04:50 - Impressions (1) Acute and chronic respiratory failure with hypercapnia-it appears patient may be at her new baseline- pt is 97% on RA - Cont CPAP hs. (2) Hypothyroidism Status: Acute Current Visit: Yes -Continue current therapy (3) Morbid obesity with BMI of 92 Status: Chronic Current Visit: Yes Qualifiers: Obesity type: due to excess calories Qualified Code(s): E66.01 - Morbid ( severe) obesity due to excess calories -Weight loss and dietary/physical modifications recommended (4) Chronic diastolic CHF with TR - On Acetozolomide, ACEi (5) Severe pulmonary hypertension likely due to REAGAN - mgt per pulm. needs sleep study upon discharge No change in management. Pt was not dc'd yesterday as I'm told no transportation was available. The machine adjuster leader case trim told me 2 days ago she would have to return home but a note stated her mother stated she was "sick and could not care for her." Cont current management. I left a message for the director of case management to call with updates but did not receive a call back. Cont current therapy for now. I will be away several days. One of my associates will follow in my absence. Specialty Discharge - Follow Up or Referrals Follow up with: , PCP [Other] - 2 Weeks (Please call Friday morning for follow up appointment ) Juliano Tam MD [Physician] - 1 Month (Please call Friday morning for follow up appointment) Vicky Danielle MD [Physician] - 07/16/16 10:15 am Billy Chris MD [Physician] - 2 Weeks (f/u diastolic CHF and elevated troponin Please call Friday morning for follow up appointment)
[2016-06-29 08:20] VITALS: BP 129/75
[2016-06-29] MEDS: FOLIC ACID 0.4 MG TABLET PO SCH (09:48)
[2016-06-29] MEDS: cloNIDine 0.1 MG TABLET PO SCH (09:48)
[2016-06-29] MEDS: LISINOPRIL 20 MG TABLET PO SCH (09:49)
[2016-06-29] MEDS: amLODIPine 10 MG TABLET PO SCH (09:49)
[2016-06-29] MEDS: CHOLECALCIFEROL 1,000 UNIT TABLET PO SCH (09:49)
[2016-06-29] MEDS: POTASSIUM CHLORIDE 20 MEQ TABLET PO SCH (09:50)
[2016-06-29] MEDS: FAMOTIDINE 20 MG TABLET PO SCH (09:50)
[2016-06-29] MEDS: FERROUS SULFATE 325 MG TABLET PO SCH (09:50)
[2016-06-29] MEDS: acetaZOLAMIDE 250 MG TABLET PO SCH (09:50)
[2016-06-29] MEDS: NYSTATIN POWDER 15 GM BOTTLE TOP SCH (09:50)
[2016-06-29] MEDS: DESITIN 4OZ/NYSTATIN 15 GRAM MIXTURE PASTE TOP SCH (09:50)
[2016-06-29] MEDS: ENOXAPARIN 40 MG/0.4 ML SYRINGE SUBCUT SCH (09:51)
== END 2016-06-29 10:20 | disposition home or self-care (01) | DRG 166 ==
LOC: N.ED 05:38 → SUATTDRO 07:29 → N.EDINP 07:47 → N.TELEN 07:55 → N.ICU 14:59 → N.TELES 05-25 13:27 → N.3E 05-29 12:32
PROVIDERS: ADMIT Internal Medicine; ATTEND Pediatrics